=== PATIENT | male | born 1955 | race Caucasian/White ===

== ENCOUNTER 2016-08-21 12:30 | Inpatient (IN) | payer SELFPAY ==
[2016-08-21] VITALS (21 sets, daily range): BP systolic 126–168; BP diastolic 73–102; PULSE 65–185; RESP 16–28; TEMP 97.5–98.4; O2SAT 93–98
[~2016-08-21] VITALS: Ht 177.8 cm; Wt 71.0 kg
[~2016-08-21 12:30] MED LIST: BACT800T5 PO; CEPH500C3 PO; CLIN1CAP5 PO; FLOR250C PO
[2016-08-21] MEDS ORDERED: SODIUM CHLORIDE 0.9% FLUSH 10 ML FLUSH IVF PRN (12:45)
[2016-08-21 12:55] LABS: AUTOMATED NEUTROPHIL # 4.3 TH/MM3 (1.8-7.7); BASOPHIL # 0.2 TH/MM3 (0-0.2); BASOPHIL % 3.9 % (0.0-2.0); EOSINOPHIL % 0.1 % (0.0-4.0); HEMATOCRIT 45.2 % (39.0-51.0); LYMPH % 13.2 % (9.0-44.0); LYMPHOCYTE # 0.8 TH/MM3 (1.0-4.8); MEAN CELL VOLUME 108.3 FL (80.0-100.0); MEAN CORPUSCULAR HEMOGLOBIN 36.6 PG (27.0-34.0); MEAN CORPUSCULAR HGB CONC 33.8 % (32.0-36.0); MONO % 11.2 % (0.0-8.0); NEUT % 71.6 % (16.0-70.0); PLATELET COUNT 81 TH/MM3 (150-450); RED BLOOD COUNT 4.17 MIL/MM3 (4.50-5.90); RED CELL DISTRIBUTION WIDTH 13.2 % (11.6-17.2)
[2016-08-21 12:58] LABS: HEMO FLAGS AUTO DIFF
[2016-08-21] MEDS ORDERED: LORazepam 2 MG/ML VIAL IV PUSH ONE ×2 (13:00→16:15)
[2016-08-21] MEDS ORDERED: SODIUM CHLOR 0.9% 1000 ML INJ 1,000 ML IV ONE (13:00)
[2016-08-21 13:03] LABS: CHLORIDE 102 MEQ/L (98-107); POTASSIUM 3.4 MEQ/L (3.5-5.1); SODIUM (NA) 141 MEQ/L (136-145)
[2016-08-21 13:07] LABS: ANION GAP 15 MEQ/L (5-15); BICARBONATE 24.2 MEQ/L (21.0-32.0); MAGNESIUM 1.6 MG/DL (1.5-2.5)
[2016-08-21 13:08] LABS: BLOOD UREA NITROGEN 20 MG/DL (7-18)
[2016-08-21 13:10] LABS: ALT (GPT) 153 U/L (12-78); AST (GOT) 176 U/L (15-37)
[2016-08-21 13:11] LABS: GLOMERULAR FILTRATION RATE 69 ML/MIN (>89)
--- NOTE | 2016-08-21 13:11 | PD ---
HPI Chief Complaint: Dizziness Time Seen by Provider: 12:51 Travel History International Travel<30 days: No Contact w/Intl Traveler<30days: No Traveled to known affect area: No History of Present Illness HPI 58-year-old male with history of alcohol abuse, seen previously for alcohol withdrawal, presents to the ER today because he has had about 5 days history of syncopal episodes and possible seizure activity last occurring yesterday, but occurring intermittently according to his and other witnesses. He states that he has these episodes and finds himself on the ground. He has several abrasions to his knee and elbow areas. He denies any chest pains, shortness of breath, or any other symptoms. He states that he usually drinks cranberry and tonics, several a day. He states that he has tried to cut back in the last few days. He denies any previous seizure history. Modifying Factors: None Associated Signs & Symptoms: Syncopal episode, questionable seizures, new onset Risk Factors: Alcohol use PFSH Past Medical History Immunizations Current: Yes Social History Alcohol Use: Yes Tobacco Use: Yes (/2 PPD) Substance Use: No Allergies-Medications (Allergen,Severity, Reaction): Coded Allergies: Percocet (Verified Allergy, Severe, Itching, 08/21/16) Reported Meds & Prescriptions Reported Meds & Active Scripts Active No Active Prescriptions or Reported Medications Review of Systems Except as stated in HPI: all other systems reviewed are Neg Physical Exam Narrative GENERAL: Well-developed middle age white female patient currently in no acute distress. Awake and oriented 3. SKIN: Focused skin assessment warm/dry. No significant rashes. HEAD: Atraumatic. Normocephalic. EYES: Pupils equal and round. No scleral icterus. No injection or drainage. ENT: No nasal bleeding or discharge. Mucous membranes pink and moist. NECK: Trachea midline. No JVD. CARDIOVASCULAR: Fast rate and regular rhythm. No murmur appreciated. RESPIRATORY: No accessory muscle use. Clear to auscultation. Breath sounds equal bilaterally. GASTROINTESTINAL: Abdomen soft, non-tender, nondistended. Hepatic and splenic margins not palpable. MUSCULOSKELETAL: No obvious deformities. No clubbing. No cyanosis. No edema. NEUROLOGICAL: Awake and alert. No obvious cranial nerve deficits. Motor grossly within normal limits. Normal speech. PSYCHIATRIC: Appropriate mood and affect; insight and judgment normal. Data Data Last Documented VS Vital Signs Date Time Temp Pulse Resp B/P Pulse Ox O2 Delivery O2 Flow Rate FiO2 08/21/16 14:06 70 16 08/21/16 13:41 128/87 95 08/21/16 12:34 97.5 Orders Electrocardiogram (08/21/16 12:45) Complete Blood Count With Diff (08/21/16 12:45) Comprehensive Metabolic Panel (08/21/16 12:45) Magnesium (Mg) (08/21/16 12:45) Ecg Monitoring (08/21/16 12:45) Iv Access Insert/Monitor (08/21/16 12:45) Oximetry (08/21/16 12:45) Sodium Chloride 0.9% Flush (Ns Flush) (08/21/16 12:45) Drug Screen, Random Urine (08/21/16 12:45) Sodium Chlor 0.9% 1000 Ml Inj (Ns 1000 M (08/21/16 13:00) Ct Brain W/O Iv Contrast(Rout) (08/21/16 12:51) Lorazepam Inj (Ativan Inj) (08/21/16 13:00) Admit Order (Ed Use Only) (08/21/16 14:21) Labs Laboratory Tests Test 08/21/16 12:45 White Blood Count 6.0 TH/MM3 Red Blood Count 4.17 MIL/MM3 Hemoglobin 15.3 GM/DL Hematocrit 45.2 % Mean Corpuscular Volume 108.3 FL Mean Corpuscular Hemoglobin 36.6 PG Mean Corpuscular Hemoglobin 33.8 % Concent Red Cell Distribution Width 13.2 % Platelet Count 81 TH/MM3 Mean Platelet Volume 7.5 FL Neutrophils (%) (Auto) 71.6 % Lymphocytes (%) (Auto) 13.2 % Monocytes (%) (Auto) 11.2 % Eosinophils (%) (Auto) 0.1 % Basophils (%) (Auto) 3.9 % Neutrophils # (Auto) 4.3 TH/MM3 Lymphocytes # (Auto) 0.8 TH/MM3 Monocytes # (Auto) 0.7 TH/MM3 Eosinophils # (Auto) 0.0 TH/MM3 Basophils # (Auto) 0.2 TH/MM3 CBC Comment AUTO DIFF Differential Comment AUTO DIFF CONFIRMED Platelet Estimate LOW Platelet Morphology Comment NORMAL Sodium Level 141 MEQ/L Potassium Level 3.4 MEQ/L Chloride Level 102 MEQ/L Carbon Dioxide Level 24.2 MEQ/L Anion Gap 15 MEQ/L Blood Urea Nitrogen 20 MG/DL Creatinine 1.10 MG/DL Estimat Glomerular Filtration 69 ML/MIN Rate Random Glucose 154 MG/DL Calcium Level 9.1 MG/DL Magnesium Level 1.6 MG/DL Total Bilirubin 1.3 MG/DL Aspartate Amino Transf 176 U/L (AST/SGOT) Alanine Aminotransferase 153 U/L (ALT/SGPT) Alkaline Phosphatase 76 U/L Total Protein 7.6 GM/DL Albumin 3.7 GM/DL MDM Medical Decision Making Medical Screen Exam Complete: Yes Emergency Medical Condition: Yes Medical Record Reviewed: Yes Interpretation(s) Initial EKG shows atrial flutter with uncontrolled ventricular response at a rate of 150 bpm. No signs of acute ST-T changes. Laboratory Tests Test 08/21/16 12:45 Red Blood Count 4.17 MIL/MM3 (4.50-5.90) Mean Corpuscular Volume 108.3 FL (80.0-100.0) Mean Corpuscular Hemoglobin 36.6 PG (27.0-34.0) Platelet Count 81 TH/MM3 (150-450) Neutrophils (%) (Auto) 71.6 % (16.0-70.0) Monocytes (%) (Auto) 11.2 % (0.0-8.0) Basophils (%) (Auto) 3.9 % (0.0-2.0) Lymphocytes # (Auto) 0.8 TH/MM3 (1.0-4.8) Platelet Estimate LOW (NORMAL) Potassium Level 3.4 MEQ/L (3.5-5.1) Blood Urea Nitrogen 20 MG/DL (7-18) Estimat Glomerular Filtration 69 ML/MIN (>89) Rate Random Glucose 154 MG/DL (74-106) Total Bilirubin 1.3 MG/DL (0.2-1.0) Aspartate Amino Transf 176 U/L (15-37) (AST/SGOT) Alanine Aminotransferase 153 U/L (12-78) (ALT/SGPT) Differential Diagnosis Syncope versus seizures versus alcohol withdrawal versus electrolyte abnormalities versus dehydration Narrative Course Initial EKG shows significant near complex tachycardia, appears to be a atrial flutter. IV fluids were initiated in this patient. There is some concern that he may have some underlying alcohol withdrawal. Ativan was also given. And after the Ativan, his heart rate came down to the 80s. Lab work did not indicate significant lateral light abnormalities or dehydration. At this point , my plan would be to admit the patient for further treatment. Case is discussed with Dr. Moreno for admission. I have also discussed the case with patient's friend who takes me aside and states that the patient has been cutting down on alcohol use, states that he is not being honest about how much alcohol he uses. She is also concerned that this could be alcohol withdrawal. Patient has been in previously for alcohol withdrawals. There is concern here of possible DTs. Aggregate critical care time was 30 minutes. Time to perform other separately billable procedures was not included in the critical care time. My time did not include minutes spent treating any other patients simultaneously or on activities that did not directly contribute to the patient's treatment. The services I provided to this patient were to treat and/or prevent clinically significant deterioration that could result in: Worsening tachycardia dysrhythmias, seizures, DTs, I provided critical care services requiring my management, as noted below: Chart data review, documentation time, medication orders and management, vital sign assessments/reviewing monitor data, ordering and reviewing lab tests, ordering and interpreting/reviewing x-rays and diagnostic studies, care of the patient and discussion of the patient with the admitting physicians. Diagnosis Primary Impression: Tachycardia, paroxysmal Additional Impression: Alcohol withdrawal seizure Admitting Information Admitting Physician Requests: Admit Scripts No Active Prescriptions or Reported Meds Paul Stephenson MD Aug 21, 2016 13:11
[2016-08-21 13:12] LABS: TOTAL BILIRUBIN ADULT 1.3 MG/DL (0.2-1.0)
[2016-08-21 13:13] LABS: ALKALINE PHOSPHATASE 76 U/L (45-117)
[2016-08-21 13:18] LABS: PLATELET ESTIMATE SMEAR LOW (NORMAL); PLATELET MORPHOLOGY NORMAL (NORMAL); SCAN/DIFF AUTO DIFF CONFIRMED
--- NOTE | 2016-08-21 13:43 | RADHPO ---
EXAM DATE/TIME: 08/21/2016 13:03 [facility] COMPARISON: No previous studies available for comparison. INDICATIONS : Multiple syncopal episodes over the past week. Cephalgia. RADIATION DOSE: 63.79 CTDIvol (mGy) MEDICAL HISTORY : None SURGICAL HISTORY : None. ENCOUNTER: Initial ACUITY: 1 week PAIN SCALE: 7/10 LOCATION: cranial TECHNIQUE: Multiple contiguous axial images were obtained of the head. Using automated exposure control and adj ustment of the mA and/or kV according to patient size, radiation dose was kept as low as reasonably a chievable to obtain optimal diagnostic quality images. FINDINGS: CEREBRUM: The ventricles are normal for age. No evidence of midline shift, mass lesion, hemorrhage or acute in farction. No extra-axial fluid collections are seen. POSTERIOR FOSSA: The cerebellum and brainstem are intact. The 4th ventricle is midline. The cerebellopontine angle i s unremarkable. EXTRACRANIAL: The visualized portion of the orbits is intact. SKULL: The calvaria is intact. No evidence of skull fracture. CONCLUSION: Normal examination. Edouard Leone MD on August 21, 2016 at 13:40 Board Certified Radiologist. This report was verified electronically.
[2016-08-21] MEDS ORDERED: NALOXONE HCL 0.4 MG/ML AMP IV PRN (14:30)
[2016-08-21] MEDS ORDERED: MAGNESIUM OXIDE 400 MG TAB PO ONE (14:30)
[2016-08-21] MEDS ORDERED: POTASSIUM CHLORIDE 10 MEQ CONTROLLED RELEASE TAB PO ONE (14:30)
[2016-08-21] MEDS ORDERED: LORazepam 2 MG TAB PO PRN (14:30)
[2016-08-21] MEDS ORDERED: HALOPERIDOL LACTATE 5 MG/ML AMP IM PRN (14:30)
[2016-08-21] MEDS ORDERED: MAGNESIUM HYDROXIDE SUSP 30 ML CUP PO PRN (14:30)
[2016-08-21] MEDS ORDERED: FLUMAZENIL 0.5 MG/5 ML VIAL IV PUSH PRN (14:30)
[2016-08-21] MEDS ORDERED: ONDANSETRON HCL 4 MG/2 ML VIAL IVP PRN (14:30)
[2016-08-21] MEDS ORDERED: DILTIAZEM INJ 125 MG in SODIUM CHLORIDE 0.9% INJ 100 ML IV PRN (14:30)
[2016-08-21] MEDS ORDERED: LORazepam 1 MG TAB PO PRN (14:30)
[2016-08-21] MEDS ORDERED: LORazepam 2 MG/ML VIAL IV PUSH PRN ×4 (14:30)
[2016-08-21] MEDS ORDERED: SODIUM CHLORIDE 0.9% FLUSH 10 ML FLUSH IV FLUSH PRN (14:30)
[2016-08-21] MEDS ORDERED: BISACODYL 10 MG SUPP RECTAL PRN (14:30)
[2016-08-21] MEDS: NS + KCL 20 MEQ INJ 1,000 ML IV SCH (15:00)
--- NOTE | 2016-08-21 17:20 | EKG ---
Date Performed: 08/21/2016 Time Performed: 12:49:26 PTAGE: 61 years EKG: Atrial fib/flutter with uncontrolled ventricular response Left axis deviation Ant/septal an d lateral ST-T changes are nonspecific Abnormal ECG PREVIOUS TRACING : 09/27/2015 11.47 Compared to previous tracing, atrial fib/flutter has replac ed Sinus rhythm , heart rate has increased, anterolateral T wave inversion is no longer evident. DOCTOR: Elan Morales Interpretating Date/Time 08/21/2016 17:19:24
--- NOTE | 2016-08-21 17:35 | RADHPO ---
EXAM DATE/TIME: 08/21/2016 16:52 [facility] COMPARISON: No previous studies available for comparison. INDICATIONS : Syncope. MEDICAL HISTORY : Seizures. SURGICAL HISTORY : None. ENCOUNTER: Subsequent ACUITY: 1 day PAIN SCORE: 3/10 LOCATION: cranial TECHNIQUE: Multiplanar, multisequence MRI of the brain was performed without contrast. FINDINGS: CEREBRUM: Mild symmetric central and cortical atrophic change. No evidence of midline shift, mass lesion, hemor rhage or acute infarction. No extraaxial fluid collections are seen. The pituitary gland and supras ellar cistern are normal in configuration. WHITE MATTER: Scattered punctate areas of nonspecific white matter T2 prolongation. POSTERIOR FOSSA: The cerebellum and brainstem are intact. The 4th ventricle is midline. The cerebellopontine angle is unremarkable. The cerebellar tonsils are normal in position. DIFFUSION IMAGING: No focal areas of restricted diffusion are seen. No evidence of acute infarction. EXTRACRANIAL: The visualized portions of the orbits and paranasal sinuses are unremarkable. 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 No acute intracranial findings Edouard Leone MD on August 21, 2016 at 17:29 Board Certified Radiologist. This report was verified electronically.
[2016-08-21] MEDS ORDERED: CHLORHEXIDINE GLUCONATE 2 % 1 PACK (2 CLOTHS)(extra cloths) TOPICAL PRN (18:00)
--- NOTE | 2016-08-21 18:14 | HHI.HP ---
[facility] Service [place] [facility] Primary Care Physician No Primary Care Physician Admission Diagnosis alcohol withdrawal/new onset seizures/tachycardia Diagnoses: (1) Atrial flutter Diagnosis: Principal (2) Syncope Diagnosis: Principal (3) Hypokalemia Diagnosis: Principal (4) Hyperglycemia Diagnosis: Principal (5) Macrocytosis Diagnosis: Principal (6) Elevated liver enzymes Diagnosis: Principal (7) Alcohol abuse Chief Complaint: Syncopal episodes Travel History International Travel<30 Days: No Contact w/Intl Traveler <30 Da: No Traveled to Known Affected Are: No History of Present Illness 61-year-old male with no chronic medical illnesses who presented to hospital because of syncopal episodes. Patient indicates they have been normal state of health until about a week ago when he started having syncopal episodes. He states that it happens after he walks approximately 2030 feet. He is usually in a sitting or laying position when he stands up and walks and then he gets really lightheaded and dizzy and is had episodes of syncope. He does have signs of multiple bruises and different stages of healing. Had abrasions with healing. He denies any loss of bowel or bladder control, biting of the tongue or any post syncopal confusion. Patient states that last time he had an episode was yesterday. Patient does have history of chronic alcohol use and is not very forthcoming with how much alcohol use on a daily basis. Patient did have episode of tachycardia of 185 with EKG showing atrial flutter on emergency department. Does not appear as if patient was given any medication in the heart rate did improve. ER physician recommended patient be admitted for further evaluation and management. Review of Systems Constitutional: DENIES: Diaphoretic episodes, Fatigue, Fever, Weight gain, Weight loss, Chills, Dizziness, Change in appetite, Night Sweats Eyes: DENIES: Blurred vision, Diplopia, Eye inflammation, Eye pain, Vision loss , Double Vision Ears, nose, mouth, throat: DENIES: Vertigo, Nasal discharge, Throat pain, Ear Pain, Running Nose, Sinus Pain Respiratory: DENIES: Apneas, Cough, Snoring, Wheezing, Hemoptysis, Sputum production, Shortness of breath Cardiovascular: COMPLAINS OF: Syncope, DENIES: Chest pain, Palpitations, Dyspnea on Exertion, Lower Extremity Edema, Orthopnea Gastrointestinal: DENIES: Abdominal pain, Black stools, Bloody stools, Constipation, Diarrhea, Nausea, Vomiting, Difficulty Swallowing, Anorexia Neurologic: DENIES: Abnormal gait, Headache, Localized weakness, Paresthesias, Seizures, Speech Problems, Tremor, Poor Balance Past Family Social History Past Medical History No previous medical history Past Surgical History No indication of any surgeries Reported Medications No home medications Allergies: Coded Allergies: Percocet (Verified Allergy, Severe, Itching, 08/21/16) Family History Reviewed the patient denies any significant history Social History Patient smokes a half pack a cigarettes a day, does not indicate how long he was hoping for. Patient is not forthcoming about how much alcohol use on daily basis. He started out only drinking 2 beers a day then it progressed to 4 beers a day, then progressed to 4 beers and 2 vodka and cranberry juice daily Physical Exam Vital Signs Vital Signs Date Time Temp Pulse Resp B/P Pulse Ox O2 Delivery O2 Flow Rate FiO2 08/21/16 16:01 95 20 152/79 97 08/21/16 14:54 81 20 143/84 98 08/21/16 14:06 70 16 08/21/16 13:41 166 20 128/87 95 08/21/16 13:25 96 20 126/87 98 08/21/16 12:56 185 20 139/73 98 08/21/16 12:50 98 08/21/16 12:34 97.5 96 18 129/73 98 Physical Exam GENERAL: Well-developed, well-nourished, in no acute distress. alert and orientated SKIN: Spider nevi HEENT: Head is normocephalic without any patient has healing abrasion noted on posterior scalp. Facial features are symmetric. Eyes: Pupils equal round reactive to light. Extraocular muscles are intact. Conjunctivae were clear. Oropharyngeal: Pharynx without any erythema edema. Tongue is midline without deviation. Buccal mucosa is moist without any masses or lesions NECK: Supple without any masses. Trachea midline no deviation. No JVD, no bruits are appreciated CARDIAC: Irregular rhythm, irregular rate. S1/S2 are heard. No murmurs gallops or rubs. LUNGS: Clear to auscultation bilaterally. No wheeze, rhonchi or rales. No use of accessory muscles on inspiration or expiration. ABDOMEN: Soft, nontender. Nondistended. Bowel sounds heard in all 4 quadrants. Negative rebound, negative guarding EXTREMITIES: No edema, pulses are equal bilaterally. No cyanosis or clubbing. Arms and legs have multiple bruises, abrasions in multiple stages of healing, bilateral knees, left forearm. NEUROLOGY: Mood and affect appear appropriate. Cranial nerves II through XII grossly intact. Muscle strength 5/5 in upper and lower extremities bilaterally. Deep tendon reflexes are 2+ in upper and lower extremities bilaterally. Laboratory Laboratory Tests Test 08/21/16 08/21/16 12:45 14:45 White Blood Count 6.0 Red Blood Count 4.17 Hemoglobin 15.3 Hematocrit 45.2 Mean Corpuscular Volume 108.3 Mean Corpuscular Hemoglobin 36.6 Mean Corpuscular Hemoglobin 33.8 Concent Red Cell Distribution Width 13.2 Platelet Count 81 Mean Platelet Volume 7.5 Neutrophils (%) (Auto) 71.6 Lymphocytes (%) (Auto) 13.2 Monocytes (%) (Auto) 11.2 Eosinophils (%) (Auto) 0.1 Basophils (%) (Auto) 3.9 Neutrophils # (Auto) 4.3 Lymphocytes # (Auto) 0.8 Monocytes # (Auto) 0.7 Eosinophils # (Auto) 0.0 Basophils # (Auto) 0.2 CBC Comment AUTO DIFF Differential Comment AUTO DIFF CONFIRMED Platelet Estimate LOW Platelet Morphology Comment NORMAL Sodium Level 141 Potassium Level 3.4 Chloride Level 102 Carbon Dioxide Level 24.2 Anion Gap 15 Blood Urea Nitrogen 20 Creatinine 1.10 Estimat Glomerular Filtration 69 Rate Random Glucose 154 Calcium Level 9.1 Magnesium Level 1.6 Total Bilirubin 1.3 Aspartate Amino Transf 176 (AST/SGOT) Alanine Aminotransferase 153 (ALT/SGPT) Alkaline Phosphatase 76 Total Protein 7.6 Albumin 3.7 Total Creatine Kinase 187 Troponin I 0.03 Vitamin B12 Level 532 Thyroid Stimulating Hormone 0.497 3rd Gen Result Diagram: 08/21/16 1245 08/21/16 1245 Imaging Last Impressions Head CT 08/21/16 1251 Signed Impressions: Service Date/Time: August 13:03 - CONCLUSION: Normal examination. 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 No acute intracranial findings Edouard Leone MD Assessment and Plan Assessment and Plan Syncopal episodes: Patient indicates that he has a syncopal episodes mainly after he stands up and walks approximately 2030 feet. Patient also found to have atrial flutter(EKG tacing interpreted by me with Fib/Flutter) with heart rate 185 in the emergency department. Could be secondary to postural hypotension/atrial flutter. He denies any loss of bowel or bladder control, postictal state, biting of his tongue. There is no indication that there was any witnessed seizure activity. CT the brain does not indicate any acute abnormality. 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 Patient admitted to ICU with telemetry. Heart rate controlled at this time. Check orthostatics Atrial flutter, new onset: Heart rate controlled at this time. Chads 0, recommend aspirin daily. TSH was normal. Chronic alcohol use with associated macrocytosis, elevated liver enzymes and low platelets: Need to monitor for withdrawal symptoms. Seizure Precautions. CIWA protocol. Counseled patient on cessation. Patient started on thiamine and folic acid. Continue follow liver enzymes. Obtain alcohol level and drug screen Hypokalemia: Continue monitoring place as needed DVT prevention: Sequential compression devices, no chemical prophylaxis 2/2 thrombocytopenia Written by Bipin Kennedy PA-C, acting as scribe for Dr. Moreno on 08/21/16 at 1730. The documentation accurately reflects the work and decisions performed face-to- face by Dr. Moreno on 08/21/16 at 1730. This note was transcribed by scribe Bipin Kennedy PA-C. I, Dr. Eladio Moreno personally performed the history, physical exam, and medical decision making; and confirmed the accuracy of the information in the transcribed note. Authenticated by Dr. Eladio Moreno on 08/21/16 at 20:24. Discussed Condition With patient Physician Certification 2 Midnight Certification Type: Admission for Inpatient Services Order for Inpatient Services The services are ordered in accordance with Medicare regulations or non- Medicare payer requirements, as applicable. In the case of services not specified as inpatient-only, they are appropriately provided as inpatient services in accordance with the 2-midnight benchmark. Estimated LOS (days): 2 days is the estimated time the patient will need to remain in the hospital, assuming treatment plan goals are met and no additional complications. Post-Hospital Plan: Not yet determined Bipin Kennedy Aug 21, 2016 18:14 Eladio Moreno MD Aug 21, 2016 20:22
[2016-08-21 18:25] LABS: AMPHETAMINE, URINE NEG (NEG)
[2016-08-21 18:26] LABS: BARBITURATES, URINE NEG (NEG)
[2016-08-21 18:31] LABS: COCAINE, URINE NEG (NEG)
[2016-08-21] MEDS: ASPIRIN EC 81 MG TABEC PO SCH (18:37)
[2016-08-21] MEDS: SODIUM CHLORIDE 0.9% FLUSH 10 ML FLUSH IV FLUSH SCH (21:03)
[2016-08-22] VITALS (19 sets, daily range): BP systolic 117–171; BP diastolic 66–105; PULSE 63–94; RESP 16–27; TEMP 98.2–98.9; O2SAT 93–98
[2016-08-22] MEDS: NS + KCL 20 MEQ INJ 1,000 ML IV SCH ×2 (02:55→14:20)
[2016-08-22] MEDS: CHLORHEXIDINE GLUCONATE 2 % 1 PACK (2 CLOTHS)(taper/protocol) TOPICAL SCH ×2 (02:55→23:29)
[2016-08-22 06:08] LABS: CHLORIDE 100 MEQ/L (98-107); POTASSIUM 3.5 MEQ/L (3.5-5.1); SODIUM (NA) 138 MEQ/L (136-145)
[2016-08-22 06:13] LABS: ANION GAP 12 MEQ/L (5-15); BICARBONATE 25.7 MEQ/L (21.0-32.0); BLOOD UREA NITROGEN 15 MG/DL (7-18)
[2016-08-22 06:16] LABS: ALT (GPT) 117 U/L (12-78); AST (GOT) 102 U/L (15-37); GLOMERULAR FILTRATION RATE 98 ML/MIN (>89)
[2016-08-22 06:18] LABS: TOTAL BILIRUBIN ADULT 1.7 MG/DL (0.2-1.0)
[2016-08-22 06:19] LABS: ALKALINE PHOSPHATASE 72 U/L (45-117)
[2016-08-22] MEDS ORDERED: POTASSIUM CHLOR 40 MEQ PREMIX 100 ML IV PRN ×2 (09:00)
[2016-08-22] MEDS ORDERED: MAGNESIUM SULFATE INJ 2 GM in SODIUM CHLORIDE 0.9% INJ 96 ML IV PRN (09:00)
[2016-08-22] MEDS ORDERED: POTASSIUM CHLOR 20 MEQ PREMIX 100 ML IV PRN ×2 (09:00)
[2016-08-22] MEDS ORDERED: POTASSIUM PHOSPHATE MONOBASIC 500 MG TAB PO/TUBE PRN (09:00)
[2016-08-22] MEDS ORDERED: MAGNESIUM SULFATE INJ 4 GM in SODIUM CHLORIDE 0.9% INJ 92 ML IV PRN (09:00)
[2016-08-22] MEDS ORDERED: MAGNESIUM OXIDE 400 MG TAB PO PRN (09:00)
[2016-08-22] MEDS ORDERED: POTASSIUM PHOSPHATE MONOBASIC 500 MG TAB PO PRN (09:00)
[2016-08-22] MEDS ORDERED: SODIUM PHOSPHATE INJ 30 MMOL in SODIUM CHLOR 0.9% 250 ML INJ 240 ML IV PRN (09:00)
[2016-08-22] MEDS ORDERED: POTASSIUM CHLORIDE 25 MEQ EFFERVESCENT TAB PO PRN (09:00)
[2016-08-22] MEDS ORDERED: POTASSIUM PHOSPHATE INJ 30 MMOL in SODIUM CHLOR 0.9% 250 ML INJ 250 ML IV PRN (09:00)
[2016-08-22] MEDS: SODIUM CHLORIDE 0.9% FLUSH 10 ML FLUSH IV FLUSH SCH ×2 (09:00→21:28)
--- NOTE | 2016-08-22 09:26 | EC ---
Study Study Date:08/22/2016 STUDY CONCLUSIONS SUMMARY - Procedure narrative: Transthoracic echocardiography. Image quality was good. Scanning was performed from the parasternal, apical, and subcostal acoustic windows. - Left ventricle: The cavity size was normal. Wall thickness was at the upper limits of normal. Systolic function was normal. The estimated ejection fraction was in the range of 55% to 60%. Wall motion was normal; there were no regional wall motion abnormalities. - Mitral valve: Mildly thickened, mildly calcified anterior leaflet. - Tricuspid valve: Trace regurgitation. - Pulmonary arteries: PA peak pressure: 51mm Hg (S). If LV function is below 40, please consider prescribing an ACEI or ARB or document rationale for non-use. PROCEDURE DATA STUDY STATUS: Elective. Procedure: Transthoracic echocardiography. Image quality was good. Scanning was performed from the parasternal, apical, and subcostal acoustic windows. Study completion: The patient tolerated the procedure well. Transthoracic echocardiography. M-mode, complete 2D, complete spectral Doppler, and color Doppler. Patient status: Inpatient. CARDIAC ANATOMY LEFT VENTRICLE: The cavity size was normal. Wall thickness was at the upper limits of normal. Systolic function was normal. The estimated ejection fraction was in the range of 55% to 60%. Wall motion was normal; there were no regional wall motion abnormalities. AORTIC VALVE: Trileaflet; normal thickness leaflets. Doppler: Transvalvular velocity was within the normal range. There was no stenosis. No regurgitation. AORTA: Aortic root: The aortic root was normal in size. MITRAL VALVE: Mildly thickened, mildly calcified anterior leaflet. Doppler: Transvalvular velocity was within the normal range. There was no evidence for stenosis. No regurgitation. LEFT ATRIUM: The atrium was normal in size. RIGHT VENTRICLE: The cavity size was normal. Wall thickness was normal. PULMONIC VALVE: Doppler: Transvalvular velocity was within the normal range. There was no evidence for stenosis. No regurgitation. TRICUSPID VALVE: Structurally normal valve. Doppler: Transvalvular velocity was within the normal range. Trace regurgitation. PULMONARY ARTERY: The main pulmonary artery was normal-sized. Systolic pressure was within the normal range. RIGHT ATRIUM: The atrium was normal in size. PERICARDIUM: There was no pericardial effusion. SYSTEMIC VEINS: Inferior vena cava: The vessel was normal in size. BASIC MEASUREMENTS ADULT Normal Left ventricle LV internal dimension, ED, chordal level, 45.1 mm 43-52 PLAX LV internal dimension, ES, chordal level, 34.7 mm 23-38 PLAX Fractional shortening, chordal level, PLAX *23 % >29 LV posterior wall thickness, ED 11.6 mm IVS/LVPW ratio, ED *1.42 <1.3 Ventricular septum Septal thickness, ED 16.5 mm Aortic valve Leaflet separation 19 mm 15-26 Right ventricle RV internal dimension, ED, PLAX 27.6 mm 19-38 BASIC MEASUREMENTS ADULT Normal Aortic valve Leaflet separation 19 mm 15-26 Aorta Root diameter, ED *40 mm 20-37 Left atrium Anterior-posterior dimension, ES *41 mm 19-40 LA/aortic root ratio 1.03 DOPPLER MEASUREMENTS ADULT Normal Main pulmonary artery Pressure, S *51 mm Hg =30 Tricuspid valve Regurgitant peak velocity 322 cm/s Peak RV-RA gradient, S 41 mm Hg Maximal regurgitant velocity 322 cm/s Systemic veins Estimated CVP 10 mm Hg Right ventricle RV pressure, S *51 mm Hg <30 LEGEND: Mean values are shown as u=mean value. Asterisk (*) omer values outside specified normal range. Prepared and signed by Elan Morales [id number]
[2016-08-22] MEDS: FOLIC ACID 1 MG TAB PO SCH (09:51)
[2016-08-22] MEDS: MULTIVITAMINS/MINERALS THERAPEUTIC TAB PO SCH (09:51)
[2016-08-22] MEDS: ASPIRIN EC 81 MG TABEC PO SCH (09:51)
[2016-08-22] MEDS: THIAMINE HCL 100 MG TAB PO SCH (09:51)
[2016-08-22] MEDS ORDERED: PNEUMOCOCCAL POLYVALENT INJ 25 MCG/0.5 ML SYR IM ONE (10:00)
[2016-08-22] MEDS ORDERED: INFLUENZA VIRUS VACCINE (QUADRIVALENT) 0.5 ML SYR IM ONE (10:00)
--- NOTE | 2016-08-22 11:33 | HHI.PR ---
Subjective Remarks Patient seen and examined today with Dr. Moreno. Patient appears to be resting carefully in bed. Mild tremors. Patient denies any recurrent syncope or there has not been any witnessed seizures. Patient states that he feels good and is eager to go home. Objective Vitals Vital Signs Date Time Temp Pulse Resp B/P Pulse Ox O2 Delivery O2 Flow Rate FiO2 08/22/16 10:00 68 08/22/16 10:00 68 20 165/87 96 08/22/16 09:00 68 19 140/66 95 08/22/16 08:00 79 20 137/86 97 08/22/16 08:00 70 08/22/16 07:00 98.7 70 24 117/68 95 08/22/16 06:00 72 08/22/16 06:00 72 20 152/89 94 08/22/16 05:00 66 17 147/89 08/22/16 04:00 98.7 70 19 145/83 93 08/22/16 04:00 70 08/22/16 03:00 70 19 137/70 08/22/16 02:00 76 08/22/16 02:00 76 24 152/95 08/22/16 01:00 68 17 137/73 08/22/16 00:15 63 16 135/73 08/22/16 00:02 98.4 84 22 171/105 93 08/22/16 00:00 70 08/21/16 23:00 86 24 163/102 08/21/16 22:00 68 08/21/16 22:00 68 08/21/16 22:00 68 18 156/90 08/21/16 21:00 76 25 160/96 96 08/21/16 20:08 91 08/21/16 20:00 98.3 92 25 150/90 94 08/21/16 20:00 96 21 08/21/16 19:30 86 21 157/86 94 08/21/16 19:00 86 28 148/89 08/21/16 18:31 65 08/21/16 18:31 65 08/21/16 18:30 90 27 158/96 94 08/21/16 18:25 65 08/21/16 18:02 97 21 08/21/16 18:00 70 20 163/89 08/21/16 17:33 98.4 72 24 168/90 93 08/21/16 16:01 95 20 152/79 97 08/21/16 14:54 81 20 143/84 98 08/21/16 14:06 70 16 08/21/16 13:41 166 20 128/87 95 08/21/16 13:25 96 20 126/87 98 08/21/16 12:56 185 20 139/73 98 08/21/16 12:50 98 08/21/16 12:34 97.5 96 18 129/73 98 I/O 08/21/16 08/21/16 08/21/16 08/22/16 08/22/16 08/22/16 07:00 15:00 23:00 07:00 15:00 23:00 Intake Total 621 ml 1029 ml Output Total 575 ml 750 ml Balance 46 ml 279 ml Intake Oral 360 ml 360 ml IV Total 261 ml 669 ml Output Urine Total 575 ml 750 ml # Bowel Movements 0 0 Result Diagram: 08/21/16 1245 08/22/16 0530 Objective Remarks GENERAL: Well-developed, well-nourished, in no acute distress. alert and orientated HEENT: Head is normocephalic without any lesions or masses noted. Facial features are symmetric. Eyes: Extraocular muscles are intact. Conjunctivae were clear. NECK: Supple without any masses. Trachea midline no deviation. No JVD, CARDIAC: Regular rhythm, regular rate. S1/S2 are heard. No murmurs gallops or rubs. LUNGS: Clear to auscultation bilaterally. No wheeze, rhonchi or rales. No use of accessory muscles on inspiration or expiration. ABDOMEN: Soft, nontender. Nondistended. Bowel sounds heard in all 4 quadrants. No organomegaly or masses. Negative rebound, negative guarding EXTREMITIES: No edema, pulses are equal bilaterally. No cyanosis or clubbing NEUROLOGY: Mood and affect appear appropriate. Cranial nerves II through XII grossly intact. Moving all extremities, speech is clear. Mild extremity tremors Urinary Catheter: No Vascular Central Line Catheter: No A/P Assessment and Plan Syncopal episodes: Patient indicates that he has a syncopal episodes mainly after he stands up and walks approximately 20-30 feet. Patient also found to have atrial flutter(EKG tacing interpreted by me with Fib/Flutter) with heart rate 185 in the emergency department, heart rate controlled at this time. Likely secondary to postural hypotension/atrial flutter/alcohol intoxication. He denies any loss of bowel or bladder control, postictal state, biting of his tongue. There is no indication that there was any witnessed seizure activity. CT the brain does not indicate any acute abnormality. 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 Awaiting EEG report. Atrial flutter, new onset: Heart rate controlled at this time. Chads 0, recommend aspirin daily. TSH was normal. Echocardiogram indicates normal systolic function, ejection fraction 5560 percent. PA peak pressure 51 mmhg. Mildly thickened mitral valve, trace of tricuspid regurgitation. Chronic alcohol use with associated macrocytosis, elevated liver enzymes and thrombocytopenia: Need to monitor for withdrawal symptoms. Seizure Precautions. [facility] protocol. Counseled patient on cessation. Continue thiamine and folic acid. Continue follow liver enzymes. Alcohol level was 87, urine drug screen positive for cannabinoids Hypokalemia: Continue monitoring place as needed DVT prevention: Sequential compression devices, no chemical prophylaxis secondary to thrombocytopenia Written by Bipin Kennedy, acting as scribe for Dr. Moreno on 08/22/16 at 11: 32. This note was transcribed by scribe Bipin Kennedy,. I, Dr. Eladio Moreno personally performed the history, physical exam, and medical decision making; and confirmed the accuracy of the information in the transcribed note. Authenticated by Dr. Eladio Moreno on 08/22/16 at 14:00. Discharge Planning Hold discharge today secondary to unsteady gait and increased risks of falls. We'll continue physical therapy Bipin Kennedy Aug 22, 2016 11:33 Eladio Moreno MD Aug 22, 2016 14:01 Medications per medication reconciliation Follow-up primary medical doctor in one week Bipin Kennedy Aug 22, 2016 11:33 Eladio Moreno MD Aug 22, 2016 14:01
[2016-08-22] MEDS ORDERED: CHLO25CA2 PO (13:08)
--- NOTE | 2016-08-22 23:10 | MG ---
cc: KISHA FELTON MD Lab No: [id number] Date: 08/22/16 Age: 61 Sex: M Race: DATE OF 1955 A 61-year-old with history of 5 days of syncopal episodes, past seizure activity. ___, awake, drowsy, asleep during the recording. 8 to 10 Hz activity, 20-40 microvolts, low amplitude ___ in the frontal channels. Significant myogenic frequency artifact occurring in the left greater than right frontal temporal region which improved towards the midway point of the recording. Attenuation background suggestive of drowsy state. ____ noted with photic stimulation. Good EEG variability, reactivity. Single lead EKG showing sinus rhythm. INTERPRETATION Normal awake, sleep EEG. Clinical correlation. Kisha Felton MD MG/EO /10:12 PM /10:55 PM
[2016-08-23] VITALS (9 sets, daily range): BP systolic 84–150; BP diastolic 71–91; PULSE 68–83; RESP 12–20; TEMP 97.6–99.4; O2SAT 95–99
[2016-08-23] MEDS: THIAMINE HCL 100 MG TAB PO SCH (10:01)
[2016-08-23] MEDS: ASPIRIN EC 81 MG TABEC PO SCH (10:01)
[2016-08-23] MEDS: MULTIVITAMINS/MINERALS THERAPEUTIC TAB PO SCH (10:02)
[2016-08-23] MEDS: SODIUM CHLORIDE 0.9% FLUSH 10 ML FLUSH IV FLUSH SCH ×2 (10:02→21:37)
[2016-08-23] MEDS: FOLIC ACID 1 MG TAB PO SCH (10:02)
[2016-08-23] MEDS ORDERED: SODIUM CHLOR 0.9% 1000 ML INJ 1,000 ML IV ONE (10:15)
--- NOTE | 2016-08-23 10:22 | HHI.PR ---
Subjective Remarks Patient seen and examined with Dr. Moreno. Patient states that he gets significantly dizzy and lightheaded whenever he stands up even just for short period has to get back in bed. Patient states that he does not feel comfortable going home at this time. Objective Vitals Vital Signs Date Time Temp Pulse Resp B/P Pulse Ox O2 Delivery O2 Flow Rate FiO2 08/23/16 08:45 73 150/91 105/82 84/71 08/23/16 08:13 97 08/23/16 08:00 98.2 74 20 149/78 98 08/23/16 04:49 98.3 75 12 144/81 95 08/23/16 00:15 08/23/16 00:08 83 08/22/16 23:54 98.9 74 20 164/91 08/22/16 20:00 98.2 93 20 168/92 08/22/16 20:00 72 08/22/16 19:20 98 21 08/22/16 16:00 98.3 94 27 148/88 08/22/16 12:00 98.5 84 21 151/86 96 I/O 08/22/16 08/22/16 08/22/16 08/23/16 08/23/16 08/23/16 07:00 15:00 23:00 07:00 15:00 23:00 Intake Total 1029 ml 480 ml 600 ml Output Total 750 ml 550 ml 400 ml 300 ml Balance 279 ml -70 ml 200 ml -300 ml Intake Oral 360 ml 480 ml 600 ml IV Total 669 ml Output Urine Total 750 ml 550 ml 400 ml 300 ml # Voids 4 # Bowel Movements 0 0 Result Diagram: 08/21/16 1245 08/22/16 0530 Objective Remarks GENERAL: Well-developed, well-nourished, in no acute distress. alert and orientated HEENT: Head is normocephalic without any lesions or masses noted. Facial features are symmetric. Eyes: Extraocular muscles are intact. Conjunctivae were clear. NECK: Supple without any masses. Trachea midline no deviation. No JVD, CARDIAC: Regular rhythm, regular rate. S1/S2 are heard. No murmurs gallops or rubs. LUNGS: Clear to auscultation bilaterally. No wheeze, rhonchi or rales. No use of accessory muscles on inspiration or expiration. ABDOMEN: Soft, nontender. Nondistended. Bowel sounds heard in all 4 quadrants. No organomegaly or masses. Negative rebound, negative guarding EXTREMITIES: No edema, pulses are equal bilaterally. No cyanosis or clubbing NEUROLOGY: Mood and affect appear appropriate. Cranial nerves II through XII grossly intact. Moving all extremities, speech is clear. Mild extremity tremors Urinary Catheter: No Vascular Central Line Catheter: No A/P Assessment and Plan Syncopal episodes: Patient indicates that he has a syncopal episodes mainly after he stands up and walks approximately 20-30 feet. Patient also found to have atrial flutter(EKG tacing interpreted by me with Fib/Flutter) with heart rate 185 in the emergency department, heart rate controlled at this time. Orthostatic vitals were obtained which were significantly positive. Likely secondary to postural hypotension/atrial flutter/alcohol intoxication. He denies any loss of bowel or bladder control, postictal state, biting of his tongue. There is no indication that there was any witnessed seizure activity. CT the brain does not indicate any acute abnormality. 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 EEG indicates normal awake sleep EEG. We'll place GOLDEN hose on patient, bolus IV fluid, continue monitor orthostatic vitals. Patient instructed to continue to walk with nursing staff and physical therapy. Atrial flutter, new onset: Heart rate controlled at this time. Chads 0, recommend aspirin daily. TSH was normal. Echocardiogram indicates normal systolic function, ejection fraction 5560 percent. PA peak pressure 51 mmhg. Mildly thickened mitral valve, trace of tricuspid regurgitation. Chronic alcohol use with associated macrocytosis, elevated liver enzymes and thrombocytopenia: Need to monitor for withdrawal symptoms. Seizure Precautions. [facility] protocol. Counseled patient on cessation. Continue thiamine and folic acid. Continue follow liver enzymes. Alcohol level was 87, urine drug screen positive for cannabinoids Hypokalemia: Continue monitoring place as needed DVT prevention: Sequential compression devices, no chemical prophylaxis secondary to thrombocytopenia Written by Bipin Kennedy, acting as scribe for Dr. Moreno on 08/23/16 at 10: 21. This note was transcribed by scribe Bipin Kennedy,. I, Dr. Eladio Moreno personally performed the history, physical exam, and medical decision making; and confirmed the accuracy of the information in the transcribed note. Authenticated by Dr. Eladio Moreno on 08/23/16 at 13:31. Discharge Planning Plan discharge home when patient clinically stable. Bipin Kennedy Aug 23, 2016 10:22 Eladio Moreno MD Aug 23, 2016 13:31
[2016-08-23 17:35] LABS: AUTOMATED NEUTROPHIL # 3.9 TH/MM3 (1.8-7.7); BASOPHIL % 0.3 % (0.0-2.0); EOSINOPHIL % 0.3 % (0.0-4.0); HEMATOCRIT 42.6 % (39.0-51.0); LYMPH % 13.9 % (9.0-44.0); LYMPHOCYTE # 0.7 TH/MM3 (1.0-4.8); MEAN CELL VOLUME 108.6 FL (80.0-100.0); MEAN CORPUSCULAR HEMOGLOBIN 36.3 PG (27.0-34.0); MEAN CORPUSCULAR HGB CONC 33.5 % (32.0-36.0); MONO % 11.5 % (0.0-8.0); PLATELET COUNT 80 TH/MM3 (150-450); RED BLOOD COUNT 3.93 MIL/MM3 (4.50-5.90); RED CELL DISTRIBUTION WIDTH 13.1 % (11.6-17.2); WHITE BLOOD COUNT 5.2 TH/MM3 (4.0-11.0)
[2016-08-23 17:43] LABS: HEMO FLAGS AUTO DIFF
[2016-08-23 17:44] LABS: POTASSIUM 3.4 MEQ/L (3.5-5.1)
[2016-08-23 17:47] LABS: BICARBONATE 24.4 MEQ/L (21.0-32.0); MAGNESIUM 1.7 MG/DL (1.5-2.5)
[2016-08-23 18:09] LABS: SCAN/DIFF AUTO DIFF CONFIRMED
[2016-08-23] MEDS ORDERED: POTASSIUM CHLORIDE 20 MEQ CONTROLLED RELEASE TAB PO ONE (19:00)
[2016-08-24] VITALS: BP 157/97; PULSE 72; RESP 20; TEMP 98.2; O2SAT 98
[2016-08-24] MEDS: CHLORHEXIDINE GLUCONATE 2 % 1 PACK (2 CLOTHS)(taper/protocol) TOPICAL SCH (04:00)
[2016-08-24 08:00] VITALS: BP_SYST 122; BP_SYST 149; BP_SYST 90; BP_DIAS 75; BP_DIAS 77; BP_DIAS 81; PULSE 61; RESP 18; TEMP 98.3; O2SAT 97
[2016-08-24 08:41] LABS: POTASSIUM 3.7 MEQ/L (3.5-5.1)
[2016-08-24 08:43] LABS: AUTOMATED NEUTROPHIL # 3.6 TH/MM3 (1.8-7.7); BASOPHIL % 0.5 % (0.0-2.0); EOSINOPHIL % 0.7 % (0.0-4.0); HEMATOCRIT 43.1 % (39.0-51.0); LYMPH % 16.1 % (9.0-44.0); LYMPHOCYTE # 0.8 TH/MM3 (1.0-4.8); MEAN CELL VOLUME 109.4 FL (80.0-100.0); MEAN CORPUSCULAR HEMOGLOBIN 37.4 PG (27.0-34.0); MEAN CORPUSCULAR HGB CONC 34.2 % (32.0-36.0); MONO % 13.3 % (0.0-8.0); NEUT % 69.4 % (16.0-70.0); PLATELET COUNT 84 TH/MM3 (150-450); RED BLOOD COUNT 3.94 MIL/MM3 (4.50-5.90); WHITE BLOOD COUNT 5.1 TH/MM3 (4.0-11.0)
[2016-08-24 08:47] LABS: BICARBONATE 24.2 MEQ/L (21.0-32.0); MAGNESIUM 1.9 MG/DL (1.5-2.5)
[2016-08-24 08:48] LABS: HEMO FLAGS AUTO DIFF
[2016-08-24 09:22] LABS: PLATELET ESTIMATE SMEAR LOW (NORMAL); PLATELET MORPHOLOGY NORMAL (NORMAL); SCAN/DIFF AUTO DIFF CONFIRMED
[2016-08-24] MEDS: THIAMINE HCL 100 MG TAB PO SCH (09:49)
[2016-08-24] MEDS: ASPIRIN EC 81 MG TABEC PO SCH (09:49)
[2016-08-24] MEDS: FOLIC ACID 1 MG TAB PO SCH (09:50)
[2016-08-24] MEDS: MULTIVITAMINS/MINERALS THERAPEUTIC TAB PO SCH (09:50)
[2016-08-24] MEDS: DOCUSATE SODIUM 50 MG/SENNA 8.6 MG TAB PO SCH ×2 (09:54→20:28)
--- NOTE | 2016-08-24 10:30 | HHI.PR ---
Subjective Remarks Patient seen and examined today with Dr. Moreno. Patient states that he feels as he is improving, however he still getting lightheaded and dizzy whenever he stands up, not near as bad as he did before. Objective Vitals Vital Signs Date Time Temp Pulse Resp B/P Pulse Ox O2 Delivery O2 Flow Rate FiO2 08/24/16 08:00 98.3 61 18 149/81 97 122/75 90/77 08/24/16 00:00 98.2 72 20 157/97 98 08/23/16 20:00 68 08/23/16 20:00 99.4 70 19 149/89 97 117/83 102/79 08/23/16 16:00 98.7 79 18 122/81 96 08/23/16 12:00 97.6 70 18 143/85 99 I/O 08/23/16 08/23/16 08/23/16 08/24/16 08/24/16 08/24/16 07:00 15:00 23:00 07:00 15:00 23:00 Intake Total 360 ml 1480 ml 480 ml Output Total 300 ml 1150 ml 550 ml 700 ml Balance -300 ml -790 ml 930 ml -220 ml Intake Oral 360 ml 480 ml 480 ml IV Total 1000 ml Output Urine Total 300 ml 1150 ml 550 ml 700 ml # Voids 2 # Bowel Movements 0 0 0 Result Diagram: 08/24/1681408/24/16814 Objective Remarks GENERAL: Well-developed, well-nourished, in no acute distress. alert and orientated HEENT: Head is normocephalic without any lesions or masses noted. Facial features are symmetric. Eyes: Extraocular muscles are intact. Conjunctivae were clear. NECK: Supple without any masses. Trachea midline no deviation. No JVD, CARDIAC: Regular rhythm, regular rate. S1/S2 are heard. No murmurs gallops or rubs. LUNGS: Clear to auscultation bilaterally. No wheeze, rhonchi or rales. No use of accessory muscles on inspiration or expiration. ABDOMEN: Soft, nontender. Nondistended. Bowel sounds heard in all 4 quadrants. No organomegaly or masses. Negative rebound, negative guarding EXTREMITIES: No edema, pulses are equal bilaterally. No cyanosis or clubbing NEUROLOGY: Mood and affect appear appropriate. Cranial nerves II through XII grossly intact. Moving all extremities, speech is clear. Mild extremity tremors Urinary Catheter: No Vascular Central Line Catheter: No A/P Assessment and Plan Syncopal episodes: Patient indicates that he has a syncopal episodes mainly after he stands up and walks approximately 20-30 feet. Patient also found to have atrial flutter(EKG tacing interpreted by me with Fib/Flutter) with heart rate 185 in the emergency department, heart rate controlled at this time. Orthostatic vitals were obtained which were significantly positive. Likely secondary to postural hypotension/atrial flutter/alcohol intoxication. He denies any loss of bowel or bladder control, postictal state, biting of his tongue. There is no indication that there was any witnessed seizure activity. CT the brain does not indicate any acute abnormality. 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 She indicates normal awake sleep EEG. Continue GOLDEN hose on patient, apply abdominal binder, continue IV fluids, continue monitor orthostatic vitals. Patient instructed to continue to walk with nursing staff and physical therapy. Atrial flutter, new onset: Heart rate controlled at this time. Chads 0, recommend aspirin daily. TSH was normal. Echocardiogram indicates normal systolic function, ejection fraction 5560 percent. PA peak pressure 51 mmhg. Mildly thickened mitral valve, trace of tricuspid regurgitation. Chronic alcohol use with associated macrocytosis, elevated liver enzymes and thrombocytopenia: Need to monitor for withdrawal symptoms. Seizure Precautions. Discontinue [facility] protocol. Counseled patient on cessation. Continue thiamine and folic acid. Continue follow liver enzymes. Alcohol level was 87, urine drug screen positive for cannabinoids Hypokalemia: Continue monitoring place as needed DVT prevention: Sequential compression devices, no chemical prophylaxis secondary to thrombocytopenia Written by Bipin Kennedy, acting as scribe for Dr. Moreno on 08/24/16 at 10: 30. This note was transcribed by scribe Bipin Kennedy. I, Dr. Eladio Moreno personally performed the history, physical exam, and medical decision making; and confirmed the accuracy of the information in the transcribed note. Authenticated by Dr. Eladio Moreno on 08/24/16 at 15:26. Discharge Planning Plan discharge home when patient clinically stable. He is not a safe discharge at this time secondary to ongoing orthostasis. Ideally needs to be discharged to rehabilitation but no payor source. Will discuss with case management Bipin Kennedy Aug 24, 2016 10:30 Eladio Moreno MD Aug 24, 2016 15:27
[2016-08-24] MEDS ORDERED: ONDANSETRON ODT 4 MG TAB PO PRN (10:45)
[2016-08-24] MEDS: NS + KCL 20 MEQ INJ 1,000 ML IV SCH ×2 (11:42→20:29)
[2016-08-24] MEDS: SODIUM CHLORIDE 0.9% FLUSH 10 ML FLUSH IV FLUSH SCH ×2 (11:43→20:27)
[2016-08-24 12:00] VITALS: BP 133/87; PULSE 71; RESP 18; TEMP 98.8; O2SAT 98
[2016-08-24 16:00] VITALS: BP 139/71; PULSE 74; RESP 18; TEMP 98; O2SAT 97
[2016-08-24 20:38] VITALS: BP_SYST 121; BP_SYST 125; BP_SYST 126; BP_DIAS 60; BP_DIAS 69; BP_DIAS 71; PULSE 69; RESP 16; TEMP 98.6; O2SAT 97
[2016-08-24 22:27] VITALS: PULSE 70
[2016-08-25] VITALS (13 sets, daily range): BP systolic 102–156; BP diastolic 64–95; PULSE 59–87; RESP 16–20; TEMP 97.5–98.8; O2SAT 95–99
[2016-08-25] MEDS: NS + KCL 20 MEQ INJ 1,000 ML IV SCH ×2 (06:00→14:37)
[2016-08-25 06:14] LABS: CHLORIDE 105 MEQ/L (98-107); POTASSIUM 3.8 MEQ/L (3.5-5.1); SODIUM (NA) 139 MEQ/L (136-145)
[2016-08-25 06:18] LABS: ANION GAP 11 MEQ/L (5-15); BICARBONATE 23.1 MEQ/L (21.0-32.0); BLOOD UREA NITROGEN 16 MG/DL (7-18)
[2016-08-25 06:21] LABS: ALT (GPT) 73 U/L (12-78); AST (GOT) 63 U/L (15-37); GLOMERULAR FILTRATION RATE 95 ML/MIN (>89)
[2016-08-25 06:24] LABS: ALKALINE PHOSPHATASE 63 U/L (45-117)
[2016-08-25] MEDS: THIAMINE HCL 100 MG TAB PO SCH (09:33)
[2016-08-25] MEDS: FOLIC ACID 1 MG TAB PO SCH (09:33)
[2016-08-25] MEDS: MULTIVITAMINS/MINERALS THERAPEUTIC TAB PO SCH (09:40)
[2016-08-25] MEDS: ASPIRIN EC 81 MG TABEC PO SCH (09:40)
[2016-08-25] MEDS: SODIUM CHLORIDE 0.9% FLUSH 10 ML FLUSH IV FLUSH SCH ×2 (09:41→20:42)
[2016-08-25] MEDS: DOCUSATE SODIUM 50 MG/SENNA 8.6 MG TAB PO SCH ×2 (09:41→20:42)
--- NOTE | 2016-08-25 09:46 | HHI.PR ---
Subjective Remarks Patient seen and examined today with Dr. Moreno for follow-up on lightheadedness , dizziness, orthostasis. Patient had orthostatic vitals performed last night with wearing [place] hose and they were normal. Unable to get abdominal binder had to be ordered through supply. Orthostatic vitals done this morning without [place] hose still showing abnormality. Requesting nurse to repeat orthostatics with [place] hose. Patient states that he still having dizziness whenever he stands up. Denies any recurrent syncope Objective Vitals Vital Signs Date Time Temp Pulse Resp B/P Pulse Ox O2 Delivery O2 Flow Rate FiO2 08/25/16 08:02 78 109/79 08/25/16 08:02 66 146/95 08/25/16 08:01 97.5 70 20 147/88 95 08/25/16 04:00 98.4 61 16 139/81 99 08/25/16 00:00 98.5 70 18 139/88 99 08/24/16 22:27 70 08/24/16 20:38 98.6 69 16 125/71 97 126/69 121/60 08/24/16 16:00 98.0 74 18 139/71 97 08/24/16 12:00 98.8 71 18 133/87 98 I/O 08/24/16 08/24/16 08/24/16 08/25/16 08/25/16 08/25/16 07:00 15:00 23:00 07:00 15:00 23:00 Intake Total 480 ml 907 ml 853 ml Output Total 700 ml 760 ml Balance -220 ml 147 ml 853 ml Intake Oral 480 ml 480 ml IV Total 427 ml 853 ml Output Urine Total 700 ml 760 ml # Bowel Movements 0 1 Result Diagram: 08/24/16 0815 08/25/16 0550 Objective Remarks GENERAL: Well-developed, well-nourished, in no acute distress. alert and orientated HEENT: Head is normocephalic without any lesions or masses noted. Facial features are symmetric. Eyes: Extraocular muscles are intact. Conjunctivae were clear. NECK: Supple without any masses. Trachea midline no deviation. No JVD, CARDIAC: Regular rhythm, regular rate. S1/S2 are heard. No murmurs gallops or rubs. LUNGS: Clear to auscultation bilaterally. No wheeze, rhonchi or rales. No use of accessory muscles on inspiration or expiration. ABDOMEN: Soft, nontender. Nondistended. Bowel sounds heard in all 4 quadrants. No organomegaly or masses. Negative rebound, negative guarding EXTREMITIES: No edema, pulses are equal bilaterally. No cyanosis or clubbing NEUROLOGY: Mood and affect appear appropriate. Cranial nerves II through XII grossly intact. Moving all extremities, speech is clear. Mild extremity tremors Urinary Catheter: No Vascular Central Line Catheter: No A/P Assessment and Plan Syncopal episodes: Patient indicates that he has a syncopal episodes mainly after he stands up and walks approximately 20-30 feet. Patient also found to have atrial flutter(EKG tacing interpreted by me with Fib/Flutter) with heart rate 185 in the emergency department, heart rate controlled at this time. Orthostatic vitals were obtained which were significantly positive. Likely secondary to postural hypotension/atrial flutter/alcohol intoxication. He denies any loss of bowel or bladder control, postictal state, biting of his tongue. There is no indication that there was any witnessed seizure activity. CT the brain does not indicate any acute abnormality. 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 EEG indicates normal awake sleep EEG. Continue [place] hose on patient, apply abdominal binder, continue IV fluids, continue monitor orthostatic vitals. Patient instructed to continue to walk with nursing staff and physical therapy. -Still orthostatic 08/25/16 hour patient not wearing [place] and does not have abdominal binder. Patient advised also discussed with RN Atrial flutter, new onset: Heart rate controlled at this time. Chads 0, recommend aspirin daily. TSH was normal. Echocardiogram indicates normal systolic function, ejection fraction 5560 percent. PA peak pressure 51 mmhg. Mildly thickened mitral valve, trace of tricuspid regurgitation. Chronic alcohol use with associated macrocytosis, elevated liver enzymes and thrombocytopenia: Need to monitor for withdrawal symptoms. Seizure Precautions. Discontinue [facility]WA protocol. Counseled patient on cessation. Continue thiamine and folic acid. Continue follow liver enzymes. Alcohol level was 87, urine drug screen positive for cannabinoids Hypokalemia: Continue monitoring place as needed DVT prevention: Sequential compression devices, no chemical prophylaxis secondary to thrombocytopenia Written by Bipin Kennedy, acting as scribe for Dr. Moreno on 08/25/16 at 09: 46. This note was transcribed by scribe Bipin Celison. I, Dr. Eladio Moreno personally performed the history, physical exam, and medical decision making; and confirmed the accuracy of the information in the transcribed note. Authenticated by Dr. Eladio Moreno on 08/25/16 at 15:19. Discharge Planning Plan discharge home when orthostatic vitals are improved and cleared by physical therapy Bipin Kennedy Aug 25, 2016 09:46 Eladio Moreno MD Aug 25, 2016 15:19
[2016-08-25] MEDS ORDERED: VITA100T2 PO (15:21)
[2016-08-25] MEDS ORDERED: ASPI81TA11 PO (15:21)
--- NOTE | 2016-08-25 15:22 | HHI.DCPOC ---
Discharge Care Plan Diagnosis: (1) Syncope (2) Atrial flutter Your Health Problems Are: Difficulty with ADL Exercise Tolerance Goals to Promote Your Health * To prevent worsening of your condition and complications * To maintain your health at the optimal level Directions to Meet Your Goals Take your medications as prescribed Follow your dietary instruction Follow activity as directed Keep your appointments as scheduled Take your immunizations and boosters as scheduled If your symptoms worsen call your PCP, if no PCP go to Urgent Care Center or Emergency Room Smoking is Dangerous to Your Health. Avoid second hand smoke Call the 24-hour hour crisis hotline for domestic abuse at Eladio Moreno MD Aug 25, 2016 15:22
[2016-08-25] MEDS ORDERED: WALKER WHEELS/F1 MIS (15:24)
[2016-08-26] VITALS (11 sets, daily range): BP systolic 92–161; BP diastolic 74–97; PULSE 63–92; RESP 18–20; TEMP 97.3–99.5; O2SAT 97–99
[2016-08-26] MEDS: DOCUSATE SODIUM 50 MG/SENNA 8.6 MG TAB PO SCH ×2 (09:00→22:16)
[2016-08-26] MEDS: MULTIVITAMINS/MINERALS THERAPEUTIC TAB PO SCH (09:25)
[2016-08-26] MEDS: ASPIRIN EC 81 MG TABEC PO SCH (09:25)
[2016-08-26] MEDS: THIAMINE HCL 100 MG TAB PO SCH (09:25)
[2016-08-26] MEDS: SODIUM CHLORIDE 0.9% FLUSH 10 ML FLUSH IV FLUSH SCH ×2 (09:26→21:00)
[2016-08-26] MEDS: FOLIC ACID 1 MG TAB PO SCH (09:26)
--- NOTE | 2016-08-26 14:04 | HHI.PR ---
Subjective Remarks Follow-up for orthostatic dizziness. Patient has been wearing GOLDEN hose and abdominal binder. He ambulated some with PT today. His sleep he's able to ambulate better and dizziness is improving some, but dizziness is definitely still present. He does have some assistance at home, but not throughout the day. Objective Vitals Vital Signs Date Time Temp Pulse Resp B/P Pulse Ox O2 Delivery O2 Flow Rate FiO2 08/26/16 12:06 92 92/75 08/26/16 12:03 83 133/84 08/26/16 12:00 98.7 65 20 143/85 99 08/26/16 08:05 80 114/77 08/26/16 08:02 76 144/79 08/26/16 08:00 99.5 68 20 152/88 97 08/26/16 00:00 98.3 63 18 155/97 97 08/25/16 20:00 98.8 68 18 148/88 98 08/25/16 16:06 75 129/81 08/25/16 16:03 78 142/77 08/25/16 16:00 97.5 67 18 148/85 98 I/O 08/25/16 08/25/16 08/25/16 08/26/16 08/26/16 08/26/16 06:59 14:59 22:59 06:59 14:59 22:59 Intake Total 853 ml 2768 ml 680 ml 760 ml Output Total 500 ml 350 ml Balance 853 ml 2268 ml 680 ml 410 ml Intake Oral 1268 ml 680 ml 760 ml IV Total 853 ml 1500 ml Output Urine Total 500 ml 350 ml # Voids 3 # Bowel Movements 1 0 0 Result Diagram: 08/24/16 0815 08/25/16 0550 Imaging Last Impressions Head CT 08/21/16 1251 Signed Impressions: Service Date/Time: August 13:03 - CONCLUSION: Normal examination. 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 No acute intracranial findings Edouard Leone MD Objective Remarks GENERAL: Well-developed well-nourished. In no acute distress. SKIN: Warm and dry. No lesions noted. HEENT: Normocephalic. Pupils equal and round. Mucous membranes pink and moist. CARDIOVASCULAR: Regular rate and rhythm. No murmur appreciated. RESPIRATORY: No accessory muscle use. Clear to auscultation. Breath sounds equal bilaterally. GASTROINTESTINAL: Abdomen soft, non-tender, nondistended. Bowel sounds x4. MUSCULOSKELETAL: No obvious deformities. No clubbing or cyanosis. No edema. NEUROLOGICAL: Awake and alert. No focal neurological deficits. Moves upper and lower extremities spontaneously. Normal speech. PSYCHIATRIC: Appropriate mood and affect; insight and judgment normal. A/P Problem List: (1) Atrial flutter ICD Code: I48.92 Status: Acute (2) Syncope ICD Code: R55 Status: Acute (3) Hypokalemia ICD Code: E87.6 Status: Acute (4) Hyperglycemia ICD Code: R73.9 Status: Acute (5) Macrocytosis ICD Code: D75.89 Status: Acute (6) Elevated liver enzymes ICD Code: R74.8 Status: Acute (7) Alcohol abuse ICD Code: F10.10 Status: Acute Assessment and Plan Syncopal episodes: Patient indicates that he has a syncopal episodes mainly after he stands up and walks approximately 20-30 feet. Patient also found to have atrial flutter with heart rate 185 in the emergency department, heart rate controlled at this time. Orthostatic vitals were obtained which were significantly positive. Likely secondary to postural hypotension/atrial flutter /alcohol intoxication. He denies any loss of bowel or bladder control, postictal state, biting of his tongue. There is no indication that there was any witnessed seizure activity. CT the brain does not indicate any acute abnormality. 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 EEG indicates normal awake sleep EEG. Continue GOLDEN hose on patient, apply abdominal binder, continue monitor orthostatic vitals. Patient instructed to continue to walk with nursing staff and physical therapy. -Still orthostatic 08/26/16 with GOLDEN hose and abdominal binder. Add Cl. DC'd IVF. Atrial flutter, new onset: Heart rate controlled at this time. Chads 0, recommend aspirin daily. TSH was normal. Echocardiogram indicates normal systolic function, ejection fraction 5560 percent. PA peak pressure 51 mmhg. Mildly thickened mitral valve, trace of tricuspid regurgitation. Chronic alcohol use with associated macrocytosis, elevated liver enzymes and thrombocytopenia: No further signs of withdrawal, CIWA was DC'd. Seizure Precautions. Counseled patient on cessation. Continue thiamine and folic acid. Continue follow liver enzymes. Alcohol level was 87, urine drug screen positive for cannabinoids. Hypokalemia: Replaced now within normal limits. Resolved. DVT prevention: SCDs, avoid chemical prophylaxis secondary to thrombocytopenia Written by Neville Howard, acting as scribe for Dr. Moreno on 08/26/16 at 14:01. This note was transcribed by scribe []. I, Dr. Eladio Moreno personally performed the history, physical exam, and medical decision making; and confirmed the accuracy of the information in the transcribed note. Authenticated by Dr. Eladio Moreno on 08/26/16 at 21:47. Discharge Planning Hopefully discharge soon if patient continues to improve especially with the addition of Florinef. Neville Howard Aug 26, 2016 14:04 Eladio Moreno MD Aug 26, 2016 21:47
[2016-08-26] MEDS: FLUDROCORTISONE ACETATE 0.1 MG TAB PO SCH (14:50)
[2016-08-27] VITALS: BP_SYST 122; BP_SYST 138; BP_SYST 160; BP_DIAS 75; BP_DIAS 83; BP_DIAS 91; PULSE 77; RESP 18; TEMP 97.8; O2SAT 98
[2016-08-27 08:00] VITALS: BP_SYST 69; BP_SYST 82; BP_SYST 96; BP_DIAS 49; BP_DIAS 55; BP_DIAS 74; PULSE 78; RESP 18; TEMP 98.6; O2SAT 99
[2016-08-27] MEDS: ASPIRIN EC 81 MG TABEC PO SCH (08:27)
[2016-08-27] MEDS: THIAMINE HCL 100 MG TAB PO SCH (08:27)
[2016-08-27] MEDS: DOCUSATE SODIUM 50 MG/SENNA 8.6 MG TAB PO SCH ×2 (08:27→20:16)
[2016-08-27] MEDS: FLUDROCORTISONE ACETATE 0.1 MG TAB PO SCH (08:27)
[2016-08-27] MEDS: SODIUM CHLORIDE 0.9% FLUSH 10 ML FLUSH IV FLUSH SCH ×2 (08:28→20:16)
[2016-08-27 12:00] VITALS: BP 142/73; PULSE 72; RESP 18; TEMP 98.9; O2SAT 99
--- NOTE | 2016-08-27 14:27 | HHI.PR ---
Subjective Remarks Follow-up orthostatic hypotension. The patient still becomes lightheaded with standing, but states that the symptoms are less severe than when he came in. Denies chest pain or dyspnea. Cough has improved. Objective Vitals Vital Signs Date Time Temp Pulse Resp B/P Pulse Ox O2 Delivery O2 Flow Rate FiO2 08/27/16 12:00 98.9 72 18 142/73 99 08/27/16 08:00 98.6 78 18 96/74 99 82/55 69/49 08/27/16 00:00 97.8 77 18 160/91 98 138/83 122/75 08/26/16 20:00 97.3 70 18 161/93 98 130/81 120/87 08/26/16 16:06 76 103/74 08/26/16 16:03 74 121/84 08/26/16 16:00 99.3 66 20 129/85 98 I/O 08/26/16 08/26/16 08/26/16 08/27/16 08/27/16 08/27/16 07:00 15:00 23:00 07:00 15:00 23:00 Intake Total 760 ml 870 ml 240 ml 240 ml Output Total 350 ml 450 ml 350 ml 500 ml Balance 410 ml 420 ml -110 ml -260 ml Intake Oral 760 ml 870 ml 240 ml 240 ml Output Urine Total 350 ml 450 ml 350 ml 500 ml # Bowel Movements 0 0 1 Result Diagram: 08/24/16 0815 08/25/16 0550 Imaging Last Impressions Head CT 08/21/16 1251 Signed Impressions: Service Date/Time: August 13:03 - CONCLUSION: Normal examination. 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 No acute intracranial findings Edouard Leone MD Objective Remarks General: No acute distress. Heart: Regular rate and rhythm. No murmur. Lungs: Clear to auscultation bilaterally. No wheezes, rales, or rhonchi. Breathing is nonlabored. Abdomen: Soft, nontender, nondistended. Extremities: No lower extremity edema. Psych: Alert and oriented. Procedures None Urinary Catheter: No Vascular Central Line Catheter: No A/P Problem List: (1) Atrial flutter ICD Code: I48.92 Status: Acute (2) Syncope ICD Code: R55 Status: Acute (3) Hypokalemia ICD Code: E87.6 Status: Acute (4) Hyperglycemia ICD Code: R73.9 Status: Acute (5) Macrocytosis ICD Code: D75.89 Status: Acute (6) Elevated liver enzymes ICD Code: R74.8 Status: Acute (7) Alcohol abuse ICD Code: F10.10 Status: Acute Assessment and Plan 1. Syncopal episodes, orthostatic hypotension: The patient was found to have atrial flutter with rapid rate in the ER. Rate is now controlled. Still continues to have low blood pressures on standing. Continue Florinef. 2. Atrial flutter, new onset: Rate controlled. Continue aspirin. Chads 0. Echo shows normal systolic function with EF 55-60%. 3. Chronic alcohol use: Patient has macrocytosis, elevated LFTs, thrombocytopenia. No active signs of withdrawal. CIWA protocol discontinued. Continue seizure precautions. Patient has been counseled regarding cessation of alcohol use. Continue thiamine, folic acid. 4. DVT prophylaxis: SCDs. Avoid chemical prophylaxis secondary to thrombocytopenia. Discharge Planning Plan for discharge soon if orthostatic hypotension improves. Bipin Turcios MD Aug 27, 2016 14:26
[2016-08-27 16:00] VITALS: BP 134/74; PULSE 76; RESP 18; TEMP 98.4; O2SAT 98
[2016-08-27 20:00] VITALS: BP_SYST 115; BP_SYST 116; BP_SYST 150; BP_DIAS 71; BP_DIAS 83; BP_DIAS 84; PULSE 71; PULSE 76; PULSE 86; RESP 20; TEMP 98.6; O2SAT 96
[2016-08-28] VITALS: BP 134/82; PULSE 73; RESP 20; TEMP 98.2; O2SAT 98
[2016-08-28] MEDS: DOCUSATE SODIUM 50 MG/SENNA 8.6 MG TAB PO SCH ×2 (09:00→21:00)
[2016-08-28 09:01] VITALS: BP 143/90; PULSE 84; RESP 14; TEMP 98.7; O2SAT 97
[2016-08-28 09:02] VITALS: BP_SYST 101; BP_SYST 143; BP_SYST 98; BP_DIAS 53; BP_DIAS 63; BP_DIAS 90; PULSE 84; RESP 14; TEMP 98.7; O2SAT 97
[2016-08-28] MEDS: ASPIRIN EC 81 MG TABEC PO SCH (09:03)
[2016-08-28] MEDS: THIAMINE HCL 100 MG TAB PO SCH (09:03)
[2016-08-28] MEDS: SODIUM CHLORIDE 0.9% FLUSH 10 ML FLUSH IV FLUSH SCH ×2 (09:04→22:56)
[2016-08-28] MEDS: FLUDROCORTISONE ACETATE 0.1 MG TAB PO SCH (09:09)
--- NOTE | 2016-08-28 10:07 | HHI.PR ---
Subjective Remarks Follow-up orthostatic hypotension. Patient still having dizziness when standing. No chest pain or shortness of breath. No other complaints at this time. States that he has learned to stand up very slowly from his bed. He has been a manipulating with a walker. Objective Vitals Vital Signs Date Time Temp Pulse Resp B/P Pulse Ox O2 Delivery O2 Flow Rate FiO2 08/28/16 09:02 98.7 84 14 143/90 97 98/63 101/53 08/28/16 09:01 98.7 84 14 143/90 97 08/28/16 00:00 98.2 73 20 134/82 98 08/27/16 20:00 76 115/84 08/27/16 20:00 86 116/71 08/27/16 20:00 98.6 71 20 150/83 96 08/27/16 16:00 98.4 76 18 134/74 98 08/27/16 12:00 98.9 72 18 142/73 99 I/O 08/27/16 08/27/16 08/27/16 08/28/16 08/28/16 08/28/16 07:00 15:00 23:00 07:00 15:00 23:00 Intake Total 240 ml 750 ml 600 ml 60 ml Output Total 500 ml Balance -260 ml 750 ml 600 ml 60 ml Intake Oral 240 ml 750 ml 600 ml 60 ml Output Urine Total 500 ml # Voids 4 4 2 # Bowel Movements 1 0 0 Result Diagram: 08/24/16 0815 08/25/16 0550 Imaging Last Impressions Head CT 08/21/16 1251 Signed Impressions: Service Date/Time: August 13:03 - CONCLUSION: Normal examination. 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 No acute intracranial findings Edouard Leone MD Objective Remarks General: No acute distress. Heart: Regular rate and rhythm. No murmur. Lungs: Clear to auscultation bilaterally. No wheezes, rales, or rhonchi. Breathing is nonlabored. Abdomen: Soft, nontender, nondistended. Extremities: No lower extremity edema. GOLDEN hose. Psych: Alert and oriented. Procedures None Urinary Catheter: No Vascular Central Line Catheter: No A/P Problem List: (1) Atrial flutter ICD Code: I48.92 Status: Acute (2) Syncope ICD Code: R55 Status: Acute (3) Hypokalemia ICD Code: E87.6 Status: Acute (4) Hyperglycemia ICD Code: R73.9 Status: Acute (5) Macrocytosis ICD Code: D75.89 Status: Acute (6) Elevated liver enzymes ICD Code: R74.8 Status: Acute (7) Alcohol abuse ICD Code: F10.10 Status: Acute Assessment and Plan 1. Syncopal episodes, orthostatic hypotension: The patient was found to have atrial flutter with rapid rate in the ER. Rate is now controlled. Still continues to have low blood pressures on standing. Continue Florinef. 2. Atrial flutter, new onset: Rate controlled. Continue aspirin. Chads 0. Echo shows normal systolic function with EF 55-60%. 3. Chronic alcohol use: Patient has macrocytosis, elevated LFTs, thrombocytopenia. No active signs of withdrawal. CIWA protocol discontinued. Continue seizure precautions. Patient has been counseled regarding cessation of alcohol use. Continue thiamine, folic acid. 4. DVT prophylaxis: SCDs. Avoid chemical prophylaxis secondary to thrombocytopenia. Discharge Planning Plan for discharge soon if pending arrangements for safety discharge. Case management to assist with follow-up. Bipin Turcios MD Aug 28, 2016 10:07
[2016-08-28 13:49] VITALS: BP 128/70; PULSE 73; RESP 15; TEMP 98.7; O2SAT 97
[2016-08-28 18:22] VITALS: BP 144/88; PULSE 85; RESP 16; TEMP 98.2; O2SAT 96
[2016-08-28 20:00] VITALS: BP_SYST 126; BP_SYST 137; BP_SYST 145; BP_DIAS 77; BP_DIAS 82; BP_DIAS 85; PULSE 72; RESP 18; TEMP 98.5; O2SAT 100
[2016-08-29] VITALS: BP 140/88; PULSE 65; RESP 18; TEMP 97.7; O2SAT 97
[2016-08-29] MEDS: DOCUSATE SODIUM 50 MG/SENNA 8.6 MG TAB PO SCH ×2 (09:00→21:00)
[2016-08-29 09:29] VITALS: BP_SYST 112; BP_SYST 143; BP_SYST 87; BP_DIAS 66; BP_DIAS 67; BP_DIAS 89; PULSE 71; RESP 16; TEMP 96.7; O2SAT 98
[2016-08-29] MEDS: THIAMINE HCL 100 MG TAB PO SCH (09:35)
[2016-08-29] MEDS: ASPIRIN EC 81 MG TABEC PO SCH (09:35)
[2016-08-29] MEDS: FLUDROCORTISONE ACETATE 0.1 MG TAB PO SCH (09:35)
[2016-08-29] MEDS: SODIUM CHLORIDE 0.9% FLUSH 10 ML FLUSH IV FLUSH SCH ×2 (09:36→22:13)
--- NOTE | 2016-08-29 10:28 | HHI.PR ---
Subjective Remarks Follow up orthostatic hypotension. Patient had significant drop in BP this morning with standing. He continues to have dizziness/lightheadedness with ambulation. No chest pain, dyspnea. Objective Vitals Vital Signs Date Time Temp Pulse Resp B/P Pulse Ox O2 Delivery O2 Flow Rate FiO2 08/29/16 09:29 96.7 71 16 143/89 98 112/67 87/66 08/29/16 00:00 97.7 65 18 140/88 97 08/28/16 20:00 98.5 72 18 145/85 100 137/82 126/77 08/28/16 18:22 98.2 85 16 144/88 96 08/28/16 13:49 98.7 73 15 128/70 97 I/O 08/28/16 08/28/16 08/28/16 08/29/16 08/29/16 08/29/16 07:00 15:00 23:00 07:00 15:00 23:00 Intake Total 60 ml 1200 ml 720 ml Output Total 250 ml Balance 60 ml 1200 ml 470 ml Intake Oral 60 ml 1200 ml 720 ml Output Urine Total 250 ml # Voids 2 4 3 # Bowel Movements 0 1 1 Result Diagram: 08/25/16 0550 Imaging Last Impressions Head CT 08/21/16 1251 Signed Impressions: Service Date/Time: August 13:03 - CONCLUSION: Normal examination. 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 No acute intracranial findings Edouard Leone MD Objective Remarks General: No acute distress. Heart: Regular rate and rhythm. No murmur. Lungs: Clear to auscultation bilaterally. No wheezes, rales, or rhonchi. Breathing is nonlabored. Abdomen: Soft, nontender, nondistended. Extremities: No lower extremity edema. GOLDEN hose. Psych: Alert and oriented. Procedures None Urinary Catheter: No Vascular Central Line Catheter: No A/P Problem List: (1) Atrial flutter ICD Code: I48.92 Status: Acute (2) Syncope ICD Code: R55 Status: Acute (3) Hypokalemia ICD Code: E87.6 Status: Resolved (4) Hyperglycemia ICD Code: R73.9 Status: Resolved (5) Macrocytosis ICD Code: D75.89 Status: Acute (6) Elevated liver enzymes ICD Code: R74.8 Status: Acute (7) Alcohol abuse ICD Code: F10.10 Status: Chronic Assessment and Plan 1. Syncopal episodes, orthostatic hypotension: The patient was found to have atrial flutter with rapid rate in the ER. Rate is now controlled. Still continues to have low blood pressures and symptoms with standing, ambulation. Increase Florinef. Continue PT. 2. Atrial flutter, new onset: Rate controlled. Continue aspirin. Chads 0. Echo shows normal systolic function with EF 55-60%. 3. Chronic alcohol use: Patient has macrocytosis, elevated LFTs, thrombocytopenia. No active signs of withdrawal. CIWA protocol discontinued. Continue seizure precautions. Patient has been counseled regarding cessation of alcohol use. Continue thiamine, folic acid. 4. DVT prophylaxis: SCDs. Avoid chemical prophylaxis secondary to thrombocytopenia. Discharge Planning Plan for discharge soon, pending arrangements for safe discharge. Case management to assist with follow-up. Bipin Turcios MD Aug 29, 2016 10:28
[2016-08-29] MEDS ORDERED: FLUDROCORTISONE ACETATE 0.1 MG TAB PO ONE (11:30)
[2016-08-29 12:54] VITALS: BP 119/75; PULSE 78; RESP 14; TEMP 97.3; O2SAT 98
[2016-08-29 15:55] VITALS: BP 143/93; PULSE 81; RESP 16; TEMP 97.6; O2SAT 100
[2016-08-29 21:39] VITALS: BP 154/88; PULSE 89; RESP 20; TEMP 98.5; O2SAT 99
[2016-08-29 21:40] VITALS: BP_SYST 120; BP_SYST 154; BP_SYST 165; BP_DIAS 81; BP_DIAS 88; PULSE 89; RESP 20; TEMP 98.5; O2SAT 99
[2016-08-30] VITALS (7 sets, daily range): BP systolic 115–157; BP diastolic 75–92; PULSE 64–87; RESP 16–20; TEMP 98.7–99.3; O2SAT 97–99
[2016-08-30] MEDS: ASPIRIN EC 81 MG TABEC PO SCH (08:42)
[2016-08-30] MEDS: THIAMINE HCL 100 MG TAB PO SCH (08:42)
[2016-08-30] MEDS: SODIUM CHLORIDE 0.9% FLUSH 10 ML FLUSH IV FLUSH SCH ×2 (08:43→20:54)
[2016-08-30] MEDS: FLUDROCORTISONE ACETATE 0.1 MG TAB PO SCH (08:43)
[2016-08-30] MEDS: DOCUSATE SODIUM 50 MG/SENNA 8.6 MG TAB PO SCH ×2 (08:43→20:53)
--- NOTE | 2016-08-30 13:58 | HHI.PR ---
Subjective Remarks Follow-up dizziness, lightheadedness, orthostatic hypotension. Patient is still having dizziness/lightheadedness with ambulation, but states that it is a little better than yesterday. Objective Vitals Vital Signs Date Time Temp Pulse Resp B/P Pulse Ox O2 Delivery O2 Flow Rate FiO2 08/30/16 12:00 98.7 64 16 145/81 98 08/30/16 08:06 87 115/76 08/30/16 08:03 75 121/75 08/30/16 08:00 99.0 71 16 147/91 97 08/30/16 00:54 99.0 81 20 140/92 98 08/29/16 21:40 98.5 89 20 154/88 99 165/81 120/81 08/29/16 15:55 97.6 81 16 143/93 100 I/O 08/29/16 08/29/16 08/29/16 08/30/16 08/30/16 08/30/16 07:00 15:00 23:00 07:00 15:00 23:00 Intake Total 720 ml 1500 ml Output Total 250 ml Balance 470 ml 1500 ml Intake Oral 720 ml 1500 ml Output Urine Total 250 ml # Voids 3 4 1 # Bowel Movements 1 2 Imaging Last Impressions Head CT 08/21/16 1251 Signed Impressions: Service Date/Time: August 13:03 - CONCLUSION: Normal examination. 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 No acute intracranial findings Edouard Leone MD Objective Remarks General: No acute distress. Heart: Regular rate and rhythm. No murmur. Lungs: Clear to auscultation bilaterally. No wheezes, rales, or rhonchi. Breathing is nonlabored. Abdomen: Soft, nontender, nondistended. Extremities: No lower extremity edema. GOLDEN hose. Psych: Alert and oriented. Procedures None Urinary Catheter: No Vascular Central Line Catheter: No A/P Problem List: (1) Atrial flutter ICD Code: I48.92 Status: Acute (2) Syncope ICD Code: R55 Status: Acute (3) Hypokalemia ICD Code: E87.6 Status: Resolved (4) Hyperglycemia ICD Code: R73.9 Status: Resolved (5) Macrocytosis ICD Code: D75.89 Status: Acute (6) Elevated liver enzymes ICD Code: R74.8 Status: Acute (7) Alcohol abuse ICD Code: F10.10 Status: Chronic Assessment and Plan Reviewed/updated 08/30/16. Slight improvement with increase in Florinef dose. Continue to monitor for symptoms with orthostasis. 1. Syncopal episodes, orthostatic hypotension: The patient was found to have atrial flutter with rapid rate in the ER. Rate is now controlled. Still continues to have low blood pressures and symptoms with standing, ambulation. Continue Florinef. Continue PT. 2. Atrial flutter, new onset: Rate controlled. Continue aspirin. Chads 0. Echo shows normal systolic function with EF 55-60%. 3. Chronic alcohol use: Patient has macrocytosis, elevated LFTs, thrombocytopenia. No active signs of withdrawal. CIWA protocol discontinued. Continue seizure precautions. Patient has been counseled regarding cessation of alcohol use. Continue thiamine, folic acid. 4. DVT prophylaxis: SCDs. Avoid chemical prophylaxis secondary to thrombocytopenia. Discharge Planning Plan for discharge soon, pending arrangements for safe discharge. Case management to assist with follow-up. Bipin Turcios MD Aug 30, 2016 13:58
[2016-08-31] VITALS (7 sets, daily range): BP systolic 97–165; BP diastolic 71–96; PULSE 59–100; RESP 16–20; TEMP 98.3–99; O2SAT 96–98
[2016-08-31] MEDS: FLUDROCORTISONE ACETATE 0.1 MG TAB PO SCH (08:30)
[2016-08-31] MEDS: THIAMINE HCL 100 MG TAB PO SCH (08:30)
[2016-08-31] MEDS: ASPIRIN EC 81 MG TABEC PO SCH (08:30)
[2016-08-31] MEDS: SODIUM CHLORIDE 0.9% FLUSH 10 ML FLUSH IV FLUSH SCH ×2 (08:31→21:00)
[2016-08-31] MEDS: DOCUSATE SODIUM 50 MG/SENNA 8.6 MG TAB PO SCH ×2 (08:31→21:00)
--- NOTE | 2016-08-31 11:36 | HHI.PR ---
Subjective Remarks Follow up orthostatic hypotension. Patient remains symptomatic. He is still having lightheadedness whenever he is ambulating. BP continues to drop significantly with standing. Objective Vitals Vital Signs Date Time Temp Pulse Resp B/P Pulse Ox O2 Delivery O2 Flow Rate FiO2 08/31/16 08:06 100 97/71 08/31/16 08:03 76 119/78 08/31/16 08:00 98.6 75 20 150/86 97 08/31/16 00:41 98.7 66 16 164/90 97 08/30/16 20:31 99.1 65 18 157/91 99 151/84 146/83 08/30/16 16:00 99.3 70 16 142/89 99 08/30/16 12:00 98.7 64 16 145/81 98 I/O 08/30/16 08/30/16 08/30/16 08/31/16 08/31/16 08/31/16 06:59 14:59 22:59 06:59 14:59 22:59 Intake Total 1020 ml Balance 1020 ml Intake Oral 1020 ml # Voids 1 4 2 2 # Bowel Movements 1 Imaging Last Impressions Head CT 08/21/16 1251 Signed Impressions: Service Date/Time: August 13:03 - CONCLUSION: Normal examination. 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 No acute intracranial findings Edouard Leone MD Objective Remarks General: No acute distress. Heart: Regular rate and rhythm. No murmur. Lungs: Clear to auscultation bilaterally. No wheezes, rales, or rhonchi. Breathing is nonlabored. Abdomen: Soft, nontender, nondistended. Extremities: No lower extremity edema. GOLDEN hose. Psych: Alert and oriented. Procedures None Urinary Catheter: No Vascular Central Line Catheter: No A/P Problem List: (1) Atrial flutter ICD Code: I48.92 Status: Acute (2) Syncope ICD Code: R55 Status: Acute (3) Hypokalemia ICD Code: E87.6 Status: Resolved (4) Hyperglycemia ICD Code: R73.9 Status: Resolved (5) Macrocytosis ICD Code: D75.89 Status: Acute (6) Elevated liver enzymes ICD Code: R74.8 Status: Acute (7) Alcohol abuse ICD Code: F10.10 Status: Chronic Assessment and Plan Reviewed/updated 08/31/16. Continue Florinef. Add Midodrine. Still having symptoms with standing/ambulating. 1. Syncopal episodes, orthostatic hypotension: The patient was found to have atrial flutter with rapid rate in the ER. Rate is now controlled. Still continues to have low blood pressures and symptoms with standing, ambulation. Continue Florinef. Continue PT. 2. Atrial flutter, new onset: Rate controlled. Continue aspirin. Chads 0. Echo shows normal systolic function with EF 55-60%. 3. Chronic alcohol use: Patient has macrocytosis, elevated LFTs, thrombocytopenia. No active signs of withdrawal. CIWA protocol discontinued. Continue seizure precautions. Patient has been counseled regarding cessation of alcohol use. Continue thiamine, folic acid. 4. DVT prophylaxis: SCDs. Avoid chemical prophylaxis secondary to thrombocytopenia. Discharge Planning Plan for discharge soon, pending arrangements for safe discharge. Case management to assist with follow-up. Bipin Turcios MD Aug 31, 2016 11:36
[2016-08-31] MEDS: MIDODRINE 5 MG TAB PO SCH ×2 (12:35→16:18)
[2016-09-01] VITALS: BP 163/92; PULSE 66; RESP 18; TEMP 99.5; O2SAT 97
[2016-09-01] MEDS: MIDODRINE 5 MG TAB PO SCH ×3 (06:23→17:20)
[2016-09-01 08:00] VITALS: BP_SYST 116; BP_SYST 151; BP_SYST 168; BP_DIAS 80; BP_DIAS 90; BP_DIAS 98; PULSE 61; RESP 18; TEMP 98.3; O2SAT 97
--- NOTE | 2016-09-01 08:44 | MB ---
cc: COREY BLAKELY MD DATE OF CONSULTATION: 09/01/2016 REASON FOR CONSULTATION Syncope/orthostasis. HISTORY OF PRESENT ILLNESS The patient is a pleasant 59-year-old gentleman who presented to [place] on August 21 due to multiple syncopal episodes as well as apparent alcohol withdrawal. The patient had been notably orthostatic despite the addition of medications and I was asked to consult on these issues. Currently the patient is asymptomatic, says he felt mildly dizzy when ambulating this morning and recent orthostatics did show a drop in blood pressure from 160 systolic so 1-teens systolic when he stood up. He denies chest pain, shortness of breath, palpitations. Incidentally the patient was found to be in a rapid atrial flutter on admission but telemetry has since been discontinued. PAST MEDICAL HISTORY 1. New onset paroxysmal atrial flutter. 2. Alcohol abuse. 3. Syncope. 4. Orthostatic hypotension. MEDICATIONS Current medications: 1. Florinef 0.1 mg p.o. daily. 2. Midodrine 5 mg p.o. t.i.d. 3. Thiamine. 4. Aspirin. ALLERGIES PERCOCET. PHYSICAL EXAMINATION VITAL SIGNS: Temperature 99.5, pulse 66, respiratory rate 18, blood pressure 163/92. Orthostatics do show supine hypertension with standing normotension (standing hypotension earlier this admission). Satting 97 on room air. GENERAL: In general a well-appearing gentleman in no distress. NECK: No JVD. LUNGS: Clear to auscultation bilaterally. CARDIOVASCULAR: Regular rate and rhythm. No murmurs appreciated. ABDOMEN: Benign. EXTREMITIES: No edema. LABORATORY DATA White count 5.1, hematocrit 43.1, platelets 84. Sodium 139, potassium 3.8, chloride 105, bicarb 23.1, BUN 15, creatinine 0.83. Echocardiogram showed an ejection fraction of 55-60%. EKG showed atrial flutter at a rate of [address] changes. The patient is currently not on telemetry (unclear reason). IMPRESSION/RECOMMENDATIONS 1. Syncope. The patient was quite orthostatic on admission. I suspect the syncopal episodes were a combination of alcohol abuse leading to dehydration. His symptoms and orthostatic numbers have improved with the addition of medication. I would not add any further doses of Florinef or midodrine given he is fairly hypertensive while lying flat. He should be drinking plenty of fluids and perhaps support/compression stockings would assist in reducing his orthostasis. I would add carotid Dopplers to his regimen but he has already had an echocardiogram. It is not out of the question that rapid atrial flutter contributed as well, although he continues to be symptomatic and what at least by exam is a normal rhythm. Again he is not currently on telemetry. 2. Atrial flutter. This was a new diagnosis for the patient. He is not a candidate for anticoagulation due to his alcohol abuse and low platelets, but fortunately his CHADS-VASc is low, likely only one point for hypertension. I will ask nursing to resume telemetry if the patient is willing. 3. If his carotids show no significant stenosis and he is in normal rhythm on telemetry he could be discharged from a cardiac standpoint. I will be available on an as-needed basis. Please call with any further questions. MD ROCHELLE Valdez/INDIA /8:09 AM /8:30 AM
[2016-09-01] MEDS: SODIUM CHLORIDE 0.9% FLUSH 10 ML FLUSH IV FLUSH SCH ×2 (09:00→19:48)
[2016-09-01] MEDS: DOCUSATE SODIUM 50 MG/SENNA 8.6 MG TAB PO SCH ×2 (10:21→19:52)
[2016-09-01] MEDS: SODIUM CHLORIDE 1 GRAM TAB PO SCH ×3 (10:21→17:20)
[2016-09-01] MEDS: FLUDROCORTISONE ACETATE 0.1 MG TAB PO SCH (10:22)
[2016-09-01] MEDS: THIAMINE HCL 100 MG TAB PO SCH (10:22)
[2016-09-01] MEDS: ASPIRIN EC 81 MG TABEC PO SCH (10:22)
--- NOTE | 2016-09-01 11:16 | RADHPO ---
EXAM DATE/TIME: 09/01/2016 10:52 [place] COMPARISON: No previous studies available for comparison. INDICATIONS : Syncope. MEDICAL HISTORY : ETOH. SURGICAL HISTORY : None. ENCOUNTER: Initial ACUITY: 1 week PAIN SCORE: 0/10 LOCATION: Bilateral neck PEAK SYSTOLIC VELOCITIES (cm/sec): ICA/CCA RATIO: Right: 0.9 Left: 0.8 ICA: Right: 100 Left: 110 CCA: Right: 108 Left: 133 ECA: Right: 80 Left: 139 VERTEBRAL: Right: 41 antegrade Left: 33 antegrade Elevated flow velocities and ICA/CCA ratios have been found to correlate with increased degrees of vessel stenosis, calculated as percentage of diameter relative to a normal segment of distal ICA/CCA FINDINGS: RIGHT CAROTID: No significant stenosis is visualized. The waveforms are within normal limits. LEFT CAROTID: There is mild to moderate plaque in the left common carotid and internal carotid artery with no visua lized stenosis. The waveforms are within normal limits. VERTEBRAL ARTERIES: Antegrade flow is seen in both vertebral arteries. MISCELLANEOUS: None. CONCLUSION: Mild to moderate plaquing in the left carotid system with no evidence of stenosis. Dean Flores MD on September 01, 2016 at 11:14 Board Certified Radiologist. This report was verified electronically.
--- NOTE | 2016-09-01 11:52 | HHI.PR ---
Subjective Remarks Follow up orthostatic hypotension. Patient still having lightheadedness/ dizziness with standing and ambulation. He is trying to spend longer in seated position before standing. Objective Vitals Vital Signs Date Time Temp Pulse Resp B/P Pulse Ox O2 Delivery O2 Flow Rate FiO2 09/01/16 08:00 98.3 61 18 168/98 97 151/90 116/80 09/01/16 00:00 99.5 66 18 163/92 97 08/31/16 20:00 98.3 60 18 165/90 96 133/79 120/73 08/31/16 16:00 98.6 59 20 159/91 98 08/31/16 12:00 99.0 78 20 158/96 97 I/O 08/31/16 08/31/16 08/31/16 09/01/16 09/01/16 09/01/16 07:00 15:00 23:00 07:00 15:00 23:00 Intake Total 870 ml 480 ml 240 ml 500 ml Balance 870 ml 480 ml 240 ml 500 ml Intake Oral 870 ml 480 ml 240 ml 500 ml # Voids 2 8 2 4 # Bowel Movements 1 1 1 Imaging Last Impressions Carotid Artery Ultrasound 09/01/16 0000 Signed Impressions: Service Date/Time: Thursday, September 01, 2016 10:52 - CONCLUSION: Mild to moderate plaquing in the left carotid system with no evidence of stenosis. Dean Flores MD Head CT 08/21/16 1251 Signed Impressions: Service Date/Time: August 13:03 - CONCLUSION: Normal examination. 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 No acute intracranial findings Edouard Leone MD Objective Remarks General: No acute distress. Heart: Regular rate and rhythm. No murmur. Lungs: Clear to auscultation bilaterally. No wheezes, rales, or rhonchi. Breathing is nonlabored. Abdomen: Soft, nontender, nondistended. Extremities: No lower extremity edema. GOLDEN hose. Psych: Alert and oriented. Procedures None Urinary Catheter: No Vascular Central Line Catheter: No A/P Problem List: (1) Atrial flutter ICD Code: I48.92 Status: Acute (2) Syncope ICD Code: R55 Status: Acute (3) Hypokalemia ICD Code: E87.6 Status: Resolved (4) Hyperglycemia ICD Code: R73.9 Status: Resolved (5) Macrocytosis ICD Code: D75.89 Status: Acute (6) Elevated liver enzymes ICD Code: R74.8 Status: Acute (7) Alcohol abuse ICD Code: F10.10 Status: Chronic Assessment and Plan Reviewed/updated 09/01/16. Continue Florinef, Midodrine. Still having symptoms with standing/ambulating. Add sodium tablets. Appreciate cardiology recommendations. Monitor on telemetry. Carotid ultrasound shows no stenosis. 1. Syncopal episodes, orthostatic hypotension: The patient was found to have atrial flutter with rapid rate in the ER. Rate is now controlled. Still continues to have low blood pressures and symptoms with standing, ambulation. Continue Florinef. Continue PT. 2. Atrial flutter, new onset: Rate controlled. Continue aspirin. Chads 0. Echo shows normal systolic function with EF 55-60%. 3. Chronic alcohol use: Patient has macrocytosis, elevated LFTs, thrombocytopenia. No active signs of withdrawal. CIWA protocol discontinued. Continue seizure precautions. Patient has been counseled regarding cessation of alcohol use. Continue thiamine, folic acid. 4. DVT prophylaxis: SCDs. Avoid chemical prophylaxis secondary to thrombocytopenia. Discharge Planning Plan for discharge soon, pending arrangements for safe discharge. Case management to assist with follow-up. Bipin Turcios MD Sep 01, 2016 11:52
[2016-09-01 12:00] VITALS: BP 169/91; PULSE 62; RESP 18; TEMP 98; O2SAT 97
[2016-09-01 16:00] VITALS: BP 168/86; PULSE 60; RESP 18; TEMP 98; O2SAT 97
[2016-09-01 20:00] VITALS: BP_SYST 115; BP_SYST 152; BP_SYST 161; BP_DIAS 79; BP_DIAS 95; PULSE 56; PULSE 62; RESP 18; TEMP 98.4; O2SAT 98
[2016-09-02] VITALS (9 sets, daily range): BP systolic 104–161; BP diastolic 74–98; PULSE 57–78; RESP 16–20; TEMP 97.1–98.8; O2SAT 96–99
[2016-09-02] MEDS: MIDODRINE 5 MG TAB PO SCH ×3 (06:08→18:53)
[2016-09-02 06:44] LABS: AUTOMATED NEUTROPHIL # 5.5 TH/MM3 (1.8-7.7); BASOPHIL # 0.1 TH/MM3 (0-0.2); BASOPHIL % 1.1 % (0.0-2.0); EOSINOPHIL # 0.1 TH/MM3 (0-0.4); HEMATOCRIT 38.9 % (39.0-51.0); HEMO FLAGS DIFF FINAL; LYMPH % 19.6 % (9.0-44.0); LYMPHOCYTE # 1.6 TH/MM3 (1.0-4.8); MEAN CELL VOLUME 107.5 FL (80.0-100.0); MEAN CORPUSCULAR HEMOGLOBIN 36.9 PG (27.0-34.0); MEAN CORPUSCULAR HGB CONC 34.3 % (32.0-36.0); MONO % 11.1 % (0.0-8.0); NEUT % 67.2 % (16.0-70.0); PLATELET COUNT 329 TH/MM3 (150-450); RED BLOOD COUNT 3.62 MIL/MM3 (4.50-5.90); RED CELL DISTRIBUTION WIDTH 12.8 % (11.6-17.2); WHITE BLOOD COUNT 8.2 TH/MM3 (4.0-11.0)
[2016-09-02 06:50] LABS: POTASSIUM 3.4 MEQ/L (3.5-5.1)
[2016-09-02 06:56] LABS: BICARBONATE 27.4 MEQ/L (21.0-32.0)
[2016-09-02] MEDS: DOCUSATE SODIUM 50 MG/SENNA 8.6 MG TAB PO SCH ×2 (09:00→21:00)
[2016-09-02] MEDS: SODIUM CHLORIDE 0.9% FLUSH 10 ML FLUSH IV FLUSH SCH ×2 (09:00→21:00)
[2016-09-02] MEDS: FLUDROCORTISONE ACETATE 0.1 MG TAB PO SCH (09:48)
[2016-09-02] MEDS: ASPIRIN EC 81 MG TABEC PO SCH (09:48)
[2016-09-02] MEDS: SODIUM CHLORIDE 1 GRAM TAB PO SCH ×3 (09:48→18:53)
[2016-09-02] MEDS: THIAMINE HCL 100 MG TAB PO SCH (09:48)
[2016-09-02] MEDS ORDERED: FLUD.1 PO (10:18)
[2016-09-02] MEDS ORDERED: MIDO5TAB PO (10:18)
[2016-09-02] MEDS ORDERED: SODI1TAB PO (10:18)
--- NOTE | 2016-09-02 10:21 | HHI.PR ---
Subjective Remarks Follow-up orthostatic hypotension, atrial fibrillation. Patient still having lightheadedness with standing/ambulation. No chest pain. Objective Vitals Vital Signs Date Time Temp Pulse Resp B/P Pulse Ox O2 Delivery O2 Flow Rate FiO2 09/02/16 08:06 73 104/82 09/02/16 08:03 69 120/77 09/02/16 08:00 97.7 67 20 156/86 97 09/02/16 04:00 98.8 57 16 134/80 96 09/02/16 00:00 97.8 65 18 151/85 97 09/01/16 20:00 62 09/01/16 20:00 98.4 56 18 161/95 98 152/95 115/79 09/01/16 16:00 98.0 60 18 168/86 97 09/01/16 12:00 98.0 62 18 169/91 97 I/O 09/01/16 09/01/16 09/01/16 09/02/16 09/02/16 09/02/16 07:00 15:00 23:00 07:00 15:00 23:00 Intake Total 240 ml 500 ml 1340 ml 480 ml Balance 240 ml 500 ml 1340 ml 480 ml Intake Oral 240 ml 500 ml 1340 ml 480 ml # Voids 4 5 2 # Bowel Movements 1 0 0 Result Diagram: 09/02/16 0555 09/02/16 0555 Imaging Last Impressions Carotid Artery Ultrasound 09/01/16 0000 Signed Impressions: Service Date/Time: Thursday, September 01, 2016 10:52 - CONCLUSION: Mild to moderate plaquing in the left carotid system with no evidence of stenosis. Dean Flores MD Head CT 08/21/16 1251 Signed Impressions: Service Date/Time: August 13:03 - CONCLUSION: Normal examination. 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 No acute intracranial findings Edouard Leone MD Objective Remarks General: No acute distress. Heart: Regular rate and rhythm. No murmur. Lungs: Clear to auscultation bilaterally. No wheezes, rales, or rhonchi. Breathing is nonlabored. Abdomen: Soft, nontender, nondistended. Extremities: No lower extremity edema. GOLDEN benjamine. Psych: Alert and oriented. Procedures None Urinary Catheter: No Vascular Central Line Catheter: No A/P Problem List: (1) Atrial flutter ICD Code: I48.92 Status: Acute (2) Syncope ICD Code: R55 Status: Acute (3) Hypokalemia ICD Code: E87.6 Status: Resolved (4) Hyperglycemia ICD Code: R73.9 Status: Resolved (5) Macrocytosis ICD Code: D75.89 Status: Acute (6) Elevated liver enzymes ICD Code: R74.8 Status: Acute (7) Alcohol abuse ICD Code: F10.10 Status: Chronic Assessment and Plan Reviewed/updated 09/02/16. Continue Florinef, Midodrine, sodium tablets. Still having symptoms with standing/ambulating, but blood pressure is slightly better. Appreciate cardiology recommendations. Monitor on telemetry. Patient has irregular rhythm, but rate is well controlled. Carotid ultrasound shows no stenosis. Discussed with Dr. Ricci. Patient can be discharged home from cardiology perspective. 1. Syncopal episodes, orthostatic hypotension: The patient was found to have atrial flutter with rapid rate in the ER. Rate is now controlled. Still continues to have low blood pressures and symptoms with standing, ambulation. Continue treatment as above. Continue PT. 2. Atrial flutter, new onset: Rate controlled. Continue aspirin. Chads 0. Echo shows normal systolic function with EF 55-60%. 3. Chronic alcohol use: Patient has macrocytosis, elevated LFTs, thrombocytopenia. No active signs of withdrawal. CIWA protocol discontinued. Continue seizure precautions. Patient has been counseled regarding cessation of alcohol use. Continue thiamine, folic acid. 4. DVT prophylaxis: SCDs. Avoid chemical prophylaxis secondary to thrombocytopenia. Discharge Planning Discharge home once arrangements can be made for transportation and outpatient follow-up, meds. Bipin Turcios MD Sep 02, 2016 10:21
[2016-09-02] MEDS: DILTIAZEM-CD 120 MG CAP ER PO SCH (16:06)
[2016-09-03] VITALS: BP 148/85; PULSE 59; RESP 20; TEMP 98.7; O2SAT 95
[2016-09-03] MEDS: MIDODRINE 5 MG TAB PO SCH ×3 (06:40→15:29)
[2016-09-03 08:22] VITALS: BP_SYST 116; BP_SYST 151; BP_DIAS 66; BP_DIAS 82; PULSE 64; RESP 18; TEMP 96.9; O2SAT 98
[2016-09-03 08:24] VITALS: BP 89/64; PULSE 76; RESP 18; TEMP 96.9; O2SAT 97
[2016-09-03] MEDS: DOCUSATE SODIUM 50 MG/SENNA 8.6 MG TAB PO SCH (09:00)
[2016-09-03] MEDS: THIAMINE HCL 100 MG TAB PO SCH (10:22)
[2016-09-03] MEDS: DILTIAZEM-CD 120 MG CAP ER PO SCH (10:22)
[2016-09-03] MEDS: ASPIRIN EC 81 MG TABEC PO SCH ×2 (10:22→10:23)
[2016-09-03] MEDS: FLUDROCORTISONE ACETATE 0.1 MG TAB PO SCH (10:22)
[2016-09-03] MEDS ORDERED: CARD120C4 PO (10:43)
--- NOTE | 2016-09-03 10:47 | HHI.PR ---
Subjective Remarks Follow-up alcohol withdrawal seizure/atria flutter 09/03/16-patient seen and examined, rate control, he was up and ambulated with PT without any significant complaint of dizziness. Objective Vitals Vital Signs Date Time Temp Pulse Resp B/P Pulse Ox O2 Delivery O2 Flow Rate FiO2 09/03/16 08:24 96.9 76 18 89/64 97 09/03/16 08:22 96.9 64 18 151/66 98 116/82 09/03/16 00:00 98.7 59 20 148/85 95 09/02/16 21:00 72 09/02/16 20:00 72 125/78 09/02/16 20:00 78 121/74 09/02/16 20:00 97.9 70 20 160/98 98 09/02/16 16:00 97.2 66 20 161/93 98 09/02/16 12:00 97.1 64 16 142/79 99 I/O 09/02/16 09/02/16 09/02/16 09/03/16 09/03/16 09/03/16 07:00 15:00 23:00 07:00 15:00 23:00 Intake Total 480 ml 900 ml 360 ml 60 ml Balance 480 ml 900 ml 360 ml 60 ml Intake Oral 480 ml 900 ml 360 ml 60 ml # Voids 2 3 1 1 # Bowel Movements 0 1 0 0 Result Diagram: 09/02/16 0555 09/02/16 0555 Imaging Last Impressions Carotid Artery Ultrasound 09/01/16 0000 Signed Impressions: Service Date/Time: Thursday, September 01, 2016 10:52 - CONCLUSION: Mild to moderate plaquing in the left carotid system with no evidence of stenosis. Dean Flores MD Head CT 08/21/16 1251 Signed Impressions: Service Date/Time: August 13:03 - CONCLUSION: Normal examination. 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 No acute intracranial findings Edouard Leone MD Objective Remarks GENERAL: NAD SKIN: Warm and dry. HEAD: Normocephalic. EYES: No scleral icterus. No injection or drainage. NECK: Supple, trachea midline. No JVD or lymphadenopathy. CARDIOVASCULAR: Regular rate and rhythm without murmurs, gallops, or rubs. RESPIRATORY: Breath sounds equal bilaterally. No accessory muscle use. GASTROINTESTINAL: Abdomen soft, non-tender, nondistended. MUSCULOSKELETAL: No cyanosis, or edema. BACK: Nontender without obvious deformity. No CVA tenderness. Procedures None A/P Problem List: (1) Atrial flutter ICD Code: I48.92 Status: Acute (2) Syncope ICD Code: R55 Status: Resolved (3) Hypokalemia ICD Code: E87.6 Status: Resolved (4) Hyperglycemia ICD Code: R73.9 Status: Resolved (5) Macrocytosis ICD Code: D75.89 Status: Acute (6) Elevated liver enzymes ICD Code: R74.8 Status: Acute (7) Alcohol abuse ICD Code: F10.10 Status: Chronic Assessment and Plan 61-year-old man with 1. Syncopal episodes, orthostatic hypotension: Improving, continue with midodrine, mineralocorticoid. Continue PT. EEG negative for seizure 2. Atrial flutter, new onset: Rate controlled. Continue aspirin as well as Cardizem 120 mg daily. Chads 0. Echo shows normal systolic function with EF 55- 60%. Appreciate input from cardiology 3. Chronic alcohol use: Continue with rally pack; CIWA protocol discontinued. Continue seizure precautions. Patient has been counseled regarding cessation of alcohol use. 4. DVT prophylaxis: SCDs. Avoid chemical prophylaxis secondary to thrombocytopenia. Horace Clement MD Sep 03, 2016 10:47
--- NOTE | 2016-09-03 10:49 | HHI.DS ---
Discharge Summary Admission Date Aug 21, 2016 at 14:22 Discharge Date: Sep 03, 2016 Admitting Diagnosis alcohol withdrawal/new onset seizures/tachycardia (1) Atrial flutter ICD Code: I48.92 (2) Syncope ICD Code: R55 (3) Hypokalemia ICD Code: E87.6 (4) Hyperglycemia ICD Code: R73.9 (5) Macrocytosis ICD Code: D75.89 (6) Elevated liver enzymes ICD Code: R74.8 (7) Alcohol abuse ICD Code: F10.10 Procedures None Brief History - From Admission 61-year-old male with no chronic medical illnesses who presented to hospital because of syncopal episodes. Patient indicates they have been normal state of health until about a week ago when he started having syncopal episodes. He states that it happens after he walks approximately 2030 feet. He is usually in a sitting or laying position when he stands up and walks and then he gets really lightheaded and dizzy and is had episodes of syncope. He does have signs of multiple bruises and different stages of healing. Had abrasions with healing. He denies any loss of bowel or bladder control, biting of the tongue or any post syncopal confusion. Patient states that last time he had an episode was yesterday. Patient does have history of chronic alcohol use and is not very forthcoming with how much alcohol use on a daily basis. Patient did have episode of tachycardia of 185 with EKG showing atrial flutter on emergency department. Does not appear as if patient was given any medication in the heart rate did improve. ER physician recommended patient be admitted for further evaluation and management. CBC/BMP: 09/02/16 0555 09/02/16 0555 Significant Findings Laboratory Tests Test 09/02/16 05:55 Red Blood Count 3.62 MIL/MM3 (4.50-5.90) Hematocrit 38.9 % (39.0-51.0) Mean Corpuscular Volume 107.5 FL (80.0-100.0) Mean Corpuscular Hemoglobin 36.9 PG (27.0-34.0) Monocytes (%) (Auto) 11.1 % (0.0-8.0) Potassium Level 3.4 MEQ/L (3.5-5.1) Estimat Glomerular Filtration 87 ML/MIN (>89) Rate Calcium Level 8.2 MG/DL (8.5-10.1) Imaging Last Impressions Carotid Artery Ultrasound 09/01/16 0000 Signed Impressions: Service Date/Time: Thursday, September 01, 2016 10:52 - CONCLUSION: Mild to moderate plaquing in the left carotid system with no evidence of stenosis. Dean Flores MD Head CT 08/21/16 1251 Signed Impressions: Service Date/Time: August 13:03 - CONCLUSION: Normal examination. Edouard Leone MD Brain MRI 08/21/16 0000 Signed Impressions: Service Date/Time: , August 21, 2016 16:52 - CONCLUSION: Mild changes of probable microvascular ischemic white matter disease. No acute intracranial findings Edouard Leone MD PE at Discharge GENERAL: NAD SKIN: Warm and dry. HEAD: Normocephalic. EYES: No scleral icterus. No injection or drainage. NECK: Supple, trachea midline. No JVD or lymphadenopathy. CARDIOVASCULAR: Regular rate and rhythm without murmurs, gallops, or rubs. RESPIRATORY: Breath sounds equal bilaterally. No accessory muscle use. GASTROINTESTINAL: Abdomen soft, non-tender, nondistended. MUSCULOSKELETAL: No cyanosis, or edema. BACK: Nontender without obvious deformity. No CVA tenderness. Hospital Course Patient admitted secondary to alcohol withdrawal seizure for which she was started on rally pack and CIWA protocol along with Librium when necessary and place on seizure precaution. He was also diagnosed with atrial flutter and started on aspirin however Cardizem was added on 09/02/16 which subsequently improvement of rates. He had hypotension for which she was treated with midodrine and mineralocorticoid. PT was consulted. DVT and GI prophylaxis were provided. Prior to discharge, vitals remained stable and patient condition improved. Pt Condition on Discharge: Stable Discharge Disposition: Discharge Home Discharge Time: <= 30 minutes Discharge Instructions DIET: Follow Instructions for: As Tolerated, No Restrictions Activities you can perform: Regular-No Restrictions Other Activity Instructions: With assistive device. Follow up Referrals: PCP Follow-up - 1 Week New Medications: Walker with Front Wheels (Walker with Front Wheels) 1 Mis Mis 1 EA .ROUTE DIRECTED #1 Ref [address] (Aspirin EC) 81 Mg Tabdr 81 MG PO DAILY Prevent Blood Clot #30 TAB Diltiazem CD 24 HR (Cardizem CD 24 HR) 120 Mg Caper 120 MG PO DAILY Regulate Heart Beat #30 Ref 3 CAP Fludrocortisone (Fludrocortisone) 0.1 Mg Tab 0.1 MG PO DAILY Orthostatic hypotension #30 Ref 0 TAB Midodrine (Midodrine) 5 Mg Tab 5 MG PO TID@07,12,17 Orthostatic hypotension #90 Ref 0 TAB Sodium Chloride (Sodium Chloride) 1 Gm Tab 1 GM PO TID Orthostatic hypotension #90 Ref 0 TAB Thiamine (Vitamin B-1) 100 Mg Tab 100 MG PO DAILY Alcohol Detox #30 TAB Horace Clement MD Sep 03, 2016 10:49
[2016-09-03] MEDS: SODIUM CHLORIDE 1 GRAM TAB PO SCH (15:29)
[2016-09-10] MEDS ORDERED: CARD120C4 PO (09:48)
[2016-09-10] MEDS ORDERED: VITA100T2 PO (09:48)
[2016-09-10] MEDS ORDERED: MIDO5TAB PO (09:48)
[2016-09-10] MEDS ORDERED: SODI1TAB PO (09:48)
[2016-09-10] MEDS ORDERED: FLUD.1 PO (09:48)
== END 2016-09-03 15:33 | disposition home or self-care (01) | DRG 309 ==
LOC: PHED 12:30 → PHEDA 14:22 → PHICU 17:31 → PH3A 08-23 00:01
PROVIDERS: ADMIT Hospitalist; ATTEND Hospitalist
DX: I48.92 Unspecified atrial flutter (principal); F10.239 Alcohol dependence with withdrawal, unspecified; D69.6 Thrombocytopenia, unspecified; R56.9 Unspecified convulsions; I10 Essential (primary) hypertension; E87.6 Hypokalemia; I48.91 Unspecified atrial fibrillation; I95.1 Orthostatic hypotension; D75.89 Other specified diseases of blood and blood-forming organs; F17.210 Nicotine dependence, cigarettes, uncomplicated; R00.0 Tachycardia, unspecified; R73.9 Hyperglycemia, unspecified
CPT/HCPCS: 70450; 70551; 80048; 80053; 80307; 82550; 82607; 82746; 83735; 84100; 84443; 84484; 85025; 85652; 87641; 90686; 90732; 93005; 93306; 93880; 95819; 96374; 96375; J2060; J3480; J7030; Q2038

== ENCOUNTER → 2016-09-10 | Outpatient (CLI) | payer SELFPAY ==
[~2016-09-10] MED LIST changes: +ASPI81TA11 PO; -BACT800T5 PO; +CARD120C4 PO; -CEPH500C3 PO; -CLIN1CAP5 PO; -FLOR250C PO; +FLUD.1 PO; +MIDO5TAB PO; +SODI1TAB PO; +VITA100T2 PO; +WALKER WHEELS/F1 MIS
[2016-09-10 12:06] LABS: ANION GAP 6 MEQ/L (5-15); AST (GOT) 17 U/L (15-37); BICARBONATE 31.7 MEQ/L (21.0-32.0); BLOOD UREA NITROGEN 16 MG/DL (7-18); CHLORIDE 104 MEQ/L (98-107); GLOMERULAR FILTRATION RATE 63 ML/MIN (>89); GLUCOSE,FASTING 106 MG/DL (74-99); POTASSIUM 3.4 MEQ/L (3.5-5.1); SODIUM (NA) 142 MEQ/L (136-145)
[2016-09-10 12:09] LABS: ALKALINE PHOSPHATASE 62 U/L (45-117); ALT (GPT) 19 U/L (12-78); TOTAL BILIRUBIN ADULT 0.8 MG/DL (0.2-1.0)
== END ==
LOC: CLAB 10:21
PROVIDERS: ATTEND Physical Medicine & Rehabilitation
DX: R25.3 Fasciculation (principal)
CPT/HCPCS: 36415; 80053

== ENCOUNTER 2017-01-19 13:54 | Inpatient (IN) | payer SELFPAY ==
[2017-01-19 14:18] VITALS: BP 142/94; PULSE 86; RESP 18; TEMP 98.6; O2SAT 97
[2017-01-19 17:27] VITALS: BP 155/84; PULSE 65; RESP 18; TEMP 97.8; O2SAT 99
[2017-01-19] MEDS ORDERED: SODIUM CHLOR 0.9% 1000 ML INJ 1,000 ML IV SCH (18:57)
[2017-01-19] MEDS ORDERED: SODIUM CHLORIDE 0.9% FLUSH 10 ML FLUSH IV FLUSH PRN ×2 (19:00→20:30)
[2017-01-19] MEDS ORDERED: LORazepam 2 MG/ML VIAL IV PUSH ONE (19:00)
--- NOTE | 2017-01-19 19:20 | PD ---
HPI Chief Complaint: General Weakness Time Seen by Provider: 18:52 Travel History International Travel<30 days: No Contact w/Intl Traveler<30days: No Traveled to known affect area: No History of Present Illness HPI 61-year-old male brought in by ambulance from home for evaluation of generalized weakness, tremulousness, slurred speech, unsteady gait. Patient reports that the symptoms started at around 3:00 PM. Chart review shows that the patient has been seen here before for alcohol withdrawal. When asked about alcohol use, the patient initially denied drinking alcohol daily, however later on admitted to drinking about 5-6 alcoholic drinks daily. His last drink was yesterday evening. No focal deficits. No fevers. No chest pain or dyspnea. No abdominal pain. 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) Heart Rhythm Problems: Yes (palpatations) Cancer: No Cardiovascular Problems: No Cerebrovascular Accident: No Endocrine: No Genitourinary: No Immune Disorder: No Musculoskeletal: No Neurologic: No Psychiatric: No Reproductive: No Immunizations Current: Yes Seizures: No Past Surgical History Oral Surgery: Yes (teeth extraction) Social History Alcohol Use: Yes Tobacco Use: Yes (1/2 PPD) Substance Use: Yes (marijuana last couple days) Allergies-Medications (Allergen,Severity, Reaction): Coded Allergies: acetaminophen (Unverified Allergy, Severe, Itching, 01/19/17) oxycodone (Unverified Allergy, Severe, Itching, 01/19/17) Reported Meds & Prescriptions Reported Meds & Active Scripts Active Cardizem CD 24 HR (Diltiazem CD 24 HR) 120 Mg Caper 120 Mg PO DAILY Sodium Chloride 1 Gm Tab 1 Gm PO TID Midodrine 5 Mg Tab 5 Mg PO TID@,,17 Fludrocortisone (Fludrocortisone Acetate) 0.1 Mg Tab 0.1 Mg PO DAILY Aspirin EC (Aspirin) 81 Mg Tabdr 81 Mg PO DAILY Review of Systems Except as stated in HPI: all other systems reviewed are Neg Physical Exam Narrative GENERAL: Well-developed, well-nourished, tremulous, awake, alert, no apparent distress. SKIN: Focused skin assessment warm/dry. HEAD: Atraumatic. Normocephalic. EYES: Pupils equal and round. No scleral icterus. No injection or drainage. ENT: No nasal bleeding or discharge. Mucous membranes pink and dry. Tongue fasciculations. NECK: Trachea midline. No JVD. CARDIOVASCULAR: Regular rate and rhythm. No murmur appreciated. RESPIRATORY: No accessory muscle use. Clear to auscultation. Breath sounds equal bilaterally. GASTROINTESTINAL: Abdomen soft, non-tender, nondistended. MUSCULOSKELETAL: No obvious deformities. No clubbing. No cyanosis. No edema. NEUROLOGICAL: Awake and alert. No obvious cranial nerve deficits. Motor grossly within normal limits. Normal speech. Diffuse tremors. No focal deficits. Normal [id number] test bilaterally. No pronator drift. PSYCHIATRIC: Appropriate mood and affect; insight and judgment normal. Data Data Last Documented VS Vital Signs Date Time Temp Pulse Resp B/P (MAP) Pulse Ox O2 Delivery O2 Flow Rate FiO2 01/19/17 19:35 75 18 158/89 (112) 97 Room Air 01/19/17 17:27 97.8 Orders Orders Complete Blood Count With Diff (01/19/17 18:57) Comprehensive Metabolic Panel (01/19/17 18:57) Prothrombin Time / Inr (Pt) (01/19/17 18:57) Act Partial Throm Time (Ptt) (01/19/17 18:57) Iv Access Insert/Monitor (01/19/17 18:57) Ecg Monitoring (01/19/17 18:57) Oximetry (01/19/17 18:57) Sodium Chlor 0.9% 1000 Ml Inj (Ns 1000 M (01/19/17 18:57) Sodium Chloride 0.9% Flush (Ns Flush) (01/19/17 19:00) Magnesium (Mg) (01/19/17 18:57) Lorazepam Inj (Ativan Inj) (01/19/17 19:00) Ct Brain W/O Iv Contrast(Rout) (01/19/17 ) Alcohol (Ethanol) (01/19/17 19:00) Admit To Inpatient (01/19/17 ) Vital Signs (Adult) Q4H (01/19/17 20:25) Activity Oob With Assistance (01/19/17 20:25) Vector Control Assistant / Telemetry .CONTINUOUS (01/19/17 20:25) Diet Heart Healthy (01/20/17 Breakfast) Sodium Chlor 0.9% 1000 Ml Inj (Ns 1000 M (01/19/17 20:25) Sodium Chloride 0.9% Flush (Ns Flush) (01/19/17 20:30) Sodium Chloride 0.9% Flush (Ns Flush) (01/19/17 21:00) Basic Metabolic Panel (Bmp) (01/20/17 06:00) Complete Blood Count With Diff (01/20/17 06:00) Case Management Consult (01/19/17 20:25) Naloxone Inj (Narcan Inj) (01/19/17 20:30) Inpatient Certification (01/19/17 ) Lorazepam Inj (Ativan Inj) (01/19/17 20:30) Chlordiazepoxide (Librium) (01/20/17 09:00) Chlordiazepoxide (Librium) (01/19/17 21:00) ^ Seizure Precautions (01/19/17 20:28) Admit Order (Ed Use Only) (01/19/17 20:31) Labs Laboratory Tests Test 01/19/17 19:00 White Blood Count 4.6 TH/MM3 Red Blood Count 3.41 MIL/MM3 Hemoglobin 13.0 GM/DL Hematocrit 38.4 % Mean Corpuscular Volume 112.4 FL Mean Corpuscular Hemoglobin 38.1 PG Mean Corpuscular Hemoglobin Concent 33.9 % Red Cell Distribution Width 14.3 % Platelet Count 78 TH/MM3 Mean Platelet Volume 7.4 FL Neutrophils (%) (Auto) 72.2 % Lymphocytes (%) (Auto) 12.5 % Monocytes (%) (Auto) 14.6 % Eosinophils (%) (Auto) 0.1 % Basophils (%) (Auto) 0.6 % Neutrophils # (Auto) 3.3 TH/MM3 Lymphocytes # (Auto) 0.6 TH/MM3 Monocytes # (Auto) 0.7 TH/MM3 Eosinophils # (Auto) 0.0 TH/MM3 Basophils # (Auto) 0.0 TH/MM3 CBC Comment AUTO DIFF Differential Comment AUTO DIFF CONFIRMED Platelet Estimate LOW Platelet Morphology Comment NORMAL Prothrombin Time 11.3 SEC Prothromb Time International Ratio 1.0 RATIO Activated Partial Thromboplast Time 25.8 SEC Blood Urea Nitrogen 18 MG/DL Creatinine 0.94 MG/DL Random Glucose 89 MG/DL Total Protein 7.6 GM/DL Albumin 3.9 GM/DL Calcium Level 8.4 MG/DL Magnesium Level 1.4 MG/DL Alkaline Phosphatase 61 U/L Aspartate Amino Transf (AST/SGOT) 46 U/L Alanine Aminotransferase (ALT/SGPT) 42 U/L Total Bilirubin 1.5 MG/DL Sodium Level 135 MEQ/L Potassium Level 3.6 MEQ/L Chloride Level 99 MEQ/L Carbon Dioxide Level 26.5 MEQ/L Anion Gap 10 MEQ/L Estimat Glomerular Filtration Rate 82 ML/MIN Ethyl Alcohol Level LESS THAN 3 MG/DL MDM Medical Decision Making Medical Screen Exam Complete: Yes Emergency Medical Condition: Yes Medical Record Reviewed: Yes Differential Diagnosis Alcohol withdrawal, metabolic abnormality, intracranial abnormality less likely Narrative Course Vital signs show heart rate 86, blood pressure 142/94, pulse ox 97% on room air , oral temp of 98.6F. CBC shows WBC 4.6, hemoglobin 13, hematocrit 38.4, platelets 78, MCV 112. CMP is remarkable for AST 46, ALT 42, T bili 1.5. Magnesium is 1.4. Alcohol level is negative. CT head: No acute intracranial abnormality. No change. Patient was given a liter of normal saline IV and a milligram of IV Ativan. On reassessment he reports he feels improved, however he is still very tremulous and has tongue fasciculations. I believe his symptoms are secondary to alcohol withdrawal. Patient will be admitted for further treatment of alcohol withdrawal/CIWA protocol. Case discussed with hospitalist Dr. Olson who will admit the patient to her service. Diagnosis Primary Impression: Alcohol withdrawal Qualified Codes: F10.230 - Alcohol dependence with withdrawal, uncomplicated Additional Impression: Thrombocytopenia Admitting Information Admitting Physician Requests: Admit Mohan Larry MD Jan 19, 2017 19:19
[2017-01-19 19:23] LABS: AUTOMATED NEUTROPHIL # 3.3 TH/MM3 (1.8-7.7); BASOPHIL % 0.6 % (0.0-2.0); EOSINOPHIL % 0.1 % (0.0-4.0); HEMATOCRIT 38.4 % (39.0-51.0); LYMPH % 12.5 % (9.0-44.0); LYMPHOCYTE # 0.6 TH/MM3 (1.0-4.8); MEAN CELL VOLUME 112.4 FL (80.0-100.0); MEAN CORPUSCULAR HEMOGLOBIN 38.1 PG (27.0-34.0); MEAN CORPUSCULAR HGB CONC 33.9 % (32.0-36.0); MONO % 14.6 % (0.0-8.0); NEUT % 72.2 % (16.0-70.0); PLATELET COUNT 78 TH/MM3 (150-450); RED BLOOD COUNT 3.41 MIL/MM3 (4.50-5.90); RED CELL DISTRIBUTION WIDTH 14.3 % (11.6-17.2); WHITE BLOOD COUNT 4.6 TH/MM3 (4.0-11.0)
[2017-01-19 19:34] LABS: CHLORIDE 99 MEQ/L (98-107); POTASSIUM 3.6 MEQ/L (3.5-5.1); SODIUM (NA) 135 MEQ/L (136-145)
[2017-01-19 19:35] VITALS: BP 158/89; PULSE 75; RESP 18; O2SAT 97
[2017-01-19 19:38] LABS: ANION GAP 10 MEQ/L (5-15); BICARBONATE 26.5 MEQ/L (21.0-32.0); BLOOD UREA NITROGEN 18 MG/DL (7-18); HEMO FLAGS AUTO DIFF; MAGNESIUM 1.4 MG/DL (1.5-2.5)
[2017-01-19 19:39] LABS: APTT (PATIENT) 25.8 SEC (24.3-30.1); PROTHROMBIN TIME - PATIENT 11.3 SEC (9.8-11.6)
[2017-01-19 19:41] LABS: ALT (GPT) 42 U/L (12-78); AST (GOT) 46 U/L (15-37); GLOMERULAR FILTRATION RATE 82 ML/MIN (>89)
[2017-01-19 19:42] LABS: TOTAL BILIRUBIN ADULT 1.5 MG/DL (0.2-1.0)
--- NOTE | 2017-01-19 19:43 | RADRPT ---
EXAM DATE/TIME: 01/19/2017 19:25 [facility] COMPARISON: CT BRAIN W/O CONTRAST, August 21, 2016, 13:03. INDICATIONS : Weakness. RADIATION DOSE: 62 CTDIvol (mGy) MEDICAL HISTORY : Cardiovascular disease. SURGICAL HISTORY : None. ENCOUNTER: Initial ACUITY: 1 day PAIN SCALE: 0/10 LOCATION: cranial TECHNIQUE: Multiple contiguous axial images were obtained of the head. Using automated exposure control and adj ustment of the mA and/or kV according to patient size, radiation dose was kept as low as reasonably a chievable to obtain optimal diagnostic quality images. DICOM format image data is available electro nically for review and comparison. FINDINGS: CEREBRUM: The ventricles are normal for age. No evidence of midline shift, mass lesion, hemorrhage or acute in farction. No extra-axial fluid collections are seen. POSTERIOR FOSSA: The cerebellum and brainstem are intact. The 4th ventricle is midline. The cerebellopontine angle i s unremarkable. EXTRACRANIAL: The visualized portion of the orbits is intact. SKULL: The calvaria is intact. No evidence of skull fracture. CONCLUSION: No acute intracranial abnormality. No change. Horace Fair MD on January 19, 2017 at 19:37 Board Certified Radiologist. This report was verified electronically.
[2017-01-19 19:44] LABS: ALKALINE PHOSPHATASE 61 U/L (45-117)
[2017-01-19 20:00] LABS: ALCOHOL LESS THAN 3 MG/DL (0-5)
[2017-01-19 20:17] LABS: PLATELET ESTIMATE SMEAR LOW (NORMAL); PLATELET MORPHOLOGY NORMAL (NORMAL); SCAN/DIFF AUTO DIFF CONFIRMED
[2017-01-19] MEDS ORDERED: NALOXONE HCL 0.4 MG/ML AMP IV PRN (20:30)
[2017-01-19] MEDS: SODIUM CHLOR 0.9% 1000 ML INJ 1,000 ML IV SCH (20:43)
[2017-01-19 20:44] VITALS: BP 164/89; PULSE 77; RESP 16; O2SAT 96
[2017-01-19] MEDS: SODIUM CHLORIDE 0.9% FLUSH 10 ML FLUSH IV FLUSH SCH (21:00)
[2017-01-19] MEDS ORDERED: chlordiazePOXIDE 25 MG CAP PO ONE (21:00)
[2017-01-20] VITALS (7 sets, daily range): BP systolic 122–161; BP diastolic 80–177; PULSE 69–160; RESP 16–22; TEMP 97.5–98.8; O2SAT 95–100
[2017-01-20 06:10] LABS: BASOPHIL # 0.1 TH/MM3 (0-0.2); BASOPHIL % 1.4 % (0.0-2.0); EOSINOPHIL % 0.5 % (0.0-4.0); HEMATOCRIT 36.5 % (39.0-51.0); LYMPH % 18.8 % (9.0-44.0); LYMPHOCYTE # 0.8 TH/MM3 (1.0-4.8); MEAN CELL VOLUME 112.4 FL (80.0-100.0); MEAN CORPUSCULAR HGB CONC 33.8 % (32.0-36.0); MONO % 12.5 % (0.0-8.0); NEUT % 66.8 % (16.0-70.0); PLATELET COUNT 82 TH/MM3 (150-450); RED BLOOD COUNT 3.24 MIL/MM3 (4.50-5.90); RED CELL DISTRIBUTION WIDTH 14.4 % (11.6-17.2); WHITE BLOOD COUNT 4.5 TH/MM3 (4.0-11.0)
[2017-01-20 06:18] LABS: POTASSIUM 3.4 MEQ/L (3.5-5.1)
[2017-01-20 06:21] LABS: BICARBONATE 24.9 MEQ/L (21.0-32.0)
[2017-01-20] MEDS: SODIUM CHLOR 0.9% 1000 ML INJ 1,000 ML IV SCH ×3 (06:25→17:01)
[2017-01-20 06:32] LABS: HEMO FLAGS AUTO DIFF
[2017-01-20 07:12] LABS: PLATELET ESTIMATE SMEAR LOW (NORMAL); PLATELET MORPHOLOGY NORMAL (NORMAL); SCAN/DIFF AUTO DIFF CONFIRMED
[2017-01-20] MEDS: SODIUM CHLORIDE 0.9% FLUSH 10 ML FLUSH IV FLUSH SCH ×2 (09:00→20:11)
[2017-01-20] MEDS: chlordiazePOXIDE 25 MG CAP PO SCH ×3 (10:00→18:00)
[2017-01-20] MEDS: METOPROLOL TARTRATE 25 MG TAB PO SCH ×2 (10:30→20:16)
[2017-01-20] MEDS ORDERED: PILL SPLITTER OTHER PRN (10:45)
--- NOTE | 2017-01-20 11:24 | HHI.HP ---
[facility] Service [facility] Primary Care Physician No Primary Care Physician Admission Diagnosis Alcohol withdrawal Diagnoses: Travel History International Travel<30 Days: No Contact w/Intl Traveler <30 Da: No Traveled to Known Affected Are: No History of Present Illness Written by Bipin Kennedy, acting as scribe for Dr. Franco on 01/20/17 at 11: 15. 61 year-old male with known history of paroxysmal atrial flutter who presented to the hospital because of facial twitching and weakness. Patient states that his normal state of health and he did not drink anything on Thursday and Thursday, however Thursday he did have his normal drinks which is usually 2 vodka and cranberry in one beer daily. Patient started noticing that he has some facial twitching and lower external weakness with difficulty ambulating so he came to the hospital for evaluation. CT scan was done of the head which did not indicate any acute abnormality. Workup was done emergency department with mild electrolyte abnormalities. Because of his symptoms is recommended by the ER physician that the patient be admitted for further evaluation and management. Review of Systems Constitutional: COMPLAINS OF: Fatigue Neurologic: COMPLAINS OF: Tremor (facial twitching) Except as stated in HPI: all other systems reviewed are Neg Past Family Social History Past Medical History History of paroxysmal atrial flutter Alcohol abuse Past Surgical History Teeth extractions Reported Medications Last Impressions Head CT 01/19/17 0000 Signed Impressions: Service Date/Time: Thursday, January 19, 2017 19:25 - CONCLUSION: No acute intracranial abnormality. No change. Horace Fair MD Allergies: Coded Allergies: acetaminophen (Unverified Allergy, Severe, Itching, 01/19/17) oxycodone (Unverified Allergy, Severe, Itching, 01/19/17) Family History Reviewed is significant for mother at age 4848 years old from alcohol abuse, father at age 73 from COPD Social History Patient is down to one third of a pack a cigarettes a day. Patient is not forthcoming about how much alcohol use on daily basis. He started out only drinking 1 beer a day and 2 vodka and cranberry juice daily Physical Exam Vital Signs Vital Signs Date Time Temp Pulse Resp B/P (MAP) Pulse Ox O2 Delivery O2 Flow Rate FiO2 01/20/17 10:51 01/20/17 08:00 98.6 88 16 140/83 (102) 100 Room Air 01/20/17 04:33 75 16 142/93 (109) 95 Room Air 01/20/17 00:41 98.8 69 18 150/90 (110) 97 Room Air 01/19/17 20:44 77 16 164/89 (114) 96 Room Air 01/19/17 19:35 75 18 158/89 (112) 97 Room Air 01/19/17 19:00 Room Air 01/19/17 17:27 97.8 65 18 155/84 (107) 99 Room Air 01/19/17 14:18 98.6 86 18 142/94 (110) 97 Physical Exam GENERAL: Well-developed, well-nourished, in no acute distress. alert and orientated HEENT: Head is normocephalic without any lesions or masses noted. Facial features are symmetric. Eyes: Pupils equal round reactive to light. Extraocular muscles are intact. Conjunctivae were clear. Oropharyngeal: Pharynx without any erythema edema. Tongue is midline without deviation. Buccal mucosa is moist without any masses or lesions NECK: Supple without any masses. Trachea midline no deviation. No JVD, no bruits are appreciated CARDIAC: Regular rhythm, regular rate. S1/S2 are heard. No murmurs gallops or rubs. LUNGS: Clear to auscultation bilaterally. No wheeze, rhonchi or rales. No use of accessory muscles on inspiration or expiration. ABDOMEN: Soft, nontender. Nondistended. Bowel sounds heard in all 4 quadrants. No organomegaly or masses. Negative rebound, negative guarding EXTREMITIES: No edema, pulses are equal bilaterally. No cyanosis or clubbing NEUROLOGY: Mood and affect appear appropriate. Cranial nerves II through XII grossly intact. Muscle strength 5/5 in upper and lower extremities bilaterally. Deep tendon reflexes are 2+ in upper and lower extremities bilaterally. Laboratory Laboratory Tests Test 01/19/17 19:00 01/20/17 06:00 White Blood Count 4.6 4.5 Red Blood Count 3.41 3.24 Hemoglobin 13.0 12.3 Hematocrit 38.4 36.5 Mean Corpuscular Volume 112.4 112.4 Mean Corpuscular Hemoglobin 38.1 38.0 Mean Corpuscular Hemoglobin Concent 33.9 33.8 Red Cell Distribution Width 14.3 14.4 Platelet Count 78 82 Mean Platelet Volume 7.4 7.3 Neutrophils (%) (Auto) 72.2 66.8 Lymphocytes (%) (Auto) 12.5 18.8 Monocytes (%) (Auto) 14.6 12.5 Eosinophils (%) (Auto) 0.1 0.5 Basophils (%) (Auto) 0.6 1.4 Neutrophils # (Auto) 3.3 3.0 Lymphocytes # (Auto) 0.6 0.8 Monocytes # (Auto) 0.7 0.6 Eosinophils # (Auto) 0.0 0.0 Basophils # (Auto) 0.0 0.1 CBC Comment AUTO DIFF AUTO DIFF Differential Comment AUTO DIFF CONFIRMED AUTO DIFF CONFIRMED Platelet Estimate LOW LOW Platelet Morphology Comment NORMAL NORMAL Prothrombin Time 11.3 Prothromb Time International Ratio 1.0 Activated Partial Thromboplast Time 25.8 Blood Urea Nitrogen 18 13 Creatinine 0.94 0.87 Random Glucose 89 116 Total Protein 7.6 Albumin 3.9 Calcium Level 8.4 8.0 Magnesium Level 1.4 Alkaline Phosphatase 61 Aspartate Amino Transf (AST/SGOT) 46 Alanine Aminotransferase (ALT/SGPT) 42 Total Bilirubin 1.5 Sodium Level 135 134 Potassium Level 3.6 3.4 Chloride Level 99 99 Carbon Dioxide Level 26.5 24.9 Anion Gap 10 10 Estimat Glomerular Filtration Rate 82 90 Ethyl Alcohol Level LESS THAN 3 Result Diagram: 01/20/17 0600 01/20/17 0600 Imaging Last Impressions Head CT 01/19/17 0000 Signed Impressions: Service Date/Time: Thursday, January 19, 2017 19:25 - CONCLUSION: No acute intracranial abnormality. No change. Horace Fair MD Caprini VTE Risk Assessment Caprini VTE Risk Assessment: No/Low Risk (score <= 1) Caprini Risk Assessment Model Point Value = 1 Point Value = 2 Point Value = 3 Point Value = 5 Age 41-60 Minor surgery BMI > 25 kg/m2 Swollen legs Varicose veins or History of unexplained or recurrent spontaneous Oral contraceptives or hormone replacement Sepsis (< 1 month) Serious lung disease, including pneumonia (< 1 month) Abnormal pulmonary function Acute myocardial infarction Congestive heart failure (< 1 month) History of inflammatory bowel disease Medical patient at bed rest Age 61-74 Arthroscopic surgery Major open surgery (> 45 min) Laparoscopic surgery (> 45 min) Malignancy Confined to bed (> 72 hours) Immobilizing plaster cast Central venous access Age >= 75 History of VTE Family history of VTE Factor V Leiden Prothrombin [id number] Lupus anticoagulant Anticardiolipin antibodies Elevated serum homocysteine Heparin-induced thrombocytopenia Other congenital or acquired thrombophilia Stroke (< 1 month) Elective arthroplasty Hip, pelvis, or leg fracture Acute spinal cord injury (< 1 month) Prophylaxis Regimen Total Risk Factor Score Risk Level Prophylaxis Regimen 0-1 Low Early ambulation 2 Moderate Order ONE of the following: *Sequential Compression Device (SCD) *Heparin 5000 units SQ BID 3-4 Higher Order ONE of the following medications: *Heparin 5000 units SQ TID *Enoxaparin/Lovenox 40 mg SQ daily (WT < 150 kg, CrCl > 30 mL/min) *Enoxaparin/Lovenox 30 mg SQ daily (WT < 150 kg, CrCl > 10-29 mL/min) *Enoxaparin/Lovenox 30 mg SQ BID (WT < 150 kg, CrCl > 30 mL/min) AND/OR *Sequential Compression Device (SCD) 5 or more Highest Order ONE of the following medications: *Heparin 5000 units SQ TID (Preferred with Epidurals) *Enoxaparin/Lovenox 40 mg SQ daily (WT < 150 kg, CrCl > 30 mL/min) *Enoxaparin/Lovenox 30 mg SQ daily (WT < 150 kg, CrCl > 10-29 mL/min) *Enoxaparin/Lovenox 30 mg SQ BID (WT < 150 kg, CrCl > 30 mL/min) AND *Sequential Compression Device (SCD) Assessment and Plan Assessment and Plan Facial twitching, weakness CT of the brain was performed which did not indicate any acute abnormality Patient does have electrolyte abnormalities to include hyponatremia, hypokalemia, hypomagnesemia, hypocalcemia, likely all of which are related to chronic alcohol use We'll obtain MRI of brain to rule out any acute intracranial abnormality, CVA , stroke Continue IV fluids, replace electrolytes, Obtain physical therapy evaluation Paroxysmal atrial flutter Start low-dose Lopressor 12.5 mg twice daily Chads 0, continue aspirin Chronic alcohol abuse Monitor for withdrawal, Librium as needed, Ativan for seizures Patient was given information on [facility] for outpatient follow-up DVT prevention Low risk, early ambulation This note was transcribed by scribe [Bipin Kennedy]. I, Dr. Don Franco personally performed the history, physical exam, and medical decision making; and confirmed the accuracy of the information in the transcribed note. Authenticated by Dr. Don Franco on 01/20/17 at 11:26. Physician Certification 2 Midnight Certification Type: Admission for Inpatient Services Order for Inpatient Services The services are ordered in accordance with Medicare regulations or non- Medicare payer requirements, as applicable. In the case of services not specified as inpatient-only, they are appropriately provided as inpatient services in accordance with the 2-midnight benchmark. Estimated LOS (days): 2 days is the estimated time the patient will need to remain in the hospital, assuming treatment plan goals are met and no additional complications. Post-Hospital Plan: Not yet determined Bipin Kennedy Jan 20, 2017 11:24 Don Franco MD Jan 20, 2017 11:26
[2017-01-20] MEDS: ASPIRIN EC 81 MG TABEC PO SCH (11:30)
[2017-01-20] MEDS ORDERED: MAGNESIUM OXIDE 400 MG TAB PO ONE (11:30)
[2017-01-20] MEDS ORDERED: POTASSIUM CHLORIDE 20 MEQ CONTROLLED RELEASE TAB PO ONE (11:30)
[2017-01-20] MEDS: LORazepam 2 MG/ML VIAL IV PUSH PRN ×4 (12:17→23:06)
--- NOTE | 2017-01-20 15:12 | RADRPT ---
EXAM DATE/TIME: 01/20/2017 12:39 [facility] COMPARISON: MRI BRAIN W/O CONTRAST, August 21, 2016, 16:52. INDICATIONS : CVA. Weakness and tremors. MEDICAL HISTORY : ETOH. SURGICAL HISTORY : None. ENCOUNTER: Subsequent ACUITY: 2 day PAIN SCORE: 0/10 LOCATION: Head. TECHNIQUE: Multiplanar, multisequence MRI of the brain was performed without contrast. FINDINGS: Mild periventricular and subcortical white matter small vessel ischemic changes are noted bilaterally . Mild bilateral pontine small vessel ischemic changes are also noted. There is no acute infarct. No acute hemorrhage, midline shift or extraaxial fluid collections are noted. Mild cerebral atrophy is stable. The midline structures including corpus callosum, pituitary gland and craniocervical junc tion are unremarkable. Mild mucosal thickening is noted involving the right maxillary sinus. CONCLUSION: 1. Mild periventricular and subcortical white matter small vessel ischemic changes as well as mild bi lateral pontine small vessel ischemic changes. 2. Mild cerebral atrophy. 3. No acute infarct, acute hemorrhage, mass effect or extraaxial fluid collections. 4. Mild cerebral atrophy. 5. Mild mucosal thickening involving the right maxillary sinus. Brett Mcgraw MD on January 20, 2017 at 14:30 Board Certified Radiologist. This report was verified electronically.
[2017-01-20] MEDS ORDERED: FLUMAZENIL 0.5 MG/5 ML VIAL IV PUSH PRN (19:30)
[2017-01-20] MEDS ORDERED: LORazepam 2 MG TAB PO PRN (19:30)
[2017-01-20] MEDS ORDERED: LORazepam 1 MG TAB PO PRN (19:30)
[2017-01-20] MEDS ORDERED: LORazepam 2 MG/ML VIAL IV PUSH PRN ×3 (19:30)
[2017-01-21] VITALS: BP 157/98; PULSE 113; RESP 18; TEMP 96.3; O2SAT 97
[2017-01-21] MEDS: LORazepam 2 MG/ML VIAL IV PUSH PRN (01:20)
[2017-01-21] MEDS: HALOPERIDOL LACTATE 5 MG/ML AMP IM PRN ×2 (01:59→09:26)
[2017-01-21 04:00] VITALS: BP 145/86; PULSE 88; RESP 18; TEMP 97.8; O2SAT 98
[2017-01-21 08:00] VITALS: BP 101/81; PULSE 75; RESP 20; TEMP 97.6; O2SAT 96
[2017-01-21] MEDS: ASPIRIN EC 81 MG TABEC PO SCH (09:26)
[2017-01-21] MEDS: METOPROLOL TARTRATE 25 MG TAB PO SCH ×2 (09:26→20:14)
[2017-01-21] MEDS: SODIUM CHLORIDE 0.9% FLUSH 10 ML FLUSH IV FLUSH SCH ×2 (09:27→20:14)
[2017-01-21] MEDS: SODIUM CHLOR 0.9% 1000 ML INJ 1,000 ML IV SCH (09:27)
--- NOTE | 2017-01-21 14:00 | HHI.PR ---
Subjective Remarks Patient seen today in follow-up for weakness and alcohol related issues. Patient feels better. Still having difficulty with coordination. No evidence of stroke. Patient also had some elevated heart rate were last night but this appears resolved after Lopressor. Objective Vitals Vital Signs Date Time Temp Pulse Resp B/P (MAP) Pulse Ox O2 Delivery O2 Flow Rate FiO2 01/21/17 08:00 97.6 75 20 101/81 (88) 96 01/21/17 04:00 97.8 88 18 145/86 (105) 98 01/21/17 00:00 96.3 113 18 157/98 (117) 97 01/20/17 20:30 160 01/20/17 20:00 97.5 145 22 122/88 (99) 96 01/20/17 16:00 97.5 95 20 161/177 (172) 96 I/O 01/20/17 01/20/17 01/20/17 01/21/17 01/21/17 01/21/17 07:00 15:00 23:00 07:00 15:00 23:00 Intake Total 1620 ml Output Total 700 ml Balance -700 ml 1620 ml Intake Oral 420 ml IV Total 1200 ml Output Urine Total 700 ml # Voids 2 # Bowel Movements 0 Result Diagram: 01/20/17 0600 01/20/17 0600 Imaging Last Impressions Brain MRI 01/20/17 0000 Signed Impressions: Service Date/Time: Friday, January 20, 2017 12:39 - CONCLUSION: 1. Mild periventricular and subcortical white matter small vessel ischemic changes as well as mild bilateral pontine small vessel ischemic changes. 2. Mild cerebral atrophy. 3. No acute infarct, acute hemorrhage, mass effect or extraaxial fluid collections. 4. Mild cerebral atrophy. 5. Mild mucosal thickening involving the right maxillary sinus. Brett Mcgraw MD Head CT 01/19/17 0000 Signed Impressions: Service Date/Time: Thursday, January 19, 2017 19:25 - CONCLUSION: No acute intracranial abnormality. No change. Horace Fair MD Objective Remarks GENERAL: This is a well-nourished, well-developed patient, in no apparent distress. CARDIOVASCULAR: Regular rate and rhythm without murmurs, gallops, or rubs. RESPIRATORY: Clear to auscultation. Breath sounds equal bilaterally. No wheezes , rales, or rhonchi. GASTROINTESTINAL: Abdomen soft, non-tender, nondistended. Normal active bowel sounds MUSCULOSKELETAL: Extremities without clubbing, cyanosis, or edema. NEURO: Alert & Oriented x4 to person, place, time, situation. Moves all ext x4 A/P Problem List: (1) Thrombocytopenia ICD Code: D69.6 - Thrombocytopenia, unspecified Status: Acute Plan: patient with chronic alcoholism. No active bleeding. We'll continue to follow (2) Alcohol withdrawal ICD Code: F10.239 - Alcohol dependence with withdrawal, unspecified Status: Acute Plan: Continue with Librium as needed and Ativan for seizures and follow up for evidence of withdrawal Follow-up Electrolytes (3) Atrial flutter ICD Code: I48.92 - Unspecified atrial flutter Status: Acute Plan: Continue Lopressor 25 twice a day Discharge Planning Likely discharge in a.m. if stable Problem Qualifiers (1) Alcohol withdrawal: Qualified Codes: F10.230 - Alcohol dependence with withdrawal, uncomplicated Bernarda Hickman MD Jan 21, 2017 14:00
[2017-01-21 14:52] VITALS: BP 114/75; PULSE 61; RESP 18; TEMP 96.6; O2SAT 93
[2017-01-21 16:00] VITALS: BP 114/74; PULSE 72; RESP 15; TEMP 96.8; O2SAT 95
[2017-01-21 20:00] VITALS: BP 114/84; PULSE 137; PULSE 147; RESP 20; TEMP 97.3; O2SAT 97
--- NOTE | 2017-01-21 22:02 | EKG ---
Date Performed: 01/20/2017 Time Performed: 09:29:09 PTAGE: 61 years EKG: Sinus rhythm WITH OCCASIONAL SUPRAVENTRICULAR PREMATURE COMPLEXES MARKED LEFT AXIS DEVIATION ST DEVIATION AND MOD ERATE T-WAVE ABNORMALITY ABNORMAL ECG Compared to the PREVIOUS TRACING SR now present DOCTOR: Ramon Jay Interpretating Date/Time 01/21/2017 22:01:40
[2017-01-22] VITALS: BP 140/94; PULSE 68; RESP 20; TEMP 97.9; O2SAT 97
[2017-01-22 04:00] VITALS: BP 130/84; PULSE 72; RESP 20; TEMP 97.4; O2SAT 99
[2017-01-22 07:51] LABS: POTASSIUM 3.6 MEQ/L (3.5-5.1)
[2017-01-22 07:58] LABS: BICARBONATE 24.4 MEQ/L (21.0-32.0)
[2017-01-22 08:00] VITALS: BP 105/84; PULSE 70; RESP 18; TEMP 97.8; O2SAT 98
[2017-01-22] MEDS: SODIUM CHLORIDE 0.9% FLUSH 10 ML FLUSH IV FLUSH SCH (08:18)
[2017-01-22] MEDS: METOPROLOL TARTRATE 25 MG TAB PO SCH (08:49)
[2017-01-22 12:00] VITALS: BP 114/82; PULSE 72; RESP 20; TEMP 97.3; O2SAT 98
--- NOTE | 2017-01-22 14:22 | HHI.DCPOC ---
Discharge Care Plan Diagnosis: (1) Alcohol withdrawal Goals to Promote Your Health * To prevent worsening of your condition and complications * To maintain your health at the optimal level Directions to Meet Your Goals Take your medications as prescribed Follow your dietary instruction Follow activity as directed Keep your appointments as scheduled Take your immunizations and boosters as scheduled If your symptoms worsen call your PCP, if no PCP go to Urgent Care Center or Emergency Room Smoking is Dangerous to Your Health. Avoid second hand smoke Call the 24-hour hour crisis hotline for domestic abuse at Bernarda Hickman MD Jan 22, 2017 14:22
--- NOTE | 2017-01-22 14:39 | HHI.DS ---
Discharge Summary Admission Date Jan 19, 2017 at 20:31 Discharge Date: Jan 22, 2017 Admitting Diagnosis Alcohol withdrawal (1) Thrombocytopenia ICD Code: D69.6 - Thrombocytopenia, unspecified Status: Acute (2) Alcohol withdrawal ICD Code: F10.239 - Alcohol dependence with withdrawal, unspecified Status: Acute (3) Atrial flutter ICD Code: I48.92 - Unspecified atrial flutter Status: Acute Procedures none Brief History - From Admission Written by Bipin Kennedy, acting as scribe for Dr. Franco on 01/20/17 at 11: 15. 61 year-old male with known history of paroxysmal atrial flutter who presented to the hospital because of facial twitching and weakness. Patient states that his normal state of health and he did not drink anything on Thursday and Thursday, however Thursday he did have his normal drinks which is usually 2 vodka and cranberry in one beer daily. Patient started noticing that he has some facial twitching and lower external weakness with difficulty ambulating so he came to the hospital for evaluation. CT scan was done of the head which did not indicate any acute abnormality. Workup was done emergency department with mild electrolyte abnormalities. Because of his symptoms is recommended by the ER physician that the patient be admitted for further evaluation and management. CBC/BMP: 01/20/17 0600 01/22/17 0715 Significant Findings Laboratory Tests Test 01/19/17 19:00 01/20/17 06:00 01/22/17 07:15 Red Blood Count 3.41 MIL/MM3 (4.50-5.90) 3.24 MIL/MM3 (4.50-5.90) Hematocrit 38.4 % (39.0-51.0) 36.5 % (39.0-51.0) Mean Corpuscular Volume 112.4 FL (80.0-100.0) 112.4 FL (80.0-100.0) Mean Corpuscular Hemoglobin 38.1 PG (27.0-34.0) 38.0 PG (27.0-34.0) Platelet Count 78 TH/MM3 (150-450) 82 TH/MM3 (150-450) Neutrophils (%) (Auto) 72.2 % (16.0-70.0) Monocytes (%) (Auto) 14.6 % (0.0-8.0) 12.5 % (0.0-8.0) Lymphocytes # (Auto) 0.6 TH/MM3 (1.0-4.8) 0.8 TH/MM3 (1.0-4.8) Platelet Estimate LOW (NORMAL) LOW (NORMAL) Calcium Level 8.4 MG/DL (8.5-10.1) 8.0 MG/DL (8.5-10.1) 8.1 MG/DL (8.5-10.1) Magnesium Level 1.4 MG/DL (1.5-2.5) Aspartate Amino Transf (AST/SGOT) 46 U/L (15-37) Total Bilirubin 1.5 MG/DL (0.2-1.0) Sodium Level 135 MEQ/L (136-145) 134 MEQ/L (136-145) Estimat Glomerular Filtration Rate 82 ML/MIN (>89) Hemoglobin 12.3 GM/DL (13.0-17.0) Random Glucose 116 MG/DL (74-106) 114 MG/DL (74-106) Potassium Level 3.4 MEQ/L (3.5-5.1) Blood Urea Nitrogen 23 MG/DL (7-18) Imaging Last Impressions Brain MRI 01/20/17 0000 Signed Impressions: Service Date/Time: Friday, January 20, 2017 12:39 - CONCLUSION: 1. Mild periventricular and subcortical white matter small vessel ischemic changes as well as mild bilateral pontine small vessel ischemic changes. 2. Mild cerebral atrophy. 3. No acute infarct, acute hemorrhage, mass effect or extraaxial fluid collections. 4. Mild cerebral atrophy. 5. Mild mucosal thickening involving the right maxillary sinus. Brett Mcgraw MD Head CT 01/19/17 0000 Signed Impressions: Service Date/Time: Thursday, January 19, 2017 19:25 - CONCLUSION: No acute intracranial abnormality. No change. Horace Fair MD PE at Discharge GENERAL: This is a well-nourished, well-developed patient, in no apparent distress. CARDIOVASCULAR: Regular rate and rhythm without murmurs, gallops, or rubs. RESPIRATORY: Clear to auscultation. Breath sounds equal bilaterally. No wheezes , rales, or rhonchi. GASTROINTESTINAL: Abdomen soft, non-tender, nondistended. Normal active bowel sounds MUSCULOSKELETAL: Extremities without clubbing, cyanosis, or edema. NEURO: Alert & Oriented x4 to person, place, time, situation. Moves all ext x4 Pt update on day of discharge Patient doing better today, ambulatory, coherent discharge plans discussed with patient and [facility] nursing team. Hospital Course Electrolytes Patient is a 61-year-old gentleman with history of alcoholic dependence. He did come in with signs and symptoms of alcohol withdrawal and he did improve with some Ativan and Librium. Electrolytes were replaced and the patient was discharged home Pt Condition on Discharge: Good Discharge Disposition: Discharge Home Discharge Time: <= 30 minutes Discharge Instructions DIET: Follow Instructions for: As Tolerated, No Restrictions Activities you can perform: Regular-No Restrictions Continued Medications: Aspirin DR (Aspirin EC) 81 Mg Tabdr 81 MG PO DAILY for Prevent Blood Clot, #30 TAB Diltiazem CD 24 HR (Cardizem CD 24 HR) 120 Mg Caper 120 MG PO DAILY for Regulate Heart Beat, #30 CAP 3 Refills Fludrocortisone (Fludrocortisone) 0.1 Mg Tab 0.1 MG PO DAILY for Orthostatic hypotension, #30 TAB 3 Refills Midodrine (Midodrine) 5 Mg Tab 5 MG PO TID@07,12,17 for Orthostatic hypotension, #90 TAB 3 Refills Sodium Chloride (Sodium Chloride) 1 Gm Tab 1 GM PO TID for Orthostatic hypotension, #90 TAB 3 Refills Bernadra Hickman MD Jan 22, 2017 14:39
== END 2017-01-22 14:47 | disposition home or self-care (01) | DRG 897 ==
LOC: PHED 13:54 → PHEDA 20:31 → PH5A 01-20 10:20
PROVIDERS: ADMIT Hospitalist; ATTEND Hospitalist
DX: F10.230 Alcohol dependence with withdrawal, uncomplicated (principal); D69.6 Thrombocytopenia, unspecified; E83.42 Hypomagnesemia; E83.51 Hypocalcemia; I48.92 Unspecified atrial flutter; E87.1 Hypo-osmolality and hyponatremia; F17.210 Nicotine dependence, cigarettes, uncomplicated; E87.6 Hypokalemia; M19.90 Unspecified osteoarthritis, unspecified site; R25.3 Fasciculation; R47.81 Slurred speech
CPT/HCPCS: 70450; 70551; 80048; 80053; 80307; 83735; 85025; 85610; 85730; 93005; 96361; 96374; J1630; J2060; J7030

== ENCOUNTER 2017-04-01 10:20 | Observation (INO) | payer SELFPAY ==
[~2017-04-01] VITALS: Ht 170.2 cm; Wt 75.0 kg
[2017-04-01] VITALS (14 sets, daily range): BP systolic 96–165; BP diastolic 65–81; PULSE 60–157; RESP 18–21; TEMP 97.7–98.7; O2SAT 94–99
[~2017-04-01 10:20] MED LIST changes: -ASPI81TA11 PO; +ASPI81TA23 PO; -VITA100T2 PO; -WALKER WHEELS/F1 MIS
[2017-04-01] MEDS ORDERED: SODIUM CHLORIDE 0.9% FLUSH 10 ML FLUSH IVF PRN (10:45)
[2017-04-01] MEDS ORDERED: DILTIAZEM HCL 25 MG/5 ML VIAL IV PUSH ONE (10:45)
[2017-04-01] MEDS ORDERED: DILTIAZEM INJ 125 MG in SODIUM CHLORIDE 0.9% INJ 100 ML IV PRN (10:45)
[2017-04-01] MEDS ORDERED: ASPIRIN 81 MG CHEW TAB PO ONE (10:45)
--- NOTE | 2017-04-01 10:52 | PD ---
HPI Chief Complaint: Cardiac Complaint Time Seen by Provider: 10:29 Travel History International Travel<30 days: No Contact w/Intl Traveler<30days: No History of Present Illness HPI 62 y/o M patient was sent to the Ed form the [facility] for atrial fibrillation. 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 He currently has no CP, Headache, Denies N/V/D. He does acknowledge feeling lightheaded upon standing and having shortness of breath. He has passed out a couple of times when getting up from a seated position. The SOB is exacerbated by activity, the lightheadedness is only exacerbated by standing up. Symptoms are moderate, worsened by standing or exertion, context is alcohol abuse, not associated with chest pain nausea or vomiting PFSH Past Medical History Arthritis: Yes ( fingers) Heart Rhythm Problems: Yes (palpatations) Cancer: No Cardiovascular Problems: No Cerebrovascular Accident: No Endocrine: No Genitourinary: No Headaches: Yes (rare) Immune Disorder: No Musculoskeletal: No Neurologic: No Psychiatric: No Reproductive: No Immunizations Current: Yes Seizures: No Past Surgical History Oral Surgery: Yes (teeth extraction) Other Surgery: Yes Social History Alcohol Use: Yes (daily) Tobacco Use: Yes (1/2 PPD) Substance Use: Yes (marijuana occasionally) Allergies-Medications (Allergen,Severity, Reaction): Coded Allergies: acetaminophen (Unverified Allergy, Severe, Itching, 04/01/17) oxycodone (Unverified Allergy, Severe, Itching, 04/01/17) Reported Meds & Prescriptions Reported Meds & Active Scripts Active Cardizem CD 24 HR (Diltiazem CD 24 HR) 120 Mg Caper 120 Mg PO DAILY Sodium Chloride 1 Gm Tab 1 Gm PO TID Midodrine 5 Mg Tab 5 Mg PO TID@07,12,17 Fludrocortisone (Fludrocortisone Acetate) 0.1 Mg Tab 0.1 Mg PO DAILY Aspirin EC (Aspirin) 81 Mg Tabdr 81 Mg PO DAILY Review of Systems Except as stated in HPI: all other systems reviewed are Neg Physical Exam Narrative GENERAL: patient is laying in bed in no acute distress SKIN: Warm and dry. HEAD: Atraumatic. Normocephalic. EYES: Pupils equal and round. No scleral icterus. No injection or drainage. ENT: No nasal bleeding or discharge. Mucous membranes pink and moist. NECK: Trachea midline. No JVD. CARDIOVASCULAR: irregularly irregular rate and rhythm without murmurs , tachycardic no carotid bruits RESPIRATORY: No accessory muscle use. Rhonchi noted bilaterally L worse than R. Expiratory wheezing. GASTROINTESTINAL: Abdomen soft, non-tender, nondistended. Hepatic and splenic margins not palpable. MUSCULOSKELETAL: Extremities without clubbing, cyanosis, or edema. No obvious deformities. NEUROLOGICAL: Awake and alert. No obvious cranial nerve deficits. Motor grossly within normal limits. Five out of 5 muscle strength in the arms and legs. Normal speech. PSYCHIATRIC: Appropriate mood and affect; insight and judgment normal. Data Data Last Documented VS Vital Signs Date Time Temp Pulse Resp B/P (MAP) Pulse Ox O2 Delivery O2 Flow Rate FiO2 04/01/17 12:00 112 121/78 04/01/17 10:34 21 98 04/01/17 10:21 98.2 Room Air Orders Orders Electrocardiogram (04/01/17 10:42) B-Type Natriuretic Peptide (04/01/17 10:42) Ckmb (Isoenzyme) Profile (04/01/17 10:42) Complete Blood Count With Diff (04/01/17 10:42) Comprehensive Metabolic Panel (04/01/17 10:42) Magnesium (Mg) (04/01/17 10:42) Prothrombin Time / Inr (Pt) (04/01/17 10:42) Act Partial Throm Time (Ptt) (04/01/17 10:42) Troponin I (04/01/17 10:42) Chest, Single Ap (04/01/17 10:42) Ecg Monitoring (04/01/17 10:42) Iv Access Insert/Monitor (04/01/17 10:42) Oximetry (04/01/17 10:42) Oxygen Administration (04/01/17 10:42) Aspirin Chew (Aspirin Chew) (04/01/17 10:45) Sodium Chloride 0.9% Flush (Ns Flush) (04/01/17 10:45) Diltiazem Inj (Cardizem Inj) (04/01/17 10:45) Diltiazem Inj (Cardizem Inj) (04/01/17 10:45) Place In Observation (04/01/17 ) Vital Signs (Adult) MELONY.Q4H (04/01/17 12:19) Neuro Checks . ORDERED (04/01/17 12:19) Activity Bed Rest (04/01/17 12:19) Freight Traffic Consultant / Telemetry MELONY.Q8H (04/01/17 12:19) Intake + Output 06,14,22 (04/01/17 12:19) Diet Npo (04/01/17 Lunch) Resp Oxygen Olaf C Titrat 1-4 L (04/01/17 ) Sodium Chloride 0.9% Flush (Ns Flush) (04/01/17 12:30) Sodium Chloride 0.9% Flush (Ns Flush) (04/01/17 21:00) Admit Order (Ed Use Only) (04/01/17 ) Labs Laboratory Tests Test 04/01/17 10:45 White Blood Count 7.0 TH/MM3 Red Blood Count 3.86 MIL/MM3 Hemoglobin 15.1 GM/DL Hematocrit 43.0 % Mean Corpuscular Volume 111.5 FL Mean Corpuscular Hemoglobin 39.0 PG Mean Corpuscular Hemoglobin Concent 35.0 % Red Cell Distribution Width 12.8 % Platelet Count 187 TH/MM3 Mean Platelet Volume 7.8 FL Neutrophils (%) (Auto) 66.8 % Lymphocytes (%) (Auto) 23.4 % Monocytes (%) (Auto) 8.9 % Eosinophils (%) (Auto) 0.3 % Basophils (%) (Auto) 0.6 % Neutrophils # (Auto) 4.7 TH/MM3 Lymphocytes # (Auto) 1.6 TH/MM3 Monocytes # (Auto) 0.6 TH/MM3 Eosinophils # (Auto) 0.0 TH/MM3 Basophils # (Auto) 0.0 TH/MM3 CBC Comment DIFF FINAL Differential Comment Prothrombin Time 11.4 SEC Prothromb Time International Ratio 1.0 RATIO Activated Partial Thromboplast Time 26.1 SEC Blood Urea Nitrogen 17 MG/DL Creatinine 1.05 MG/DL Random Glucose 106 MG/DL Total Protein 7.6 GM/DL Albumin 3.8 GM/DL Calcium Level 8.5 MG/DL Magnesium Level 1.6 MG/DL Alkaline Phosphatase 61 U/L Aspartate Amino Transf (AST/SGOT) 18 U/L Alanine Aminotransferase (ALT/SGPT) 24 U/L Total Bilirubin 0.5 MG/DL Sodium Level 140 MEQ/L Potassium Level 4.2 MEQ/L Chloride Level 106 MEQ/L Carbon Dioxide Level 24.5 MEQ/L Anion Gap 10 MEQ/L Estimat Glomerular Filtration Rate 72 ML/MIN Total Creatine Kinase 99 U/L Troponin I LESS THAN 0.02 NG/ML B-Type Natriuretic Peptide 125 PG/ML MDM Medical Decision Making Medical Screen Exam Complete: Yes Emergency Medical Condition: Yes Differential Diagnosis new onset atrial fibrillation with RVR, CHF secondary to uncontrolled A-Fib, Tobacco abuse, AR, orthostatic hypotension Narrative Course EKG, Cardizem drip, cardiac markers, BMP, CXR, Patient roomed emergency department, Cardizem bolus given which did if her job very controlling and still is having runs in the 140s to 150s, Cardizem drip was initiated. Initial EKG troponin are otherwise reassuring against ischemia. Patient told myself that this is new for him however there is Cardizem on his medication reconciliation she supposed to be taking states he hasn't taken it in months. Patient was discussed with residents on-call for admission to Dr. Jaramillo. Diagnosis Primary Impression: Atrial fibrillation Qualified Codes: I48.91 - Unspecified atrial fibrillation Admitting Information Admitting Physician Requests: Admit Condition: Stable Brett Brody MD Apr 01, 2017 10:52
[2017-04-01 11:01] LABS: AUTOMATED NEUTROPHIL # 4.7 TH/MM3 (1.8-7.7); BASOPHIL % 0.6 % (0.0-2.0); EOSINOPHIL % 0.3 % (0.0-4.0); HEMO FLAGS DIFF FINAL; LYMPH % 23.4 % (9.0-44.0); LYMPHOCYTE # 1.6 TH/MM3 (1.0-4.8); MEAN CELL VOLUME 111.5 FL (80.0-100.0); MONO % 8.9 % (0.0-8.0); NEUT % 66.8 % (16.0-70.0); PLATELET COUNT 187 TH/MM3 (150-450); RED BLOOD COUNT 3.86 MIL/MM3 (4.50-5.90); RED CELL DISTRIBUTION WIDTH 12.8 % (11.6-17.2)
[2017-04-01 11:09] LABS: APTT (PATIENT) 26.1 SEC (24.3-30.1); PROTHROMBIN TIME - PATIENT 11.4 SEC (9.8-11.6)
[2017-04-01 11:16] LABS: ALT (GPT) 24 U/L (12-78); ANION GAP 10 MEQ/L (5-15); AST (GOT) 18 U/L (15-37); BICARBONATE 24.5 MEQ/L (21.0-32.0); BLOOD UREA NITROGEN 17 MG/DL (7-18); CHLORIDE 106 MEQ/L (98-107); GLOMERULAR FILTRATION RATE 72 ML/MIN (>89); MAGNESIUM 1.6 MG/DL (1.5-2.5); POTASSIUM 4.2 MEQ/L (3.5-5.1); SODIUM (NA) 140 MEQ/L (136-145)
--- NOTE | 2017-04-01 11:19 | RADRPT ---
EXAM DATE/TIME: 04/01/2017 11:00 [facility] COMPARISON: No previous studies available for comparison. INDICATIONS : Irregular heart beat, shortness of breath. MEDICAL HISTORY : None. SURGICAL HISTORY : None. ENCOUNTER: Initial ACUITY: 3 days PAIN SCORE: 4/10 LOCATION: Bilateral chest FINDINGS: A single view of the chest demonstrates the lungs to be symmetrically aerated without evidence of mas s, infiltrate or effusion. The cardiomediastinal contours are unremarkable. Osseous structures are intact. CONCLUSION: 1. No acute cardiopulmonary disease. Aries Fowler MD on April 01, 2017 at 11:17 Board Certified Radiologist. This report was verified electronically.
[2017-04-01 11:20] LABS: ALKALINE PHOSPHATASE 61 U/L (45-117); TOTAL BILIRUBIN ADULT 0.5 MG/DL (0.2-1.0)
[2017-04-01 11:31] LABS: CREATINE KINASE 99 U/L (39-308)
[2017-04-01] MEDS ORDERED: SODIUM CHLORIDE 0.9% FLUSH 10 ML FLUSH IV FLUSH PRN ×3 (12:30→13:30)
--- NOTE | 2017-04-01 13:06 | HHI.HP ---
HPI Service Family Medicine Primary Care Physician No Primary Care Physician Admission Diagnosis Afib/RVR Diagnoses: Chief Complaint: blacking out International Travel<30 Days: No Contact w/Intl Traveler<30days: No History of Present Illness Mr Gomez is a 62YO male with PMHx of Afib and alcohol abuse who presents to the ED today after an abnormal ECG at the [facility] where he is followed with uncontrolled Afib/RVR in the 140s-150s. Pt states he's been blacking out and falling for 8 months. These episodes occur about once every two weeks without notice. Associated sxs include: SOB, dizzy when symptomatic with palpitations, but doesn't appear to occur when he is sitting or lying down. Pt indicates he received medications about 6-8 months ago at [facility] in [place] when he began experiencing these sxs for palpitations and low BPs. He doesn't believe the medications have been helping much. He takes midodrine 5mg but doesn't take the second med anymore (can't recall name, but think it is PO Cardizem 120mg). When asked about recent EtOH consumption, indicates he had two beers last night plus one shot of liquor. Denies CP, SOB, N/V/D, and DVT pain at time of interview after he had been on Cardizem drip. (Joshua Morrison MD R1) Review of Systems Constitutional: COMPLAINS OF: Dizziness, DENIES: Diaphoretic episodes, Fatigue , Fever, Weight gain, Chills, Change in appetite, Night Sweats Eyes: COMPLAINS OF: Photosensitivity, DENIES: Blurred vision, Diplopia Ears, nose, mouth, throat: COMPLAINS OF: Hearing loss, DENIES: Nasal discharge , Oral lesions, Throat pain Respiratory: COMPLAINS OF: Snoring, Shortness of breath, DENIES: Cough, Wheezing Cardiovascular: COMPLAINS OF: Palpitations, Syncope, Claudication (right calf after walking), DENIES: Chest pain, Orthopnea Gastrointestinal: DENIES: Abdominal pain, Black stools, Bloody stools, Constipation, Diarrhea, Nausea, Vomiting Genitourinary: COMPLAINS OF: Urinary frequency, DENIES: Urgency, Hematuria Integumentary: DENIES: Rash Hematologic/lymphatic: DENIES: Bruising Neurologic: DENIES: Headache, Paresthesias, Seizures, Tremor (Joshua Morrison MD R1) Past Family Social History Past Medical History none Past Surgical History none Reported Medications Reported Meds & Active Scripts Active Cardizem CD 24 HR (Diltiazem CD 24 HR) 120 Mg Caper 120 Mg PO DAILY Sodium Chloride 1 Gm Tab 1 Gm PO TID Midodrine 5 Mg Tab 5 Mg PO TID@,,17 Fludrocortisone (Fludrocortisone Acetate) 0.1 Mg Tab 0.1 Mg PO DAILY Aspirin EC (Aspirin) 81 Mg Tabdr 81 Mg PO DAILY (Joshua Morrison MD R1) Allergies: Coded Allergies: acetaminophen (Unverified Allergy, Severe, Itching, 04/01/17) oxycodone (Unverified Allergy, Severe, Itching, 04/01/17) Active Ordered Medications Reported Meds & Active Scripts Active Cardizem CD 24 HR (Diltiazem CD 24 HR) 120 Mg Caper 120 Mg PO DAILY Sodium Chloride 1 Gm Tab 1 Gm PO TID Midodrine 5 Mg Tab 5 Mg PO TID@,,17 Fludrocortisone (Fludrocortisone Acetate) 0.1 Mg Tab 0.1 Mg PO DAILY Aspirin EC (Aspirin) 81 Mg Tabdr 81 Mg PO DAILY Family History Mother - COPD Father - did not know Social History has a roommate, stays w/ a friend EtOH - couple beers a day Tobacco - 1/2ppd trying to quit -- [id number] Drugs - no (Joshua Morrison MD R1) Physical Exam Vital Signs Vital Signs Date Time Temp Pulse Resp B/P (MAP) Pulse Ox O2 Delivery O2 Flow Rate FiO2 04/01/17 12:00 112 121/78 04/01/17 11:45 98 121/78 04/01/17 11:20 96 113/86 04/01/17 10:34 157 21 98 04/01/17 10:21 98.2 135 20 165/80 (108) 99 Room Air Physical Exam GENERAL: This is a well-nourished, well-developed patient, in no apparent distress. SKIN: No rashes, ecchymoses or lesions. Cool and dry. HEAD: Atraumatic. Normocephalic. No temporal or scalp tenderness. EYES: Pupils equal round and reactive. Extraocular motions intact. No scleral icterus. No injection or drainage. ENT: Nose without bleeding or drainage. Throat without erythema, tonsillar hypertrophy or exudate. Uvula midline. Airway patent. NECK: Trachea midline. No lymphadenopathy. Supple, nontender, no meningeal signs. CARDIOVASCULAR: Tachycardia and irregular rate and rhythm without murmur, gallop , or rub. Well perfused with <2 sec cap refill. RESPIRATORY: Breath sounds with prolonged expiratory phase; end expiratory wheezing worse in lower lung yang. No increased WOB. GASTROINTESTINAL: Abdomen soft, non-tender, nondistended. No hepato-splenomegaly , or palpable masses. No guarding. MUSCULOSKELETAL: Extremities without clubbing, cyanosis, or edema. No joint tenderness, effusion, or edema noted. No calf tenderness. No asterixis. NEUROLOGICAL: Awake and alert. Cranial nerves II through XII intact. Motor and sensory grossly within normal limits. Five out of 5 muscle strength in all muscle groups. Normal speech. Laboratory Laboratory Tests Test 04/01/17 10:45 White Blood Count 7.0 Red Blood Count 3.86 Hemoglobin 15.1 Hematocrit 43.0 Mean Corpuscular Volume 111.5 Mean Corpuscular Hemoglobin 39.0 Mean Corpuscular Hemoglobin Concent 35.0 Red Cell Distribution Width 12.8 Platelet Count 187 Mean Platelet Volume 7.8 Neutrophils (%) (Auto) 66.8 Lymphocytes (%) (Auto) 23.4 Monocytes (%) (Auto) 8.9 Eosinophils (%) (Auto) 0.3 Basophils (%) (Auto) 0.6 Neutrophils # (Auto) 4.7 Lymphocytes # (Auto) 1.6 Monocytes # (Auto) 0.6 Eosinophils # (Auto) 0.0 Basophils # (Auto) 0.0 CBC Comment DIFF FINAL Differential Comment Prothrombin Time 11.4 Prothromb Time International Ratio 1.0 Activated Partial Thromboplast Time 26.1 Blood Urea Nitrogen 17 Creatinine 1.05 Random Glucose 106 Total Protein 7.6 Albumin 3.8 Calcium Level 8.5 Magnesium Level 1.6 Alkaline Phosphatase 61 Aspartate Amino Transf (AST/SGOT) 18 Alanine Aminotransferase (ALT/SGPT) 24 Total Bilirubin 0.5 Sodium Level 140 Potassium Level 4.2 Chloride Level 106 Carbon Dioxide Level 24.5 Anion Gap 10 Estimat Glomerular Filtration Rate 72 Total Creatine Kinase 99 Troponin I LESS THAN 0.02 B-Type Natriuretic Peptide 125 (Joshua Morrison MD R1) Result Diagram: 04/01/17 1045 04/01/17 1045 Imaging Last Impressions Chest X-Ray 04/01/17 1042 Signed Impressions: Service Date/Time: Saturday, April 01, 2017 11:00 - CONCLUSION: 1. No acute cardiopulmonary disease. Aries Fowler MD Carotid Artery Ultrasound 04/01/17 0000 Signed Impressions: Service Date/Time: Saturday, April 01, 2017 13:47 - CONCLUSION: Normal examination except for mild to moderate atherosclerotic disease. Ousmane Jeffers MD (Joshua Morrison MD R1) Caprini VTE Risk Assessment Caprini VTE Risk Assessment: No/Low Risk (score <= 1) Caprini Risk Assessment Model Point Value = 1 Point Value = 2 Point Value = 3 Point Value = 5 Age 41-60 Minor surgery BMI > 25 kg/m2 Swollen legs Varicose veins or History of unexplained or recurrent spontaneous Oral contraceptives or hormone replacement Sepsis (< 1 month) Serious lung disease, including pneumonia (< 1 month) Abnormal pulmonary function Acute myocardial infarction Congestive heart failure (< 1 month) History of inflammatory bowel disease Medical patient at bed rest Age 61-74 Arthroscopic surgery Major open surgery (> 45 min) Laparoscopic surgery (> 45 min) Malignancy Confined to bed (> 72 hours) Immobilizing plaster cast Central venous access Age >= 75 History of VTE Family history of VTE Factor V Leiden Prothrombin [id number] Lupus anticoagulant Anticardiolipin antibodies Elevated serum homocysteine Heparin-induced thrombocytopenia Other congenital or acquired thrombophilia Stroke (< 1 month) Elective arthroplasty Hip, pelvis, or leg fracture Acute spinal cord injury (< 1 month) Prophylaxis Regimen Total Risk Factor Score Risk Level Prophylaxis Regimen 0-1 Low Early ambulation 2 Moderate Order ONE of the following: *Sequential Compression Device (SCD) *Heparin 5000 units SQ BID 3-4 Higher Order ONE of the following medications: *Heparin 5000 units SQ TID *Enoxaparin/Lovenox 40 mg SQ daily (WT < 150 kg, CrCl > 30 mL/min) *Enoxaparin/Lovenox 30 mg SQ daily (WT < 150 kg, CrCl > 10-29 mL/min) *Enoxaparin/Lovenox 30 mg SQ BID (WT < 150 kg, CrCl > 30 mL/min) AND/OR *Sequential Compression Device (SCD) 5 or more Highest Order ONE of the following medications: *Heparin 5000 units SQ TID (Preferred with Epidurals) *Enoxaparin/Lovenox 40 mg SQ daily (WT < 150 kg, CrCl > 30 mL/min) *Enoxaparin/Lovenox 30 mg SQ daily (WT < 150 kg, CrCl > 10-29 mL/min) *Enoxaparin/Lovenox 30 mg SQ BID (WT < 150 kg, CrCl > 30 mL/min) AND *Sequential Compression Device (SCD) (Joshua Morrison MD R1) Assessment and Plan Assessment and Plan 62YO male with PMHx Afib, orthostatic hypotension and EtOH abuse presents with uncontrolled Afib/RVR likely 2/2 medication non-compliance. DDx: Afib/RVR vs orthostatic hypotension vs neurogenic syncope Code Status Partial - wants CPR if he arrests; however, no intubation Discussed Condition With Alfa Jaramillo and Davido (oJshua Morrison MD R1) Attending Attestation The patient has been seen and examined. The chart and all resident notes have been reviewed. I agree that inpatient care is appropriate and that a two midnight stay is expected for the reasons documented in the resident history and physical. I have discussed this with the resident and certify the resident s order for inpatient admission. (Diana Jaramillo MD) Problem List: (1) Atrial fibrillation ICD Codes: I48.91 - Unspecified atrial fibrillation Status: Acute Plan: Pt with spells of "blacking out" 6-8 months who has not been taking his Cardizem for 1-2 months; does not believe this medication helped him; arrived from [facility] in Afib RVR into the 140s-150s; started on Cardizem drip for rate control Workup: -Cardizem gtt -ASA 325mg in ED -Cardiology consult (Dr Hinojosa performing workup), appreciate recs -CBC with macrocytosis to 111.5 -ECG indicating Afib RVR in 130s, QT/QTc wnl, pattern consistent w/pulmonary disease, right ventricular hypertrophy, moderate ST depression -Troponins: <0.02 x2 -BNP 125 -Total CK 99 -TSH pending -CMP wnl, Cr 1.05 -INR 1.0 -ECHO -UDS PLAN: -Start Digoxin -Cardizem 30mg PO q6h chrissie -Eliquis 5mg BID -Edoxaban 60mg daily -ASA 81mg/day -Telemetry -Heart healthy diet -Digoxin level -Heparin 5000 units subcu q8h -CIWA -PT eval/tx (2) Macrocytosis ICD Codes: D75.89 - Other specified diseases of blood and blood-forming organs Status: Chronic Plan: MCV 111.5 -Check B12 and folate, retic count (3) Syncope ICD Codes: R55 - Syncope and collapse Status: Chronic Plan: Plan as above, likely 2/2 Afib RVR and with a component of orthostatic hypotension -Holding home meds midodrine and fludrocortisone (4) FEN/GI/PPx Status: Acute Plan: Fluids: oral fluids Electrolytes: wnl Diet: Heart Healthy PPx: Heparin 5000 unit subcu q8h -No PPI indicated -CIWA -Zofran for nausea (Joshua Morrison MD R1) Problem Qualifiers (1) Atrial fibrillation: Qualified Codes: I48.91 - Unspecified atrial fibrillation (2) Syncope: Qualified Codes: R55 - Syncope and collapse Joshua Morrison MD R1 Apr 01, 2017 13:06 Diana Jaramillo MD Apr 07, 2017 22:08
[2017-04-01] MEDS ORDERED: FLUMAZENIL 0.5 MG/5 ML VIAL IV PUSH PRN (13:30)
[2017-04-01] MEDS ORDERED: ONDANSETRON HCL 4 MG/2 ML VIAL IVP PRN (13:30)
[2017-04-01] MEDS ORDERED: SENNOSIDES 8.6 MG TAB PO PRN (13:30)
[2017-04-01] MEDS ORDERED: NALOXONE HCL 0.4 MG/ML AMP IV PUSH PRN (13:30)
[2017-04-01] MEDS ORDERED: LORazepam 2 MG TAB PO PRN (13:30)
[2017-04-01] MEDS ORDERED: BISACODYL 10 MG SUPP RECTAL PRN (13:30)
[2017-04-01] MEDS ORDERED: LACTULOSE SYRUP 20 GM/30 ML CUP PO PRN (13:30)
[2017-04-01] MEDS ORDERED: LORazepam 2 MG/ML VIAL IV PUSH PRN ×4 (13:30)
[2017-04-01] MEDS ORDERED: LORazepam 1 MG TAB PO PRN (13:30)
[2017-04-01] MEDS ORDERED: MAGNESIUM HYDROXIDE SUSP 30 ML CUP PO PRN (13:30)
[2017-04-01] MEDS ORDERED: DOCUSATE SODIUM 50 MG/SENNA 8.6 MG TAB PO PRN (13:30)
--- NOTE | 2017-04-01 14:16 | RADRPT ---
EXAM DATE/TIME: 04/01/2017 13:47 [facility] COMPARISON: US CAROTID ARTERIES, September 01, 2016, 10:52. INDICATIONS : Syncope. MEDICAL HISTORY : Syncope. Dizziness. Arthritis. SURGICAL HISTORY : None. ENCOUNTER: Subsequent ACUITY: 1 day PAIN SCORE: 0/10 LOCATION: Bilateral neck PEAK SYSTOLIC VELOCITIES (cm/sec): ICA/CCA RATIO: Right: 1.0 Left: 1.5 ICA: Right: 80 Left: 102 CCA: Right: 81 Left: 68 ECA: Right: 88 Left: 86 VERTEBRAL: Right: 46 antegrade Left: 53 antegrade Elevated flow velocities and ICA/CCA ratios have been found to correlate with increased degrees of vessel stenosis, calculated as percentage of diameter relative to a normal segment of distal ICA/CCA FINDINGS: RIGHT CAROTID: No significant stenosis is visualized. The waveforms are within normal limits. Mild to moderate athe rosclerotic disease. LEFT CAROTID: No significant stenosis is visualized. The waveforms are within normal limits. Mild to moderate athe rosclerotic disease. VERTEBRAL ARTERIES: Antegrade flow is seen in both vertebral arteries. MISCELLANEOUS: None. CONCLUSION: Normal examination except for mild to moderate atherosclerotic disease. Ousmane Jeffers MD on April 01, 2017 at 14:13 Board Certified Radiologist. This report was verified electronically.
[2017-04-01] MEDS: HEPARIN SODIUM - SQ 10,000 UNITS/ML VIAL SQ SCH ×2 (16:33→22:12)
--- NOTE | 2017-04-01 17:07 | HHI.FPPN ---
Subjective Subjective Patient seen and examined. Case reviewed and discussed. Please refer to resident H&P for further details regarding history of present illness, ROS, past medical and surgical history, family and social history. In summary, patient is a pleasant 62-year-old male with a history of alcohol dependence presenting from [facility] in atrial fibrillation with RVR. He is seen in his hospital bed, stating he is feeling better on the Cardizem drip. Denies chest pain, he does complain of exertional shortness of breath. [facility] Objective Objective Last Impressions Chest X-Ray 04/01/17 1042 Signed Impressions: Service Date/Time: Saturday, April 01, 2017 11:00 - CONCLUSION: 1. No acute cardiopulmonary disease. Aries Fowler MD Carotid Artery Ultrasound 04/01/17 0000 Signed Impressions: Service Date/Time: Saturday, April 01, 2017 13:47 - CONCLUSION: Normal examination except for mild to moderate atherosclerotic disease. Ousmane Jeffers MD Laboratory Tests - Abnormals Test 04/01/17 10:45 Red Blood Count 3.86 MIL/MM3 Mean Corpuscular Volume 111.5 FL Mean Corpuscular Hemoglobin 39.0 PG Monocytes (%) (Auto) 8.9 % Estimat Glomerular Filtration Rate 72 ML/MIN Troponin I LESS THAN 0.02 NG/ML B-Type Natriuretic Peptide 125 PG/ML Vital Signs 04/01/17 04/01/17 04/01/17 04/01/17 10:21 10:34 11:20 11:45 Temp 98.2 Pulse 135 157 96 98 Resp 20 21 B/P (MAP) 165/80 (108) 113/86 121/78 Pulse Ox 99 98 O2 Delivery Room Air 04/01/17 04/01/17 04/01/17 04/01/17 12:00 13:00 13:02 13:02 Pulse 112 142 Resp 18 B/P (MAP) 121/78 119/72 Pulse Ox 97 98 O2 Delivery Room Air Room Air 04/01/17 04/01/17 04/01/17 04/01/17 13:50 14:30 15:00 15:08 Pulse 108 113 B/P (MAP) 141/81 Pulse Ox 97 04/01/17 04/01/17 15:25 16:00 Temp 98.7 Pulse 113 99 Resp 18 B/P (MAP) 141/81 (101) Pulse Ox 96 Physical exam GENERAL: Well-developed, well-nourished sitting up in bed. NAD SKIN: Warm and dry. No rashes HEAD: Normocephalic. Atraumatic EYES: No scleral icterus. No injection or drainage. ENT: OP clear. MMM NECK: Supple, trachea midline. No JVD or lymphadenopathy. CARDIOVASCULAR: Irregularly irregular rhythm, rate in the 110s without audible murmurs, gallops, or rubs. RESPIRATORY: Breath sounds are coarse bilaterally with prolonged expiration and scant expiratory wheezing. No accessory muscle use. GASTROINTESTINAL: Abdomen soft, non-tender, nondistended. No rebound or guarding. MUSCULOSKELETAL: No cyanosis, or edema. No calf tenderness BACK: Nontender without obvious deformity. No CVA tenderness. Neuro: Awake and alert, cranial nerves grossly intact. Normal speech Assessment Assessment 62-year-old male with: A. fib with RVR Alcohol dependence Tobacco dependence History of thrombocytopenia Macrocytosis PLAN PLAN Cardizem gtt Telemetry ACS r/o TSH 2D echo Orthostatic VS Cardiology consult, appreciate recs Counseled on EtOH use and tobacco use CIWA Monitor electrolytes Resume home meds as appropriate Patient seen and examined. Case reviewed and discussed Agree with plan of care as discussed with me and documented in the resident note. Diana Jaramillo MD Apr 01, 2017 17:07
[2017-04-01] MEDS: DILTIAZEM HCL 60 MG TAB PO SCH (17:57)
[2017-04-01] MEDS: SODIUM CHLORIDE 0.9% FLUSH 10 ML FLUSH IV FLUSH SCH (21:00)
[2017-04-01] MEDS ORDERED: APIXABAN 5 MG TABLET PO SCH (21:00)
[2017-04-01] MEDS ORDERED: SODIUM CHLORIDE 0.9% FLUSH 10 ML FLUSH IV FLUSH SCH ×2 (21:00)
--- NOTE | 2017-04-01 21:32 | MB ---
cc: VI DILL MD DATE OF CONSULTATION 04/01/2017 REASON FOR CONSULTATION Atrial fibrillation. HISTORY OF PRESENT ILLNESS This is a very nice 62-year-old gentleman who has prior history of dysautonomia and hypotension. He has been on midodrine 5 milligrams t.i.d. in addition to Fludrocortisone, has no prior history of known heart disease, does have history of arthritis, occasional palpitations. He came in, he went to a local doctor at the [facility] and he was noted to have heart rates that were very fast. Electrocardiogram showed atrial fibrillation. This is new onset. Denies knowing time of onset. Does have occasional shortness of breath and lightheadedness with standing. About 6 months ago he saw Dr. Joseph Gordon over at [place] emergency department for his hypotension. He thought it was secondary to orthostatic etiology with his alcohol use. PAST MEDICAL HISTORY Palpitations, hypotension. ALLERGIES ACETAMINOPHEN, OXYCODONE. ACTIVE MEDICATIONS 1. Cardizem. 2. Midodrine. 3. Fludrocortisone. 4. Aspirin. REVIEW OF SYSTEMS 10-point review of systems was performed, negative unless otherwise noted in the history of present illness. PHYSICAL EXAMINATION VITAL SIGNS: Temperature 98, pulse is 113, blood pressure 141/81 mmHg. GENERAL: Alert, oriented, x3, in no distress. HEENT: Exam shows pupils reactive to light and accommodation. His extraocular movements are intact. No elevation in venous distension. No thyromegaly. No lymphadenopathy. No carotid bruits. LUNGS: Clear to auscultation bilaterally. CARDIOVASCULAR: Irregular irregular rhythm without murmurs, rubs or gallops. ABDOMEN: Nontender, nondistended. Good bowel sounds. No hepatosplenomegaly. EXTREMITIES: No clubbing, cyanosis or edema. Good peripheral pulses. NEURO: Cranial nerves intact. Motor, sensory grossly intact. LABORATORY DATA WBC 7, hemoglobin 15.1, platelet count 187, INR is 1. Sodium 140, potassium 4.2, BUN 17, creatinine is 1.05. Troponins negative. ASSESSMENT 1. New onset atrial fibrillation. 2. Dysautonomia with hypotension. PLAN ____ unknown, SYLVIE'S VASc score is 1, for hypertension. We will get a 2-D echocardiogram. I am going to add digoxin to his regimen, start him on an oral calcium channel eliot, see if we can wean his Cardizem drip. We will initiate him on anticoagulation with a novel agent. Alternatively, could consider aspirin 325 milligrams a day but given his low bleeding risk would not want a catastrophic stroke to impact his lifestyle and activities of daily living. Will order for a TSH and his electrolytes are otherwise unremarkable. MD LUDIVINA Carbajal/MELITA /3:38 PM /9:18 PM
[2017-04-01] MEDS ORDERED: DIGOXIN 0.5 MG/2 ML VIAL IVS SCH (22:00)
[2017-04-01] MEDS ORDERED: AMIODARONE 150 MG/D5W 97 ML BOLUS 60 MINUTES IV ONE ×2 (22:00)
[2017-04-02] VITALS (15 sets, daily range): BP systolic 113–119; BP diastolic 70–76; PULSE 63–99; RESP 16–18; TEMP 97.3–97.9; O2SAT 96–99
[2017-04-02] MEDS: DILTIAZEM HCL 60 MG TAB PO SCH ×3 (00:12→12:00)
[2017-04-02 04:24] LABS: RETIC % 1.4 % (0.4-3.0); REVIEW FLAG FINAL
[2017-04-02 04:25] LABS: AUTOMATED NEUTROPHIL # 3.3 TH/MM3 (1.8-7.7); BASOPHIL % 0.8 % (0.0-2.0); EOSINOPHIL # 0.1 TH/MM3 (0-0.4); EOSINOPHIL % 0.9 % (0.0-4.0); HEMATOCRIT 40.4 % (39.0-51.0); HEMO FLAGS DIFF FINAL; LYMPHOCYTE # 1.8 TH/MM3 (1.0-4.8); MEAN CELL VOLUME 112.1 FL (80.0-100.0); MEAN CORPUSCULAR HEMOGLOBIN 38.6 PG (27.0-34.0); MEAN CORPUSCULAR HGB CONC 34.4 % (32.0-36.0); MONO % 11.4 % (0.0-8.0); NEUT % 55.9 % (16.0-70.0); PLATELET COUNT 160 TH/MM3 (150-450); RED CELL DISTRIBUTION WIDTH 13.1 % (11.6-17.2); WHITE BLOOD COUNT 5.9 TH/MM3 (4.0-11.0)
[2017-04-02 04:48] LABS: BICARBONATE 26.5 MEQ/L (21.0-32.0); POTASSIUM 3.9 MEQ/L (3.5-5.1)
[2017-04-02 05:15] LABS: DIGOXIN 0.1 NG/ML (0.8-2.0)
[2017-04-02] MEDS: HEPARIN SODIUM - SQ 10,000 UNITS/ML VIAL SQ SCH (06:14)
--- NOTE | 2017-04-02 08:50 | PD.CARD.PN ---
Subjective Subjective Remarks resting comfortably. denies chest pain,sob or palpitations. (Angeline Garcia) Objective Medications Current Medications Medications (Trade) Dose Ordered Sig/Michael Route Start Time Stop Time Status Last Admin (NS Flush) 2 ml UNSCH PRN IV FLUSH 04/01/17 12:30 (NS Flush) 2 ml BID IV FLUSH 04/01/17 21:00 (Zofran Inj) 4 mg Q6H PRN IVP 04/01/17 13:30 (Heparin Inj) 5,000 units Q8H SQ 04/01/17 15:00 04/02/17 06:14 (Narcan Inj) 0.4 mg UNSCH PRN IV PUSH 04/01/17 13:30 (Nicole-Colace) 1 tab BID PRN PO 04/01/17 13:30 (Milk Of Magnesia Liq) 30 ml Q12H PRN PO 04/01/17 13:30 (Senokot) 17.2 mg Q12H PRN PO 04/01/17 13:30 (Dulcolax Supp) 10 mg DAILY PRN RECTAL 04/01/17 13:30 (Lactulose Liq) 30 ml DAILY PRN PO 04/01/17 13:30 (Romazicon Inj) 0.2 mg Q1M PRN IV PUSH 04/01/17 13:30 (Ativan) 1 mg Q4H PRN PO 04/01/17 13:30 (Ativan Inj) 1 mg Q4H PRN IV PUSH 04/01/17 13:30 (Ativan) 2 mg Q2H PRN PO 04/01/17 13:30 (Ativan Inj) 2 mg Q2H PRN IV PUSH 04/01/17 13:30 (Ativan Inj) 2 mg Q1H PRN IV PUSH 04/01/17 13:30 (Ativan Inj) 2 mg Q15M PRN IV PUSH 04/01/17 13:30 (Ecotrin Ec) 81 mg DAILY PO 04/02/17 09:00 (Cardizem) 30 mg Q6HR PO 04/01/17 18:00 04/02/17 06:14 (Lanoxin) 0.25 mg DAILY PO 04/02/17 09:00 (Savaysa) 60 mg DAILY PO 04/02/17 09:00 Vital Signs / I&O Vital Signs Date Time Temp Pulse Resp B/P (MAP) Pulse Ox O2 Delivery O2 Flow Rate FiO2 04/02/17 08:00 74 04/02/17 07:00 97.3 69 16 113/74 (87) 98 04/02/17 07:00 67 04/02/17 06:06 64 04/02/17 05:00 68 04/02/17 04:00 63 04/02/17 03:28 97.8 70 18 114/70 (85) 99 04/02/17 03:00 67 04/02/17 02:00 66 04/02/17 01:00 68 04/02/17 00:00 69 04/01/17 23:00 97.7 72 18 104/67 (79) 94 04/01/17 23:00 70 04/01/17 22:12 67 117/80 04/01/17 22:00 71 04/01/17 21:00 84 04/01/17 20:00 60 04/01/17 20:00 98.6 62 18 96/65 (75) 99 04/01/17 20:00 62 96/65 04/01/17 19:00 69 04/01/17 18:00 70 04/01/17 17:00 98 04/01/17 16:00 99 04/01/17 15:25 98.7 113 18 141/81 (101) 96 04/01/17 15:08 113 141/81 04/01/17 15:00 108 04/01/17 14:30 04/01/17 13:50 97 04/01/17 13:02 98 Room Air 04/01/17 13:02 18 97 Room Air 04/01/17 13:00 142 119/72 04/01/17 12:00 112 121/78 04/01/17 11:45 98 121/78 04/01/17 11:20 96 113/86 04/01/17 10:34 157 21 98 04/01/17 10:21 98.2 135 20 165/80 (108) 99 Room Air I/O 04/01/17 04/01/17 04/01/17 04/02/17 04/02/17 04/02/17 07:00 15:00 23:00 07:00 15:00 23:00 Intake Total 480 ml 480 ml Output Total 350 ml 350 ml Balance 130 ml 130 ml Intake Oral 480 ml 480 ml Output Urine Total 350 ml 350 ml Physical Exam GENERAL: SKIN: Warm and dry. HEAD: Atraumatic. Normocephalic. EYES: Pupils equal and round. ENT: No nasal bleeding or discharge. Mucous membranes pink and moist. NECK: Trachea midline. No JVD. CARDIOVASCULAR: Regular rate irregularly irregular rhythm RESPIRATORY: No accessory muscle use. Clear to auscultation. Breath sounds equal bilaterally. GASTROINTESTINAL: Abdomen soft, non-tender, nondistended. MUSCULOSKELETAL: Extremities without clubbing, cyanosis, or edema. No obvious deformities. NEUROLOGICAL: Awake and alert. No obvious cranial nerve deficits. Normal speech. PSYCHIATRIC: Appropriate mood and affect; insight and judgment normal. Laboratory Laboratory Tests Test 04/01/17 10:45 04/01/17 17:20 04/01/17 22:38 04/02/17 03:20 White Blood Count 7.0 TH/MM3 5.9 TH/MM3 Red Blood Count 3.86 MIL/MM3 3.60 MIL/MM3 Hemoglobin 15.1 GM/DL 13.9 GM/DL Hematocrit 43.0 % 40.4 % Mean Corpuscular Volume 111.5 FL 112.1 FL Mean Corpuscular Hemoglobin 39.0 PG 38.6 PG Mean Corpuscular Hemoglobin Concent 35.0 % 34.4 % Red Cell Distribution Width 12.8 % 13.1 % Platelet Count 187 TH/MM3 160 TH/MM3 Mean Platelet Volume 7.8 FL 8.0 FL Neutrophils (%) (Auto) 66.8 % 55.9 % Lymphocytes (%) (Auto) 23.4 % 31.0 % Monocytes (%) (Auto) 8.9 % 11.4 % Eosinophils (%) (Auto) 0.3 % 0.9 % Basophils (%) (Auto) 0.6 % 0.8 % Neutrophils # (Auto) 4.7 TH/MM3 3.3 TH/MM3 Lymphocytes # (Auto) 1.6 TH/MM3 1.8 TH/MM3 Monocytes # (Auto) 0.6 TH/MM3 0.7 TH/MM3 Eosinophils # (Auto) 0.0 TH/MM3 0.1 TH/MM3 Basophils # (Auto) 0.0 TH/MM3 0.0 TH/MM3 CBC Comment DIFF FINAL DIFF FINAL Differential Comment Prothrombin Time 11.4 SEC Prothromb Time International Ratio 1.0 RATIO Activated Partial Thromboplast Time 26.1 SEC Blood Urea Nitrogen 17 MG/DL 17 MG/DL Creatinine 1.05 MG/DL 0.95 MG/DL Random Glucose 106 MG/DL 87 MG/DL Total Protein 7.6 GM/DL Albumin 3.8 GM/DL Calcium Level 8.5 MG/DL 8.8 MG/DL Magnesium Level 1.6 MG/DL Alkaline Phosphatase 61 U/L Aspartate Amino Transf (AST/SGOT) 18 U/L Alanine Aminotransferase (ALT/SGPT) 24 U/L Total Bilirubin 0.5 MG/DL Sodium Level 140 MEQ/L 138 MEQ/L Potassium Level 4.2 MEQ/L 3.9 MEQ/L Chloride Level 106 MEQ/L 102 MEQ/L Carbon Dioxide Level 24.5 MEQ/L 26.5 MEQ/L Anion Gap 10 MEQ/L 10 MEQ/L Estimat Glomerular Filtration Rate 72 ML/MIN 81 ML/MIN Total Creatine Kinase 99 U/L Troponin I LESS THAN 0.02 NG/ML LESS THAN 0.02 NG/ML LESS THAN 0.02 NG/ML B-Type Natriuretic Peptide 125 PG/ML Ethyl Alcohol Level LESS THAN 3 MG/DL Thyroid Stimulating Hormone 3rd Gen 1.680 uIU/ML Reticulocyte Count 1.4 % Absolute Reticulocyte Count 50.5 MIL/L Vitamin B12 Level 205 PG/ML Folate 7.9 NG/ML Digoxin Level 0.1 NG/ML Imaging Last 24 hours Impressions Chest X-Ray 04/01/17 1042 Signed Impressions: Service Date/Time: Saturday, April 01, 2017 11:00 - CONCLUSION: 1. No acute cardiopulmonary disease. Aries Fowler MD (Angeline Garcia) Assessment and Plan Problem List: (1) Atrial fibrillation ICD Codes: I48.91 - Unspecified atrial fibrillation Status: Acute Assessment and Plan 62 yo WM with history of dysautonomic hypotension who presented in afib RVR. Currently feeling well but hasn't been out of bed ambulating yet. afib- rate controlled. remains on digoxin and cardizem po. anticoagulated on Savaysa. SBP remains ~110. TSH normal. echo pending. (Angeline Garcia) Assessment and Plan back in NSR DC dig cont cardizem. convert to once daily dosing 120 mg daily TSH normal FU on echo ok on DC to resume dysautonomia meds (midodrine/florinef) if symptomatic FU PCP will sign off call with further question ambulate (Ousmane Hinojosa MD) Problem Qualifiers (1) Atrial fibrillation: Qualified Codes: I48.91 - Unspecified atrial fibrillation Angeline Garcia Apr 02, 2017 08:50 Ousmane Hinojosa MD Apr 02, 2017 10:15
[2017-04-02] MEDS ORDERED: EDOXABAN TOSYLATE 60 MG TAB PO SCH (09:00)
[2017-04-02] MEDS ORDERED: DIGOXIN 0.25 MG TAB PO SCH (09:00)
[2017-04-02] MEDS ORDERED: ASPIRIN EC 81 MG TABEC PO SCH (09:00)
[2017-04-02] MEDS: SODIUM CHLORIDE 0.9% FLUSH 10 ML FLUSH IV FLUSH SCH (09:34)
--- NOTE | 2017-04-02 10:19 | ECHRPT ---
Indication: syncope CONCLUSIONS The left ventricular systolic function is normal with an estimated ejection fraction in the range of 55-60%. Normal left ventricular size. Mild concentric left ventricular hypertrophy. Structurally normal mitral valve. Trace mitral valve regurgitation. Structurally normal tricuspid valve. There is trace tricuspid valve regurgitation. BP: / HR: Rhythm: MEASUREMENTS (Male / Female) Normal Values Technical Quality:Good 2D ECHO LV Diastolic Diameter PLAX 4.7 cm 4.2 - 5.9 / 3.9 - 5.3 cm LV Systolic Diameter PLAX 3.5 cm IVS Diastolic Thickness 1.5 cm 0.6 - 1.0 / 0.6 - 0.9 cm LVPW Diastolic Thickness 1.1 cm 0.6 - 1.0 / 0.6 - 0.9 cm LV Relative Wall Thickness 0.6 RV Internal Dim ED PLAX 2.3 cm M-MODE Aortic Root Diameter MM 4.0 cm LA Systolic Diameter MM 3.9 cm LA Ao Ratio MM 1.0 AV Cusp Separation MM 2.4 cm DOPPLER LV E' Lateral Velocity 12.4 cm/s LV E' Septal Velocity 12.4 cm/s FINDINGS LEFT VENTRICLE The left ventricular systolic function is normal with an estimated ejection fraction in the range of 55-60%. Normal left ventricular size. Mild concentric left ventricular hypertrophy. RIGHT VENTRICLE Normal right ventricular size and systolic function. LEFT ATRIUM The left atrial size is normal. RIGHT ATRIUM The right atrial size is normal. ATRIAL SEPTUM Normal atrial septal thickness without atrial level shunting by limited color doppler interrogation. AORTA The aortic root and proximal ascending aorta are normal in size on limited imaging. MITRAL VALVE Structurally normal mitral valve. Trace mitral valve regurgitation. AORTIC VALVE Trileaflet aortic valve. No aortic valve stenosis or regurgitation. TRICUSPID VALVE Structurally normal tricuspid valve. There is trace tricuspid valve regurgitation. PULMONARY VALVE The pulmonary valve is not well visualized. VESSELS The inferior vena cava is normal in size. PERICARDIUM No pericardial effusion. Ousmane Hinojosa MD, FACC (Electronically Signed) Final Date:02 April 2017 10:18
--- NOTE | 2017-04-02 10:30 | EKG ---
Date Performed: 04/01/2017 Time Performed: 22:10:06 PTAGE: 62 years EKG: Sinus rhythm with borderline 1st degree A-V block Left axis deviation Possible left ventricular hypertrophy Exten sive ST-T changes may be due to hypertrophy and/or ischemia Abnormal ECG NO PREVIOUS TRACING DOCTOR: Ji Bronson Interpretating Date/Time 04/02/2017 10:28:52
--- NOTE | 2017-04-02 10:51 | EKG ---
Date Performed: 04/02/2017 Time Performed: 09:32:26 PTAGE: 62 years EKG: Sinus rhythm MARKED LEFT AXIS DEVIATION POSSIBLE RIGHT VENTRICULAR CONDUCTION DELAY ST DEVIATION AND MODERATE T-W AVE ABNORMALITY, CONSIDER ANTEROLATERAL ISCHEMIA ABNORMAL ECG PREVIOUS TRACING : 04/01/2017 22.10 DOCTOR: Ji Bronson Interpretating Date/Time 04/02/2017 10:50:13
[2017-04-02] MEDS ORDERED: DILT60TA33 PO (13:32)
[2017-04-02] MEDS ORDERED: EDOX1TAB5 PO (13:32)
--- NOTE | 2017-04-02 13:32 | HHI.DCPOC ---
Discharge Care Plan Diagnosis: (1) Atrial fibrillation (2) Syncope Goals to Promote Your Health * To prevent worsening of your condition and complications * To maintain your health at the optimal level Directions to Meet Your Goals Take your medications as prescribed Follow your dietary instruction Follow activity as directed Keep your appointments as scheduled Take your immunizations and boosters as scheduled If your symptoms worsen call your PCP, if no PCP go to Urgent Care Center or Emergency Room Smoking is Dangerous to Your Health. Avoid second hand smoke Call the 24-hour hour crisis hotline for domestic abuse at Dean Mcleod MD R3 Apr 02, 2017 13:32
--- NOTE | 2017-04-02 14:28 | HHI.FPPN ---
Subjective Remarks Patient sitting up in bed this morning, in no distress. He has no palpitations this morning. He is currently in sinus rhythm. He feels lightheaded with standing and orthostatic vitals shows orthostatic hypotension. He does not feel lightheaded sitting down. He has no chest pain or shortness of breath. No abdominal pain, nausea, vomiting. He has normal appetite. He has no symptoms of alcohol withdrawal currently. Objective Vitals Vital Signs Date Time Temp Pulse Resp B/P (MAP) Pulse Ox O2 Delivery O2 Flow Rate FiO2 04/02/17 12:00 92 04/02/17 11:00 97.9 77 18 119/76 (90) 96 04/02/17 11:00 74 04/02/17 10:00 99 04/02/17 09:00 98 21 04/02/17 08:00 74 04/02/17 07:00 97.3 69 16 113/74 (87) 98 04/02/17 07:00 67 04/02/17 06:06 64 04/02/17 05:00 68 04/02/17 04:00 63 04/02/17 03:28 97.8 70 18 114/70 (85) 99 04/02/17 03:00 67 04/02/17 02:00 66 04/02/17 01:00 68 04/02/17 00:00 69 04/01/17 23:00 97.7 72 18 104/67 (79) 94 04/01/17 23:00 70 04/01/17 22:12 67 117/80 04/01/17 22:00 71 04/01/17 21:00 84 04/01/17 20:00 60 04/01/17 20:00 98.6 62 18 96/65 (75) 99 04/01/17 20:00 62 96/65 04/01/17 19:00 69 04/01/17 18:00 70 04/01/17 17:00 98 04/01/17 16:00 99 04/01/17 15:25 98.7 113 18 141/81 (101) 96 04/01/17 15:08 113 141/81 04/01/17 15:00 108 04/01/17 14:30 I/O 04/01/17 04/01/17 04/01/17 04/02/17 04/02/1704/02/17 07:00 15:00 23:00 07:00 15:00 23:00 Intake Total 480 ml 480 ml Output Total 350 ml 350 ml Balance 130 ml 130 ml Intake Oral 480 ml 480 ml Output Urine Total 350 ml 350 ml Result Diagram: 04/02/17 0320 04/02/17 0320 Imaging Last 72 hours Impressions Chest X-Ray 04/01/17 1042 Signed Impressions: Service Date/Time: Saturday, April 01, 2017 11:00 - CONCLUSION: 1. No acute cardiopulmonary disease. Aries Fowler MD Carotid Artery Ultrasound 04/01/17 0000 Signed Impressions: Service Date/Time: Saturday, April 01, 2017 13:47 - CONCLUSION: Normal examination except for mild to moderate atherosclerotic disease. Ousmane Jeffers MD Objective Remarks General: Sitting up in bed, in no distress Skin: No rashes or lesions HEENT: Normocephalic, no conjunctivitis, no nasal discharge Neck: No thyromegaly CV: Regular rate and rhythm, no murmur, rubs, or gallops, normal pulses Lungs: CTAB Abdomen: Soft, nontender, nondistended, normal bowel sounds Ext: No edema A/P Assessment and Plan 68 year old male here with atrial fibrillation, orthostatic hypotension, and alcohol abuse, now rate and rhythm controlled. Discharge Planning - Savaysa for anticoagulation with atrial fibrillation, CHADS-Vasc score of 1 for likely vascular disease. - Diltiazem short acting for rate control. - Continue Midodrine for orthostatic hypotension. - Will need close follow up with cardiology and primary care. - Recommend quitting smoking, gave number for [place] Quit Hotline. Problem List: (1) Atrial fibrillation ICD Codes: I48.91 - Unspecified atrial fibrillation Status: Acute Plan: 62 year old male with a history of atrial fibrillation presents with atrial fibrillation with RVR. He has not been taking his Cardizem for the last couple months. He responded well to Cardizem drip and digoxin. He is currently rate and rhythm controlled with Cardizem 30 mg PO q6hrs. TSH is normal, ECHO is relatively normal, troponins are normal. - CHADS Vasc score 1 for likely vascular disease, prescribed Savaysa for anticoagulation. Given coupon for $4 prescription. - Continue with Cardizem 30 mg PO q6hrs. - Follow up closely with cardiology after discharge. (2) Syncope ICD Codes: R55 - Syncope and collapse Status: Chronic Plan: Plan as above, likely 2/2 Afib RVR and with a component of orthostatic hypotension. - See plan for atrial fibrillation. - Follow up with cardiology as an outpatient. May benefit from Holter or event monitor, will leave to the discretion of cardiology. - See plan for orthostatic hypotension. (3) Orthostatic hypotension ICD Codes: I95.1 - Orthostatic hypotension Status: Chronic Plan: Orthostatic hypotension without an obvious etiology. No cogwheel rigidity on exam. No bradykinesia to suggest Parkinsonism. B12 and folate normal. Not in diuretics. Did not come in on antihypertensives. - Will continue with Midodrine. - Will discontinue Fludrocortisone due to risk involved in suddenly discontinuing the medication. (4) Alcohol abuse ICD Codes: F10.10 - Alcohol abuse, uncomplicated Status: Chronic Plan: History of alcohol abuse. No signs of alcohol withdrawal in the hospital. - Recommend following up with outpatient care for alcohol abuse. (5) Macrocytosis ICD Codes: D75.89 - Other specified diseases of blood and blood-forming organs Status: Chronic Plan: MCV 111.5. B12 low-normal, folate normal. Liver enzymes are normal. History of alcohol abuse. - Recommend following up with primary care for alcohol abuse. (6) Smoker ICD Codes: F17.200 - Nicotine dependence, unspecified, uncomplicated Status: Chronic Plan: Smoker, trying to cut back and eventually quit. History of COPD. - Gave number for [place] Quit Hotline. (7) FEN/GI/PPx Status: Acute Plan: Fluids: oral fluids Electrolytes: wnl Diet: Heart healthy Problem Qualifiers (1) Atrial fibrillation: Qualified Codes: I48.91 - Unspecified atrial fibrillation (2) Syncope: Qualified Codes: R55 - Syncope and collapse Dean Mcleod MD R3 Apr 02, 2017 14:28
--- NOTE | 2017-04-03 08:42 | EKG ---
Date Performed: 04/01/2017 Time Performed: 10:31:43 PTAGE: 62 years EKG: ATRIAL FIBRILLATION WITH RAPID VENTRICULAR RESPONSE PATTERN CONSISTENT WITH PULMONARY DISEA SE RIGHT VENTRICULAR HYPERTROPHY MODERATE ST DEPRESSION ABNORMAL ECG PREVIOUS TRACING : 01/20/2017 09.29 DOCTOR: Ousmane Hinojosa Interpretating Date/Time 04/03/2017 08:41:27
== END 2017-04-02 15:43 | disposition home or self-care (01) ==
LOC: NEPE 10:20 → INTOOBSV 12:21 → NEDA 12:21 → UNDOADMIN 12:25 → NEDA 14:12 → HCIS 14:12 → UNDODISIN 04-02 15:43
PROVIDERS: ADMIT Family Medicine; ATTEND Family Medicine
DX: I48.91 Unspecified atrial fibrillation (principal); R55 Syncope and collapse; R42 Dizziness and giddiness; F17.210 Nicotine dependence, cigarettes, uncomplicated; F12.90 Cannabis use, unspecified, uncomplicated; M19.90 Unspecified osteoarthritis, unspecified site; R06.02 Shortness of breath; Z03.89 Encounter for observation for other suspected diseases and conditions ruled out
CPT/HCPCS: 71010; 80048; 80053; 80162; 80307; 82550; 82607; 82746; 83735; 83880; 84443; 84484; 85025; 85044; 85610; 85730; 93005; 93306; 93880; 96372; 96374; 96376; 97162; 99285; G0378; J0282; J1644

== ENCOUNTER 2017-05-01 15:09 | Inpatient (IN) | payer OTHER ==
[~2017-05-01] VITALS: Ht 180.3 cm; Wt 71.4 kg
[2017-05-01] VITALS (8 sets, daily range): BP systolic 117–184; BP diastolic 71–108; PULSE 95–164; RESP 18–22; TEMP 97.8–98.5; O2SAT 95–99
[~2017-05-01 15:09] MED LIST changes: -CARD120C4 PO; +DILT60TA33 PO; +EDOX1TAB5 PO; -FLUD.1 PO
[2017-05-01] MEDS ORDERED: SODIUM CHLOR 0.9% 1000 ML INJ 1,000 ML IV ONE (15:15)
[2017-05-01] MEDS ORDERED: ONDANSETRON HCL 4 MG/2 ML VIAL IVP ONE (15:15)
[2017-05-01] MEDS ORDERED: DILTIAZEM HCL 25 MG/5 ML VIAL IV ONE (15:15)
[2017-05-01] MEDS ORDERED: SODIUM CHLORIDE 0.9% FLUSH 10 ML FLUSH IVF PRN (15:15)
--- NOTE | 2017-05-01 15:46 | RADRPT ---
EXAM DATE/TIME: 05/01/2017 15:27 [facility] COMPARISON: CT BRAIN W/O CONTRAST, January 19, 2017, 19:25. INDICATIONS : Syncope, neck pain, chest pain, tingling left arm. RADIATION DOSE: 45.13 CTDIvol (mGy) MEDICAL HISTORY : Cardiovascular disease. SURGICAL HISTORY : None. ENCOUNTER: Initial ACUITY: 1 day PAIN SCALE: 0/10 LOCATION: cranial TECHNIQUE: Multiple contiguous axial images were obtained of the head. Using automated exposure control and adj ustment of the mA and/or kV according to patient size, radiation dose was kept as low as reasonably a chievable to obtain optimal diagnostic quality images. DICOM format image data is available electro nically for review and comparison. FINDINGS: CEREBRUM: The ventricles are normal for age. No evidence of midline shift, mass lesion, hemorrhage or acute in farction. No extra-axial fluid collections are seen. POSTERIOR FOSSA: The cerebellum and brainstem are intact. The 4th ventricle is midline. The cerebellopontine angle i s unremarkable. EXTRACRANIAL: The visualized portion of the orbits is intact. Small posterior occipital scalp hematoma. Mild mucope riosteal thickening in involving the maxillary sinuses. SKULL: The calvaria is intact. No evidence of skull fracture. CONCLUSION: 1. No acute intracranial abnormality. 2. Small posterior scalp soft tissue hematoma. 3. Mild bilateral maxillary sinus disease. Aries Fowler MD on May 01, 2017 at 15:40 Board Certified Radiologist. This report was verified electronically.
[2017-05-01] MEDS ORDERED: DILTIAZEM HCL 25 MG/5 ML VIAL IV PUSH ONE ×2 (16:00→16:45)
--- NOTE | 2017-05-01 16:08 | RADRPT ---
EXAM DATE/TIME: 05/01/2017 15:30 [facility] COMPARISON: No previous studies available for comparison. INDICATIONS : Fall, after syncope.Neck pain, thingling left arm. RADIATION DOSE: 33.94 CTDIvol (mGy) MEDICAL HISTORY : Cardiovascular disease. SURGICAL HISTORY : None. ENCOUNTER: Initial ACUITY: 1 day PAIN SCALE: 5/10 LOCATION: neck TECHNIQUE: Volumetric scanning of the cervical spine was performed. Multiplanar reconstructions in the sagittal, coronal and oblique axial planes were performed. Using automated exposure control and adjustment o f the mA and/or kV according to patient size, radiation dose was kept as low as reasonably achievable to obtain optimal diagnostic quality images. DICOM format image data is available electronically f or review and comparison. FINDINGS: Examination is abnormal. There is a fracture extending from the base of the dens through the lateral mass of C2. There is an associated approximate 4 mm posterior retropulsed fragment. Fracture extends through the right transverse foramen. Bony central canal is grossly patent. Sagittal alignment is marialuisa ntained. Atlantoaxial relationship is anatomic. Facets are normally aligned. Advanced degenerative sp ondylosis of the lower lumbar spine most prominently at C5-7 with multilevel facet arthropathy. Visua lized lung apices are clear. No gross cervical mass or adenopathy. Visualized skull base appears inta ct. CONCLUSION: 1. Abnormal examination. Minimally displaced C2 fracture extending from the base of the dens and the lateral mass of C2 with approximate 4 mm posterior retropulsed fragment. Fracture also extends throug h right transverse foramen which can result in possible vertebral artery injury. CTA examination may be performed as clinically warranted. Aries Fowler MD on May 01, 2017 at 15:56 Board Certified Radiologist. This report was verified electronically.
--- NOTE | 2017-05-01 16:09 | RADRPT ---
EXAM DATE/TIME: 05/01/2017 15:43 [facility] COMPARISON: CHEST SINGLE AP, April 01, 2017, 11:00. INDICATIONS : Syncopal episode today. Hit sternum on table. MEDICAL HISTORY : None. SURGICAL HISTORY : None. ENCOUNTER: Initial ACUITY: 1 day PAIN SCORE: 5/10 LOCATION: Sternal pain FINDINGS: No pneumothorax, effusion or new focal opacities. Cardiomediastinal contours are within normal limits given portable technique. Bony thorax is intact. CONCLUSION: 1. Negative portable chest. Consider dedicated radiographs or PA and lateral views if there is signif icant clinical concern regarding sternal injury. Aries Fowler MD on May 01, 2017 at 16:06 Board Certified Radiologist. This report was verified electronically.
[2017-05-01 16:14] LABS: AUTOMATED NEUTROPHIL # 1.8 TH/MM3 (1.8-7.7); BASOPHIL % 0.9 % (0.0-2.0); EOSINOPHIL % 0.1 % (0.0-4.0); HEMATOCRIT 38.8 % (39.0-51.0); HEMOGLOBIN 13.6 GM/DL (13.0-17.0); LYMPH % 36.2 % (9.0-44.0); LYMPHOCYTE # 1.4 TH/MM3 (1.0-4.8); MEAN CELL VOLUME 110.2 FL (80.0-100.0); MEAN CORPUSCULAR HEMOGLOBIN 38.6 PG (27.0-34.0); MEAN PLATELET VOLUME 7.4 FL (7.0-11.0); MONO % 14.3 % (0.0-8.0); MONOCYTE # 0.5 TH/MM3 (0-0.9); NEUT % 48.5 % (16.0-70.0); PLATELET COUNT 137 TH/MM3 (150-450); RED BLOOD COUNT 3.52 MIL/MM3 (4.50-5.90); RED CELL DISTRIBUTION WIDTH 13.4 % (11.6-17.2); WHITE BLOOD COUNT 3.8 TH/MM3 (4.0-11.0)
[2017-05-01 16:29] LABS: ALBUMIN 3.3 GM/DL (3.4-5.0); AST (GOT) 35 U/L (15-37); BICARBONATE 22.8 MEQ/L (21.0-32.0); BLOOD UREA NITROGEN 14 MG/DL (7-18); CALCIUM 7.6 MG/DL (8.5-10.1); CHLORIDE 105 MEQ/L (98-107); CREATININE 0.98 MG/DL (0.60-1.30); GLOMERULAR FILTRATION RATE 78 ML/MIN (>89); GLUCOSE,RANDOM 107 MG/DL (74-106); SODIUM (NA) 138 MEQ/L (136-145)
[2017-05-01] MEDS ORDERED: MORPHINE SULFATE 2 MG/ML INJ IV PUSH ONE ×2 (16:30)
[2017-05-01 16:31] LABS: INTERNATIONAL NORMALIZED RATIO 1.3 RATIO; PROTHROMBIN TIME - PATIENT 12.7 SEC (9.8-11.6)
[2017-05-01 16:34] LABS: ALKALINE PHOSPHATASE 68 U/L (45-117); ALT (GPT) 24 U/L (12-78); TOTAL BILIRUBIN ADULT 0.3 MG/DL (0.2-1.0); TOTAL PROTEIN 6.9 GM/DL (6.4-8.2); TROPONIN I 0.02 NG/ML (0.02-0.05)
[2017-05-01] MEDS ORDERED: niCARdipine INJ 25 MG in SODIUM CHLOR 0.9% 250 ML INJ 240 ML IV ONE (16:45)
[2017-05-01] MEDS ORDERED: MORPHINE SULFATE 4 MG/ML INJ IV PUSH PRN (16:45)
--- NOTE | 2017-05-01 17:14 | PD ---
HPI Chief Complaint: Cardiac Complaint Time Seen by Provider: 15:14 Travel History International Travel<30 days: No Contact w/Intl Traveler<30days: No Traveled to known affect area: No History of Present Illness HPI Patient is a 62-year-old male who comes in after syncopal episode at the bar. He says he had 1-1/2 beers as well as 1 and half shots of alcohol when he stood up to urinate and passed out. He says he hit the back of his head. He complains of neck pain. He denies any weakness of his extremities. He says he did feel some tingling in his left arm, but this has resolved. Per EMS, he did lose consciousness. He denies any chest pain or shortness of breath. He is a daily drinker. PFSH Past Medical History Arthritis: Yes ( fingers) Anxiety: Yes Depression: No Heart Rhythm Problems: Yes (palpatations) Cancer: No Cardiovascular Problems: Yes Cerebrovascular Accident: No Endocrine: No Genitourinary: No Headaches: Yes (rare) Immune Disorder: No Musculoskeletal: Yes Neurologic: Yes Psychiatric: Yes Reproductive: No Respiratory: Yes Immunizations Current: Yes Seizures: No Past Surgical History Oral Surgery: Yes (teeth extraction) Other Surgery: Yes Social History Alcohol Use: Yes (daily) Tobacco Use: Yes (1/2 PPD) Substance Use: Yes (marijuana occasionally) Allergies-Medications (Allergen,Severity, Reaction): Coded Allergies: acetaminophen (Unverified Allergy, Severe, Itching, 05/01/17) oxycodone (Unverified Allergy, Severe, Itching, 05/01/17) Reported Meds & Prescriptions Reported Meds & Active Scripts Active Cardizem (Diltiazem HCl) 60 Mg Tab 30 Mg PO Q6HR Midodrine 5 Mg Tab 5 Mg PO TID@,,17 Aspirin EC (Aspirin) 81 Mg Tabdr 81 Mg PO DAILY Review of Systems Except as stated in HPI: all other systems reviewed are Neg General / Constitutional: No: Fever, Chills Eyes: No: Blurred Vision HENT: Positive: Neck Pain, No: Headaches Cardiovascular: No: Chest Pain or Discomfort Respiratory: No: Shortness of Breath Gastrointestinal: No: Nausea, Vomiting Musculoskeletal: No: Myalgias, Edema Skin: No Rash, No Change in Pigmentation Neurologic: Positive: Syncope Physical Exam Narrative GENERAL: Awake and alert, in no acute distress. SKIN: Focused skin assessment warm/dry. HEAD: Atraumatic. Normocephalic. EYES: Pupils equal and round. No scleral icterus. Extraocular movements intact. ENT: No nasal bleeding or discharge. Mucous membranes pink and moist. NECK: Trachea midline. No JVD. C-collar in place, tender to palpation of the cervical spine. CARDIOVASCULAR: Tachycardia. No murmur appreciated. RESPIRATORY: No accessory muscle use. Clear to auscultation. Breath sounds equal bilaterally. GASTROINTESTINAL: Abdomen soft, non-tender, nondistended. MUSCULOSKELETAL: No obvious deformities. No clubbing. No cyanosis. No edema. NEUROLOGICAL: Awake and alert. No obvious cranial nerve deficits. Motor grossly within normal limits. Normal speech. Sensation intact. PSYCHIATRIC: Appropriate mood and affect; insight and judgment normal. Data Data Last Documented VS Vital Signs Date Time Temp Pulse Resp B/P (MAP) Pulse Ox O2 Delivery O2 Flow Rate FiO2 05/01/17 16:15 120 22 120/71 (87) 99 Nasal Cannula 2.00 05/01/17 15:17 97.8 Orders Orders Complete Blood Count With Diff (05/01/17 15:15) Comprehensive Metabolic Panel (05/01/17 15:15) Troponin I (05/01/17 15:15) Act Partial Throm Time (Ptt) (05/01/17 15:15) Prothrombin Time / Inr (Pt) (05/01/17 15:15) Chest, Single Ap (05/01/17 15:15) Ct Brain W/O Iv Contrast(Rout) (05/01/17 15:15) Ct Cerv Spine W/O Contrast (05/01/17 15:15) Ecg Monitoring (05/01/17 15:15) Iv Access Insert/Monitor (05/01/17 15:15) Oximetry (05/01/17 15:15) Ondansetron Inj (Zofran Inj) (05/01/17 15:15) Sodium Chloride 0.9% Flush (Ns Flush) (05/01/17 15:15) Sodium Chlor 0.9% 1000 Ml Inj (Ns 1000 M (05/01/17 15:15) Alcohol (Ethanol) (05/01/17 15:15) Diltiazem Inj (Cardizem Inj) (05/01/17 15:15) Diltiazem Inj (Cardizem Inj) (05/01/17 16:00) Cta Neck W Iv Contrast W 3d (05/01/17 ) Morphine Inj (Morphine Inj) (05/01/17 16:30) Morphine Inj (Morphine Inj) (05/01/17 16:30) Admit Order (Ed Use Only) (05/01/17 ) Nicardipine Inj (Cardene Inj) (05/01/17 16:45) Labs Laboratory Tests Test 05/01/17 15:44 White Blood Count 3.8 TH/MM3 Red Blood Count 3.52 MIL/MM3 Hemoglobin 13.6 GM/DL Hematocrit 38.8 % Mean Corpuscular Volume 110.2 FL Mean Corpuscular Hemoglobin 38.6 PG Mean Corpuscular Hemoglobin Concent 35.0 % Red Cell Distribution Width 13.4 % Platelet Count 137 TH/MM3 Mean Platelet Volume 7.4 FL Neutrophils (%) (Auto) 48.5 % Lymphocytes (%) (Auto) 36.2 % Monocytes (%) (Auto) 14.3 % Eosinophils (%) (Auto) 0.1 % Basophils (%) (Auto) 0.9 % Neutrophils # (Auto) 1.8 TH/MM3 Lymphocytes # (Auto) 1.4 TH/MM3 Monocytes # (Auto) 0.5 TH/MM3 Eosinophils # (Auto) 0.0 TH/MM3 Basophils # (Auto) 0.0 TH/MM3 CBC Comment DIFF FINAL Differential Comment Prothrombin Time 12.7 SEC Prothromb Time International Ratio 1.3 RATIO Activated Partial Thromboplast Time 28.0 SEC Blood Urea Nitrogen 14 MG/DL Creatinine 0.98 MG/DL Random Glucose 107 MG/DL Total Protein 6.9 GM/DL Albumin 3.3 GM/DL Calcium Level 7.6 MG/DL Alkaline Phosphatase 68 U/L Aspartate Amino Transf (AST/SGOT) 35 U/L Alanine Aminotransferase (ALT/SGPT) 24 U/L Total Bilirubin 0.3 MG/DL Sodium Level 138 MEQ/L Potassium Level 3.5 MEQ/L Chloride Level 105 MEQ/L Carbon Dioxide Level 22.8 MEQ/L Anion Gap 10 MEQ/L Estimat Glomerular Filtration Rate 78 ML/MIN Troponin I 0.02 NG/ML Ethyl Alcohol Level 130 MG/DL [facility] Medical Decision Making Medical Screen Exam Complete: Yes Emergency Medical Condition: Yes Medical Record Reviewed: Yes Interpretation(s) ECG shows atrial fibrillation at a rate of 125 Differential Diagnosis Intoxication versus head trauma versus cervical spine injury Narrative Course Patient is a 62-year-old male who comes in after a syncopal episode. Exam shows cervical spine tenderness. Patient is in a c-collar. IV established, labs sent. Patient is in A. fib with RVR, given a dose of Cardizem, given fluids. CT head performed shows no acute abnormalities. CT of the C-spine shows a fracture of C2. Dr. Dodd of neurosurgery consulted for the C2 fracture. He advises a [place] collar and admission. Patient started on Cardizem drip for his A. fib. Diagnosis Primary Impression: C2 cervical fracture Qualified Codes: S12.100A - Unspecified displaced fracture of second cervical vertebra, initial encounter for closed fracture Additional Impression: Atrial fibrillation with RVR Admitting Information Admitting Physician Requests: Admit Karen Sheffield MD May 01, 2017 17:14
[2017-05-01] MEDS ORDERED: LACTULOSE SYRUP 20 GM/30 ML CUP PO PRN (17:15)
[2017-05-01] MEDS ORDERED: ONDANSETRON HCL 4 MG/2 ML VIAL IV PUSH PRN ×2 (17:15→17:45)
[2017-05-01] MEDS ORDERED: SENNOSIDES 8.6 MG TAB PO PRN (17:15)
[2017-05-01] MEDS ORDERED: POTASSIUM CHLOR 20 MEQ PREMIX 100 ML IV PRN ×3 (17:15→17:30)
[2017-05-01] MEDS ORDERED: SODIUM CHLORIDE 0.9% FLUSH 10 ML FLUSH IV FLUSH PRN ×2 (17:15→17:45)
[2017-05-01] MEDS ORDERED: CALCIUM GLUCONATE INJ 1 GM in SODIUM CHLORIDE 0.9% INJ 100 ML IV PRN (17:15)
[2017-05-01] MEDS ORDERED: ALUMINUM/MAGNESIUM/SIMETH 30 ML CUP PO PRN (17:15)
[2017-05-01] MEDS ORDERED: PROMETHAZINE INJ 25 MG/ML VIAL IM PRN (17:15)
[2017-05-01] MEDS ORDERED: BISACODYL 10 MG SUPP RECTAL PRN (17:15)
[2017-05-01] MEDS ORDERED: cloNIDine HCL 0.1 MG TAB PO PRN (17:15)
[2017-05-01] MEDS ORDERED: MAGNESIUM HYDROXIDE SUSP 30 ML CUP PO PRN (17:15)
--- NOTE | 2017-05-01 17:21 | PD.CONS ---
[facility] Service Critical Care Medicine Consult Requested By Dr. Dodd Reason for Consult Care management Primary Care Physician No Primary Care Physician History of Present Illness This is a 62-year-old male. Date of admission 05/01/2017. Date of consultation 05/01/2017. Past history includes atrial fibrillation, alcoholism , tobacco abuse and THC use. Today, he assumed 1-1/2 beers as well as 1 and half shots of alcohol when he stood up to urinate and passed out. He says he hit the back of his head. He complains of neck pain. He denies any weakness of his extremities. He says he did feel some tingling in his left arm, but this has resolved. No loss of consciousness. EtOH level 130 CT C-spine revealed a C2 fracture at the base of the dens ex- ankle lateral mass of C2 with the 4 mm retropulsed segment. Also fracture the foramen magnum. CT brain revealed a small posterior scalp hematoma. Dr. Dodd was notified. Plans for halo likely in a.m. Patient is currently in atrial fibrillation RVR. Has been evaluation by Dr. Hinojosa in the past. CHADS VASC2 currently 1 Currently on a diltiazem drip at 5 mg now for rate control. Denies chest pain Review of Systems ROS Limitations: Intoxication Constitutional: COMPLAINS OF: Fatigue, DENIES: Fever, Weight gain, Weight loss Endocrine: DENIES: Heat/cold intolerance Eyes: DENIES: Blurred vision, Double Vision Ears, nose, mouth, throat: DENIES: Hearing loss Respiratory: DENIES: Shortness of breath Cardiovascular: COMPLAINS OF: Palpitations, DENIES: Chest pain Gastrointestinal: DENIES: Abdominal pain, Nausea, Vomiting, Difficulty Swallowing Genitourinary: DENIES: Urgency Musculoskeletal: COMPLAINS OF: Back pain, Neck pain, DENIES: Joint pain Integumentary: DENIES: Abnormal pigmentation Hematologic/lymphatic: COMPLAINS OF: Bruising Immunologic/allergic: DENIES: Eczema Neurologic: COMPLAINS OF: Headache, DENIES: Abnormal gait Psychiatric: DENIES: Anxiety, Confusion Past Family Social History Allergies: Coded Allergies: acetaminophen (Unverified Allergy, Severe, Itching, 05/01/17) oxycodone (Unverified Allergy, Severe, Itching, 05/01/17) Past Medical History Atrial fibrillation CHADsVASC2 score 1 Hypotension with dysautonomia EtOH Tobaccoism THC use Past Surgical History None Reported Medications Midodrine 5 mg by mouth 3 times a day Diltiazem 30 mg by mouth 4 times a day Aspirin 81 mg by mouth daily Active Ordered Medications Reviewed in EMR Family History Mother with emphysema/COPD Social History One half pack per day 45 years. Daily EtOH use. Positive THC use Physical Exam Vital Signs Vital Signs Date Time Temp Pulse Resp B/P (MAP) Pulse Ox O2 Delivery O2 Flow Rate FiO2 05/01/17 16:15 120 22 120/71 (87) 99 Nasal Cannula 2.00 05/01/17 16:04 140 18 175/100 (125) 96 Nasal Cannula 05/01/17 15:51 164 18 165/79 (107) 96 Nasal Cannula 05/01/17 15:17 97.8 150 20 184/108 (133) 96 Nasal Cannula Physical Exam GENERAL: 62-year-old male resting in bed in no acute distress SKIN: Warm and dry. Posterior scalp laceration noted HEAD: Posterior scalp hematoma noted. Normocephalic. EYES: Pupils equal and round around 3 mm bilaterally and reactive. No scleral icterus. No injection or drainage. ENT: No nasal bleeding or discharge. Mucous membranes pink and moist. Currently in [place] J collar NECK: Trachea midline. No JVD. CARDIOVASCULAR: Tachycardia, IR. S1, S2. No S4. Without murmur RESPIRATORY: Clear to auscultation. Breath sounds equal bilaterally. Sternum tender to palpation GASTROINTESTINAL: Abdomen soft, non-tender, nondistended. Hypoactive bowel sounds are appreciated MUSCULOSKELETAL: Extremities without without significant edema. No obvious deformities. NEUROLOGICAL: Awake and alert. No obvious cranial nerve deficits. Motor grossly within normal limits. Five out of 5 muscle strength in the arms and legs. Normal speech. PSYCHIATRIC: Appropriate mood and affect; insight and judgment normal. Laboratory Laboratory Tests Test 05/01/17 15:44 White Blood Count 3.8 Red Blood Count 3.52 Hemoglobin 13.6 Hematocrit 38.8 Mean Corpuscular Volume 110.2 Mean Corpuscular Hemoglobin 38.6 Mean Corpuscular Hemoglobin Concent 35.0 Red Cell Distribution Width 13.4 Platelet Count 137 Mean Platelet Volume 7.4 Neutrophils (%) (Auto) 48.5 Lymphocytes (%) (Auto) 36.2 Monocytes (%) (Auto) 14.3 Eosinophils (%) (Auto) 0.1 Basophils (%) (Auto) 0.9 Neutrophils # (Auto) 1.8 Lymphocytes # (Auto) 1.4 Monocytes # (Auto) 0.5 Eosinophils # (Auto) 0.0 Basophils # (Auto) 0.0 CBC Comment DIFF FINAL Differential Comment Prothrombin Time 12.7 Prothromb Time International Ratio 1.3 Activated Partial Thromboplast Time 28.0 Blood Urea Nitrogen 14 Creatinine 0.98 Random Glucose 107 Total Protein 6.9 Albumin 3.3 Calcium Level 7.6 Alkaline Phosphatase 68 Aspartate Amino Transf (AST/SGOT) 35 Alanine Aminotransferase (ALT/SGPT) 24 Total Bilirubin 0.3 Sodium Level 138 Potassium Level 3.5 Chloride Level 105 Carbon Dioxide Level 22.8 Anion Gap 10 Estimat Glomerular Filtration Rate 78 Troponin I 0.02 Ethyl Alcohol Level 130 Result Diagram: 05/01/17 1544 05/01/17 1544 Imaging Last Impressions Head CT 05/01/17 1515 Signed Impressions: Service Date/Time: Monday, May 01, 2017 15:27 - CONCLUSION: 1. No acute intracranial abnormality. 2. Small posterior scalp soft tissue hematoma. 3. Mild bilateral maxillary sinus disease. Aries Fowler MD Chest X-Ray 05/01/17 1515 Signed Impressions: Service Date/Time: Monday, May 01, 2017 15:43 - CONCLUSION: 1. Negative portable chest. Consider dedicated radiographs or PA and lateral views if there is significant clinical concern regarding sternal injury. Aries Fowler MD Cervical Spine CT 05/01/17 1515 Signed Impressions: Service Date/Time: Monday, May 01, 2017 15:30 - CONCLUSION: 1. Abnormal examination. Minimally displaced C2 fracture extending from the base of the dens and the lateral mass of C2 with approximate 4 mm posterior retropulsed fragment. Fracture also extends through right transverse foramen which can result in possible vertebral artery injury. CTA examination may be performed as clinically warranted. Aries Fowler MD Septic Shock Reassessment Septic shock perfusion: reassessment completed Assessment and Plan Assessment and Plan Neuro/Psych: C2 fracture EtOH THC use Posterior scalp hematoma CT brain - small posterior scalp hematoma CT C-spine - C2 fracture - base of dens -lateral mass of C2 with 4 mm retropulsion segment. Fracture fragment magnum Seen by Dr. Dodd. Maintain [place] J collar Likely for halo in a.m. Tramadol 50 mg as needed for pain management Morphine sulfate/hydromorphone for breakthrough pain Currently on a vitamin bag daily 3 days which includes thiamine, folate and multivitamin for EtOH use Monitor for DVT. CIWA protocol initiated Patient states he has no allergy to acetaminophen. States that Percocet caused an "itching mustache" in past CV: Atrial fibrillation with rapid ventricular response History of hypotension with dysautonomia Cardiology consultation 2-D echocardiogram 03/27 revealed ejection fraction 50-55%. Mild LVH. Continue diltiazem drip currently at 10 mg an hour. At home on diltiazem 30 by mouth 4 times a day Continue Midodrine 5 mg 3 times a day for dysautonomia Digoxin 0.25 mill grams IV 1 now. Check troponin initially 0.02. Check TSH Resp: Tobaccoism Nasal cannula to maintain saturations greater than equal to 92% Incentive spirometry while awake Tobacco sensation will be encouraged GI: Gastroesophageal reflux disease Hypoalbuminemia On pantoprazole 40 milligrams by mouth daily for GI prophylaxis Docusate sodium/senna 1 tablet twice a day for bowel regimen : No indication for Foster catheter Endo: Hyperglycemia Sliding-scale insulin if indicated to maintain euglycemia Check TSH Renal: Monitor urine output Accurate I's and O's Recheck creatinine in a.m. Heme: Leukopenia Macrocytosis Thrombocytopenia Monitor CBC daily. Follow trends Follow-up on coags Currently on aspirin 81 mg daily. Resume by neurosurgery ID: Monitor for infection MSK: OA PT evaluate and treat when appropriate FEN: Replace electrodes per ICU electrolyte protocol 30 mEq KCl 1 now. 1 g mag sulfate. Access - Utilize peripheral IV. Central line if indicated Prophylaxis - GI - pantoprazole - DVT - SCD/holding pharmacological prophylaxis until okay with neurosurgery Level II consult Code Status Full code Discussed Condition With Patient. Care plan discussed and all questions answered. Cali Phelps MD May 01, 2017 17:21
[2017-05-01] MEDS ORDERED: POTASSIUM CHLORIDE 10 MEQ CONTROLLED RELEASE TAB PO ONE (17:30)
[2017-05-01] MEDS ORDERED: MAGNESIUM SULFATE 1 GM PREMIX 100 ML IV ONE (17:30)
[2017-05-01] MEDS ORDERED: MAGNESIUM SULFATE INJ 2 GM in SODIUM CHLORIDE 0.9% INJ 96 ML IV PRN (17:30)
[2017-05-01] MEDS ORDERED: SODIUM PHOSPHATE INJ 30 MMOL in SODIUM CHLOR 0.9% 250 ML INJ 240 ML IV PRN (17:30)
[2017-05-01] MEDS ORDERED: POTASSIUM CHLOR 40 MEQ PREMIX 100 ML IV PRN ×2 (17:30)
[2017-05-01] MEDS ORDERED: POTASSIUM PHOSPHATE MONOBASIC 500 MG TAB PO/TUBE PRN (17:30)
[2017-05-01] MEDS ORDERED: POTASSIUM PHOSPHATE MONOBASIC 500 MG TAB PO PRN (17:30)
[2017-05-01] MEDS: MIDODRINE 5 MG TAB PO SCH (17:30)
[2017-05-01] MEDS ORDERED: MAGNESIUM OXIDE 400 MG TAB PO PRN (17:30)
[2017-05-01] MEDS ORDERED: POTASSIUM PHOSPHATE INJ 30 MMOL in SODIUM CHLOR 0.9% 250 ML INJ 250 ML IV PRN (17:30)
[2017-05-01] MEDS ORDERED: POTASSIUM CHLORIDE 25 MEQ EFFERVESCENT TAB PO PRN (17:30)
[2017-05-01] MEDS ORDERED: LABETALOL HCL 100 MG/20 ML VIAL IV PUSH PRN (17:30)
[2017-05-01] MEDS ORDERED: LORazepam 2 MG/ML VIAL IV PUSH PRN (17:30)
[2017-05-01] MEDS ORDERED: MAGNESIUM SULFATE INJ 4 GM in SODIUM CHLORIDE 0.9% INJ 92 ML IV PRN (17:30)
[2017-05-01] MEDS ORDERED: IOHEXOL 350 MG/ML 10 ML VIAL (for RAD DIAG) IVCONTRAST ONE (17:34)
[2017-05-01] MEDS ORDERED: CHLORHEXIDINE GLUCONATE 2 % 1 PACK (2 CLOTHS) TOP PRN (17:45)
[2017-05-01] MEDS ORDERED: DIGOXIN 0.5 MG/2 ML VIAL IV PUSH ONE (17:45)
[2017-05-01] MEDS ORDERED: MISCELLANEOUS NURSING INFORMATION XX SCH (17:45)
--- NOTE | 2017-05-01 17:54 | MH ---
cc: JERICHO LINDSEY DATE OF ADMISSION 05/01/2017 REASON FOR CONSULTATION C2 fracture. HISTORY OF PRESENT ILLNESS A 64 year old gentleman who apparently had a syncopal episode while he was at a bar and fell back and struck his head. He relates that he only had 1 1/2 beers prior to this and was not really intoxicated. He does have a history of syncopal episodes. Last time he relates that he had a syncopal episode was about three months. He was diagnosed with atrial fibrillation a year ago. He was admitted also last month with atrial fibrillation with a rapid ventricular response and was seen by Dr. Hinojosa from cardiology. He relates that he is on blood thinners, although these are very expensive and he has no job or insurance and cannot afford them. He complains of neck pain. He initially had some numbness in his left hand, but this has resolved. He also complains of some anterior chest wall area pain. He was evaluated by the emergency room physician on arrival to [facility] and head CT scan is negative for any intracranial abnormality. He does have, on the CT scan of the cervical spine, a C2 fracture that partially extends to the base of the dens as well as the lateral mass in the right side with involvement of the foramen and transversarium. There is slight retropulsion of the C2 fracture moves posteriorly into the spinal canal. PAST MEDICAL HISTORY 1. Atrial fibrillation 2. Recurrent syncopal episodes 3. Alcohol abuse 4. Orthostatic hypotension MEDICATIONS Currently, 1. Aspirin 81 mg daily 2. Diltiazem 30 mg q 6 hrs 3. Midodrine 5 mg three times a day ALLERGIES PERCOCET - TOOK A LONG TIME AGO, HAD SOME ITCHING IN HIS MUSTACHE BUT REALLY WAS NOT AN ALLERGY. SOCIAL HISTORY He is homeless, unemployed. He lives at his friend's house. He is single. Admits to smoking a pack of cigarettes a day. Admits to drinking 4-6 alcoholic beverages a day. Admits to marijuana use but not daily. REVIEW OF SYSTEMS Pertinent positives include neck pain, transient numbness of left upper extremity which has resolved. Anterior chest wall pain, tachycardia with palpitation which is chronic. Chronic cough related to smoking, no hemoptysis. Otherwise, the rest of review of systems is negative. LABORATORY DATA White blood cell count 3.8, hemoglobin 13.6, platelet count 137. PT 12.7, INR 1.3, PTT 28. Sodium 138, potassium 3.5, BUN 14, creatinine 0.98. Toxicology screen positive for alcohol of 130. Glucose 107. FAMILY HISTORY Unremarkable. PHYSICAL EXAMINATION VITAL SIGNS: Temperature 97.8, pulse varies from 120-150, respiratory rate 22, blood pressure 120/71, oxygen saturation 99% on two liters nasal cannula. HEENT: Head - he had an occipital scalp soft tissue swelling. Eyes - no scleral icterus or injection. Ears, nose and throat - he has some bleeding in his mouth which he states he bit his lip last night. Moist mucous membranes. NECK: Immobilized in a [place] J collar with midline trachea. CHEST: Scattered rhonchi bilaterally. HEART: Irregular rhythm with tachycardia, normal S1, S2. ABDOMEN: Mildly distended but soft and nontender. No hepatosplenomegaly noted. EXTREMITIES: No cyanosis or edema. SKIN: Occipital scalp swelling from an abrasion. No rash or skin breakdown. GENERAL: Elderly gentleman who is laying in a stretcher in the emergency room with a collar on in no acute distress. NEUROLOGIC: He is awake, alert. Pupils are equal, reactive. Extraocular muscles are intact. Face is symmetric. Tongue is midline. He moves upper and lower extremities with 5/5 strength and complains of anterior chest wall pain with proximal upper extremity movement. Lower extremities - 5/5. Sensation is intact to light touch bilaterally in the upper and lower extremities. Negative Babinski. Speech is fluent. IMPRESSION 1. C2 partial odontoid fracture that extends to the base and into the body as well as a right C2 slightly displaced lateral mass fracture involving the foramen transversarium. 2. Recurrent syncopal episodes. 3. Atrial fibrillation with rapid ventricular response. 4. History of orthostatic hypotension 5. History of alcohol abuse. PLAN The patient will be maintained in a [place] J cervical collar. He will be admitted to the Intensive Care Unit for close neurologic and hemodynamic monitoring. We will consult cardiology for assistance for the management of his rapid ventricular response and recurrent syncopal episodes. Pain control as needed. Consult the cardiopulmonary supervisor for assistance in his critical care management. If no cardiac intervention is planned, then we will place him in a halo prior to mobilization. Gastrointestinal stress ulcer prophylaxis and mechanical deep venous thrombosis prophylaxis. I have discussed the findings with the patient and the treatment plan. He understands and is in agreement. He will also need to be monitored closely for any alcohol withdrawal symptoms as he is at high risk for this. We will place him on multivitamin, folic acid and thiamine supplements along with Librium. MD MIGUEL England/ /4:54 PM /5:05 PM
[2017-05-01] MEDS ORDERED: niCARdipine INJ 25 MG in SODIUM CHLOR 0.9% 250 ML INJ 240 ML IV PRN (18:00)
[2017-05-01] MEDS ORDERED: MAGNESIUM SULFATE INJ 2 GM in SODIUM CHLORIDE 0.9% INJ 100 ML IV PRN (18:00)
--- NOTE | 2017-05-01 18:14 | RADRPT ---
EXAM DATE/TIME: 05/01/2017 17:26 [place] COMPARISON: No previous studies available for comparison. INDICATIONS : Evaluate for carotid artery injury. Cervical fracture. IV CONTRAST: 76 cc Omnipaque 350 (iohexol) IV RADIATION DOSE: 28.36 CTDIvol (mGy) MEDICAL HISTORY : Cardiovascular disease. SURGICAL HISTORY : None. ENCOUNTER: Initial ACUITY: 1 day PAIN SCALE: 9/10 LOCATION: Bilateral neck Elevated flow velocities and ICA/CCA ratios have been found to correlate with increased degrees of vessel stenosis, calculated as percentage of diameter relative to a normal segment of distal ICA/CCA. TECHNIQUE: Volumetric scanning was performed using a multirow detector CT scanner. The data was post processed with a variety of visualization algorithms including full-volume maximum intensity projection, multip lanar sliding thin-slab reformation, curved-planar reformation, and surface-rendering techniques. Us ing automated exposure control and adjustment of the mA and/or kV according to patient size, radiatio n dose was kept as low as reasonably achievable to obtain optimal diagnostic quality images. DICOM f ormat image data is available electronically for review and comparison. FINDINGS: AORTIC ARCH: Not included in the [id number] of the exam. RIGHT CAROTID: The common carotid artery is intact. The carotid bulb has a normal configuration without ulceration o r narrowing. The internal carotid artery lumen is smooth without stenosis. The external carotid stu ry is intact. LEFT CAROTID: The common carotid artery is intact. The carotid bulb has a normal configuration without ulceration or narrowing. The internal carotid artery lumen is smooth without stenosis. The external carotid ar stephany is intact. VERTEBRALS: There is a C2 fracture which extends into the right foramen transversarium. The vertebral arteries h as a symmetric appearance and are patent. No evidence of vessel narrowing or dissection. CONCLUSION: 1. Negative exam. The right vertebral artery is patent and intact. Papo Lee MD on May 01, 2017 at 18:05 Board Certified Radiologist. This report was verified electronically.
[2017-05-01] MEDS: CYCLOBENZAPRINE HCL 10 MG TAB PO PRN (18:35)
[2017-05-01] MEDS: DILTIAZEM HCL 30 MG TAB PO SCH (18:35)
[2017-05-01] MEDS: HYDROmorphone HCL 2 MG TAB PO PRN ×2 (18:36→22:21)
[2017-05-01] MEDS: DILTIAZEM INJ 125 MG in SODIUM CHLORIDE 0.9% INJ 100 ML IV PRN (19:00)
--- NOTE | 2017-05-01 20:41 | RADRPT ---
EXAM DATE/TIME: 05/01/2017 20:24 [place] COMPARISON: No previous studies available for comparison. INDICATIONS : Chest pains post fall. RADIATION DOSE: 9.59 CTDIvol (mGy) MEDICAL HISTORY : Cardiovascular disease. SURGICAL HISTORY : None. ENCOUNTER: Initial ACUITY: 1 day PAIN SCALE: 5/10 LOCATION: Bilateral chest TECHNIQUE: Volumetric scanning of the chest was performed. Using automated exposure control and adjustment of t he mA and/or kV according to patient size, radiation dose was kept as low as reasonably achievable to obtain optimal diagnostic quality images. DICOM format image data is available electronically for r eview and comparison. Follow-up recommendations for detected pulmonary nodules are based at a minimum on nodule size and pa tient risk factors according to Fleischner Society Guidelines. FINDINGS: LUNGS: There is no consolidation or pneumothorax. No concerning pulmonary nodule is visualized. Incidental note of azygous lobe. Normal right basilar atelectasis. PLEURAE: There is no pleural thickening or pleural effusion. MEDIASTINUM: The heart and great vessels demonstrate no acute abnormality. There is no mediastinal or hilar lymph adenopathy. Coronary artery calcifications. AXILLAE: Within normal limits. No lymphadenopathy. MUSCULOSKELETAL: There is a nondisplaced fracture of the inferior one third of the sternum with associated soft tissue thickening the substernal soft tissues measuring up to 1 cm. No pericardial thickening. No rib fra ctures seen. MISCELLANEOUS: Radiopaque densities in the distal esophagus and in the stomach probably ingested pills. CONCLUSION: 1. Mild right basilar atelectasis. 2. No evidence of pneumothorax. 3. Horizontal fracture through the inferior sternum with some mild soft tissue thickening in the subs ternal soft tissues Papo Lee MD on May 01, 2017 at 20:34 Board Certified Radiologist. This report was verified electronically.
[2017-05-01] MEDS: SODIUM CHLORIDE 0.9% FLUSH 10 ML FLUSH IV FLUSH SCH (20:55)
[2017-05-01] MEDS: DOCUSATE SODIUM 50 MG/SENNA 8.6 MG TAB PO SCH (21:00)
[2017-05-01] MEDS ORDERED: SODIUM CHLORIDE 0.9% FLUSH 10 ML FLUSH IV FLUSH SCH (21:00)
[2017-05-01 21:07] LABS: MAGNESIUM 1.6 MG/DL (1.5-2.5); PHOSPHORUS 2.6 MG/DL (2.5-4.9)
[2017-05-01] MEDS: MULTIVITAMIN INJ 10 ML, THIAMINE INJ 100 MG, FOLIC ACID INJ 1 MG in SODIUM CHLORID 0.9%... IV SCH (21:52)
[2017-05-01] MEDS: ZOLPIDEM TARTRATE 5 MG TAB PO PRN (22:20)
[2017-05-02] VITALS (16 sets, daily range): BP systolic 118–150; BP diastolic 65–83; PULSE 68–123; RESP 12–28; TEMP 98–98.5; O2SAT 92–98
[2017-05-02] MEDS: DILTIAZEM HCL 30 MG TAB PO SCH ×4 (00:26→17:21)
[2017-05-02] MEDS: CHLORHEXIDINE GLUCONATE 2 % 1 PACK (2 CLOTHS) TOP SCH (03:32)
[2017-05-02 04:46] LABS: BASOPHIL % 0.6 % (0.0-2.0); EOSINOPHIL % 0.1 % (0.0-4.0); HEMATOCRIT 40.5 % (39.0-51.0); HEMOGLOBIN 14.2 GM/DL (13.0-17.0); LYMPH % 24.9 % (9.0-44.0); LYMPHOCYTE # 1.2 TH/MM3 (1.0-4.8); MEAN CELL VOLUME 110.2 FL (80.0-100.0); MEAN CORPUSCULAR HEMOGLOBIN 38.7 PG (27.0-34.0); MEAN CORPUSCULAR HGB CONC 35.1 % (32.0-36.0); MEAN PLATELET VOLUME 7.7 FL (7.0-11.0); MONO % 9.9 % (0.0-8.0); MONOCYTE # 0.5 TH/MM3 (0-0.9); NEUT % 64.5 % (16.0-70.0); PLATELET COUNT 135 TH/MM3 (150-450); RED BLOOD COUNT 3.67 MIL/MM3 (4.50-5.90); RED CELL DISTRIBUTION WIDTH 13.8 % (11.6-17.2); WHITE BLOOD COUNT 4.6 TH/MM3 (4.0-11.0)
[2017-05-02 04:59] LABS: INTERNATIONAL NORMALIZED RATIO 1.1 RATIO; PROTHROMBIN TIME - PATIENT 11.2 SEC (9.8-11.6)
[2017-05-02 05:06] LABS: ALBUMIN 3.6 GM/DL (3.4-5.0); AST (GOT) 85 U/L (15-37); BLOOD UREA NITROGEN 9 MG/DL (7-18); CALCIUM 7.8 MG/DL (8.5-10.1); CHLORIDE 104 MEQ/L (98-107); CREATININE 0.83 MG/DL (0.60-1.30); GLOMERULAR FILTRATION RATE 95 ML/MIN (>89); GLUCOSE,RANDOM 96 MG/DL (74-106); SODIUM (NA) 138 MEQ/L (136-145)
[2017-05-02 05:14] LABS: ALKALINE PHOSPHATASE 74 U/L (45-117); ALT (GPT) 33 U/L (12-78); PHOSPHORUS 3.1 MG/DL (2.5-4.9); TOTAL BILIRUBIN ADULT 0.6 MG/DL (0.2-1.0); TOTAL PROTEIN 7.4 GM/DL (6.4-8.2); TROPONIN I 0.03 NG/ML (0.02-0.05)
[2017-05-02] MEDS: HYDROmorphone HCL 2 MG TAB PO PRN ×4 (05:21→21:22)
[2017-05-02] MEDS: MIDODRINE 5 MG TAB PO SCH ×3 (05:21→17:21)
[2017-05-02] MEDS: CYCLOBENZAPRINE HCL 10 MG TAB PO PRN ×2 (05:52→20:04)
--- NOTE | 2017-05-02 08:12 | HHI.CCPN ---
Subjective Remarks/Hospital Course This is a 62-year-old male. Date of admission 05/01/2017. Date of consultation 05/01/2017. Past history includes atrial fibrillation, alcoholism , tobacco abuse and THC use. Today, he assumed 1-1/2 beers as well as 1 and half shots of alcohol when he stood up to urinate and passed out. He says he hit the back of his head. He complains of neck pain. He denies any weakness of his extremities. He says he did feel some tingling in his left arm, but this has resolved. No loss of consciousness. EtOH level 130 CT C-spine revealed a C2 fracture at the base of the dens ex- ankle lateral mass of C2 with the 4 mm retropulsed segment. Also fracture the foramen magnum. CT brain revealed a small posterior scalp hematoma. Dr. Dodd was notified. Plans for halo likely in a.m. Patient is currently in atrial fibrillation RVR. Has been evaluation by Dr. Hinojosa in the past. CHADS VASC2 currently 1 Currently on a diltiazem drip at 5 mg now for rate control. Denies chest pain Subjective 05/02: Complaining of pain and anxiety. Currently no neurological deficits. Noted horizontal fracture inferior sternum. On CT chest. Objective Vital Signs Date Time Temp Pulse Resp B/P (MAP) Pulse Ox O2 Delivery O2 Flow Rate FiO2 05/02/17 06:21 15 05/02/17 06:00 68 05/02/17 04:00 98.2 118/83 (95) 96 05/02/17 01:14 Nasal Cannula 4.00 Intake and Output 05/02/17 05/02/17 05/03/17 08:00 16:00 00:00 Intake Total 859.2 ml Output Total 870 ml Balance -10.8 ml Result Diagram: 05/02/17 0419 05/02/17 0419 Imaging Last Impressions Head CT 05/01/17 6498 Signed Impressions: Service Date/Time: Monday, May 01, 2017 15:27 - CONCLUSION: 1. No acute intracranial abnormality. 2. Small posterior scalp soft tissue hematoma. 3. Mild bilateral maxillary sinus disease. Aries Fowler MD Chest X-Ray 05/01/17 5995 Signed Impressions: Service Date/Time: Monday, May 01, 2017 15:43 - CONCLUSION: 1. Negative portable chest. Consider dedicated radiographs or PA and lateral views if there is significant clinical concern regarding sternal injury. Aries Fowler MD Cervical Spine CT 05/01/17 1515 Signed Impressions: Service Date/Time: Monday, May 01, 2017 15:30 - CONCLUSION: 1. Abnormal examination. Minimally displaced C2 fracture extending from the base of the dens and the lateral mass of C2 with approximate 4 mm posterior retropulsed fragment. Fracture also extends through right transverse foramen which can result in possible vertebral artery injury. CTA examination may be performed as clinically warranted. Aries Fowler MD Neck CTA 05/01/17 0000 Signed Impressions: Service Date/Time: Monday, May 01, 2017 17:26 - CONCLUSION: 1. Negative exam. The right vertebral artery is patent and intact. Papo Lee MD Chest CT 05/01/17 0000 Signed Impressions: Service Date/Time: Monday, May 01, 2017 20:24 - CONCLUSION: 1. Mild right basilar atelectasis. 2. No evidence of pneumothorax. 3. Horizontal fracture through the inferior sternum with some mild soft tissue thickening in the substernal soft tissues Papo Lee MD Objective Remarks GENERAL: 62-year-old male resting in bed in no acute distress SKIN: Warm and dry. Posterior scalp laceration noted HEAD: Posterior scalp hematoma noted. Normocephalic. EYES: Pupils equal and round around 3 mm bilaterally and reactive. No scleral icterus. No injection or drainage. ENT: No nasal bleeding or discharge. Mucous membranes pink and moist. Currently in [place] J collar NECK: Trachea midline. No JVD. CARDIOVASCULAR: Tachycardia, IR. S1, S2. No S4. Without murmur RESPIRATORY: Clear to auscultation. Breath sounds equal bilaterally. Sternum tender to palpation GASTROINTESTINAL: Abdomen soft, non-tender, nondistended. Hypoactive bowel sounds are appreciated MUSCULOSKELETAL: Extremities without without significant edema. No obvious deformities. NEUROLOGICAL: Awake and alert. No obvious cranial nerve deficits. Motor grossly within normal limits. Five out of 5 muscle strength in the arms and legs. Normal speech. PSYCHIATRIC: Appropriate mood and affect; insight and judgment normal. A/P Assessment and Plan Neuro/Psych: C2 fracture EtOH THC use Posterior scalp hematoma CT brain - small posterior scalp hematoma CT C-spine - C2 fracture - base of dens -lateral mass of C2 with 4 mm retropulsion segment. Fracture fragment magnum Seen by Dr. Dodd. Maintain [place] J collar Likely for halo in a.m. Tramadol 50 mg as needed for pain management Morphine sulfate/hydromorphone for breakthrough pain Currently on a vitamin bag daily 3 days which includes thiamine, folate and multivitamin for EtOH use Monitor for DVT. CIWA protocol initiated Patient states he has no allergy to acetaminophen. States that Percocet caused an "itching mustache" in past We'll start on low-dose Librium for agitation CV: Atrial fibrillation with rapid ventricular response History of hypotension with dysautonomia Cardiology consultation 2-D echocardiogram 03/27 revealed ejection fraction 50-55%. Mild LVH. Continue diltiazem drip currently at 10 mg an hour. At home on diltiazem 30 by mouth 4 times a day Continue Midodrine 5 mg 3 times a day for dysautonomia Digoxin 0.25 mill grams IV 1 now. Check troponin initially 0.02. Check TSH Resp: Tobaccoism Nasal cannula to maintain saturations greater than equal to 92% Incentive spirometry while awake Tobacco sensation will be encouraged GI: Gastroesophageal reflux disease Hypoalbuminemia Elevated AST On pantoprazole 40 milligrams by mouth daily for GI prophylaxis Docusate sodium/senna 1 tablet twice a day for bowel regimen : No indication for Foster catheter Endo: Hyperglycemia Sliding-scale insulin if indicated to maintain euglycemia Check TSH Renal: Monitor urine output Accurate I's and O's Recheck creatinine in a.m. Heme: Macrocytosis Thrombocytopenia Monitor CBC daily. Follow trends Follow-up on coags Currently on aspirin 81 mg daily. Resume by neurosurgery ID: Monitor for infection MSK: OA Inferior horizontal sternal fracture PT evaluate and treat when appropriate Will ask Dr. Dodd with regards to due to fall and C2 dens/sternal fracture FEN: Replace electrolytes per ICU electrolyte protocol Access - Utilize peripheral IV. Central line if indicated Prophylaxis - GI - pantoprazole - DVT - SCD/holding pharmacological prophylaxis until okay with neurosurgery Level II follow-up Cali Phelps MD May 02, 2017 08:12
[2017-05-02] MEDS: SODIUM CHLORIDE 0.9% FLUSH 10 ML FLUSH IV FLUSH SCH ×2 (08:38→20:04)
[2017-05-02] MEDS: DIGOXIN 0.5 MG/2 ML VIAL IV PUSH SCH (08:38)
[2017-05-02] MEDS: PANTOPRAZOLE SOD 40 MG DELAYED RELEASE TAB PO SCH (08:38)
[2017-05-02] MEDS: ASPIRIN EC 81 MG TABEC PO SCH (08:38)
[2017-05-02] MEDS: DOCUSATE SODIUM 50 MG/SENNA 8.6 MG TAB PO SCH ×2 (08:38→20:48)
[2017-05-02] MEDS ORDERED: THIAMINE HCL 100 MG TAB PO SCH (09:00)
[2017-05-02] MEDS ORDERED: FOLIC ACID 1 MG TAB PO SCH (09:00)
[2017-05-02] MEDS ORDERED: MULTIVITAMIN TAB PO SCH (09:00)
--- NOTE | 2017-05-02 09:01 | HHI.NSPN ---
(Horace Gibbons) History Chief Complaint: Neck and sternal pain. (Horace Gibbons) Interval History A 64 year old gentleman who apparently had a syncopal episode while he was at a bar and fell back and struck his head. He relates that he only had 1 1/2 beers prior to this and was not really intoxicated. He does have a history of syncopal episodes. Last time he relates that he had a syncopal episode was about three months. He was diagnosed with atrial fibrillation a year ago. He was admitted also last month with atrial fibrillation with a rapid ventricular response and was seen by Dr. Hinojosa from cardiology. He relates that he is on blood thinners, although these are very expensive and he has no job or insurance and cannot afford them. He complains of neck pain. He initially had some numbness in his left hand, but this has resolved. He also complains of some anterior chest wall area pain. He was evaluated by the emergency room physician on arrival to [facility] and head CT scan is negative for any intracranial abnormality. He does have, on the CT scan of the cervical spine, a C2 fracture that partially extends to the base of the dens as well as the lateral mass in the right side with involvement of the foramen and transversarium. There is slight retropulsion of the C2 fracture moves posteriorly into the spinal canal. 05/02/17: Pt awake and alert. Complains of neck and sternal pain. No radiculopathy in UEs. Pt has intermittent paresthesias in left 1st and 2nd fingers primarily which he states is not new and has had prior to his fall. No numbness or paresthesias in UEs otherwise. No abdominal pain. No weakness that he has noticed but he is resting in bed. [place] cervical collar intact. (Horace Gibbons) Review of Systems General: Negative for: fever, chills, insomnia Respiratory: Negative for: shortness of breath, cough, sputum Cardiovascular: Positive for: chest pain (Sternal pain from fx.), Negative for : palpitations, orthopnea Gastrointestinal: Negative for: nausea, vomitting, diarrhea, constipation ( Horace Gibbons) Exam Results Vital Signs Date Time Temp Pulse Resp B/P (MAP) Pulse Ox O2 Delivery O2 Flow Rate FiO2 05/02/17 06:21 15 05/02/17 06:00 68 05/02/17 04:00 98.2 118/83 (95) 96 05/02/17 01:14 Nasal Cannula 4.00 Intake and Output 05/02/17 05/02/17 05/03/17 08:00 16:00 00:00 Intake Total 859.2 ml Output Total 870 ml Balance -10.8 ml (Horace Gibbons) Physical Examination General: Pt resting in bed in NAD. Eyes: Pupils 3mm bilaterally, reactive bilaterally. Resp: CTA bilaterally Heart: Irregular and tachycardic. no murmurs Abd: Soft positive bs Skin: No cyanosis or erythema. SCDs in place. Muscle: Moves all 4 extremities, strength appears 5/5 laying in bed. [place] cervical collar in place. Neuro: Pt awake and alert. Follows commands well. Speech clear and appropriate. Pupils equal. Sensation intact in UEs and LEs to light touch. (Horace Gibbons) Lab, Micro, Other Results Last Impressions Head CT 05/01/171514 Signed Impressions: Service Date/Time: Monday, May 01, 2017 15:27 - CONCLUSION: 1. No acute intracranial abnormality. 2. Small posterior scalp soft tissue hematoma. 3. Mild bilateral maxillary sinus disease. Aries Fowler MD Chest X-Ray 05/01/171514 Signed Impressions: Service Date/Time: Monday, May 01, 2017 15:43 - CONCLUSION: 1. Negative portable chest. Consider dedicated radiographs or PA and lateral views if there is significant clinical concern regarding sternal injury. Aries Fowler MD Cervical Spine CT 05/01/171514 Signed Impressions: Service Date/Time: Monday, May 01, 2017 15:30 - CONCLUSION: 1. Abnormal examination. Minimally displaced C2 fracture extending from the base of the dens and the lateral mass of C2 with approximate 4 mm posterior retropulsed fragment. Fracture also extends through right transverse foramen which can result in possible vertebral artery injury. CTA examination may be performed as clinically warranted. Aries Fowler MD Neck CTA 05/01/17 0000 Signed Impressions: Service Date/Time: Monday, May 01, 2017 17:26 - CONCLUSION: 1. Negative exam. The right vertebral artery is patent and intact. Papo Lee MD Chest CT 05/01/17 0000 Signed Impressions: Service Date/Time: Monday, May 01, 2017 20:24 - CONCLUSION: 1. Mild right basilar atelectasis. 2. No evidence of pneumothorax. 3. Horizontal fracture through the inferior sternum with some mild soft tissue thickening in the substernal soft tissues Papo Lee MD Laboratory Tests Test 05/01/17 15:44 05/01/17 22:45 05/02/17 01:51 05/02/17 04:19 White Blood Count 3.8 TH/MM3 4.6 TH/MM3 Red Blood Count 3.52 MIL/MM3 3.67 MIL/MM3 Hemoglobin 13.6 GM/DL 14.2 GM/DL Hematocrit 38.8 % 40.5 % Mean Corpuscular Volume 110.2 FL 110.2 FL Mean Corpuscular Hemoglobin 38.6 PG 38.7 PG Mean Corpuscular Hemoglobin Concent 35.0 % 35.1 % Red Cell Distribution Width 13.4 % 13.8 % Platelet Count 137 TH/MM3 135 TH/MM3 Mean Platelet Volume 7.4 FL 7.7 FL Neutrophils (%) (Auto) 48.5 % 64.5 % Lymphocytes (%) (Auto) 36.2 % 24.9 % Monocytes (%) (Auto) 14.3 % 9.9 % Eosinophils (%) (Auto) 0.1 % 0.1 % Basophils (%) (Auto) 0.9 % 0.6 % Neutrophils # (Auto) 1.8 TH/MM3 3.0 TH/MM3 Lymphocytes # (Auto) 1.4 TH/MM3 1.2 TH/MM3 Monocytes # (Auto) 0.5 TH/MM3 0.5 TH/MM3 Eosinophils # (Auto) 0.0 TH/MM3 0.0 TH/MM3 Basophils # (Auto) 0.0 TH/MM3 0.0 TH/MM3 CBC Comment DIFF FINAL DIFF FINAL Differential Comment Prothrombin Time 12.7 SEC 11.2 SEC Prothromb Time International Ratio 1.3 RATIO 1.1 RATIO Activated Partial Thromboplast Time 28.0 SEC Blood Urea Nitrogen 14 MG/DL 9 MG/DL Creatinine 0.98 MG/DL 0.83 MG/DL Random Glucose 107 MG/DL 96 MG/DL Total Protein 6.9 GM/DL 7.4 GM/DL Albumin 3.3 GM/DL 3.6 GM/DL Calcium Level 7.6 MG/DL 7.8 MG/DL Alkaline Phosphatase 68 U/L 74 U/L Aspartate Amino Transf (AST/SGOT) 35 U/L 85 U/L Alanine Aminotransferase (ALT/SGPT) 24 U/L 33 U/L Total Bilirubin 0.3 MG/DL 0.6 MG/DL Sodium Level 138 MEQ/L 138 MEQ/L Potassium Level 3.5 MEQ/L 4.1 MEQ/L Chloride Level 105 MEQ/L 104 MEQ/L Carbon Dioxide Level 22.8 MEQ/L 25.0 MEQ/L Anion Gap 10 MEQ/L 9 MEQ/L Estimat Glomerular Filtration Rate 78 ML/MIN 95 ML/MIN Phosphorus Level 2.6 MG/DL 3.1 MG/DL Magnesium Level 1.6 MG/DL 2.0 MG/DL Troponin I 0.02 NG/ML 0.03 NG/ML 0.03 NG/ML Ethyl Alcohol Level 130 MG/DL Nasal Screen MRSA (PCR) MRSA NOT DETECTED Thyroid Stimulating Hormone 3rd Gen 1.630 uIU/ML (Horace Gibbons) Medical Decision Making Impression and Plan A: 62 y/o M with C2 partial odontoid fracture that extends to the base and into the body as well as a right C2 slightly displaced lateral mass fracture involving the foramen transversarium. 2. Recurrent syncopal episodes. 3. Atrial fibrillation with rapid ventricular response. 4. History of orthostatic hypotension 5. History of alcohol abuse. 6. Sternal fracture P: Continue to monitor Neuro exam and vitals. Cardiology evaluation and if no intervention planned by them pt will be placed in a halo. Continue with [place] cervical collar for now. Continue with DVT mechanical prophylaxis. Continue with DT prophylaxis with Librium (Horace Gibbons) Attending Statement The exam, history, and the medical decision-making described in the above note were completed with the assistance of the mid-level provider. I reviewed and agree with the findings presented. I attest that I had a [id number] encounter with the patient on the same day, and personally performed and documented my assessment and findings in the medical record. Stable neurologic examination. Cervical collar in place for the fractures. Also noted to have a sternal fracture with complaints of anterior chest wall pain. On Librium for alcohol withdrawal prophylaxis. On Cardizem drip for RVR/A. fib. Discussed with nursing staff. (Giancarlo Dodd MD) Horace Gibbons May 02, 2017 09:01 Giancarlo Dodd MD May 02, 2017 13:18
[2017-05-02] MEDS: traMADol HCL 50 MG TAB PO PRN ×3 (09:03→22:49)
[2017-05-02] MEDS: MORPHINE SULFATE 2 MG/ML INJ IV PUSH PRN ×4 (10:35→20:04)
--- NOTE | 2017-05-02 15:40 | MB ---
cc: YOCASTA LOVE MD DATE OF CONSULTATION: 05/02/2017. HISTORY OF PRESENT ILLNESS: Mr. Gomez is a 64-year-old white male with history of atrial fibrillation and syncope. He has been on Midodrine for his syncope. He saw Dr. Hinojosa last month with atrial fibrillation with rapid ventricular response. He was started on blood thinners but did not take them since they were expensive. He was at a bar and fell back, struck his head and suffered a C2 fracture. PAST MEDICAL HISTORY: 1. Atrial fibrillation. 2. Recurrent syncope. 3. Alcohol abuse. 4. Hypotension. MEDICATIONS AT HOME: 1. Aspirin. 2. Diltiazem. 3. Midodrine. ALLERGIES: PERCOCET. SOCIAL HISTORY: The patient is homeless. He does lives at a friend's house. He is single. He smokes a pack a day. He also drinks heavily. He uses marijuana. FAMILY HISTORY: Family history is negative for heart disease. REVIEW OF SYSTEMS: The review of systems is otherwise negative. PHYSICAL EXAMINATION: VITAL SIGNS: Blood pressure is 131/73, pulse 104 and irregular. HEAD, EYES, EARS, NOSE, THROAT: Negative. NECK: 2+ carotid upstrokes, no bruits. His neck is immobilized in a collar. LUNGS: Clear. HEART: Irregularly irregular with no murmurs, rubs or gallops. ABDOMEN: Soft. No bruits. EXTREMITIES: Without edema. 2+ distal pulses. NEUROLOGIC: Grossly intact. EKG was reviewed and showed atrial fibrillation with rapid ventricular response, indeterminate axis, nonspecific S-T-T changes. LABORATORY DATA: Hemoglobin 14.2. Potassium 4.1, creatinine 0.8. His troponin negative x3. TSH 1.6. DIAGNOSIS: 1. Syncope. 2. C2 fracture. 3. Atrial fibrillation with rapid ventricular response. 4. Orthostatic hypotension. 5. Alcohol abuse. 6. Smoking. 7. Noncompliance with medical care. DISPOSITION: Mr. Gomez has had no recent angina or heart failure symptoms. I recommend to continue his current medical program including rate control. His [id number] score is not elevated and he can be treated with aspirin. I recommend to proceed with his halo placement by neurosurgery as planned. I will follow him for cardiology during his hospitalization. MD PRESTON Maciel /3:05 PM /3:18 PM MTDTate
[2017-05-02] MEDS: MULTIVITAMIN INJ 10 ML, THIAMINE INJ 100 MG, FOLIC ACID INJ 1 MG in SODIUM CHLORID 0.9%... IV SCH (17:30)
[2017-05-02] MEDS: ZOLPIDEM TARTRATE 5 MG TAB PO PRN (21:21)
[2017-05-02] MEDS: RESP: ALBUTEROL 2.5 MG/3 ML NEB (PRN) NEB (23:41)
[2017-05-03] VITALS (11 sets, daily range): BP systolic 112–146; BP diastolic 56–84; PULSE 79–110; RESP 10–18; TEMP 98.6–99; O2SAT 92–99
[2017-05-03] MEDS: DILTIAZEM HCL 30 MG TAB PO SCH ×5 (00:17→23:26)
[2017-05-03] MEDS: MORPHINE SULFATE 2 MG/ML INJ IV PUSH PRN ×3 (01:06→07:20)
[2017-05-03] MEDS: HYDROmorphone HCL 2 MG TAB PO PRN (02:50)
[2017-05-03] MEDS: CHLORHEXIDINE GLUCONATE 2 % 1 PACK (2 CLOTHS) TOP SCH (03:12)
[2017-05-03] MEDS: RESP: ALBUTEROL 2.5 MG/3 ML NEB (PRN) NEB (04:25)
[2017-05-03] MEDS: DILTIAZEM INJ 125 MG in SODIUM CHLORIDE 0.9% INJ 100 ML IV PRN ×2 (05:27→17:21)
[2017-05-03] MEDS: CYCLOBENZAPRINE HCL 10 MG TAB PO PRN (05:36)
[2017-05-03] MEDS: MIDODRINE 5 MG TAB PO SCH ×3 (05:36→16:15)
[2017-05-03] MEDS: traMADol HCL 50 MG TAB PO PRN ×2 (07:20→13:54)
[2017-05-03] MEDS ORDERED: LORazepam 2 MG TAB PO PRN (07:30)
[2017-05-03] MEDS ORDERED: LORazepam 2 MG/ML VIAL IV PUSH PRN ×4 (07:30)
--- NOTE | 2017-05-03 07:58 | HHI.NSPN ---
(Horace Gibbons) History Chief Complaint: Neck and sternal pain. (Horace Gibbons) Interval History A 64 year old gentleman who apparently had a syncopal episode while he was at a bar and fell back and struck his head. He relates that he only had 1 1/2 beers prior to this and was not really intoxicated. He does have a history of syncopal episodes. Last time he relates that he had a syncopal episode was about three months. He was diagnosed with atrial fibrillation a year ago. He was admitted also last month with atrial fibrillation with a rapid ventricular response and was seen by Dr. Hinojosa from cardiology. He relates that he is on blood thinners, although these are very expensive and he has no job or insurance and cannot afford them. He complains of neck pain. He initially had some numbness in his left hand, but this has resolved. He also complains of some anterior chest wall area pain. He was evaluated by the emergency room physician on arrival to [facility] and head CT scan is negative for any intracranial abnormality. He does have, on the CT scan of the cervical spine, a C2 fracture that partially extends to the base of the dens as well as the lateral mass in the right side with involvement of the foramen and transversarium. There is slight retropulsion of the C2 fracture moves posteriorly into the spinal canal. 05/02/17: Pt awake and alert. Complains of neck and sternal pain. No radiculopathy in UEs. Pt has intermittent paresthesias in left 1st and 2nd fingers primarily which he states is not new and has had prior to his fall. No numbness or paresthesias in UEs otherwise. No abdominal pain. No weakness that he has noticed but he is resting in bed. [place] cervical collar intact. 05/03/17: Pt awake, alert, with some confusion and agitation. Complains of neck and sternal pain. Neck pain extends up into the right posterior head. (Horace Gibbons) Review of Systems General: Negative for: fever, chills, insomnia Respiratory: Positive for: shortness of breath, cough, sputum Cardiovascular: Negative for: chest pain Gastrointestinal: Negative for: nausea, vomitting, diarrhea, constipation ( Horace Gibbons) Exam Results Vital Signs Date Time Temp Pulse Resp B/P (MAP) Pulse Ox O2 Delivery O2 Flow Rate FiO2 05/03/17 07:00 92 Simple Mask 6.00 05/03/17 06:23 120 115/68 05/03/17 05:25 21 05/03/17 04:00 98.6 Intake and Output 05/03/17 05/03/17 05/03/17 07:59 15:59 23:59 Intake Total 350 ml Output Total 550 ml Balance -200 ml (Horace Gibbons) Physical Examination General: Pt resting in bed, more agitated this morning than yesterday. Eyes: Pupils 3mm bilaterally, reactive bilaterally. Resp: Coarse BS bilaterally. On 10L O2 via mask. Pt coughs and clear sputum with [place] Heart: Irregular and tachycardic. no murmurs. On Cardizem drip. Abd: Soft positive bs Skin: No cyanosis or erythema. SCDs in place. Muscle: Moves all 4 extremities, strength appears 5/5 laying in bed. [place] cervical collar in place. Neuro: Pt awake and alert. Follows commands well. Speech clear and appropriate. Pupils equal. Sensation intact in UEs and LEs to light touch. (Horace Gibbons) Lab, Micro, Other Results Last Impressions Head CT 05/01/17 1515 Signed Impressions: Service Date/Time: Monday, May 01, 2017 15:27 - CONCLUSION: 1. No acute intracranial abnormality. 2. Small posterior scalp soft tissue hematoma. 3. Mild bilateral maxillary sinus disease. Aries Fowler MD Chest X-Ray 05/01/17 1515 Signed Impressions: Service Date/Time: Monday, May 01, 2017 15:43 - CONCLUSION: 1. Negative portable chest. Consider dedicated radiographs or PA and lateral views if there is significant clinical concern regarding sternal injury. Aries Fowler MD Cervical Spine CT 05/01/17 1515 Signed Impressions: Service Date/Time: Monday, May 01, 2017 15:30 - CONCLUSION: 1. Abnormal examination. Minimally displaced C2 fracture extending from the base of the dens and the lateral mass of C2 with approximate 4 mm posterior retropulsed fragment. Fracture also extends through right transverse foramen which can result in possible vertebral artery injury. CTA examination may be performed as clinically warranted. Aries Fowler MD Neck CTA 05/01/17 0000 Signed Impressions: Service Date/Time: Monday, May 01, 2017 17:26 - CONCLUSION: 1. Negative exam. The right vertebral artery is patent and intact. Papo Lee MD Chest CT 05/01/17 0000 Signed Impressions: Service Date/Time: Monday, May 01, 2017 20:24 - CONCLUSION: 1. Mild right basilar atelectasis. 2. No evidence of pneumothorax. 3. Horizontal fracture through the inferior sternum with some mild soft tissue thickening in the substernal soft tissues Papo Lee MD (Horace Gibbons) Medical Decision Making Impression and Plan A: 62 y/o M with C2 partial odontoid fracture that extends to the base and into the body as well as a right C2 slightly displaced lateral mass fracture involving the foramen transversarium. 2. Recurrent syncopal episodes. 3. Atrial fibrillation with rapid ventricular response. 4. History of orthostatic hypotension 5. History of alcohol abuse. 6. Sternal fracture P: Continue to monitor Neuro exam and vitals. Continue with [place] cervical collar for now. Continue with DVT mechanical prophylaxis. Continue with DT prophylaxis with Librium. Pt showing signs of early withdrawal with agitation this morning, this is a change from yesterday. We will initiate the [facility] medication protocol. Discussed with RN to hold for sedation. (Horace Gibbons) Attending Statement The exam, history, and the medical decision-making described in the above note were completed with the assistance of the mid-level provider. I reviewed and agree with the findings presented. I attest that I had a [id number] encounter with the patient on the same day, and personally performed and documented my assessment and findings in the medical record. Stable examination with c-collar in place. Cardiology does not plan on any intervention. Proceed with halo placement to facilitate subsequent mobilization. Monitor closely for alcohol withdrawal. (Giancarlo Dodd MD) Horace Gibbons May 03, 2017 07:58 Giancarlo Dodd MD May 03, 2017 10:22
[2017-05-03] MEDS: DIGOXIN 0.5 MG/2 ML VIAL IV PUSH SCH (08:10)
[2017-05-03] MEDS: ASPIRIN EC 81 MG TABEC PO SCH (08:10)
[2017-05-03] MEDS: LORazepam 1 MG TAB PO PRN ×2 (08:10→23:26)
[2017-05-03] MEDS: SODIUM CHLORIDE 0.9% FLUSH 10 ML FLUSH IV FLUSH SCH ×2 (08:10→22:50)
[2017-05-03] MEDS: DOCUSATE SODIUM 50 MG/SENNA 8.6 MG TAB PO SCH ×2 (08:10→22:50)
[2017-05-03] MEDS: PANTOPRAZOLE SOD 40 MG DELAYED RELEASE TAB PO SCH (08:10)
[2017-05-03] MEDS ORDERED: MIDAZOLAM HCL 5 MG/ML VIAL (1 ML) IV PUSH ONE (10:15)
[2017-05-03] MEDS ORDERED: MORPHINE SULFATE 2 MG/ML INJ IV PUSH ONE (10:15)
[2017-05-03] MEDS ORDERED: LIDOCAINE 2%/EPINEPHrine PF 1:200,000 20ML SDV NERV BLOCK SCH (10:30)
--- NOTE | 2017-05-03 11:48 | PD.OP ---
Operative Report Date of Surgery: May 03, 2017 Preoperative Diagnosis: Cervical C2 type II posteriorly displaced odontoid fracture; right C2 lateral mass fracture Postoperative Diagnosis: Same Procedure: Closed reduction with manipulation and fixation of C2 fracture; HALO placement Anesthesia: Local with sedation Surgeon: Giancarlo Dodd M.D. Carpet Weaver(s): None Operation and Findings: Informed consent was obtained from the patient. Procedure undertaken at the bedside in the surgical intensive care unit with oxygen saturation and hemodynamic monitoring. Patient received the intravenous morphine and previously received Ativan. Neck was maintained in a [place] J collar during the placement of the halo. A bifrontal and occipital regions were then shaved and prepped with Betadine solution and infiltrated with 1% lidocaine with epinephrine solution avoiding the laceration sites. The halo ring was in place with 2 frontal and occipital pins tightened to 8 pounds of torque pressure. With the serial lateral x-ray imaging studies the dens to vertebral body alignment was restored with manipulation. The halo vest was then also placed in the ring connectors of the vest with rods and locked in place at 30 pounds of pressure at each connection maintaining a neutral neck position. A final lateral cervical spine x-ray was obtained which confirmed cervical spinal alignment. Patient tolerated the procedure well without any complications or blood loss. Giancarlo Dodd MD May 03, 2017 11:48
--- NOTE | 2017-05-03 12:34 | RADRPT ---
EXAM DATE/TIME: 05/03/2017 11:31 [place] COMPARISON: No previous studies available for comparison. INDICATIONS : Halo Placement. MEDICAL HISTORY : Cardiovascular disease. SURGICAL HISTORY : None. ENCOUNTER: Initial ACUITY: 1 day PAIN SCORE: Non-responsive. LOCATION: Bilateral neck FINDINGS: Anatomic alignment across the dens fracture in halo. There is no distraction across the fracture line. CONCLUSION: Findings as above. Abdiaziz Cheng MD FACR on May 03, 2017 at 12:31 Board Certified Radiologist. This report was verified electronically.
--- NOTE | 2017-05-03 13:56 | HHI.CCPN ---
Subjective Remarks/Hospital Course This is a 62-year-old male. Date of admission 05/01/2017. Date of consultation 05/01/2017. Past history includes atrial fibrillation, alcoholism , tobacco abuse and THC use. Today, he assumed 1-1/2 beers as well as 1 and half shots of alcohol when he stood up to urinate and passed out. He says he hit the back of his head. He complains of neck pain. He denies any weakness of his extremities. He says he did feel some tingling in his left arm, but this has resolved. No loss of consciousness. EtOH level 130 CT C-spine revealed a C2 fracture at the base of the dens ex- ankle lateral mass of C2 with the 4 mm retropulsed segment. Also fracture the foramen magnum. CT brain revealed a small posterior scalp hematoma. Dr. Dodd was notified. Plans for halo likely in a.m. Patient is currently in atrial fibrillation RVR. Has been evaluation by Dr. Hinojosa in the past. CHADS VASC2 currently 1 Currently on a diltiazem drip at 5 mg now for rate control. Denies chest pain 05/02: Complaining of pain and anxiety. Currently no neurological deficits. Noted horizontal fracture inferior sternum. On CT chest. Subjective 05/03: Remains atrial fibrillation bit off diltiazem drip. Status post halo placement today. Appears to go into early DTs. Currently resting in chair in no acute distress nasal cannula. Some coarse breath sounds that do clear with cough. Objective Vital Signs Date Time Temp Pulse Resp B/P (MAP) Pulse Ox O2 Delivery O2 Flow Rate FiO2 05/03/17 11:15 138 169/84 05/03/17 08:47 93 Nasal Cannula 4.00 05/03/17 08:00 99.0 17 Intake and Output 05/03/17 05/03/17 05/04/17 08:00 16:00 00:00 Intake Total 350 ml Output Total 550 ml Balance -200 ml Result Diagram: 05/02/17 0419 05/02/17 0419 Imaging Last Impressions Cervical Spine X-Ray 05/03/17 0000 Signed Impressions: Service Date/Time: Wednesday, May 03, 2017 11:31 - CONCLUSION: Findings as above. Abdiaziz Cheng MD FACR Head CT 05/01/17 1515 Signed Impressions: Service Date/Time: Monday, May 01, 2017 15:27 - CONCLUSION: 1. No acute intracranial abnormality. 2. Small posterior scalp soft tissue hematoma. 3. Mild bilateral maxillary sinus disease. Aries Fowler MD Chest X-Ray 05/01/17 1515 Signed Impressions: Service Date/Time: Monday, May 01, 2017 15:43 - CONCLUSION: 1. Negative portable chest. Consider dedicated radiographs or PA and lateral views if there is significant clinical concern regarding sternal injury. Aries Fowler MD Cervical Spine CT 05/01/17 1515 Signed Impressions: Service Date/Time: Monday, May 01, 2017 15:30 - CONCLUSION: 1. Abnormal examination. Minimally displaced C2 fracture extending from the base of the dens and the lateral mass of C2 with approximate 4 mm posterior retropulsed fragment. Fracture also extends through right transverse foramen which can result in possible vertebral artery injury. CTA examination may be performed as clinically warranted. Aries Fowler MD Neck CTA 05/01/17 0000 Signed Impressions: Service Date/Time: Monday, May 01, 2017 17:26 - CONCLUSION: 1. Negative exam. The right vertebral artery is patent and intact. Papo Lee MD Chest CT 05/01/17 0000 Signed Impressions: Service Date/Time: Monday, May 01, 2017 20:24 - CONCLUSION: 1. Mild right basilar atelectasis. 2. No evidence of pneumothorax. 3. Horizontal fracture through the inferior sternum with some mild soft tissue thickening in the substernal soft tissues Papo Lee MD Objective Remarks GENERAL: 62-year-old male resting in chair in halo in no acute distress SKIN: Warm and dry. Posterior scalp laceration noted HEAD: Posterior scalp hematoma noted. Normocephalic. Currently in halo EYES: Pupils equal and round around 3 mm bilaterally and reactive. No scleral icterus. No injection or drainage. ENT: No nasal bleeding or discharge. Mucous membranes pink and moist. Currently in [place] J collar NECK: Trachea midline. No JVD. CARDIOVASCULAR: IRR. S1, S2. No S4. Without murmur RESPIRATORY: Has been upper airway sounds that do clear with cough. Sternum tender to palpation GASTROINTESTINAL: Abdomen soft, non-tender, nondistended. Hypoactive bowel sounds are appreciated MUSCULOSKELETAL: Extremities without without significant edema. No obvious deformities. NEUROLOGICAL: Awake and alert. No obvious cranial nerve deficits. Motor grossly within normal limits. Five out of 5 muscle strength in the arms and legs. Slightly more slurred speech. A/P Assessment and Plan Neuro/Psych: Cervical C2 type 2 posterior displaced odontoid fracture/right C2 lateral mass fracture EtOH THC use Posterior scalp hematoma 05/03 - close reduction with manipulation and fixation of C2 fracture/halo placement secondary to cervical CT 2 posterior displaced odontoid fracture/ right C2 lateral mass fracture by Dr. Dodd CT brain - small posterior scalp hematoma CT C-spine - C2 fracture - base of dens -lateral mass of C2 with 4 mm retropulsion segment. Fracture fragment magnum Seen by Dr. Dodd. Tramadol 50 mg as needed for pain management Morphine sulfate/2 mg every 2 hours hydromorphone 2 mg every 4 hours for breakthrough pain Currently on a vitamin bag daily 3 days which includes thiamine, folate and multivitamin for EtOH use Monitor for DVT. CIWA protocol initiated Patient states he has no allergy to acetaminophen. States that Percocet caused an "itching mustache" in past Continue on chlordiazepoxide 10 mg 3 times a day for agitation On cyclobenzaprine 10 g every 8 hours when necessary muscle relaxant CV: Atrial fibrillation with rapid ventricular response History of hypotension with dysautonomia 2-D echocardiogram 03/27 revealed ejection fraction 50-55%. Mild LVH. At home on diltiazem 30 by mouth 4 times a day Continue Midodrine 5 mg 3 times a day for dysautonomia Check troponin initially 0.02. Evaluated by Dr. Jay. CHADS VASc2 score 1. Recommended aspirin only. Resp: Tobaccoism Nasal cannula to maintain saturations greater than equal to 92% Incentive spirometry while awake Tobacco sensation will be encouraged Scheduled albuterol/ipratropium aerosols every 6 hours albuterol aerosols every 2 hours when necessary dyspnea Incentive spirometry while awake A cappella/pep Every 6 hours GI: Gastroesophageal reflux disease Hypoalbuminemia Elevated AST On regular diet On pantoprazole 40 milligrams by mouth daily for GI prophylaxis Docusate sodium/senna 1 tablet twice a day for bowel regimen : No indication for Foster catheter Endo: Hyperglycemia Sliding-scale insulin if indicated to maintain euglycemia Check TSH - 1.63 Renal: Monitor urine output Accurate I's and O's Recheck creatinine in a.m. Heme: Macrocytosis Thrombocytopenia Monitor CBC daily. Follow trends Follow-up on coags Currently on aspirin 81 mg daily. Resume by neurosurgery ID: Monitor for infection MSK: OA Inferior horizontal sternal fracture PT evaluate and treat when appropriate FEN: Replace electrolytes per ICU electrolyte protocol Access - Utilize peripheral IV. Central line if indicated Prophylaxis - GI - pantoprazole - DVT - SCD/holding pharmacological prophylaxis until okay with neurosurgery Level II follow-up Cali Phelps MD May 03, 2017 13:56
[2017-05-03 14:33] LABS: HEMATOCRIT 39.5 % (39.0-51.0); MEAN CORPUSCULAR HEMOGLOBIN 39.4 PG (27.0-34.0); MEAN CORPUSCULAR HGB CONC 35.5 % (32.0-36.0); MEAN PLATELET VOLUME 7.4 FL (7.0-11.0); PLATELET COUNT 130 TH/MM3 (150-450); RED BLOOD COUNT 3.55 MIL/MM3 (4.50-5.90); RED CELL DISTRIBUTION WIDTH 13.8 % (11.6-17.2); WHITE BLOOD COUNT 4.5 TH/MM3 (4.0-11.0)
[2017-05-03 14:56] LABS: BICARBONATE 23.3 MEQ/L (21.0-32.0); CREATININE 1.09 MG/DL (0.60-1.30)
--- NOTE | 2017-05-03 16:47 | PD.CARD.PN ---
Subjective Subjective Remarks Halo placed, no angina or CHF symptoms Objective Medications Current Medications Medications (Trade) Dose Ordered Sig/Michael Route Start Time Stop Time Status Last Admin (Ecotrin Ec) 81 mg DAILY PO 05/02/17 09:00 05/02/17 08:38 (Cardizem) 30 mg Q6HR PO 05/01/17 18:00 05/03/17 12:00 (Proamatine) 5 mg TID@07,12,17 PO 05/01/17 17:30 05/03/17 16:15 Diltiazem HCl 125 mg/Sodium Chloride 125 ml @ 5 mls/hr TITRATE PRN IV 05/01/17 16:45 05/03/17 05:27 Multivitamins 10 ml/Thiamine HCl 100 mg/Folic Acid 1 mg/Sodium Chloride 511.2 ml @ 125 mls/hr Q24H IV 05/01/17 18:00 05/04/17 17:59 05/02/17 17:30 (Ativan Inj) 1 mg Q1H PRN IV PUSH 05/01/17 17:30 (Mag-Al Plus Susp Liq) 30 ml Q6H PRN PO 05/01/17 17:15 (Protonix) 40 mg DAILY PO 05/02/17 09:00 05/03/17 08:10 (Phenergan Inj) 25 mg Q4H PRN IM 05/01/17 17:15 Calcium Gluconate 1 gm/Sodium Chloride 110 ml @ 110 mls/hr UNSCH PRN IV 05/01/17 17:15 Potassium Chloride 100 ml @ 50 mls/hr UNSCH PRN IV 05/01/17 17:15 Magnesium Sulfate 2 gm/Sodium Chloride 104 ml @ 100 mls/hr UNSCH PRN IV 05/01/17 18:00 (Flexeril) 10 mg Q8H PRN PO 05/01/17 16:45 05/03/17 05:36 (Trandate Inj) 10 mg Q1H PRN IV PUSH 05/01/17 17:30 (Catapres) 0.1 mg Q6H PRN PO 05/01/17 17:15 (Ambien) 5 mg HS PRN PO 05/01/17 21:00 05/02/17 21:21 (Nicole-Colace) 1 tab BID PO 05/01/17 21:00 05/03/17 08:10 (Milk Of Magnesia Liq) 30 ml Q12H PRN PO 05/01/17 17:15 (Senokot) 17.2 mg Q12H PRN PO 05/01/17 17:15 (Dulcolax Supp) 10 mg DAILY PRN RECTAL 05/01/17 17:15 (Lactulose Liq) 30 ml DAILY PRN PO 05/01/17 17:15 Nicardipine HCl 25 mg/Sodium Chloride 250 ml @ 50 mls/hr TITRATE PRN IV 05/01/17 18:00 (Ultram) 50 mg Q4H PRN PO 05/01/17 16:45 05/03/17 13:54 (Dilaudid) 2 mg Q4H PRN PO 05/01/17 16:45 05/03/17 02:50 (Librium) 10 mg TID PO 05/01/17 18:00 05/03/17 13:52 Potassium Chloride 100 ml @ 50 mls/hr Q2H PRN IV 05/01/17 17:30 Potassium Chloride 100 ml @ 50 mls/hr Q2H PRN IV 05/01/17 17:30 (K-Lyte Cl Eff) 50 meq UNSCH PRN PO 05/01/17 17:30 Potassium Chloride 100 ml @ 25 mls/hr UNSCH PRN IV 05/01/17 17:30 Potassium Chloride 100 ml @ 50 mls/hr Q2H PRN IV 05/01/17 17:30 Magnesium Sulfate 4 gm/Sodium Chloride 100 ml @ 50 mls/hr UNSCH PRN IV 05/01/17 17:30 (Mag-Ox) 800 mg UNSCH PRN PO 05/01/17 17:30 Magnesium Sulfate 2 gm/Sodium Chloride 100 ml @ 50 mls/hr UNSCH PRN IV 05/01/17 17:30 (K-Phos) 2,000 mg Q4H PRN PO 05/01/17 17:30 Sodium Phosphate 30 mmol/Sodium Chloride 250 ml @ 42 mls/hr UNSCH PRN IV 05/01/17 17:30 (K-Phos) 2,000 mg UNSCH PRN PO/TUBE 05/01/17 17:30 Potassium Phosphate 30 mmol/ Sodium Chloride 260 ml @ 42 mls/hr UNSCH PRN IV 05/01/17 17:30 (NS Flush) 2 ml UNSCH PRN IV FLUSH 05/01/17 17:45 (NS Flush) 2 ml BID IV FLUSH 05/01/17 21:00 05/03/17 08:10 (Zofran Inj) 4 mg Q6H PRN IV PUSH 05/01/17 17:45 Miscellaneous Information 1 Q361D XX 05/01/17 17:45 (Chlorhexidine 2% Cloth) 3 pack Taper DAILY@04 TOP 05/02/17 04:00 04/28/18 03:59 (Chlorhexidine 2% Cloth) 3 pack UNSCH PRN TOP 05/01/17 17:45 (Morphine Inj) 2 mg Q2H PRN IV PUSH 05/02/17 10:45 05/03/17 07:20 (Ativan) 1 mg Q4H PRN PO 05/03/17 07:30 05/03/17 08:10 (Ativan Inj) 1 mg Q4H PRN IV PUSH 05/03/17 07:30 (Ativan) 2 mg Q2H PRN PO 05/03/17 07:30 05/03/17 16:15 (Ativan Inj) 2 mg Q2H PRN IV PUSH 05/03/17 07:30 (Ativan Inj) 2 mg Q1H PRN IV PUSH 05/03/17 07:30 (Ativan Inj) 2 mg Q15M PRN IV PUSH 05/03/17 07:30 (Xylocaine-Epi Mpf 2%-1:200,000 Inj) 20 ml UNSCH X1 NERV BLOCK 05/03/17 10:30 05/04/17 10:29 05/03/17 11:21 (Albuterol Neb) 2.5 mg Q2HR NEB PRN NEB 05/03/17 14:00 (Duoneb Neb) 1 ampule Q6HR NEB NEB 05/03/17 16:00 (Lanoxin) 0.125 mg DAILY PO 05/04/17 09:00 Vital Signs / I&O Vital Signs Date Time Temp Pulse Resp B/P (MAP) Pulse Ox O2 Delivery O2 Flow Rate FiO2 05/03/17 13:51 68 126/82 05/03/17 11:15 138 169/84 05/03/17 08:47 93 Nasal Cannula 4.00 05/03/17 08:03 93 Nasal Cannula 4.00 05/03/17 08:00 99.0 102 17 122/60 (80) 95 05/03/17 07:00 92 Simple Mask 6.00 05/03/17 06:23 120 115/68 05/03/17 06:00 110 05/03/17 06:00 92 Simple Mask 9.00 05/03/17 05:27 130 122/56 05/03/17 05:25 21 05/03/17 04:00 100 05/03/17 04:00 98.6 100 18 112/56 (74) 93 05/03/17 03:50 18 05/03/17 02:00 106 05/03/17 00:00 100 05/03/17 00:00 98.6 100 18 112/56 (74) 93 05/02/17 23:49 14 05/02/17 23:41 98 Simple Mask 8.00 05/02/17 23:30 94 Simple Mask 6.00 05/02/17 22:00 86 05/02/17 20:38 96 Nasal Cannula 4.00 05/02/17 20:00 98.0 96 25 129/80 (96) 94 05/02/17 20:00 96 05/02/17 19:00 96 Nasal Cannula 4.00 05/02/17 18:00 74 I/O 05/02/17 05/02/17 05/02/17 05/03/17 05/03/17 05/03/17 07:00 15:00 23:00 07:00 15:00 23:00 Intake Total 859.2 ml 761.2 ml 350 ml Output Total 870 ml 600 ml 550 ml Balance -10.8 ml 161.2 ml -200 ml Intake Oral 120 ml 250 ml 250 ml IV Total 739.2 ml 511.2 ml 100 ml Output Urine Total 870 ml 600 ml 550 ml Physical Exam GENERAL: In NAD SKIN: Warm and dry. HEAD: Normocephalic. Halo in place. EYES: No scleral icterus. No injection or drainage. NECK: Supple, trachea midline. No JVD or lymphadenopathy. CARDIOVASCULAR: Regular rate and rhythm without murmurs, gallops, or rubs. RESPIRATORY: Breath sounds equal bilaterally. No accessory muscle use. GASTROINTESTINAL: Abdomen soft, non-tender, nondistended. MUSCULOSKELETAL: No cyanosis, or edema. Laboratory Laboratory Tests Test 05/03/17 14:20 White Blood Count 4.5 TH/MM3 Red Blood Count 3.55 MIL/MM3 Hemoglobin 14.0 GM/DL Hematocrit 39.5 % Mean Corpuscular Volume 111.0 FL Mean Corpuscular Hemoglobin 39.4 PG Mean Corpuscular Hemoglobin Concent 35.5 % Red Cell Distribution Width 13.8 % Platelet Count 130 TH/MM3 Mean Platelet Volume 7.4 FL Blood Urea Nitrogen 20 MG/DL Creatinine 1.09 MG/DL Random Glucose 147 MG/DL Calcium Level 8.0 MG/DL Sodium Level 132 MEQ/L Potassium Level 4.4 MEQ/L Chloride Level 101 MEQ/L Carbon Dioxide Level 23.3 MEQ/L Anion Gap 8 MEQ/L Estimat Glomerular Filtration Rate 69 ML/MIN Imaging Last 24 hours Impressions Cervical Spine X-Ray 05/03/17 0000 Signed Impressions: Service Date/Time: Wednesday, May 03, 2017 11:31 - CONCLUSION: Findings as above. Abdiaziz Cheng MD FACR Assessment and Plan Problem List: (1) Syncope ICD Codes: R55 - Syncope and collapse Status: Chronic (2) Atrial fibrillation with RVR ICD Codes: I48.91 - Unspecified atrial fibrillation Status: Acute (3) C2 cervical fracture ICD Codes: S12.100A - Unspecified displaced fracture of second cervical vertebra, initial encounter for closed fracture Status: Acute (4) Tobacco abuse ICD Codes: Z72.0 - Tobacco abuse Status: Acute (5) Alcohol abuse ICD Codes: F10.10 - Alcohol abuse Status: Chronic Assessment and Plan Continue monitoring on telemetry. Halo placed without difficulty. Counseled to quit smoking and drinking excessively. Continue eval of syncope. Problem Qualifiers (1) C2 cervical fracture: Qualified Codes: S12.100A - Unspecified displaced fracture of second cervical vertebra, initial encounter for closed fracture Ramon Jay MD May 03, 2017 16:47
[2017-05-03] MEDS: RESP: ALBUTEROL 2.5 MG/IPRATROPIUM 0.5 MG NEB (SCH) NEB ×2 (16:55→20:34)
[2017-05-03] MEDS: MULTIVITAMIN INJ 10 ML, THIAMINE INJ 100 MG, FOLIC ACID INJ 1 MG in SODIUM CHLORID 0.9%... IV SCH (17:40)
[2017-05-03] MEDS: PIPERACIL-TAZO 4.5 GM PREMIX 100 ML IV SCH ×2 (18:03→23:20)
[2017-05-03] MEDS: BUDESONIDE-FORMOTEROL 160/4.5 MCG INHALER INH SCH (21:00)
[2017-05-03] MEDS: guaiFENesin E.R. 600 MG TAB PO SCH (22:49)
[2017-05-04] VITALS (14 sets, daily range): BP systolic 127–158; BP diastolic 72–77; PULSE 78–126; RESP 15–24; TEMP 97.7–99.4; O2SAT 96–100
[2017-05-04] MEDS: RESP: SODIUM CHLORIDE 3% 4 ML NEB NEB SCH ×4 (03:35→20:57)
[2017-05-04] MEDS: CHLORHEXIDINE GLUCONATE 2 % 1 PACK (2 CLOTHS) TOP SCH (04:00)
[2017-05-04 04:57] LABS: HEMATOCRIT 38.2 % (39.0-51.0); HEMOGLOBIN 13.2 GM/DL (13.0-17.0); MEAN CELL VOLUME 111.7 FL (80.0-100.0); MEAN CORPUSCULAR HEMOGLOBIN 38.7 PG (27.0-34.0); MEAN CORPUSCULAR HGB CONC 34.6 % (32.0-36.0); MEAN PLATELET VOLUME 7.7 FL (7.0-11.0); PLATELET COUNT 111 TH/MM3 (150-450); RED BLOOD COUNT 3.42 MIL/MM3 (4.50-5.90); RED CELL DISTRIBUTION WIDTH 13.9 % (11.6-17.2); WHITE BLOOD COUNT 4.1 TH/MM3 (4.0-11.0)
[2017-05-04] MEDS: PIPERACIL-TAZO 4.5 GM PREMIX 100 ML IV SCH ×4 (05:03→23:00)
[2017-05-04] MEDS: DILTIAZEM HCL 30 MG TAB PO SCH ×4 (05:03→23:00)
[2017-05-04 05:24] LABS: ALBUMIN 3.1 GM/DL (3.4-5.0); ALKALINE PHOSPHATASE 53 U/L (45-117); ALT (GPT) 26 U/L (12-78); AST (GOT) 56 U/L (15-37); BICARBONATE 25.1 MEQ/L (21.0-32.0); BLOOD UREA NITROGEN 19 MG/DL (7-18); CALCIUM 8.1 MG/DL (8.5-10.1); CHLORIDE 101 MEQ/L (98-107); CREATININE 0.79 MG/DL (0.60-1.30); GLOMERULAR FILTRATION RATE 100 ML/MIN (>89); GLUCOSE,RANDOM 101 MG/DL (74-106); MAGNESIUM 1.7 MG/DL (1.5-2.5); PHOSPHORUS 1.9 MG/DL (2.5-4.9); SODIUM (NA) 135 MEQ/L (136-145); TOTAL BILIRUBIN ADULT 1.1 MG/DL (0.2-1.0); TOTAL PROTEIN 7.2 GM/DL (6.4-8.2)
[2017-05-04] MEDS: traMADol HCL 50 MG TAB PO PRN (05:58)
[2017-05-04] MEDS: MIDODRINE 5 MG TAB PO SCH ×3 (06:43→17:23)
[2017-05-04 07:13] LABS: BANDS 14 % (0-6); BASOPHILS 1 % (0-2); LYMPHOCYTES 29 % (9-44); MONOCYTES 23 % (0-8); NEUTROPHIL # MANUAL DIFF 1.9 TH/MM3 (1.8-7.7); POLYS (SEG NEUTROPHILS) 33 % (16-70)
[2017-05-04] MEDS: RESP: ALBUTEROL 2.5 MG/IPRATROPIUM 0.5 MG NEB (SCH) NEB ×3 (08:31→20:58)
--- NOTE | 2017-05-04 08:54 | HHI.CCPN ---
Subjective Remarks/Hospital Course This is a 62-year-old male. Date of admission 05/01/2017. Date of consultation 05/01/2017. Past history includes atrial fibrillation, alcoholism , tobacco abuse and THC use. Today, he assumed 1-1/2 beers as well as 1 and half shots of alcohol when he stood up to urinate and passed out. He says he hit the back of his head. He complains of neck pain. He denies any weakness of his extremities. He says he did feel some tingling in his left arm, but this has resolved. No loss of consciousness. EtOH level 130 CT C-spine revealed a C2 fracture at the base of the dens ex- ankle lateral mass of C2 with the 4 mm retropulsed segment. Also fracture the foramen magnum. CT brain revealed a small posterior scalp hematoma. Dr. Dodd was notified. Plans for halo likely in a.m. Patient is currently in atrial fibrillation RVR. Has been evaluation by Dr. Hinojosa in the past. CHADS VASC2 currently 1 Currently on a diltiazem drip at 5 mg now for rate control. Denies chest pain 05/02: Complaining of pain and anxiety. Currently no neurological deficits. Noted horizontal fracture inferior sternum. On CT chest. 05/03: Remains atrial fibrillation off diltiazem drip. Status post halo placement today. Appears to go into early DTs. Currently resting in chair in no acute distress nasal cannula. Some coarse breath sounds that do clear with cough. Subjective 05/04: On 2-3 L normal saline overnight. Currently in simple mask due to desaturations while sleeping. Heart rate irregular but rate controlled. Continues with coarse transmitted upper airway sounds. Patient able to cough and clear secretions with self Yankauer suctioning. Objective Vital Signs Date Time Temp Pulse Resp B/P (MAP) Pulse Ox O2 Delivery O2 Flow Rate FiO2 05/04/17 08:34 96 Simple Mask 9.00 05/04/17 06:00 88 05/04/17 04:46 144/69 05/04/17 04:00 98.0 18 Intake and Output 05/04/17 05/04/17 05/05/17 08:00 16:00 00:00 Intake Total 300 ml Output Total 1000 ml Balance -700 ml Result Diagram: 05/04/17 0438 05/04/17 0438 Imaging Last Impressions Cervical Spine X-Ray 05/03/17 0000 Signed Impressions: Service Date/Time: Wednesday, May 03, 2017 11:31 - CONCLUSION: Findings as above. Abdiaziz Cheng MD FACR Head CT 05/01/17 1515 Signed Impressions: Service Date/Time: Monday, May 01, 2017 15:27 - CONCLUSION: 1. No acute intracranial abnormality. 2. Small posterior scalp soft tissue hematoma. 3. Mild bilateral maxillary sinus disease. Aries Fowler MD Chest X-Ray 05/01/17 1515 Signed Impressions: Service Date/Time: Monday, May 01, 2017 15:43 - CONCLUSION: 1. Negative portable chest. Consider dedicated radiographs or PA and lateral views if there is significant clinical concern regarding sternal injury. Aries Fowler MD Cervical Spine CT 05/01/17 1515 Signed Impressions: Service Date/Time: Monday, May 01, 2017 15:30 - CONCLUSION: 1. Abnormal examination. Minimally displaced C2 fracture extending from the base of the dens and the lateral mass of C2 with approximate 4 mm posterior retropulsed fragment. Fracture also extends through right transverse foramen which can result in possible vertebral artery injury. CTA examination may be performed as clinically warranted. Aries Fowler MD Neck CTA 05/01/17 0000 Signed Impressions: Service Date/Time: Monday, May 01, 2017 17:26 - CONCLUSION: 1. Negative exam. The right vertebral artery is patent and intact. Papo Lee MD Chest CT 05/01/17 0000 Signed Impressions: Service Date/Time: Monday, May 01, 2017 20:24 - CONCLUSION: 1. Mild right basilar atelectasis. 2. No evidence of pneumothorax. 3. Horizontal fracture through the inferior sternum with some mild soft tissue thickening in the substernal soft tissues Papo Lee MD Objective Remarks GENERAL: 62-year-old male resting in chair in halo in no acute distress SKIN: Warm and dry. Posterior scalp laceration noted HEAD: Posterior scalp hematoma noted. Normocephalic. Currently in halo EYES: Pupils equal and round around 3 mm bilaterally and reactive. No scleral icterus. No injection or drainage. ENT: No nasal bleeding or discharge. Mucous membranes pink and moist. NECK: Trachea midline. No JVD. CARDIOVASCULAR: IRR. S1, S2. No S4. Without murmur RESPIRATORY: Transmitted upper airway sounds that do clear with cough. Few crackles appreciated throughout upper lung yang. Sternum tender to palpation GASTROINTESTINAL: Abdomen soft, non-tender, nondistended. Hypoactive bowel sounds are appreciated MUSCULOSKELETAL: Extremities without without significant edema. No obvious deformities. NEUROLOGICAL: Awake and alert. No obvious cranial nerve deficits. Motor grossly within normal limits. Five out of 5 muscle strength in the arms and legs. Slightly more slurred speech. A/P Assessment and Plan Neuro/Psych: Cervical C2 type 2 posterior displaced odontoid fracture/right C2 lateral mass fracture EtOH THC use Posterior scalp hematoma 05/03 - close reduction with manipulation and fixation of C2 fracture/halo placement secondary to cervical CT 2 posterior displaced odontoid fracture/ right C2 lateral mass fracture by Dr. Dodd CT brain - small posterior scalp hematoma CT C-spine - C2 fracture - base of dens -lateral mass of C2 with 4 mm retropulsion segment. Fracture fragment magnum Followed by Dr. Dodd. Tramadol 50 mg as needed for pain management Morphine sulfate/2 mg every 2 hours hydromorphone 2 mg every 4 hours for breakthrough pain Currently on a vitamin bag daily 3 days which includes thiamine, folate and multivitamin for EtOH use Monitor for DVT. CIWA protocol initiated Patient states he has no allergy to acetaminophen. States that Percocet caused an "itching mustache" in past Continue on chlordiazepoxide 10 mg 3 times a day for agitation On cyclobenzaprine 10 mg every 8 hours when necessary muscle relaxant CV: Atrial fibrillation with rapid ventricular response History of hypotension with dysautonomia 2-D echocardiogram 03/27 revealed ejection fraction 50-55%. Mild LVH. At home on diltiazem 30 by mouth 4 times a day continue Continue Midodrine 5 mg 3 times a day for dysautonomia Check troponin initially 0.02. Evaluated by Dr. Jay. CHADS VASc2 score 1. Recommended aspirin only. Resp: Tobaccoism Nasal cannula to maintain saturations greater than equal to 92% Incentive spirometry while awake Tobacco sensation will be encouraged Scheduled albuterol/ipratropium aerosols every 6 hours albuterol aerosols every 2 hours when necessary dyspnea Incentive spirometry while awake A cappella/pep Every 6 hours Added guaifenesin 600 mg twice a day and hypertonic saline aerosols every 6 hours thin secretions GI: Gastroesophageal reflux disease Hypoalbuminemia Elevated AST On regular diet On pantoprazole 40 milligrams by mouth daily for GI prophylaxis Docusate sodium/senna 1 tablet twice a day for bowel regimen : No indication for Foster catheter Endo: Hyperglycemia Sliding-scale insulin if indicated to maintain euglycemia Check TSH - 1.63 Renal: Monitor urine output Accurate I's and O's Recheck creatinine in a.m. Heme: Macrocytosis Thrombocytopenia Monitor CBC daily. Follow trends Follow-up on coags Currently on aspirin 81 mg daily. Resume by neurosurgery ID: Monitor for infection MSK: OA Inferior horizontal sternal fracture PT evaluate and treat when appropriate FEN: Hypophosphatemia Replace electrolytes per ICU electrolyte protocol 30 mmol sodium phosphorus, 2 g mag sulfate IV times. Recheck in a.m. Access - Utilize peripheral IV. Central line if indicated Prophylaxis - GI - pantoprazole - DVT - SCD/holding pharmacological prophylaxis until okay with neurosurgery Level II follow-up Cali Phelps MD May 04, 2017 08:54
[2017-05-04] MEDS: BUDESONIDE-FORMOTEROL 160/4.5 MCG INHALER INH SCH ×2 (09:00→20:31)
[2017-05-04] MEDS: SODIUM CHLORIDE 0.9% FLUSH 10 ML FLUSH IV FLUSH SCH ×2 (09:00→20:31)
[2017-05-04] MEDS ORDERED: THIAMINE INJ 100 MG in SODIUM CHLORIDE 0.9% INJ 100 ML IV ONE (09:00)
[2017-05-04] MEDS: DOCUSATE SODIUM 50 MG/SENNA 8.6 MG TAB PO SCH ×2 (09:00→20:31)
--- NOTE | 2017-05-04 09:28 | HHI.NSPN ---
History Chief Complaint: Neck and sternal pain. Interval History 62-year-old gentleman status post halo placement for C2 fracture. He also has a history of alcohol abuse and is on Librium although appears to have some tremors this morning. He is also on Cardizem drip for RVR/A. fib. Relates that overall he is feeling better and neck pain has improved with halo placement. Exam Results Vital Signs Date Time Temp Pulse Resp B/P (MAP) Pulse Ox O2 Delivery O2 Flow Rate FiO2 05/04/17 08:34 96 Simple Mask 9.00 05/04/17 06:00 88 05/04/17 04:46 144/69 05/04/17 04:00 98.0 18 Intake and Output 05/04/17 05/04/17 05/05/17 08:00 16:00 00:00 Intake Total 300 ml Output Total 1000 ml Balance -700 ml Physical Examination General: Pt resting in bed with the slight tremors. Eyes: Pupils 3mm bilaterally, reactive bilaterally. Resp: Coarse BS bilaterally. On 10L O2 via mask. Pt coughs and clear sputum with Yankauer Heart: Irregular and tachycardic. no murmurs. On Cardizem drip. Abd: Soft positive bs Skin: No cyanosis or erythema. SCDs in place. Muscle: Moves all 4 extremities, strength appears 5/5 laying in bed. Halo in place with clean pin sites. Neuro: Pt awake and alert. Follows commands well. Speech clear and appropriate. Pupils equal. Sensation intact in UEs and LEs to light touch. Medical Decision Making Impression and Plan 1. 62 y/o M with C2 partial odontoid fracture that extends to the base and into the body as well as a right C2 slightly displaced lateral mass fracture involving the foramen transversarium. Status post halo placement. 2. Recurrent syncopal episodes. 3. Atrial fibrillation with rapid ventricular response and Cardizem drip. 4. History of orthostatic hypotension 5. History of alcohol abuse on Librium. 6. Sternal fracture. Supportive care. Out of bed as tolerated with physical therapy involvement. Wean Cardizem drip as tolerated. Continue with alcohol withdrawal precautions and treatment. Giancarlo Dodd MD May 04, 2017 09:28
--- NOTE | 2017-05-04 09:29 | RADRPT ---
EXAM DATE/TIME: 05/04/2017 09:02 [facility] COMPARISON: CHEST SINGLE AP, May 01, 2017, 15:43. INDICATIONS : Shortness of breath. MEDICAL HISTORY : Cardiovascular disease. SURGICAL HISTORY : None. ENCOUNTER: Initial ACUITY: 1 day PAIN SCORE: 0/10 LOCATION: Bilateral chest FINDINGS: Patient is in halo. Mild stable compensated cardiomegaly. The lungs are clear. The portion of the b celestine skeleton visualized is unremarkable. CONCLUSION: Negative for acute process Abdiaziz Cheng MD FACR on May 04, 2017 at 9:27 Board Certified Radiologist. This report was verified electronically.
[2017-05-04] MEDS: ASPIRIN EC 81 MG TABEC PO SCH (09:40)
[2017-05-04] MEDS: DIGOXIN 0.125 MG TAB PO SCH (09:40)
[2017-05-04] MEDS: MULTIVITAMIN TAB PO SCH (09:40)
[2017-05-04] MEDS: guaiFENesin E.R. 600 MG TAB PO SCH ×2 (09:40→20:31)
[2017-05-04] MEDS: FOLIC ACID 1 MG TAB PO SCH (09:41)
[2017-05-04] MEDS: PANTOPRAZOLE SOD 40 MG DELAYED RELEASE TAB PO SCH (09:41)
[2017-05-04] MEDS: MORPHINE SULFATE 2 MG/ML INJ IV PUSH PRN ×2 (09:41→23:01)
[2017-05-04] MEDS ORDERED: SODIUM PHOSPHATE INJ 30 MMOL in SODIUM CHLOR 0.9% 250 ML INJ 250 ML IV ONE (10:00)
[2017-05-04] MEDS: MAGNESIUM SULFATE 1 GM PREMIX 100 ML IV SCH ×2 (10:00→11:00)
--- NOTE | 2017-05-04 10:11 | EKG ---
Date Performed: 05/01/2017 Time Performed: 15:13:09 PTAGE: 62 years EKG: ATRIAL FIBRILLATION WITH RAPID VENTRICULAR RESPONSE MARKED RIGHT AXIS DEVIATION POSSIBLE RI GHT VENTRICULAR CONDUCTION DELAY MINIMAL ST DEPRESSION ABNORMAL ECG PREVIOUS TRACING : 04/02/2017 09.32 Compared to the previous tracing a fib now present DOCTOR: Ramon Jay Interpretating Date/Time 05/04/2017 10:10:33
[2017-05-04] MEDS: DILTIAZEM INJ 125 MG in SODIUM CHLORIDE 0.9% INJ 100 ML IV PRN (18:42)
--- NOTE | 2017-05-04 21:40 | PD.CARD.PN ---
Subjective Subjective Remarks No angina or CHF symptoms Objective Medications Current Medications Medications (Trade) Dose Ordered Sig/Michael Route Start Time Stop Time Status Last Admin (Ecotrin Ec) 81 mg DAILY PO 05/02/17 09:00 05/04/17 09:40 (Cardizem) 30 mg Q6HR PO 05/01/17 18:00 05/04/17 17:22 (Proamatine) 5 mg TID@07,12,17 PO 05/01/17 17:30 05/04/17 17:23 Diltiazem HCl 125 mg/Sodium Chloride 125 ml @ 5 mls/hr TITRATE PRN IV 05/01/17 16:45 05/04/17 18:42 (Ativan Inj) 1 mg Q1H PRN IV PUSH 05/01/17 17:30 (Mag-Al Plus Susp Liq) 30 ml Q6H PRN PO 05/01/17 17:15 (Protonix) 40 mg DAILY PO 05/02/17 09:00 05/04/17 09:41 (Phenergan Inj) 25 mg Q4H PRN IM 05/01/17 17:15 Calcium Gluconate 1 gm/Sodium Chloride 110 ml @ 110 mls/hr UNSCH PRN IV 05/01/17 17:15 Potassium Chloride 100 ml @ 50 mls/hr UNSCH PRN IV 05/01/17 17:15 Magnesium Sulfate 2 gm/Sodium Chloride 104 ml @ 100 mls/hr UNSCH PRN IV 05/01/17 18:00 05/04/17 11:16 (Flexeril) 10 mg Q8H PRN PO 05/01/17 16:45 05/03/17 05:36 (Trandate Inj) 10 mg Q1H PRN IV PUSH 05/01/17 17:30 (Catapres) 0.1 mg Q6H PRN PO 05/01/17 17:15 (Ambien) 5 mg HS PRN PO 05/01/17 21:00 05/02/17 21:21 (Nicole-Colace) 1 tab BID PO 05/01/17 21:00 05/03/17 22:50 (Milk Of Magnesia Liq) 30 ml Q12H PRN PO 05/01/17 17:15 (Senokot) 17.2 mg Q12H PRN PO 05/01/17 17:15 (Dulcolax Supp) 10 mg DAILY PRN RECTAL 05/01/17 17:15 (Lactulose Liq) 30 ml DAILY PRN PO 05/01/17 17:15 Nicardipine HCl 25 mg/Sodium Chloride 250 ml @ 50 mls/hr TITRATE PRN IV 05/01/17 18:00 (Ultram) 50 mg Q4H PRN PO 05/01/17 16:45 05/04/17 05:58 (Dilaudid) 2 mg Q4H PRN PO 05/01/17 16:45 05/03/17 02:50 (Librium) 10 mg TID PO 05/01/17 18:00 05/04/17 17:23 Potassium Chloride 100 ml @ 50 mls/hr Q2H PRN IV 05/01/17 17:30 Potassium Chloride 100 ml @ 50 mls/hr Q2H PRN IV 05/01/17 17:30 (K-Lyte Cl Eff) 50 meq UNSCH PRN PO 05/01/17 17:30 Potassium Chloride 100 ml @ 25 mls/hr UNSCH PRN IV 05/01/17 17:30 Potassium Chloride 100 ml @ 50 mls/hr Q2H PRN IV 05/01/17 17:30 05/04/17 13:57 Magnesium Sulfate 4 gm/Sodium Chloride 100 ml @ 50 mls/hr UNSCH PRN IV 05/01/17 17:30 (Mag-Ox) 800 mg UNSCH PRN PO 05/01/17 17:30 Magnesium Sulfate 2 gm/Sodium Chloride 100 ml @ 50 mls/hr UNSCH PRN IV 05/01/17 17:30 (K-Phos) 2,000 mg Q4H PRN PO 05/01/17 17:30 Sodium Phosphate 30 mmol/Sodium Chloride 250 ml @ 42 mls/hr UNSCH PRN IV 05/01/17 17:30 (K-Phos) 2,000 mg UNSCH PRN PO/TUBE 05/01/17 17:30 Potassium Phosphate 30 mmol/ Sodium Chloride 260 ml @ 42 mls/hr UNSCH PRN IV 05/01/17 17:30 (NS Flush) 2 ml UNSCH PRN IV FLUSH 05/01/17 17:45 (NS Flush) 2 ml BID IV FLUSH 05/01/17 21:00 05/04/17 20:31 (Zofran Inj) 4 mg Q6H PRN IV PUSH 05/01/17 17:45 Miscellaneous Information 1 Q361D XX 05/01/17 17:45 (Chlorhexidine 2% Cloth) 3 pack Taper DAILY@04 TOP 05/02/17 04:00 04/28/18 03:59 (Chlorhexidine 2% Cloth) 3 pack UNSCH PRN TOP 05/01/17 17:45 (Morphine Inj) 2 mg Q2H PRN IV PUSH 05/02/17 10:45 05/04/17 09:41 (Ativan) 1 mg Q4H PRN PO 05/03/17 07:30 05/03/17 23:26 (Ativan Inj) 1 mg Q4H PRN IV PUSH 05/03/17 07:30 (Ativan) 2 mg Q2H PRN PO 05/03/17 07:30 05/03/17 16:15 (Ativan Inj) 2 mg Q2H PRN IV PUSH 05/03/17 07:30 (Ativan Inj) 2 mg Q1H PRN IV PUSH 05/03/17 07:30 (Ativan Inj) 2 mg Q15M PRN IV PUSH 05/03/17 07:30 (Albuterol Neb) 2.5 mg Q2HR NEB PRN NEB 05/03/17 14:00 (Duoneb Neb) 1 ampule Q6HR NEB NEB 05/03/17 16:00 05/04/17 20:58 (Lanoxin) 0.125 mg DAILY PO 05/04/17 09:00 05/04/17 09:40 (Symbicort 160-4.5 Mcg Inh) 2 puff Q12HR INH 05/03/17 21:00 05/04/17 20:31 (Sodium Chloride 3% Neb) 2 ml Q6HR NEB NEB 05/03/17 22:00 05/08/17 21:59 05/04/17 20:57 (Mucinex Er) 600 mg BID PO 05/03/17 21:00 05/04/17 20:31 Piperacillin Sod/ Tazobactam Sod 100 ml @ 200 mls/hr Q6H IV 05/03/17 18:00 05/04/17 17:22 (Vitamin B1) 100 mg DAILY PO 05/05/17 09:00 (Folate) 1 mg DAILY PO 05/04/17 09:00 05/04/17 09:41 (Theragran) 1 tab DAILY PO 05/04/17 09:00 05/04/17 09:40 Vital Signs / I&O Vital Signs Date Time Temp Pulse Resp B/P (MAP) Pulse Ox O2 Delivery O2 Flow Rate FiO2 05/04/17 21:04 98 Venturi Mask 6.00 28 05/04/17 20:00 92 05/04/17 20:00 97.7 92 18 129/72 (91) 100 05/04/17 19:00 95 Venturi Mask 6.00 05/04/17 18:42 119 150/78 05/04/17 18:00 88 05/04/17 16:00 98.9 82 22 135/77 (96) 100 05/04/17 16:00 78 05/04/17 14:00 96 Venturi Mask 3.00 28 05/04/17 14:00 101 05/04/17 12:00 82 05/04/17 12:00 99.4 82 22 135/77 (96) 100 05/04/17 10:00 94 05/04/17 08:34 96 Simple Mask 9.00 05/04/17 08:00 92 05/04/17 08:00 99.2 92 24 127/75 (92) 96 05/04/17 07:00 94 Simple Mask 9.00 05/04/17 06:15 100 Simple Mask 9.00 05/04/17 06:00 88 05/04/17 05:15 94 Nasal Cannula 4.00 05/04/17 04:46 118 144/69 05/04/17 04:05 126 142/72 05/04/17 04:00 98.0 126 18 142/72 (95) 98 05/04/17 04:00 126 05/04/17 03:04 83 131/74 05/04/17 02:00 86 05/04/17 01:43 88 146/84 05/04/17 00:00 98.9 96 15 158/74 (102) 100 05/04/17 00:00 96 05/03/17 23:55 99 Simple Mask 9.00 05/03/17 23:30 89 Nasal Cannula 5.00 05/03/17 22:00 86 I/O 05/03/17 05/03/17 05/03/17 05/04/17 05/04/17 05/04/17 07:00 15:00 23:00 07:00 15:00 23:00 Intake Total 350 ml 325 ml 300 ml 400 ml 909.8 ml Output Total 550 ml 300 ml 1000 ml 600 ml Balance -200 ml 25 ml -700 ml 400 ml 309.8 ml Intake Oral 250 ml 200 ml 300 ml 480 ml IV Total 100 ml 125 ml 400 ml 429.8 ml Output Urine Total 550 ml 300 ml 1000 ml 600 ml # Bowel Movements 0 0 0 Physical Exam GENERAL: In NAD SKIN: Warm and dry. HEAD: Normocephalic. Halo in place. EYES: No scleral icterus. No injection or drainage. NECK: Supple, trachea midline. No JVD or lymphadenopathy. CARDIOVASCULAR: Regular rate and rhythm without murmurs, gallops, or rubs. RESPIRATORY: Breath sounds equal bilaterally. No accessory muscle use. GASTROINTESTINAL: Abdomen soft, non-tender, nondistended. MUSCULOSKELETAL: No cyanosis, or edema. Laboratory Laboratory Tests Test 05/04/17 04:38 White Blood Count 4.1 TH/MM3 Red Blood Count 3.42 MIL/MM3 Hemoglobin 13.2 GM/DL Hematocrit 38.2 % Mean Corpuscular Volume 111.7 FL Mean Corpuscular Hemoglobin 38.7 PG Mean Corpuscular Hemoglobin Concent 34.6 % Red Cell Distribution Width 13.9 % Platelet Count 111 TH/MM3 Mean Platelet Volume 7.7 FL CBC Comment AUTO DIFF Differential Total Cells Counted 100 Neutrophils % (Manual) 33 % Band Neutrophils % 14 % Lymphocytes % 29 % Monocytes % 23 % Basophils % 1 % Neutrophils # (Manual) 1.9 TH/MM3 Differential Comment FINAL DIFF MANUAL Platelet Estimate LOW Platelet Morphology Comment NORMAL Blood Urea Nitrogen 19 MG/DL Creatinine 0.79 MG/DL Random Glucose 101 MG/DL Total Protein 7.2 GM/DL Albumin 3.1 GM/DL Calcium Level 8.1 MG/DL Phosphorus Level 1.9 MG/DL Magnesium Level 1.7 MG/DL Alkaline Phosphatase 53 U/L Aspartate Amino Transf (AST/SGOT) 56 U/L Alanine Aminotransferase (ALT/SGPT) 26 U/L Total Bilirubin 1.1 MG/DL Sodium Level 135 MEQ/L Potassium Level 3.6 MEQ/L Chloride Level 101 MEQ/L Carbon Dioxide Level 25.1 MEQ/L Anion Gap 9 MEQ/L Estimat Glomerular Filtration Rate 100 ML/MIN Imaging Last 24 hours Impressions Chest X-Ray 05/04/17 0000 Signed Impressions: Service Date/Time: Thursday, May 04, 2017 09:02 - CONCLUSION: Negative for acute process Abdiaziz Cheng MD FACR Assessment and Plan Problem List: (1) Syncope ICD Codes: R55 - Syncope and collapse Status: Chronic (2) Atrial fibrillation with RVR ICD Codes: I48.91 - Unspecified atrial fibrillation Status: Acute (3) C2 cervical fracture ICD Codes: S12.100A - Unspecified displaced fracture of second cervical vertebra, initial encounter for closed fracture Status: Acute (4) Tobacco abuse ICD Codes: Z72.0 - Tobacco abuse Status: Acute (5) Alcohol abuse ICD Codes: F10.10 - Alcohol abuse Status: Chronic Assessment and Plan Continue monitoring on telemetry, no arrhythmias noted. No angina or CHF. Counseled to quit smoking and drinking excessively. Continue evaluation of syncope. Problem Qualifiers (1) C2 cervical fracture: Qualified Codes: S12.100A - Unspecified displaced fracture of second cervical vertebra, initial encounter for closed fracture Ramon Jay MD May 04, 2017 21:40
[2017-05-05] VITALS (15 sets, daily range): BP systolic 119–148; BP diastolic 65–82; PULSE 74–108; RESP 16–22; TEMP 97.5–98.4; O2SAT 94–100
[2017-05-05] MEDS: CHLORHEXIDINE GLUCONATE 2 % 1 PACK (2 CLOTHS) TOP SCH (03:02)
[2017-05-05] MEDS: RESP: ALBUTEROL 2.5 MG/IPRATROPIUM 0.5 MG NEB (SCH) NEB ×4 (03:57→20:40)
[2017-05-05] MEDS: RESP: SODIUM CHLORIDE 3% 4 ML NEB NEB SCH ×3 (03:57→20:40)
[2017-05-05] MEDS: PIPERACIL-TAZO 4.5 GM PREMIX 100 ML IV SCH ×4 (05:23→23:37)
[2017-05-05] MEDS: DILTIAZEM HCL 30 MG TAB PO SCH (05:23)
[2017-05-05] MEDS: DIGOXIN 0.125 MG TAB PO SCH (07:43)
[2017-05-05] MEDS: MIDODRINE 5 MG TAB PO SCH ×3 (07:43→16:18)
[2017-05-05] MEDS: PANTOPRAZOLE SOD 40 MG DELAYED RELEASE TAB PO SCH (07:44)
[2017-05-05] MEDS: guaiFENesin E.R. 600 MG TAB PO SCH ×2 (07:44→20:01)
[2017-05-05] MEDS: THIAMINE HCL 100 MG TAB PO SCH (07:44)
[2017-05-05] MEDS: SODIUM CHLORIDE 0.9% FLUSH 10 ML FLUSH IV FLUSH SCH ×2 (07:44→20:02)
[2017-05-05] MEDS: DOCUSATE SODIUM 50 MG/SENNA 8.6 MG TAB PO SCH ×3 (07:44→20:01)
[2017-05-05] MEDS: FOLIC ACID 1 MG TAB PO SCH (07:44)
[2017-05-05] MEDS: MULTIVITAMIN TAB PO SCH (07:44)
[2017-05-05] MEDS: ASPIRIN EC 81 MG TABEC PO SCH (07:44)
[2017-05-05] MEDS: BUDESONIDE-FORMOTEROL 160/4.5 MCG INHALER INH SCH ×2 (07:45→21:00)
--- NOTE | 2017-05-05 08:17 | HHI.CCPN ---
Subjective Remarks/Hospital Course This is a 62-year-old male. Date of admission 05/01/2017. Date of consultation 05/01/2017. Past history includes atrial fibrillation, alcoholism , tobacco abuse and THC use. Today, he assumed 1-1/2 beers as well as 1 and half shots of alcohol when he stood up to urinate and passed out. He says he hit the back of his head. He complains of neck pain. He denies any weakness of his extremities. He says he did feel some tingling in his left arm, but this has resolved. No loss of consciousness. EtOH level 130 CT C-spine revealed a C2 fracture at the base of the dens ex- ankle lateral mass of C2 with the 4 mm retropulsed segment. Also fracture the foramen magnum. CT brain revealed a small posterior scalp hematoma. Dr. Dodd was notified. Plans for halo likely in a.m. Patient is currently in atrial fibrillation RVR. Has been evaluation by Dr. Hinojosa in the past. CHADS VASC2 currently 1 Currently on a diltiazem drip at 5 mg now for rate control. Denies chest pain 05/02: Complaining of pain and anxiety. Currently no neurological deficits. Noted horizontal fracture inferior sternum. On CT chest. 05/03: Remains atrial fibrillation off diltiazem drip. Status post halo placement today. Appears to go into early DTs. Currently resting in chair in no acute distress nasal cannula. Some coarse breath sounds that do clear with cough. 05/04: On 2-3 L normal saline overnight. Currently in simple mask due to desaturations while sleeping. Heart rate irregular but rate controlled. Continues with coarse transmitted upper airway sounds. Patient able to cough and clear secretions with self Y[place]auer suctioning. Subjective 05/05: Afebrile. Currently requiring 4 L nasal cannula.. Voice much improved today. Sitting up in bed eating breakfast. Less anxious. Objective Vital Signs Date Time Temp Pulse Resp B/P (MAP) Pulse Ox O2 Delivery O2 Flow Rate FiO2 05/05/17 06:00 92 05/05/17 04:01 95 Nasal Cannula 4.00 05/05/17 04:00 97.5 22 148/74 (98) 05/04/17 21:04 28 Intake and Output 05/05/17 05/05/17 05/06/17 08:00 16:00 00:00 Intake Total 403 ml Output Total 800 ml Balance -397 ml Result Diagram: 05/04/17 0438 05/04/17 0438 Imaging Last Impressions Chest X-Ray 05/04/17 0000 Signed Impressions: Service Date/Time: Thursday, May 04, 2017 09:02 - CONCLUSION: Negative for acute process Abdiaziz Cheng MD FACR Cervical Spine X-Ray 05/03/17 0000 Signed Impressions: Service Date/Time: Wednesday, May 03, 2017 11:31 - CONCLUSION: Findings as above. Abdiaziz Cheng MD FACR Head CT 05/01/17 1515 Signed Impressions: Service Date/Time: Monday, May 01, 2017 15:27 - CONCLUSION: 1. No acute intracranial abnormality. 2. Small posterior scalp soft tissue hematoma. 3. Mild bilateral maxillary sinus disease. Aries Fowler MD Cervical Spine CT 05/01/17 1515 Signed Impressions: Service Date/Time: Monday, May 01, 2017 15:30 - CONCLUSION: 1. Abnormal examination. Minimally displaced C2 fracture extending from the base of the dens and the lateral mass of C2 with approximate 4 mm posterior retropulsed fragment. Fracture also extends through right transverse foramen which can result in possible vertebral artery injury. CTA examination may be performed as clinically warranted. Aries Fowler MD Neck CTA 05/01/17 0000 Signed Impressions: Service Date/Time: Monday, May 01, 2017 17:26 - CONCLUSION: 1. Negative exam. The right vertebral artery is patent and intact. Papo Lee MD Chest CT 05/01/17 0000 Signed Impressions: Service Date/Time: Monday, May 01, 2017 20:24 - CONCLUSION: 1. Mild right basilar atelectasis. 2. No evidence of pneumothorax. 3. Horizontal fracture through the inferior sternum with some mild soft tissue thickening in the substernal soft tissues Papo Lee MD Objective Remarks GENERAL: 62-year-old male resting in chair in halo in no acute distress SKIN: Warm and dry. Posterior scalp laceration noted HEAD: Posterior scalp hematoma noted. Normocephalic. Currently in halo EYES: Pupils equal and round around 3 mm bilaterally and reactive. No scleral icterus. No injection or drainage. ENT: No nasal bleeding or discharge. Mucous membranes pink and moist. NECK: Trachea midline. No JVD. CARDIOVASCULAR: IRR. S1, S2. No S4. Without murmur RESPIRATORY: Transmitted upper airway sounds that do clear with cough. Few crackles appreciated throughout upper lung yang. Sternum tender to palpation GASTROINTESTINAL: Abdomen soft, non-tender, nondistended. Hypoactive bowel sounds are appreciated MUSCULOSKELETAL: Extremities without without significant edema. No obvious deformities. NEUROLOGICAL: Awake and alert. No obvious cranial nerve deficits. Motor grossly within normal limits. Five out of 5 muscle strength in the arms and legs. Slightly more slurred speech. A/P Assessment and Plan Neuro/Psych: Cervical C2 type 2 posterior displaced odontoid fracture/right C2 lateral mass fracture EtOH THC use Posterior scalp hematoma 05/03 - close reduction with manipulation and fixation of C2 fracture/halo placement secondary to cervical CT 2 posterior displaced odontoid fracture/ right C2 lateral mass fracture by Dr. Dodd CT brain - small posterior scalp hematoma CT C-spine - C2 fracture - base of dens -lateral mass of C2 with 4 mm retropulsion segment. Fracture fragment magnum Followed by Dr. Dodd. Tramadol 50 mg as needed for pain management Morphine sulfate 2 mg every 2 hours hydromorphone 2 mg every 4 hours for breakthrough pain Early on thiamine 100 mg daily, folate 1 mg daily and multivitamin one tablet for EtOH use Monitor for DVT. CIWA protocol initiated Patient states he has no allergy to acetaminophen. States that Percocet caused an "itching mustache" in past Continue on chlordiazepoxide 10 mg 3 times a day for agitation On cyclobenzaprine 10 mg every 8 hours when necessary muscle relaxant CV: Atrial fibrillation with rapid ventricular response History of hypotension with dysautonomia 2-D echocardiogram 03/27 revealed ejection fraction 50-55%. Mild LVH. At home on diltiazem 30 by mouth 4 times a day. Hold increased to 60 mg 4 times daily in attempt to wean off Cardizem drip currently at 5 mg an hour Currently on digoxin 0.125 mill grams daily. Recheck dig level in a.m. 05/06 Continue Midodrine 5 mg 3 times a day for dysautonomia Check troponin initially 0.02. Evaluated by Dr. Jay. CHADS VASc2 score 1. Recommended aspirin only. 81 mg daily Resp: Tobaccoism Nasal cannula to maintain saturations greater than equal to 92% Incentive spirometry while awake Tobacco sensation will be encouraged with educational booklet provided for him to self evaluate Scheduled albuterol/ipratropium aerosols every 6 hours albuterol aerosols every 2 hours when necessary dyspnea Incentive spirometry while awake A cappella/pep Every 6 hours Added guaifenesin 600 mg twice a day and hypertonic saline aerosols every 6 hours thin secretions GI: Gastroesophageal reflux disease Hypoalbuminemia Elevated AST/total bilirubin On regular diet On pantoprazole 40 milligrams by mouth daily for GI prophylaxis Docusate sodium/senna 1 tablet twice a day for bowel regimen : No indication for Foster catheter Endo: Hyperglycemia Sliding-scale insulin if indicated to maintain euglycemia Check TSH - 1.63 Renal: Monitor urine output Accurate I's and O's Recheck creatinine in a.m. Heme: Macrocytosis Thrombocytopenia Monitor CBC daily. Follow trends Follow-up on coags Currently on aspirin 81 mg daily. Resume by neurosurgery ID: Monitor for infection Sputum sample ordered results pending. Influenza pending. Currently on piperacillin/tazobactam 4.5 g IV every 6 hours day #3 MSK: OA Inferior horizontal sternal fracture PT evaluate and treat when appropriate FEN: Hypophosphatemia Hyponatremia Replace electrolytes per ICU electrolyte protocol 30 mmol sodium phosphorus, 40 mEq KCl and 2 g mag sulfate IV times 1. Recheck in a.m. Access - Utilize peripheral IV. Central line if indicated Prophylaxis - GI - pantoprazole - DVT - SCD/holding pharmacological prophylaxis until okay with neurosurgery Level II follow-up Cali Phelps MD May 05, 2017 08:17
[2017-05-05] MEDS ORDERED: POTASSIUM CHLORIDE 20 MEQ CONTROLLED RELEASE TAB PO ONE (08:30)
[2017-05-05] MEDS: MAGNESIUM SULFATE 1 GM PREMIX 100 ML IV SCH ×2 (08:56→09:16)
[2017-05-05] MEDS: LACTULOSE SYRUP 20 GM/30 ML CUP PO SCH (09:16)
[2017-05-05] MEDS: POLYETHYLENE GLYCOL 17 GM PKG PO SCH (09:16)
[2017-05-05] MEDS: MORPHINE SULFATE 2 MG/ML INJ IV PUSH PRN ×2 (09:17→13:25)
[2017-05-05] MEDS ORDERED: SODIUM PHOSPHATE INJ 30 MMOL in SODIUM CHLOR 0.9% 250 ML INJ 250 ML IV ONE (09:30)
--- NOTE | 2017-05-05 10:03 | HHI.NSPN ---
(Horace Gibbons) History Chief Complaint: Neck and sternal pain. (Horace Gibbons) Interval History A 64 year old gentleman who apparently had a syncopal episode while he was at a bar and fell back and struck his head. He relates that he only had 1 1/2 beers prior to this and was not really intoxicated. He does have a history of syncopal episodes. Last time he relates that he had a syncopal episode was about three months. He was diagnosed with atrial fibrillation a year ago. He was admitted also last month with atrial fibrillation with a rapid ventricular response and was seen by Dr. Hinojosa from cardiology. He relates that he is on blood thinners, although these are very expensive and he has no job or insurance and cannot afford them. He complains of neck pain. He initially had some numbness in his left hand, but this has resolved. He also complains of some anterior chest wall area pain. He was evaluated by the emergency room physician on arrival to [facility] and head CT scan is negative for any intracranial abnormality. He does have, on the CT scan of the cervical spine, a C2 fracture that partially extends to the base of the dens as well as the lateral mass in the right side with involvement of the foramen and transversarium. There is slight retropulsion of the C2 fracture moves posteriorly into the spinal canal. 05/02/17: Pt awake and alert. Complains of neck and sternal pain. No radiculopathy in UEs. Pt has intermittent paresthesias in left 1st and 2nd fingers primarily which he states is not new and has had prior to his fall. No numbness or paresthesias in UEs otherwise. No abdominal pain. No weakness that he has noticed but he is resting in bed. [place] cervical collar intact. 05/03/17: Pt awake, alert, with some confusion and agitation. Complains of neck and sternal pain. Neck pain extends up into the right posterior head. 05/05/17: Pt awake and alert. Less confusion and agitation this morning. Complains of neck pain extending into the right side of his head. (Horace Gibbons) Review of Systems General: Negative for: fever, chills, insomnia Respiratory: Negative for: shortness of breath, cough, sputum Cardiovascular: Negative for: chest pain Gastrointestinal: Negative for: nausea, vomitting, diarrhea, constipation ( Horace Gibbons) Exam Results Vital Signs Date Time Temp Pulse Resp B/P (MAP) Pulse Ox O2 Delivery O2 Flow Rate FiO2 05/05/17 08:43 100 Nasal Cannula 3.00 05/05/17 06:00 92 05/05/17 04:00 97.5 22 148/74 (98) 05/04/17 21:04 28 Intake and Output 05/05/17 05/05/17 05/06/17 08:00 16:00 00:00 Intake Total 403 ml Output Total 800 ml Balance -397 ml (Horace Gibbons) Physical Examination General: Pt resting in bed with less agitation. Eyes: Pupils 3mm bilaterally, reactive bilaterally. Resp: upper lung yang clearing, lower limited from halo vest. Heart: Irregular and tachycardic. no murmurs. On Cardizem drip. Abd: Soft positive bs Skin: No cyanosis or erythema. SCDs in place. Muscle: Moves all 4 extremities, strength appears 5/5 sitting up in bed. Halo in place with clean pin sites. Neuro: Pt awake and alert. Follows commands well. Speech clear and appropriate. Pupils equal. Sensation intact in UEs and LEs to light touch. (Horace Gibbons) Lab, Micro, Other Results Last Impressions Chest X-Ray 05/04/17 0000 Signed Impressions: Service Date/Time: Thursday, May 04, 2017 09:02 - CONCLUSION: Negative for acute process Abdiaziz Cheng MD FACR Cervical Spine X-Ray 05/03/17 0000 Signed Impressions: Service Date/Time: Wednesday, May 03, 2017 11:31 - CONCLUSION: Findings as above. Abdiaziz Cheng MD FACR Head CT 05/01/17 1515 Signed Impressions: Service Date/Time: Monday, May 01, 2017 15:27 - CONCLUSION: 1. No acute intracranial abnormality. 2. Small posterior scalp soft tissue hematoma. 3. Mild bilateral maxillary sinus disease. Aries Fowler MD Cervical Spine CT 05/01/17 1515 Signed Impressions: Service Date/Time: Monday, May 01, 2017 15:30 - CONCLUSION: 1. Abnormal examination. Minimally displaced C2 fracture extending from the base of the dens and the lateral mass of C2 with approximate 4 mm posterior retropulsed fragment. Fracture also extends through right transverse foramen which can result in possible vertebral artery injury. CTA examination may be performed as clinically warranted. Aries Fowler MD Neck CTA 05/01/17 0000 Signed Impressions: Service Date/Time: Monday, May 01, 2017 17:26 - CONCLUSION: 1. Negative exam. The right vertebral artery is patent and intact. Papo Lee MD Chest CT 05/01/17 0000 Signed Impressions: Service Date/Time: Monday, May 01, 2017 20:24 - CONCLUSION: 1. Mild right basilar atelectasis. 2. No evidence of pneumothorax. 3. Horizontal fracture through the inferior sternum with some mild soft tissue thickening in the substernal soft tissues Papo Lee MD (Horace Gibbons) Medical Decision Making Impression and Plan A: 62 y/o M with C2 partial odontoid fracture that extends to the base and into the body as well as a right C2 slightly displaced lateral mass fracture involving the foramen transversarium. s/p halo placement. 2. Recurrent syncopal episodes. 3. Atrial fibrillation with rapid ventricular response. 4. History of orthostatic hypotension 5. History of alcohol abuse. 6. Sternal fracture P: Continue to monitor Neuro exam and vitals. Continue with DVT mechanical prophylaxis. Continue with DT prophylaxis with Librium. (Horace Gibbons) Attending Statement The exam, history, and the medical decision-making described in the above note were completed with the assistance of the mid-level provider. I reviewed and agree with the findings presented. I attest that I had a [id number] encounter with the patient on the same day, and personally performed and documented my assessment and findings in the medical record. Sitting up in chair and appears to be more lucid this morning. Remains on Cardizem drip for his heart rate control and by mouth Cardizem dose is being adjusted to wean him off the drip. Transferred to the floor once the drip and discharge planning. (Giancarlo Dodd MD) Horace Gibbons May 05, 2017 10:03 Giancarlo Dodd MD May 05, 2017 14:00
[2017-05-05] MEDS: DILTIAZEM HCL 60 MG TAB PO SCH ×3 (12:10→23:37)
--- NOTE | 2017-05-05 17:06 | PD.CARD.PN ---
Subjective Subjective Remarks No angina or CHF symptoms, no new c/o Objective Medications Current Medications Medications (Trade) Dose Ordered Sig/Michael Route Start Time Stop Time Status Last Admin (Ecotrin Ec) 81 mg DAILY PO 05/02/17 09:00 05/05/17 07:44 (Proamatine) 5 mg TID@07,12,17 PO 05/01/17 17:30 05/05/17 16:18 Diltiazem HCl 125 mg/Sodium Chloride 125 ml @ 5 mls/hr TITRATE PRN IV 05/01/17 16:45 05/04/17 18:42 (Ativan Inj) 1 mg Q1H PRN IV PUSH 05/01/17 17:30 (Mag-Al Plus Susp Liq) 30 ml Q6H PRN PO 05/01/17 17:15 (Protonix) 40 mg DAILY PO 05/02/17 09:00 05/05/17 07:44 (Phenergan Inj) 25 mg Q4H PRN IM 05/01/17 17:15 Calcium Gluconate 1 gm/Sodium Chloride 110 ml @ 110 mls/hr UNSCH PRN IV 05/01/17 17:15 Potassium Chloride 100 ml @ 50 mls/hr UNSCH PRN IV 05/01/17 17:15 Magnesium Sulfate 2 gm/Sodium Chloride 104 ml @ 100 mls/hr UNSCH PRN IV 05/01/17 18:00 05/04/17 11:16 (Flexeril) 10 mg Q8H PRN PO 05/01/17 16:45 05/03/17 05:36 (Trandate Inj) 10 mg Q1H PRN IV PUSH 05/01/17 17:30 (Catapres) 0.1 mg Q6H PRN PO 05/01/17 17:15 (Ambien) 5 mg HS PRN PO 05/01/17 21:00 05/02/17 21:21 (Nicole-Colace) 1 tab BID PO 05/01/17 21:00 05/03/17 22:50 (Milk Of Magnesia Liq) 30 ml Q12H PRN PO 05/01/17 17:15 (Senokot) 17.2 mg Q12H PRN PO 05/01/17 17:15 (Dulcolax Supp) 10 mg DAILY PRN RECTAL 05/01/17 17:15 (Lactulose Liq) 30 ml DAILY PRN PO 05/01/17 17:15 (Ultram) 50 mg Q4H PRN PO 05/01/17 16:45 05/04/17 05:58 (Dilaudid) 2 mg Q4H PRN PO 05/01/17 16:45 05/03/17 02:50 (Librium) 10 mg TID PO 05/01/17 18:00 05/05/17 16:56 Potassium Chloride 100 ml @ 50 mls/hr Q2H PRN IV 05/01/17 17:30 Potassium Chloride 100 ml @ 50 mls/hr Q2H PRN IV 05/01/17 17:30 (K-Lyte Cl Eff) 50 meq UNSCH PRN PO 05/01/17 17:30 Potassium Chloride 100 ml @ 25 mls/hr UNSCH PRN IV 05/01/17 17:30 Potassium Chloride 100 ml @ 50 mls/hr Q2H PRN IV 05/01/17 17:30 05/04/17 13:57 Magnesium Sulfate 4 gm/Sodium Chloride 100 ml @ 50 mls/hr UNSCH PRN IV 05/01/17 17:30 (Mag-Ox) 800 mg UNSCH PRN PO 05/01/17 17:30 Magnesium Sulfate 2 gm/Sodium Chloride 100 ml @ 50 mls/hr UNSCH PRN IV 05/01/17 17:30 (K-Phos) 2,000 mg Q4H PRN PO 05/01/17 17:30 Sodium Phosphate 30 mmol/Sodium Chloride 250 ml @ 42 mls/hr UNSCH PRN IV 05/01/17 17:30 05/05/17 08:55 (K-Phos) 2,000 mg UNSCH PRN PO/TUBE 05/01/17 17:30 Potassium Phosphate 30 mmol/ Sodium Chloride 260 ml @ 42 mls/hr UNSCH PRN IV 05/01/17 17:30 (NS Flush) 2 ml UNSCH PRN IV FLUSH 05/01/17 17:45 (NS Flush) 2 ml BID IV FLUSH 05/01/17 21:00 05/05/17 07:44 (Zofran Inj) 4 mg Q6H PRN IV PUSH 05/01/17 17:45 Miscellaneous Information 1 Q361D XX 05/01/17 17:45 (Chlorhexidine 2% Cloth) 3 pack Taper DAILY@04 TOP 05/02/17 04:00 04/28/18 03:59 (Chlorhexidine 2% Cloth) 3 pack UNSCH PRN TOP 05/01/17 17:45 (Morphine Inj) 2 mg Q2H PRN IV PUSH 05/02/17 10:45 05/05/17 13:25 (Ativan) 1 mg Q4H PRN PO 05/03/17 07:30 05/03/17 23:26 (Ativan Inj) 1 mg Q4H PRN IV PUSH 05/03/17 07:30 (Ativan) 2 mg Q2H PRN PO 05/03/17 07:30 05/03/17 16:15 (Ativan Inj) 2 mg Q2H PRN IV PUSH 05/03/17 07:30 (Ativan Inj) 2 mg Q1H PRN IV PUSH 05/03/17 07:30 (Ativan Inj) 2 mg Q15M PRN IV PUSH 05/03/17 07:30 (Albuterol Neb) 2.5 mg Q2HR NEB PRN NEB 05/03/17 14:00 (Duoneb Neb) 1 ampule Q6HR NEB NEB 05/03/17 16:00 05/05/17 08:37 (Lanoxin) 0.125 mg DAILY PO 05/04/17 09:00 05/05/17 07:43 (Symbicort 160-4.5 Mcg Inh) 2 puff Q12HR INH 05/03/17 21:00 05/05/17 07:45 (Sodium Chloride 3% Neb) 2 ml Q6HR NEB NEB 05/03/17 22:00 05/08/17 21:59 05/05/17 08:37 (Mucinex Er) 600 mg BID PO 05/03/17 21:00 05/05/17 07:44 Piperacillin Sod/ Tazobactam Sod 100 ml @ 200 mls/hr Q6H IV 05/03/17 18:00 05/05/17 16:56 (Vitamin B1) 100 mg DAILY PO 05/05/17 09:00 05/05/17 07:44 (Folate) 1 mg DAILY PO 05/04/17 09:00 05/05/17 07:44 (Theragran) 1 tab DAILY PO 05/04/17 09:00 05/05/17 07:44 (Miralax) 17 gm DAILY PO 05/05/17 09:00 05/05/17 09:16 (Lactulose Liq) 30 ml DAILY PO 05/05/17 09:00 05/05/17 09:16 (Cardizem) 60 mg Q6HR PO 05/05/17 12:00 05/05/17 16:56 Vital Signs / I&O Vital Signs Date Time Temp Pulse Resp B/P (MAP) Pulse Ox O2 Delivery O2 Flow Rate FiO2 05/05/17 16:00 98.0 77 16 119/78 (92) 95 05/05/17 16:00 77 05/05/17 14:00 108 05/05/17 12:00 108 05/05/17 12:00 98.2 108 22 127/78 (94) 98 05/05/17 10:00 80 05/05/17 08:43 100 Nasal Cannula 3.00 05/05/17 08:00 105 05/05/17 08:00 97.9 105 18 129/67 (87) 98 05/05/17 07:00 99 Nasal Cannula 3.00 05/05/17 06:00 92 05/05/17 04:01 95 Nasal Cannula 4.00 05/05/17 04:00 97.5 108 22 148/74 (98) 98 05/05/17 04:00 108 05/05/17 02:00 94 05/05/17 00:00 98.4 74 21 141/65 (90) 95 05/05/17 00:00 74 05/04/17 22:00 106 05/04/17 21:04 98 Venturi Mask 6.00 28 05/04/17 20:00 92 05/04/17 20:00 97.7 92 18 129/72 (91) 100 05/04/17 19:00 95 Venturi Mask 6.00 05/04/17 18:42 119 150/78 05/04/17 18:00 88 I/O 05/04/17 05/04/17 05/04/17 05/05/17 05/05/17 05/05/17 07:00 15:00 23:00 07:00 15:00 23:00 Intake Total 300 ml 400 ml 909.8 ml 503 ml Output Total 1000 ml 600 ml 800 ml Balance -700 ml 400 ml 309.8 ml -297 ml Intake Oral 300 ml 480 ml 240 ml IV Total 400 ml 429.8 ml 263 ml Output Urine Total 1000 ml 600 ml 800 ml # Bowel Movements 0 0 0 Physical Exam GENERAL: In NAD SKIN: Warm and dry. HEAD: Normocephalic. Halo in place. EYES: No scleral icterus. No injection or drainage. NECK: Supple, trachea midline. No JVD or lymphadenopathy. CARDIOVASCULAR: Regular rate and rhythm without murmurs, gallops, or rubs. RESPIRATORY: Breath sounds equal bilaterally. No accessory muscle use. GASTROINTESTINAL: Abdomen soft, non-tender, nondistended. MUSCULOSKELETAL: No cyanosis, or edema. Assessment and Plan Problem List: (1) Syncope ICD Codes: R55 - Syncope and collapse Status: Chronic (2) Atrial fibrillation with RVR ICD Codes: I48.91 - Unspecified atrial fibrillation Status: Acute (3) C2 cervical fracture ICD Codes: S12.100A - Unspecified displaced fracture of second cervical vertebra, initial encounter for closed fracture Status: Acute (4) Tobacco abuse ICD Codes: Z72.0 - Tobacco abuse Status: Acute (5) Alcohol abuse ICD Codes: F10.10 - Alcohol abuse Status: Chronic Assessment and Plan Continue monitoring on telemetry. No arrhythmias, angina or CHF. Counseled to quit smoking and drinking excessively. Evaluation of syncope in progress. Continue current program. Problem Qualifiers (1) C2 cervical fracture: Qualified Codes: S12.100A - Unspecified displaced fracture of second cervical vertebra, initial encounter for closed fracture Ramon Jay MD May 05, 2017 17:06
[2017-05-05] MEDS: traMADol HCL 50 MG TAB PO PRN (20:14)
[2017-05-05] MEDS: DILTIAZEM INJ 125 MG in SODIUM CHLORIDE 0.9% INJ 100 ML IV PRN (22:06)
[2017-05-06] VITALS (15 sets, daily range): BP systolic 122–148; BP diastolic 69–85; PULSE 74–104; RESP 12–20; TEMP 97.9–98.7; O2SAT 93–97
[2017-05-06] MEDS: CHLORHEXIDINE GLUCONATE 2 % 1 PACK (2 CLOTHS) TOP SCH (02:19)
--- NOTE | 2017-05-06 03:25 | RADRPT ---
EXAM DATE/TIME: 05/06/2017 02:32 [facility] COMPARISON: CHEST SINGLE AP, May 04, 2017, 9:02. INDICATIONS : Shortness of breath. MEDICAL HISTORY : Cardiovascular disease SURGICAL HISTORY : None. ENCOUNTER: Subsequent ACUITY: 4 - 6 days PAIN SCORE: Non-responsive. LOCATION: Bilateral chest FINDINGS: There is slight cardiomegaly and perivascular pulmonary edema. Focal consolidation is not seen. CONCLUSION: Slight CHF. Phani Catherine MD on May 06, 2017 at 3:23 Board Certified Radiologist. This report was verified electronically.
[2017-05-06] MEDS: RESP: ALBUTEROL 2.5 MG/IPRATROPIUM 0.5 MG NEB (SCH) NEB ×4 (04:40→20:36)
[2017-05-06] MEDS: RESP: SODIUM CHLORIDE 3% 4 ML NEB NEB SCH ×4 (04:40→20:36)
[2017-05-06] MEDS: DILTIAZEM HCL 60 MG TAB PO SCH ×3 (05:12→17:19)
[2017-05-06] MEDS: PIPERACIL-TAZO 4.5 GM PREMIX 100 ML IV SCH ×3 (05:12→17:18)
[2017-05-06 06:00] LABS: AUTOMATED NEUTROPHIL # 4.5 TH/MM3 (1.8-7.7); BASOPHIL % 0.4 % (0.0-2.0); EOSINOPHIL % 0.3 % (0.0-4.0); HEMATOCRIT 38.1 % (39.0-51.0); HEMOGLOBIN 13.2 GM/DL (13.0-17.0); LYMPH % 13.4 % (9.0-44.0); LYMPHOCYTE # 0.9 TH/MM3 (1.0-4.8); MEAN CELL VOLUME 110.7 FL (80.0-100.0); MEAN CORPUSCULAR HEMOGLOBIN 38.4 PG (27.0-34.0); MEAN CORPUSCULAR HGB CONC 34.7 % (32.0-36.0); MONOCYTE # 1.2 TH/MM3 (0-0.9); NEUT % 67.9 % (16.0-70.0); PLATELET COUNT 176 TH/MM3 (150-450); RED BLOOD COUNT 3.44 MIL/MM3 (4.50-5.90); RED CELL DISTRIBUTION WIDTH 13.8 % (11.6-17.2); WHITE BLOOD COUNT 6.6 TH/MM3 (4.0-11.0)
[2017-05-06 06:34] LABS: ALBUMIN 2.8 GM/DL (3.4-5.0); AST (GOT) 25 U/L (15-37); BICARBONATE 24.5 MEQ/L (21.0-32.0); BLOOD UREA NITROGEN 13 MG/DL (7-18); CALCIUM 8.8 MG/DL (8.5-10.1); CHLORIDE 103 MEQ/L (98-107); CREATININE 0.76 MG/DL (0.60-1.30); GLOMERULAR FILTRATION RATE 105 ML/MIN (>89); GLUCOSE,RANDOM 98 MG/DL (74-106); MAGNESIUM 1.9 MG/DL (1.5-2.5); SODIUM (NA) 137 MEQ/L (136-145)
[2017-05-06 06:36] LABS: ALT (GPT) 18 U/L (12-78); PHOSPHORUS 3.4 MG/DL (2.5-4.9)
[2017-05-06] MEDS: MIDODRINE 5 MG TAB PO SCH ×3 (06:51→17:18)
[2017-05-06 07:00] LABS: ALKALINE PHOSPHATASE 43 U/L (45-117); DIGOXIN 0.5 NG/ML (0.8-2.0); TOTAL PROTEIN 7.2 GM/DL (6.4-8.2)
[2017-05-06] MEDS: PANTOPRAZOLE SOD 40 MG DELAYED RELEASE TAB PO SCH (08:09)
[2017-05-06] MEDS: LACTULOSE SYRUP 20 GM/30 ML CUP PO SCH (08:09)
[2017-05-06] MEDS: POLYETHYLENE GLYCOL 17 GM PKG PO SCH (08:09)
[2017-05-06] MEDS: DOCUSATE SODIUM 50 MG/SENNA 8.6 MG TAB PO SCH ×2 (08:09→21:00)
[2017-05-06] MEDS: ASPIRIN EC 81 MG TABEC PO SCH (08:10)
[2017-05-06] MEDS: guaiFENesin E.R. 600 MG TAB PO SCH ×2 (08:10→21:22)
[2017-05-06] MEDS: traMADol HCL 50 MG TAB PO PRN ×2 (08:10→21:28)
[2017-05-06] MEDS: FOLIC ACID 1 MG TAB PO SCH (08:10)
[2017-05-06] MEDS: MULTIVITAMIN TAB PO SCH (08:10)
[2017-05-06] MEDS: THIAMINE HCL 100 MG TAB PO SCH (08:10)
[2017-05-06] MEDS: BUDESONIDE-FORMOTEROL 160/4.5 MCG INHALER INH SCH ×2 (08:12→21:00)
[2017-05-06] MEDS: SODIUM CHLORIDE 0.9% FLUSH 10 ML FLUSH IV FLUSH SCH ×2 (08:13→21:00)
[2017-05-06] MEDS: DIGOXIN 0.125 MG TAB PO SCH (08:16)
--- NOTE | 2017-05-06 08:35 | HHI.CCPN ---
Subjective Remarks/Hospital Course This is a 62-year-old male. Date of admission 05/01/2017. Date of consultation 05/01/2017. Past history includes atrial fibrillation, alcoholism , tobacco abuse and THC use. Today, he assumed 1-1/2 beers as well as 1 and half shots of alcohol when he stood up to urinate and passed out. He says he hit the back of his head. He complains of neck pain. He denies any weakness of his extremities. He says he did feel some tingling in his left arm, but this has resolved. No loss of consciousness. EtOH level 130 CT C-spine revealed a C2 fracture at the base of the dens ex- ankle lateral mass of C2 with the 4 mm retropulsed segment. Also fracture the foramen magnum. CT brain revealed a small posterior scalp hematoma. Dr. Dodd was notified. Plans for halo likely in a.m. Patient is currently in atrial fibrillation RVR. Has been evaluation by Dr. Hinojosa in the past. CHADS VASC2 currently 1 Currently on a diltiazem drip at 5 mg now for rate control. Denies chest pain 05/02: Complaining of pain and anxiety. Currently no neurological deficits. Noted horizontal fracture inferior sternum. On CT chest. 05/03: Remains atrial fibrillation off diltiazem drip. Status post halo placement today. Appears to go into early DTs. Currently resting in chair in no acute distress nasal cannula. Some coarse breath sounds that do clear with cough. 05/04: On 2-3 L normal saline overnight. Currently in simple mask due to desaturations while sleeping. Heart rate irregular but rate controlled. Continues with coarse transmitted upper airway sounds. Patient able to cough and clear secretions with self Yankauer suctioning. Subjective 05/05: Afebrile. Currently requiring 4 L nasal cannula.. Voice much improved today. Sitting up in bed eating breakfast. Less anxious. 05/06: Breathing comfortably, talkative, voice clear. No obstruction. Strong cough effort. Objective Vital Signs Date Time Temp Pulse Resp B/P (MAP) Pulse Ox O2 Delivery O2 Flow Rate FiO2 05/06/17 07:00 95 Room Air 05/06/17 06:00 88 05/06/17 04:42 21 05/06/17 04:00 97.9 20 134/82 (99) 05/05/17 08:43 3.00 Intake and Output 05/06/17 05/06/17 05/07/17 08:00 16:00 00:00 Intake Total 240 ml Output Total 550 ml Balance -310 ml Result Diagram: 05/06/17 0545 05/06/17 0545 Other Results Microbiology Date/Time Source Procedure Growth Status 05/05/17 15:20 Nasal Aspirate Influenza Types A,B Antigen (JAMES) - Final NEGATIVE FOR FLU A AND B ANTIGEN.... Complete Imaging Last Impressions Chest X-Ray 05/04/17 0000 Signed Impressions: Service Date/Time: Thursday, May 04, 2017 09:02 - CONCLUSION: Negative for acute process Abdiaziz Cheng MD FACR Cervical Spine X-Ray 05/03/17 0000 Signed Impressions: Service Date/Time: Wednesday, May 03, 2017 11:31 - CONCLUSION: Findings as above. Abdiaziz Cheng MD FACR Head CT 05/01/17 1515 Signed Impressions: Service Date/Time: Monday, May 01, 2017 15:27 - CONCLUSION: 1. No acute intracranial abnormality. 2. Small posterior scalp soft tissue hematoma. 3. Mild bilateral maxillary sinus disease. Aries Fowler MD Cervical Spine CT 05/01/17 1515 Signed Impressions: Service Date/Time: Monday, May 01, 2017 15:30 - CONCLUSION: 1. Abnormal examination. Minimally displaced C2 fracture extending from the base of the dens and the lateral mass of C2 with approximate 4 mm posterior retropulsed fragment. Fracture also extends through right transverse foramen which can result in possible vertebral artery injury. CTA examination may be performed as clinically warranted. Aries Fowler MD Neck CTA 05/01/17 0000 Signed Impressions: Service Date/Time: Monday, May 01, 2017 17:26 - CONCLUSION: 1. Negative exam. The right vertebral artery is patent and intact. Papo Lee MD Chest CT 05/01/17 0000 Signed Impressions: Service Date/Time: Monday, May 01, 2017 20:24 - CONCLUSION: 1. Mild right basilar atelectasis. 2. No evidence of pneumothorax. 3. Horizontal fracture through the inferior sternum with some mild soft tissue thickening in the substernal soft tissues Papo Lee MD Objective Remarks GENERAL: 62-year-old male resting in chair in halo in no acute distress SKIN: Warm and dry. Posterior scalp laceration noted HEAD: Posterior scalp hematoma noted. Normocephalic. Currently in halo EYES: Pupils equal and round around 3 mm bilaterally and reactive. No scleral icterus. No injection or drainage. ENT: No nasal bleeding or discharge. Mucous membranes pink and moist. NECK: Trachea midline. Airway widely patent. CARDIOVASCULAR: Irreg. S1, S2. Without murmur. No JVD. RESPIRATORY: Few crackles appreciated throughout upper lung yang. Good alexis air movement. Sternum tender to palpation GASTROINTESTINAL: Abdomen soft, non-tender, nondistended. Bowel sounds are appreciated MUSCULOSKELETAL: Extremities without without significant edema. No obvious deformities. Well perfused. NEUROLOGICAL: Awake and alert. No obvious cranial nerve deficits. Motor grossly within normal limits. Five out of 5 muscle strength in the arms and legs. Slightly hoarse speech. A/P Assessment and Plan Neuro/Psych: Cervical C2 type 2 posterior displaced odontoid fracture/right C2 lateral mass fracture EtOH THC use Posterior scalp hematoma 05/03 - close reduction with manipulation and fixation of C2 fracture/halo placement secondary to cervical CT 2 posterior displaced odontoid fracture/ right C2 lateral mass fracture by Dr. Dodd CT brain - small posterior scalp hematoma CT C-spine - C2 fracture - base of dens -lateral mass of C2 with 4 mm retropulsion segment. Fracture fragment magnum Followed by Dr. Dodd. Tramadol 50 mg as needed for pain management Morphine sulfate 2 mg every 2 hours hydromorphone 2 mg every 4 hours for breakthrough pain Early on thiamine 100 mg daily, folate 1 mg daily and multivitamin one tablet for EtOH use Monitor for DVT. CIWA protocol initiated Patient states he has no allergy to acetaminophen. States that Percocet caused an "itching mustache" in past Continue on chlordiazepoxide 10 mg 3 times a day for agitation On cyclobenzaprine 10 mg every 8 hours when necessary muscle relaxant CV: Atrial fibrillation with rapid ventricular response History of hypotension with dysautonomia 2-D echocardiogram 03/27 revealed ejection fraction 50-55%. Mild LVH. At home on diltiazem 30 by mouth 4 times a day. Hold increased to 60 mg 4 times daily in attempt to wean off Cardizem drip currently at 5 mg an hour Currently on digoxin 0.125 mill grams daily. Recheck dig level in a.m. 05/06 Continue Midodrine 5 mg 3 times a day for dysautonomia Check troponin initially 0.02. Evaluated by Dr. Jay. CHADS VASc2 score 1. Recommended aspirin only. 81 mg daily Resp: Tobaccoism Nasal cannula to maintain saturations greater than equal to 92% Incentive spirometry while awake Tobacco sensation will be encouraged with educational booklet provided for him to self evaluate Scheduled albuterol/ipratropium aerosols every 6 hours albuterol aerosols every 2 hours when necessary dyspnea Incentive spirometry while awake A cappella/pep Every 6 hours Added guaifenesin 600 mg twice a day and hypertonic saline aerosols every 6 hours thin secretions GI: Gastroesophageal reflux disease Hypoalbuminemia Elevated AST/total bilirubin On regular diet On pantoprazole 40 milligrams by mouth daily for GI prophylaxis Docusate sodium/senna 1 tablet twice a day for bowel regimen : No indication for Foster catheter Endo: Hyperglycemia Sliding-scale insulin if indicated to maintain euglycemia Check TSH - 1.63 Renal: Monitor urine output Accurate I's and O's. Heme: Macrocytosis Thrombocytopenia Monitor CBC daily. Follow trends Follow-up on coags Currently on aspirin 81 mg daily. Resume by neurosurgery ID: Monitor for infection Sputum sample ordered results pending. Influenza pending. Currently on piperacillin/tazobactam 4.5 g IV every 6 hours day #4 MSK: OA Inferior horizontal sternal fracture PT evaluate and treat when appropriate FEN: Hypophosphatemia Hyponatremia Replace electrolytes per ICU electrolyte protocol 30 mmol sodium phosphorus, 40 mEq KCl and 2 g mag sulfate IV times 1. Recheck in a.m. Access - Utilize peripheral IV. Central line if indicated Prophylaxis - GI - pantoprazole - DVT - SCD/holding pharmacological prophylaxis until okay with neurosurgery Overall impression: Warm and well perfused. Protects airway well. Marcin Schmid MD May 06, 2017 08:35
--- NOTE | 2017-05-06 10:46 | HHI.NSPN ---
History Chief Complaint: Neck and sternal pain. Interval History A 64 year old gentleman who apparently had a syncopal episode while he was at a bar and fell back and struck his head. He relates that he only had 1 1/2 beers prior to this and was not really intoxicated. He does have a history of syncopal episodes. Last time he relates that he had a syncopal episode was about three months. He was diagnosed with atrial fibrillation a year ago. He was admitted also last month with atrial fibrillation with a rapid ventricular response and was seen by Dr. Hinojosa from cardiology. He relates that he is on blood thinners, although these are very expensive and he has no job or insurance and cannot afford them. He complains of neck pain. He initially had some numbness in his left hand, but this has resolved. He also complains of some anterior chest wall area pain. He was evaluated by the emergency room physician on arrival to [facility] and head CT scan is negative for any intracranial abnormality. He does have, on the CT scan of the cervical spine, a C2 fracture that partially extends to the base of the dens as well as the lateral mass in the right side with involvement of the foramen and transversarium. There is slight retropulsion of the C2 fracture moves posteriorly into the spinal canal. 05/02/17: Pt awake and alert. Complains of neck and sternal pain. No radiculopathy in UEs. Pt has intermittent paresthesias in left 1st and 2nd fingers primarily which he states is not new and has had prior to his fall. No numbness or paresthesias in UEs otherwise. No abdominal pain. No weakness that he has noticed but he is resting in bed. [place] cervical collar intact. 05/03/17: Pt awake, alert, with some confusion and agitation. Complains of neck and sternal pain. Neck pain extends up into the right posterior head. 05/05/17: Pt awake and alert. Less confusion and agitation this morning. Complains of neck pain extending into the right side of his head. 05/06/17: Pt awake and alert. Complains of neck pain and head pain that is worse when moving. Worked with PT to get oob to chair. Review of Systems General: Negative for: fever, chills, insomnia Respiratory: Negative for: shortness of breath, cough, sputum Cardiovascular: Negative for: chest pain Gastrointestinal: Negative for: nausea, vomitting, diarrhea, constipation Exam Results Vital Signs Date Time Temp Pulse Resp B/P (MAP) Pulse Ox O2 Delivery O2 Flow Rate FiO2 05/06/17 09:10 16 05/06/17 08:45 97 21 05/06/17 08:00 92 05/06/17 08:00 98.4 137/69 (91) 05/06/17 07:00 Room Air 05/05/17 08:43 3.00 Intake and Output 05/06/17 05/06/17 05/07/17 08:00 16:00 00:00 Intake Total 240 ml Output Total 550 ml Balance -310 ml Physical Examination General: Pt resting in bed with less agitation. Eyes: Pupils 3mm bilaterally, reactive bilaterally. Resp: upper lung yang clearing, lower limited from halo vest. Heart: Mild tachycardic. no murmurs. Abd: Soft positive bs Skin: No cyanosis or erythema. SCDs in place. Muscle: Moves all 4 extremities, strength appears 5/5 sitting up in bed. Halo in place with clean pin sites. Neuro: Pt awake and alert. Follows commands well. Speech clear and appropriate. Pupils equal. Sensation intact in UEs and LEs to light touch. Lab, Micro, Other Results Last Impressions Chest X-Ray 05/06/17 0600 Signed Impressions: Service Date/Time: Saturday, May 06, 2017 02:32 - CONCLUSION: Slight CHF. K. Raul Catherine MD Cervical Spine X-Ray 05/03/17 0000 Signed Impressions: Service Date/Time: Wednesday, May 03, 2017 11:31 - CONCLUSION: Findings as above. Abdiaziz Cheng MD FACR Head CT 05/01/17 0608 Signed Impressions: Service Date/Time: Monday, May 01, 2017 15:27 - CONCLUSION: 1. No acute intracranial abnormality. 2. Small posterior scalp soft tissue hematoma. 3. Mild bilateral maxillary sinus disease. Aries Fowler MD Cervical Spine CT 05/01/17 1515 Signed Impressions: Service Date/Time: Monday, May 01, 2017 15:30 - CONCLUSION: 1. Abnormal examination. Minimally displaced C2 fracture extending from the base of the dens and the lateral mass of C2 with approximate 4 mm posterior retropulsed fragment. Fracture also extends through right transverse foramen which can result in possible vertebral artery injury. CTA examination may be performed as clinically warranted. Aries Fowler MD Neck CTA 05/01/17 0000 Signed Impressions: Service Date/Time: Monday, May 01, 2017 17:26 - CONCLUSION: 1. Negative exam. The right vertebral artery is patent and intact. Papo Lee MD Chest CT 05/01/17 0000 Signed Impressions: Service Date/Time: Monday, May 01, 2017 20:24 - CONCLUSION: 1. Mild right basilar atelectasis. 2. No evidence of pneumothorax. 3. Horizontal fracture through the inferior sternum with some mild soft tissue thickening in the substernal soft tissues Papo Lee MD Laboratory Tests Test 05/06/17 05:45 White Blood Count 6.6 TH/MM3 Red Blood Count 3.44 MIL/MM3 Hemoglobin 13.2 GM/DL Hematocrit 38.1 % Mean Corpuscular Volume 110.7 FL Mean Corpuscular Hemoglobin 38.4 PG Mean Corpuscular Hemoglobin Concent 34.7 % Red Cell Distribution Width 13.8 % Platelet Count 176 TH/MM3 Mean Platelet Volume 7.0 FL Neutrophils (%) (Auto) 67.9 % Lymphocytes (%) (Auto) 13.4 % Monocytes (%) (Auto) 18.0 % Eosinophils (%) (Auto) 0.3 % Basophils (%) (Auto) 0.4 % Neutrophils # (Auto) 4.5 TH/MM3 Lymphocytes # (Auto) 0.9 TH/MM3 Monocytes # (Auto) 1.2 TH/MM3 Eosinophils # (Auto) 0.0 TH/MM3 Basophils # (Auto) 0.0 TH/MM3 CBC Comment DIFF FINAL Differential Comment Blood Urea Nitrogen 13 MG/DL Creatinine 0.76 MG/DL Random Glucose 98 MG/DL Total Protein 7.2 GM/DL Albumin 2.8 GM/DL Calcium Level 8.8 MG/DL Phosphorus Level 3.4 MG/DL Magnesium Level 1.9 MG/DL Alkaline Phosphatase 43 U/L Aspartate Amino Transf (AST/SGOT) 25 U/L Alanine Aminotransferase (ALT/SGPT) 18 U/L Total Bilirubin 1.0 MG/DL Sodium Level 137 MEQ/L Potassium Level 3.4 MEQ/L Chloride Level 103 MEQ/L Carbon Dioxide Level 24.5 MEQ/L Anion Gap 10 MEQ/L Estimat Glomerular Filtration Rate 105 ML/MIN Digoxin Level 0.5 NG/ML Medical Decision Making Impression and Plan A: 62 y/o M with C2 partial odontoid fracture that extends to the base and into the body as well as a right C2 slightly displaced lateral mass fracture involving the foramen transversarium. s/p halo placement. 2. Recurrent syncopal episodes. 3. Atrial fibrillation with rapid ventricular response. 4. History of orthostatic hypotension 5. History of alcohol abuse. 6. Sternal fracture P: Continue to monitor Neuro exam and vitals. Continue with DVT mechanical prophylaxis. Continue with DT prophylaxis with Librium. continue with rehab efforts Pt will need follow up x-rays every 6 weeks for 4 months. Horace Gibbons May 06, 2017 10:46 am
[2017-05-06] MEDS: HYDROmorphone HCL 2 MG TAB PO PRN ×2 (12:15→17:19)
--- NOTE | 2017-05-06 15:51 | PD.CARD.PN ---
Subjective Subjective Remarks No angina or CHF symptoms, feels better Objective Medications Current Medications Medications (Trade) Dose Ordered Sig/Michael Route Start Time Stop Time Status Last Admin (Ecotrin Ec) 81 mg DAILY PO 05/02/17 09:00 05/06/17 08:10 (Proamatine) 5 mg TID@07,12,17 PO 05/01/17 17:30 05/06/17 12:15 Diltiazem HCl 125 mg/Sodium Chloride 125 ml @ 5 mls/hr TITRATE PRN IV 05/01/17 16:45 05/05/17 22:06 (Ativan Inj) 1 mg Q1H PRN IV PUSH 05/01/17 17:30 (Mag-Al Plus Susp Liq) 30 ml Q6H PRN PO 05/01/17 17:15 (Protonix) 40 mg DAILY PO 05/02/17 09:00 05/06/17 08:09 (Phenergan Inj) 25 mg Q4H PRN IM 05/01/17 17:15 Calcium Gluconate 1 gm/Sodium Chloride 110 ml @ 110 mls/hr UNSCH PRN IV 05/01/17 17:15 Potassium Chloride 100 ml @ 50 mls/hr UNSCH PRN IV 05/01/17 17:15 Magnesium Sulfate 2 gm/Sodium Chloride 104 ml @ 100 mls/hr UNSCH PRN IV 05/01/17 18:00 05/04/17 11:16 (Flexeril) 10 mg Q8H PRN PO 05/01/17 16:45 05/03/17 05:36 (Trandate Inj) 10 mg Q1H PRN IV PUSH 05/01/17 17:30 (Catapres) 0.1 mg Q6H PRN PO 05/01/17 17:15 (Ambien) 5 mg HS PRN PO 05/01/17 21:00 05/02/17 21:21 (Nicole-Colace) 1 tab BID PO 05/01/17 21:00 05/06/17 08:09 (Milk Of Magnesia Liq) 30 ml Q12H PRN PO 05/01/17 17:15 (Senokot) 17.2 mg Q12H PRN PO 05/01/17 17:15 (Dulcolax Supp) 10 mg DAILY PRN RECTAL 05/01/17 17:15 (Lactulose Liq) 30 ml DAILY PRN PO 05/01/17 17:15 (Ultram) 50 mg Q4H PRN PO 05/01/17 16:45 05/06/17 08:10 (Dilaudid) 2 mg Q4H PRN PO 05/01/17 16:45 05/06/17 12:15 (Librium) 10 mg TID PO 05/01/17 18:00 05/06/17 12:15 Potassium Chloride 100 ml @ 50 mls/hr Q2H PRN IV 05/01/17 17:30 Potassium Chloride 100 ml @ 50 mls/hr Q2H PRN IV 05/01/17 17:30 (K-Lyte Cl Eff) 50 meq UNSCH PRN PO 05/01/17 17:30 Potassium Chloride 100 ml @ 25 mls/hr UNSCH PRN IV 05/01/17 17:30 Potassium Chloride 100 ml @ 50 mls/hr Q2H PRN IV 05/01/17 17:30 05/04/17 13:57 Magnesium Sulfate 4 gm/Sodium Chloride 100 ml @ 50 mls/hr UNSCH PRN IV 05/01/17 17:30 (Mag-Ox) 800 mg UNSCH PRN PO 05/01/17 17:30 Magnesium Sulfate 2 gm/Sodium Chloride 100 ml @ 50 mls/hr UNSCH PRN IV 05/01/17 17:30 (K-Phos) 2,000 mg Q4H PRN PO 05/01/17 17:30 Sodium Phosphate 30 mmol/Sodium Chloride 250 ml @ 42 mls/hr UNSCH PRN IV 05/01/17 17:30 05/05/17 08:55 (K-Phos) 2,000 mg UNSCH PRN PO/TUBE 05/01/17 17:30 Potassium Phosphate 30 mmol/ Sodium Chloride 260 ml @ 42 mls/hr UNSCH PRN IV 05/01/17 17:30 (NS Flush) 2 ml UNSCH PRN IV FLUSH 05/01/17 17:45 (NS Flush) 2 ml BID IV FLUSH 05/01/17 21:00 05/06/17 08:13 (Zofran Inj) 4 mg Q6H PRN IV PUSH 05/01/17 17:45 Miscellaneous Information 1 Q361D XX 05/01/17 17:45 (Chlorhexidine 2% Cloth) 3 pack Taper DAILY@04 TOP 05/02/17 04:00 04/28/18 03:59 (Chlorhexidine 2% Cloth) 3 pack UNSCH PRN TOP 05/01/17 17:45 (Morphine Inj) 2 mg Q2H PRN IV PUSH 05/02/17 10:45 05/05/17 13:25 (Ativan) 1 mg Q4H PRN PO 05/03/17 07:30 05/03/17 23:26 (Ativan Inj) 1 mg Q4H PRN IV PUSH 05/03/17 07:30 (Ativan) 2 mg Q2H PRN PO 05/03/17 07:30 05/03/17 16:15 (Ativan Inj) 2 mg Q2H PRN IV PUSH 05/03/17 07:30 (Ativan Inj) 2 mg Q1H PRN IV PUSH 05/03/17 07:30 (Ativan Inj) 2 mg Q15M PRN IV PUSH 05/03/17 07:30 (Albuterol Neb) 2.5 mg Q2HR NEB PRN NEB 05/03/17 14:00 (Duoneb Neb) 1 ampule Q6HR NEB NEB 05/03/17 16:00 05/06/17 15:28 (Lanoxin) 0.125 mg DAILY PO 05/04/17 09:00 05/06/17 08:16 (Symbicort 160-4.5 Mcg Inh) 2 puff Q12HR INH 05/03/17 21:00 05/06/17 08:12 (Sodium Chloride 3% Neb) 2 ml Q6HR NEB NEB 05/03/17 22:00 05/08/17 21:59 05/06/17 15:31 (Mucinex Er) 600 mg BID PO 05/03/17 21:00 05/06/17 08:10 Piperacillin Sod/ Tazobactam Sod 100 ml @ 200 mls/hr Q6H IV 05/03/17 18:00 05/06/17 12:15 (Vitamin B1) 100 mg DAILY PO 05/05/17 09:00 05/06/17 08:10 (Folate) 1 mg DAILY PO 05/04/17 09:00 05/06/17 08:10 (Theragran) 1 tab DAILY PO 05/04/17 09:00 12/27/17 08:10 (Miralax) 17 gm DAILY PO 05/05/17 09:00 05/06/17 08:09 (Lactulose Liq) 30 ml DAILY PO 05/05/17 09:00 05/06/17 08:09 (Cardizem) 60 mg Q6HR PO 05/05/17 12:00 05/06/17 12:15 Vital Signs / I&O Vital Signs Date Time Temp Pulse Resp B/P (MAP) Pulse Ox O2 Delivery O2 Flow Rate FiO2 05/06/17 13:15 22 05/06/17 12:00 77 05/06/17 10:00 82 05/06/17 09:10 16 05/06/17 08:45 97 21 05/06/17 08:00 92 05/06/17 08:00 98.4 92 16 137/69 (91) 97 05/06/17 07:00 95 Room Air 05/06/17 06:00 88 05/06/17 04:42 96 21 05/06/17 04:00 88 05/06/17 04:00 97.9 88 20 134/82 (99) 97 05/06/17 02:00 96 05/06/17 00:00 104 05/06/17 00:00 98.7 104 20 137/77 (97) 95 05/05/17 22:06 116 143/87 05/05/17 22:00 98 05/05/17 20:44 94 21 05/05/17 20:00 93 05/05/17 20:00 98.4 93 22 145/82 (103) 95 05/05/17 19:00 98 Room Air 05/05/17 18:00 95 05/05/17 16:00 98.0 77 16 119/78 (92) 95 05/05/17 16:00 77 I/O 05/05/17 05/05/17 05/05/17 05/06/17 05/06/17 05/06/17 07:00 15:00 23:00 07:00 15:00 23:00 Intake Total 503 ml 500 ml 240 ml Output Total 800 ml 700 ml 550 ml Balance -297 ml -200 ml -310 ml Intake Oral 240 ml 500 ml 240 ml IV Total 263 ml Output Urine Total 800 ml 700 ml 550 ml # Bowel Movements 0 0 0 Physical Exam GENERAL: In NAD SKIN: Warm and dry. HEAD: Normocephalic. Halo in place. EYES: No scleral icterus. No injection or drainage. NECK: Supple, trachea midline. No JVD or lymphadenopathy. CARDIOVASCULAR: Irreg, without murmurs, gallops, or rubs. RESPIRATORY: Breath sounds equal bilaterally. No accessory muscle use. GASTROINTESTINAL: Abdomen soft, non-tender, nondistended. MUSCULOSKELETAL: No cyanosis, or edema. Laboratory Laboratory Tests Test 05/06/17 05:45 White Blood Count 6.6 TH/MM3 Red Blood Count 3.44 MIL/MM3 Hemoglobin 13.2 GM/DL Hematocrit 38.1 % Mean Corpuscular Volume 110.7 FL Mean Corpuscular Hemoglobin 38.4 PG Mean Corpuscular Hemoglobin Concent 34.7 % Red Cell Distribution Width 13.8 % Platelet Count 176 TH/MM3 Mean Platelet Volume 7.0 FL Neutrophils (%) (Auto) 67.9 % Lymphocytes (%) (Auto) 13.4 % Monocytes (%) (Auto) 18.0 % Eosinophils (%) (Auto) 0.3 % Basophils (%) (Auto) 0.4 % Neutrophils # (Auto) 4.5 TH/MM3 Lymphocytes # (Auto) 0.9 TH/MM3 Monocytes # (Auto) 1.2 TH/MM3 Eosinophils # (Auto) 0.0 TH/MM3 Basophils # (Auto) 0.0 TH/MM3 CBC Comment DIFF FINAL Differential Comment Blood Urea Nitrogen 13 MG/DL Creatinine 0.76 MG/DL Random Glucose 98 MG/DL Total Protein 7.2 GM/DL Albumin 2.8 GM/DL Calcium Level 8.8 MG/DL Phosphorus Level 3.4 MG/DL Magnesium Level 1.9 MG/DL Alkaline Phosphatase 43 U/L Aspartate Amino Transf (AST/SGOT) 25 U/L Alanine Aminotransferase (ALT/SGPT) 18 U/L Total Bilirubin 1.0 MG/DL Sodium Level 137 MEQ/L Potassium Level 3.4 MEQ/L Chloride Level 103 MEQ/L Carbon Dioxide Level 24.5 MEQ/L Anion Gap 10 MEQ/L Estimat Glomerular Filtration Rate 105 ML/MIN Digoxin Level 0.5 NG/ML Imaging Last 24 hours Impressions Chest X-Ray 05/06/17 0600 Signed Impressions: Service Date/Time: Saturday, May 06, 2017 02:32 - CONCLUSION: Slight CHF. Phani Catherine MD Assessment and Plan Problem List: (1) Syncope ICD Codes: R55 - Syncope and collapse Status: Chronic (2) Atrial fibrillation with RVR ICD Codes: I48.91 - Unspecified atrial fibrillation Status: Acute (3) C2 cervical fracture ICD Codes: S12.100A - Unspecified displaced fracture of second cervical vertebra, initial encounter for closed fracture Status: Acute (4) Tobacco abuse ICD Codes: Z72.0 - Tobacco abuse Status: Acute (5) Alcohol abuse ICD Codes: F10.10 - Alcohol abuse Status: Chronic Assessment and Plan Continue monitoring on telemetry. A fib rate well controlled. No angina or CHF symptoms. Counseled again to quit smoking and drinking excessively. Continue current program. Problem Qualifiers (1) C2 cervical fracture: Qualified Codes: S12.100A - Unspecified displaced fracture of second cervical vertebra, initial encounter for closed fracture Ramon Jay MD May 06, 2017 15:51
[2017-05-06] MEDS: DILTIAZEM INJ 125 MG in SODIUM CHLORIDE 0.9% INJ 100 ML IV PRN (17:30)
[2017-05-07] VITALS (15 sets, daily range): BP systolic 108–144; BP diastolic 63–84; PULSE 65–99; RESP 15–20; TEMP 98–99; O2SAT 94–98
[2017-05-07] MEDS: PIPERACIL-TAZO 4.5 GM PREMIX 100 ML IV SCH ×4 (00:40→17:10)
[2017-05-07] MEDS: DILTIAZEM HCL 60 MG TAB PO SCH ×4 (00:40→17:10)
[2017-05-07] MEDS: MORPHINE SULFATE 2 MG/ML INJ IV PUSH PRN (03:56)
[2017-05-07] MEDS: CHLORHEXIDINE GLUCONATE 2 % 1 PACK (2 CLOTHS) TOP SCH (04:00)
[2017-05-07 04:33] LABS: AUTOMATED NEUTROPHIL # 4.4 TH/MM3 (1.8-7.7); BASOPHIL % 0.3 % (0.0-2.0); EOSINOPHIL % 0.6 % (0.0-4.0); HEMATOCRIT 35.4 % (39.0-51.0); HEMOGLOBIN 12.1 GM/DL (13.0-17.0); LYMPH % 15.2 % (9.0-44.0); MEAN CELL VOLUME 110.9 FL (80.0-100.0); MEAN CORPUSCULAR HEMOGLOBIN 38.1 PG (27.0-34.0); MEAN CORPUSCULAR HGB CONC 34.3 % (32.0-36.0); MEAN PLATELET VOLUME 6.9 FL (7.0-11.0); MONO % 16.6 % (0.0-8.0); MONOCYTE # 1.1 TH/MM3 (0-0.9); NEUT % 67.3 % (16.0-70.0); PLATELET COUNT 207 TH/MM3 (150-450); RED BLOOD COUNT 3.19 MIL/MM3 (4.50-5.90); RED CELL DISTRIBUTION WIDTH 13.6 % (11.6-17.2); WHITE BLOOD COUNT 6.5 TH/MM3 (4.0-11.0)
[2017-05-07 05:03] LABS: BICARBONATE 27.8 MEQ/L (21.0-32.0); CALCIUM 8.5 MG/DL (8.5-10.1); CREATININE 0.82 MG/DL (0.60-1.30)
[2017-05-07] MEDS: RESP: SODIUM CHLORIDE 3% 4 ML NEB NEB SCH ×4 (05:11→21:11)
[2017-05-07] MEDS: RESP: ALBUTEROL 2.5 MG/IPRATROPIUM 0.5 MG NEB (SCH) NEB ×2 (05:11→08:45)
[2017-05-07] MEDS: MIDODRINE 5 MG TAB PO SCH ×3 (05:58→17:10)
[2017-05-07] MEDS: HYDROmorphone HCL 2 MG TAB PO PRN (05:59)
[2017-05-07] MEDS: LACTULOSE SYRUP 20 GM/30 ML CUP PO SCH (08:13)
[2017-05-07] MEDS: POLYETHYLENE GLYCOL 17 GM PKG PO SCH (08:13)
[2017-05-07] MEDS: guaiFENesin E.R. 600 MG TAB PO SCH ×2 (08:14→20:11)
[2017-05-07] MEDS: MULTIVITAMIN TAB PO SCH (08:14)
[2017-05-07] MEDS: THIAMINE HCL 100 MG TAB PO SCH (08:14)
[2017-05-07] MEDS: PANTOPRAZOLE SOD 40 MG DELAYED RELEASE TAB PO SCH (08:14)
[2017-05-07] MEDS: DIGOXIN 0.125 MG TAB PO SCH (08:14)
[2017-05-07] MEDS: ASPIRIN EC 81 MG TABEC PO SCH (08:14)
[2017-05-07] MEDS: DOCUSATE SODIUM 50 MG/SENNA 8.6 MG TAB PO SCH ×2 (08:14→20:11)
[2017-05-07] MEDS: FOLIC ACID 1 MG TAB PO SCH (08:14)
[2017-05-07] MEDS: BUDESONIDE-FORMOTEROL 160/4.5 MCG INHALER INH SCH ×2 (08:15→21:00)
[2017-05-07] MEDS: SODIUM CHLORIDE 0.9% FLUSH 10 ML FLUSH IV FLUSH SCH ×2 (08:15→20:11)
--- NOTE | 2017-05-07 09:36 | HHI.NSPN ---
(Horace Gibbons) History Chief Complaint: Neck and sternal pain. (Horace Gibbons) Interval History A 64 year old gentleman who apparently had a syncopal episode while he was at a bar and fell back and struck his head. He relates that he only had 1 1/2 beers prior to this and was not really intoxicated. He does have a history of syncopal episodes. Last time he relates that he had a syncopal episode was about three months. He was diagnosed with atrial fibrillation a year ago. He was admitted also last month with atrial fibrillation with a rapid ventricular response and was seen by Dr. Hinojosa from cardiology. He relates that he is on blood thinners, although these are very expensive and he has no job or insurance and cannot afford them. He complains of neck pain. He initially had some numbness in his left hand, but this has resolved. He also complains of some anterior chest wall area pain. He was evaluated by the emergency room physician on arrival to [facility] and head CT scan is negative for any intracranial abnormality. He does have, on the CT scan of the cervical spine, a C2 fracture that partially extends to the base of the dens as well as the lateral mass in the right side with involvement of the foramen and transversarium. There is slight retropulsion of the C2 fracture moves posteriorly into the spinal canal. 05/02/17: Pt awake and alert. Complains of neck and sternal pain. No radiculopathy in UEs. Pt has intermittent paresthesias in left 1st and 2nd fingers primarily which he states is not new and has had prior to his fall. No numbness or paresthesias in UEs otherwise. No abdominal pain. No weakness that he has noticed but he is resting in bed. [place] cervical collar intact. 05/03/17: Pt awake, alert, with some confusion and agitation. Complains of neck and sternal pain. Neck pain extends up into the right posterior head. 05/05/17: Pt awake and alert. Less confusion and agitation this morning. Complains of neck pain extending into the right side of his head. 05/06/17: Pt awake and alert. Complains of neck pain and head pain that is worse when moving. Worked with PT to get oob to chair. 05/07/17: Pt awake and alert. Neck pain improving. Pt remains on Diltiazem IV weaning/converting to po. No radiculopathy in UEs. Stable chronic intermittent paresthesias in left 1-3 fingers and some forearm that improves with movement of extremity. (Horace Gibbons) Review of Systems General: Negative for: fever, chills, insomnia Respiratory: Negative for: shortness of breath, cough, sputum Cardiovascular: Negative for: chest pain Gastrointestinal: Negative for: nausea, vomitting, diarrhea, constipation ( Horace Gibbons) Exam Results Vital Signs Date Time Temp Pulse Resp B/P (MAP) Pulse Ox O2 Delivery O2 Flow Rate FiO2 05/07/17 08:45 96 21 05/07/17 08:00 98.0 81 16 121/63 (82) 05/07/17 07:00 Room Air 05/05/17 08:43 3.00 Intake and Output 05/07/17 05/07/17 05/08/17 08:00 16:00 00:00 Intake Total 120 ml Output Total 200 ml Balance -80 ml (Horace Gibbons) Physical Examination General: Pt resting in bed with less agitation. Eyes: Pupils 3mm bilaterally, reactive bilaterally. Resp: upper lung yang clearing, lower limited from halo vest. Heart: Irregular. Mild tachycardic. On Diltiazem IV. no murmurs. Abd: Soft positive bs Skin: No cyanosis or erythema. SCDs in place. Muscle: Moves all 4 extremities, strength appears 5/5 sitting up in bed. Halo in place with clean pin sites. Neuro: Pt awake and alert. Follows commands well. Speech clear and appropriate. Pupils equal. Sensation intact in UEs and LEs to light touch. (Horace Gibbons) Lab, Micro, Other Results Laboratory Tests Test 05/07/17 04:17 White Blood Count 6.5 TH/MM3 Red Blood Count 3.19 MIL/MM3 Hemoglobin 12.1 GM/DL Hematocrit 35.4 % Mean Corpuscular Volume 110.9 FL Mean Corpuscular Hemoglobin 38.1 PG Mean Corpuscular Hemoglobin Concent 34.3 % Red Cell Distribution Width 13.6 % Platelet Count 207 TH/MM3 Mean Platelet Volume 6.9 FL Neutrophils (%) (Auto) 67.3 % Lymphocytes (%) (Auto) 15.2 % Monocytes (%) (Auto) 16.6 % Eosinophils (%) (Auto) 0.6 % Basophils (%) (Auto) 0.3 % Neutrophils # (Auto) 4.4 TH/MM3 Lymphocytes # (Auto) 1.0 TH/MM3 Monocytes # (Auto) 1.1 TH/MM3 Eosinophils # (Auto) 0.0 TH/MM3 Basophils # (Auto) 0.0 TH/MM3 CBC Comment DIFF FINAL Differential Comment Blood Urea Nitrogen 17 MG/DL Creatinine 0.82 MG/DL Random Glucose 91 MG/DL Calcium Level 8.5 MG/DL Sodium Level 139 MEQ/L Potassium Level 3.3 MEQ/L Chloride Level 103 MEQ/L Carbon Dioxide Level 27.8 MEQ/L Anion Gap 8 MEQ/L Estimat Glomerular Filtration Rate 96 ML/MIN Laboratory Tests Test 05/07/17 04:17 White Blood Count 6.5 TH/MM3 Red Blood Count 3.19 MIL/MM3 Hemoglobin 12.1 GM/DL Hematocrit 35.4 % Mean Corpuscular Volume 110.9 FL Mean Corpuscular Hemoglobin 38.1 PG Mean Corpuscular Hemoglobin Concent 34.3 % Red Cell Distribution Width 13.6 % Platelet Count 207 TH/MM3 Mean Platelet Volume 6.9 FL Neutrophils (%) (Auto) 67.3 % Lymphocytes (%) (Auto) 15.2 % Monocytes (%) (Auto) 16.6 % Eosinophils (%) (Auto) 0.6 % Basophils (%) (Auto) 0.3 % Neutrophils # (Auto) 4.4 TH/MM3 Lymphocytes # (Auto) 1.0 TH/MM3 Monocytes # (Auto) 1.1 TH/MM3 Eosinophils # (Auto) 0.0 TH/MM3 Basophils # (Auto) 0.0 TH/MM3 CBC Comment DIFF FINAL Differential Comment Blood Urea Nitrogen 17 MG/DL Creatinine 0.82 MG/DL Random Glucose 91 MG/DL Calcium Level 8.5 MG/DL Sodium Level 139 MEQ/L Potassium Level 3.3 MEQ/L Chloride Level 103 MEQ/L Carbon Dioxide Level 27.8 MEQ/L Anion Gap 8 MEQ/L Estimat Glomerular Filtration Rate 96 ML/MIN (Horace Gibbons) Medical Decision Making Impression and Plan A: 62 y/o M with C2 partial odontoid fracture that extends to the base and into the body as well as a right C2 slightly displaced lateral mass fracture involving the foramen transversarium. s/p halo placement. 2. Recurrent syncopal episodes. 3. Atrial fibrillation with rapid ventricular response. 4. History of orthostatic hypotension 5. History of alcohol abuse. 6. Sternal fracture P: Continue to monitor Neuro exam and vitals. Continue with DVT mechanical prophylaxis. Continue with DT prophylaxis with Librium. continue with rehab efforts Pt will need follow up x-rays every 6 weeks for 4 months. weaning/converting of Diltiazem IV to po. (Horace Gibbons) Attending Statement The exam, history, and the medical decision-making described in the above note were completed with the assistance of the mid-level provider. I reviewed and agree with the findings presented. I attest that I had a [id number] encounter with the patient on the same day, and personally performed and documented my assessment and findings in the medical record. Stable examination. Still on Cardizem drip for heart rate control. He will need halo for the cervical fracture next to two to three months. Follow-up in office in 6 weeks. At this point transfer care to the medical service and discharge once medically stable. (Giancarlo Dodd MD) Horace Gibbons May 07, 2017 09:36 Giancarlo Dodd MD May 07, 2017 15:47
--- NOTE | 2017-05-07 12:02 | HHI.CCPN ---
Subjective Remarks/Hospital Course This is a 62-year-old male. Date of admission 05/01/2017. Date of consultation 05/01/2017. Past history includes atrial fibrillation, alcoholism , tobacco abuse and THC use. Today, he assumed 1-1/2 beers as well as 1 and half shots of alcohol when he stood up to urinate and passed out. He says he hit the back of his head. He complains of neck pain. He denies any weakness of his extremities. He says he did feel some tingling in his left arm, but this has resolved. No loss of consciousness. EtOH level 130 CT C-spine revealed a C2 fracture at the base of the dens ex- ankle lateral mass of C2 with the 4 mm retropulsed segment. Also fracture the foramen magnum. CT brain revealed a small posterior scalp hematoma. Dr. Dodd was notified. Plans for halo likely in a.m. Patient is currently in atrial fibrillation RVR. Has been evaluation by Dr. Hinojosa in the past. CHADS VASC2 currently 1 Currently on a diltiazem drip at 5 mg now for rate control. Denies chest pain 05/02: Complaining of pain and anxiety. Currently no neurological deficits. Noted horizontal fracture inferior sternum. On CT chest. 05/03: Remains atrial fibrillation off diltiazem drip. Status post halo placement today. Appears to go into early DTs. Currently resting in chair in no acute distress nasal cannula. Some coarse breath sounds that do clear with cough. 05/04: On 2-3 L normal saline overnight. Currently in simple mask due to desaturations while sleeping. Heart rate irregular but rate controlled. Continues with coarse transmitted upper airway sounds. Patient able to cough and clear secretions with self Yankauer suctioning. Subjective 05/05: Afebrile. Currently requiring 4 L nasal cannula.. Voice much improved today. Sitting up in bed eating breakfast. Less anxious. 05/06: Breathing comfortably, talkative, voice clear. No obstruction. Strong cough effort. 05/07: More oriented, less confused. Breathing comfortably. Protects airway. Objective Vital Signs Date Time Temp Pulse Resp B/P (MAP) Pulse Ox O2 Delivery O2 Flow Rate FiO2 05/07/17 10:00 90 05/07/17 08:45 96 21 05/07/17 08:00 98.0 16 121/63 (82) 05/07/17 07:00 Room Air 05/05/17 08:43 3.00 Intake and Output 05/07/17 05/07/17 05/08/17 08:00 16:00 00:00 Intake Total 120 ml Output Total 200 ml Balance -80 ml Result Diagram: 05/07/17 0417 05/07/17 0417 Other Results Microbiology Date/Time Source Procedure Growth Status 05/05/17 15:20 Sputum Expectorated Sputum Gram Stain - Final Complete 05/05/17 15:20 Sputum Expectorated Sputum Sputum Culture - Final MODERATE GROWTH NORMAL RESPIRATORY JUSTO Complete 05/05/17 15:20 Nasal Aspirate Influenza Types A,B Antigen (JAMES) - Final NEGATIVE FOR FLU A AND B ANTIGEN.... Complete Imaging Last Impressions Chest X-Ray 05/04/17 0000 Signed Impressions: Service Date/Time: Thursday, May 04, 2017 09:02 - CONCLUSION: Negative for acute process Abdiaziz Cheng MD FACR Cervical Spine X-Ray 05/03/17 0000 Signed Impressions: Service Date/Time: Wednesday, May 03, 2017 11:31 - CONCLUSION: Findings as above. Abdiaziz Cheng MD FACR Head CT 05/01/17 1515 Signed Impressions: Service Date/Time: Monday, May 01, 2017 15:27 - CONCLUSION: 1. No acute intracranial abnormality. 2. Small posterior scalp soft tissue hematoma. 3. Mild bilateral maxillary sinus disease. Aries Fowler MD Cervical Spine CT 05/01/17 1515 Signed Impressions: Service Date/Time: Monday, May 01, 2017 15:30 - CONCLUSION: 1. Abnormal examination. Minimally displaced C2 fracture extending from the base of the dens and the lateral mass of C2 with approximate 4 mm posterior retropulsed fragment. Fracture also extends through right transverse foramen which can result in possible vertebral artery injury. CTA examination may be performed as clinically warranted. Aries Fowler MD Neck CTA 05/01/17 0000 Signed Impressions: Service Date/Time: Monday, May 01, 2017 17:26 - CONCLUSION: 1. Negative exam. The right vertebral artery is patent and intact. Papo Lee MD Chest CT 05/01/17 0000 Signed Impressions: Service Date/Time: Monday, May 01, 2017 20:24 - CONCLUSION: 1. Mild right basilar atelectasis. 2. No evidence of pneumothorax. 3. Horizontal fracture through the inferior sternum with some mild soft tissue thickening in the substernal soft tissues Papo Lee MD Objective Remarks GENERAL: 62-year-old male resting in chair in halo in no acute distress SKIN: Warm and dry. Posterior scalp laceration noted HEAD: Posterior scalp hematoma noted. Normocephalic. Currently in halo EYES: Pupils equal and round around 3 mm bilaterally and reactive. No scleral icterus. No injection or drainage. ENT: No nasal bleeding or discharge. Mucous membranes pink and moist. NECK: Trachea midline. Airway widely patent. CARDIOVASCULAR: Irreg. S1, S2. Without murmur. No JVD. RESPIRATORY: Few crackles appreciated throughout upper lung yang. Good alexis air movement. Sternum tender to palpation GASTROINTESTINAL: Abdomen soft, non-tender, nondistended. Bowel sounds are appreciated MUSCULOSKELETAL: Extremities without without significant edema. No obvious deformities. Well perfused. NEUROLOGICAL: Awake and alert. No obvious cranial nerve deficits. Motor grossly within normal limits. Five out of 5 muscle strength in the arms and legs. A/P Assessment and Plan Neuro/Psych: Cervical C2 type 2 posterior displaced odontoid fracture/right C2 lateral mass fracture EtOH THC use Posterior scalp hematoma 05/03 - close reduction with manipulation and fixation of C2 fracture/halo placement secondary to cervical CT 2 posterior displaced odontoid fracture/ right C2 lateral mass fracture by Dr. Dodd CT brain - small posterior scalp hematoma CT C-spine - C2 fracture - base of dens -lateral mass of C2 with 4 mm retropulsion segment. Fracture fragment magnum Followed by Dr. Dodd. Tramadol 50 mg as needed for pain management Morphine sulfate 2 mg every 2 hours hydromorphone 2 mg every 4 hours for breakthrough pain Early on thiamine 100 mg daily, folate 1 mg daily and multivitamin one tablet for EtOH use Monitor for DVT. CIWA protocol initiated Patient states he has no allergy to acetaminophen. States that Percocet caused an "itching mustache" in past Continue on chlordiazepoxide 10 mg 3 times a day for agitation On cyclobenzaprine 10 mg every 8 hours when necessary muscle relaxant CV: Atrial fibrillation with rapid ventricular response History of hypotension with dysautonomia 2-D echocardiogram 03/27 revealed ejection fraction 50-55%. Mild LVH. At home on diltiazem 30 by mouth 4 times a day. Hold increased to 60 mg 4 times daily in attempt to wean off Cardizem drip currently at 5 mg an hour Currently on digoxin 0.125 mill grams daily. Recheck dig level in a.m. 05/06 Continue Midodrine 5 mg 3 times a day for dysautonomia Check troponin initially 0.02. Evaluated by Dr. Jay. CHADS VASc2 score 1. Recommended aspirin only. 81 mg daily Resp: Tobaccoism Nasal cannula to maintain saturations greater than equal to 92% Incentive spirometry while awake Tobacco sensation will be encouraged with educational booklet provided for him to self evaluate Scheduled albuterol/ipratropium aerosols every 6 hours albuterol aerosols every 2 hours when necessary dyspnea Incentive spirometry while awake A cappella/pep Every 6 hours Added guaifenesin 600 mg twice a day and hypertonic saline aerosols every 6 hours thin secretions GI: Gastroesophageal reflux disease Hypoalbuminemia Elevated AST/total bilirubin On regular diet On pantoprazole 40 milligrams by mouth daily for GI prophylaxis Docusate sodium/senna 1 tablet twice a day for bowel regimen : No indication for Foster catheter Endo: Hyperglycemia Sliding-scale insulin if indicated to maintain euglycemia Check TSH - 1.63 Renal: Monitor urine output Accurate I's and O's. Heme: Macrocytosis Thrombocytopenia Monitor CBC daily. Follow trends Follow-up on coags Currently on aspirin 81 mg daily. Resume by neurosurgery ID: Monitor for infection Sputum sample ordered results pending. Influenza pending. Currently on piperacillin/tazobactam 4.5 g IV every 6 hours day #5 MSK: OA Inferior horizontal sternal fracture PT evaluate and treat when appropriate FEN: Hypophosphatemia Hyponatremia Replace electrolytes per ICU electrolyte protocol 30 mmol sodium phosphorus, 40 mEq KCl and 2 g mag sulfate IV times 1. Recheck in a.m. Access - Utilize peripheral IV. Central line if indicated Prophylaxis - GI - pantoprazole - DVT - SCD/holding pharmacological prophylaxis until okay with neurosurgery Overall impression: Warm and well perfused. Protects airway well. Marcin Schmid MD May 07, 2017 12:02
--- NOTE | 2017-05-07 15:29 | PD.CARD.PN ---
Subjective Subjective Remarks No CP or SOB Objective Medications Current Medications Medications (Trade) Dose Ordered Sig/Michael Route Start Time Stop Time Status Last Admin (Ecotrin Ec) 81 mg DAILY PO 05/02/17 09:00 05/07/17 08:14 (Proamatine) 5 mg TID@07,,17 PO 05/01/17 17:30 05/07/17 11:08 Diltiazem HCl 125 mg/Sodium Chloride 125 ml @ 5 mls/hr TITRATE PRN IV 05/01/17 16:45 05/06/17 17:30 (Ativan Inj) 1 mg Q1H PRN IV PUSH 05/01/17 17:30 (Mag-Al Plus Susp Liq) 30 ml Q6H PRN PO 05/01/17 17:15 (Protonix) 40 mg DAILY PO 05/02/17 09:00 05/07/17 08:14 (Phenergan Inj) 25 mg Q4H PRN IM 05/01/17 17:15 Calcium Gluconate 1 gm/Sodium Chloride 110 ml @ 110 mls/hr UNSCH PRN IV 05/01/17 17:15 Potassium Chloride 100 ml @ 50 mls/hr UNSCH PRN IV 05/01/17 17:15 Magnesium Sulfate 2 gm/Sodium Chloride 104 ml @ 100 mls/hr UNSCH PRN IV 05/01/17 18:00 05/04/17 11:16 (Flexeril) 10 mg Q8H PRN PO 05/01/17 16:45 05/03/17 05:36 (Trandate Inj) 10 mg Q1H PRN IV PUSH 05/01/17 17:30 (Catapres) 0.1 mg Q6H PRN PO 05/01/17 17:15 (Ambien) 5 mg HS PRN PO 05/01/17 21:00 05/02/17 21:21 (Nicole-Colace) 1 tab BID PO 05/01/17 21:00 05/07/17 08:14 (Milk Of Magnesia Liq) 30 ml Q12H PRN PO 05/01/17 17:15 (Senokot) 17.2 mg Q12H PRN PO 05/01/17 17:15 (Dulcolax Supp) 10 mg DAILY PRN RECTAL 05/01/17 17:15 (Lactulose Liq) 30 ml DAILY PRN PO 05/01/17 17:15 (Ultram) 50 mg Q4H PRN PO 05/01/17 16:45 05/06/17 21:28 (Dilaudid) 2 mg Q4H PRN PO 05/01/17 16:45 05/07/17 05:59 (Librium) 10 mg TID PO 05/01/17 18:00 05/07/17 13:48 Potassium Chloride 100 ml @ 50 mls/hr Q2H PRN IV 05/01/17 17:30 Potassium Chloride 100 ml @ 50 mls/hr Q2H PRN IV 05/01/17 17:30 (K-Lyte Cl Eff) 50 meq UNSCH PRN PO 05/01/17 17:30 05/07/17 05:58 Potassium Chloride 100 ml @ 25 mls/hr UNSCH PRN IV 05/01/17 17:30 Potassium Chloride 100 ml @ 50 mls/hr Q2H PRN IV 05/01/17 17:30 05/04/17 13:57 Magnesium Sulfate 4 gm/Sodium Chloride 100 ml @ 50 mls/hr UNSCH PRN IV 05/01/17 17:30 (Mag-Ox) 800 mg UNSCH PRN PO 05/01/17 17:30 Magnesium Sulfate 2 gm/Sodium Chloride 100 ml @ 50 mls/hr UNSCH PRN IV 05/01/17 17:30 (K-Phos) 2,000 mg Q4H PRN PO 05/01/17 17:30 Sodium Phosphate 30 mmol/Sodium Chloride 250 ml @ 42 mls/hr UNSCH PRN IV 05/01/17 17:30 05/05/17 08:55 (K-Phos) 2,000 mg UNSCH PRN PO/TUBE 05/01/17 17:30 Potassium Phosphate 30 mmol/ Sodium Chloride 260 ml @ 42 mls/hr UNSCH PRN IV 05/01/17 17:30 (NS Flush) 2 ml UNSCH PRN IV FLUSH 05/01/17 17:45 (NS Flush) 2 ml BID IV FLUSH 05/01/17 21:00 05/07/17 08:15 (Zofran Inj) 4 mg Q6H PRN IV PUSH 05/01/17 17:45 Miscellaneous Information 1 Q361D XX 05/01/17 17:45 (Chlorhexidine 2% Cloth) Taper DAILY@04 TOP 05/02/17 04:00 04/28/18 03:59 (Chlorhexidine 2% Cloth) 3 pack UNSCH PRN TOP 05/01/17 17:45 (Morphine Inj) 2 mg Q2H PRN IV PUSH 05/02/17 10:45 05/07/17 03:56 (Ativan) 1 mg Q4H PRN PO 05/03/17 07:30 05/03/17 23:26 (Ativan Inj) 1 mg Q4H PRN IV PUSH 05/03/17 07:30 (Ativan) 2 mg Q2H PRN PO 05/03/17 07:30 05/03/17 16:15 (Ativan Inj) 2 mg Q2H PRN IV PUSH 05/03/17 07:30 (Ativan Inj) 2 mg Q1H PRN IV PUSH 05/03/17 07:30 (Ativan Inj) 2 mg Q15M PRN IV PUSH 05/03/17 07:30 (Albuterol Neb) 2.5 mg Q2HR NEB PRN NEB 05/03/17 14:00 (Duoneb Neb) 1 ampule Q6HR NEB NEB 05/03/17 16:00 05/07/17 08:45 (Lanoxin) 0.125 mg DAILY PO 05/04/17 09:00 05/07/17 08:14 (Symbicort 160-4.5 Mcg Inh) 2 puff Q12HR INH 05/03/17 21:00 05/07/17 08:15 (Sodium Chloride 3% Neb) 2 ml Q6HR NEB NEB 05/03/17 22:00 05/08/17 21:59 05/07/17 08:46 (Mucinex Er) 600 mg BID PO 05/03/17 21:00 05/07/17 08:14 Piperacillin Sod/ Tazobactam Sod 100 ml @ 200 mls/hr Q6H IV 05/03/17 18:00 05/07/17 11:08 (Vitamin B1) 100 mg DAILY PO 05/05/17 09:00 05/07/17 08:14 (Folate) 1 mg DAILY PO 05/04/17 09:00 05/07/17 08:14 (Theragran) 1 tab DAILY PO 05/04/17 09:00 05/07/17 08:14 (Miralax) 17 gm DAILY PO 05/05/17 09:00 05/07/17 08:13 (Lactulose Liq) 30 ml DAILY PO 05/05/17 09:00 05/07/17 08:13 (Cardizem) 60 mg Q6HR PO 05/05/17 12:00 05/07/17 11:08 Vital Signs / I&O Vital Signs Date Time Temp Pulse Resp B/P (MAP) Pulse Ox O2 Delivery O2 Flow Rate FiO2 05/07/17 14:00 99 05/07/17 12:00 94 05/07/17 12:00 98.9 95 20 125/68 (87) 95 05/07/17 10:00 90 05/07/17 08:45 96 21 05/07/17 08:00 98.0 81 16 121/63 (82) 97 05/07/17 08:00 81 05/07/17 07:00 96 Room Air 05/07/17 06:59 14 05/07/17 06:00 94 05/07/17 05:14 98 21 05/07/17 04:01 17 05/07/17 04:00 98.1 93 15 119/73 (88) 95 05/07/17 04:00 93 05/07/17 02:00 76 05/07/17 00:00 76 05/07/17 00:00 98.0 80 20 116/80 (92) 94 05/06/17 22:28 23 05/06/17 22:00 88 05/06/17 20:36 93 21 05/06/17 20:00 98.7 76 12 123/76 (92) 05/06/17 20:00 76 05/06/17 19:00 93 Room Air 28 05/06/17 18:00 78 05/06/17 17:30 88 132/81 05/06/17 16:00 98.2 90 15 148/85 (106) 95 05/06/17 16:00 90 I/O 05/06/17 05/06/17 05/06/17 05/07/17 05/07/17 05/07/17 07:00 15:00 23:00 07:00 15:00 23:00 Intake Total 240 ml 100 ml 680 ml 120 ml Output Total 550 ml 425 ml 200 ml Balance -310 ml 100 ml 255 ml -80 ml Intake Oral 240 ml 480 ml 120 ml IV Total 100 ml 200 ml Output Urine Total 550 ml 425 ml 200 ml # Bowel Movements 0 0 0 Physical Exam GENERAL: In NAD SKIN: Warm and dry. HEAD: Normocephalic. Halo in place. EYES: No scleral icterus. No injection or drainage. NECK: Supple, trachea midline. No JVD or lymphadenopathy. CARDIOVASCULAR: Irreg, without murmurs, gallops, or rubs. RESPIRATORY: Breath sounds equal bilaterally. No accessory muscle use. GASTROINTESTINAL: Abdomen soft, non-tender, nondistended. MUSCULOSKELETAL: No cyanosis, or edema. Laboratory Laboratory Tests Test 05/07/17 04:17 White Blood Count 6.5 TH/MM3 Red Blood Count 3.19 MIL/MM3 Hemoglobin 12.1 GM/DL Hematocrit 35.4 % Mean Corpuscular Volume 110.9 FL Mean Corpuscular Hemoglobin 38.1 PG Mean Corpuscular Hemoglobin Concent 34.3 % Red Cell Distribution Width 13.6 % Platelet Count 207 TH/MM3 Mean Platelet Volume 6.9 FL Neutrophils (%) (Auto) 67.3 % Lymphocytes (%) (Auto) 15.2 % Monocytes (%) (Auto) 16.6 % Eosinophils (%) (Auto) 0.6 % Basophils (%) (Auto) 0.3 % Neutrophils # (Auto) 4.4 TH/MM3 Lymphocytes # (Auto) 1.0 TH/MM3 Monocytes # (Auto) 1.1 TH/MM3 Eosinophils # (Auto) 0.0 TH/MM3 Basophils # (Auto) 0.0 TH/MM3 CBC Comment DIFF FINAL Differential Comment Blood Urea Nitrogen 17 MG/DL Creatinine 0.82 MG/DL Random Glucose 91 MG/DL Calcium Level 8.5 MG/DL Sodium Level 139 MEQ/L Potassium Level 3.3 MEQ/L Chloride Level 103 MEQ/L Carbon Dioxide Level 27.8 MEQ/L Anion Gap 8 MEQ/L Estimat Glomerular Filtration Rate 96 ML/MIN Assessment and Plan Problem List: (1) Syncope ICD Codes: R55 - Syncope and collapse Status: Chronic (2) Atrial fibrillation with RVR ICD Codes: I48.91 - Unspecified atrial fibrillation Status: Acute (3) C2 cervical fracture ICD Codes: S12.100A - Unspecified displaced fracture of second cervical vertebra, initial encounter for closed fracture Status: Acute (4) Tobacco abuse ICD Codes: Z72.0 - Tobacco abuse Status: Acute (5) Alcohol abuse ICD Codes: F10.10 - Alcohol abuse Status: Chronic Assessment and Plan No new cardiac issues. A fib rate remains well controlled. No angina or CHF symptoms. Continue current program. Problem Qualifiers (1) C2 cervical fracture: Qualified Codes: S12.100A - Unspecified displaced fracture of second cervical vertebra, initial encounter for closed fracture Ramon Jay MD May 07, 2017 15:29
[2017-05-07] MEDS: DILTIAZEM INJ 125 MG in SODIUM CHLORIDE 0.9% INJ 100 ML IV PRN (20:11)
[2017-05-07] MEDS: CYCLOBENZAPRINE HCL 10 MG TAB PO PRN (20:11)
[2017-05-07] MEDS: ZOLPIDEM TARTRATE 5 MG TAB PO PRN (20:11)
[2017-05-07] MEDS: traMADol HCL 50 MG TAB PO PRN (20:11)
[2017-05-07] MEDS: RESP: ALBUTEROL 2.5 MG/3 ML NEB (PRN) NEB (21:22)
[2017-05-08] VITALS (14 sets, daily range): BP systolic 120–134; BP diastolic 63–90; PULSE 78–107; RESP 13–24; TEMP 98.3–98.9; O2SAT 92–97
[2017-05-08] MEDS: HYDROmorphone HCL 2 MG TAB PO PRN ×3 (00:51→12:23)
[2017-05-08] MEDS: PIPERACIL-TAZO 4.5 GM PREMIX 100 ML IV SCH ×4 (00:51→17:50)
[2017-05-08] MEDS: DILTIAZEM HCL 60 MG TAB PO SCH ×3 (00:51→12:14)
[2017-05-08] MEDS: RESP: SODIUM CHLORIDE 3% 4 ML NEB NEB SCH ×4 (03:59→19:49)
[2017-05-08] MEDS: CHLORHEXIDINE GLUCONATE 2 % 1 PACK (2 CLOTHS) TOP SCH (04:00)
[2017-05-08] MEDS: CYCLOBENZAPRINE HCL 10 MG TAB PO PRN (04:59)
[2017-05-08] MEDS: MIDODRINE 5 MG TAB PO SCH ×3 (05:00→17:49)
[2017-05-08 05:46] LABS: BICARBONATE 25.2 MEQ/L (21.0-32.0); CALCIUM 8.9 MG/DL (8.5-10.1); CREATININE 0.85 MG/DL (0.60-1.30)
--- NOTE | 2017-05-08 08:55 | HHI.CCPN ---
Subjective Remarks/Hospital Course This is a 62-year-old male. Date of admission 05/01/2017. Date of consultation 05/01/2017. Past history includes atrial fibrillation, alcoholism , tobacco abuse and THC use. Today, he assumed 1-1/2 beers as well as 1 and half shots of alcohol when he stood up to urinate and passed out. He says he hit the back of his head. He complains of neck pain. He denies any weakness of his extremities. He says he did feel some tingling in his left arm, but this has resolved. No loss of consciousness. EtOH level 130 CT C-spine revealed a C2 fracture at the base of the dens ex- ankle lateral mass of C2 with the 4 mm retropulsed segment. Also fracture the foramen magnum. CT brain revealed a small posterior scalp hematoma. Dr. Dodd was notified. Plans for halo likely in a.m. Patient is currently in atrial fibrillation RVR. Has been evaluation by Dr. Hinojosa in the past. CHADS VASC2 currently 1 Currently on a diltiazem drip at 5 mg now for rate control. Denies chest pain 05/02: Complaining of pain and anxiety. Currently no neurological deficits. Noted horizontal fracture inferior sternum. On CT chest. 05/03: Remains atrial fibrillation off diltiazem drip. Status post halo placement today. Appears to go into early DTs. Currently resting in chair in no acute distress nasal cannula. Some coarse breath sounds that do clear with cough. 05/04: On 2-3 L normal saline overnight. Currently in simple mask due to desaturations while sleeping. Heart rate irregular but rate controlled. Continues with coarse transmitted upper airway sounds. Patient able to cough and clear secretions with self Yankauer suctioning. Subjective 05/05: Afebrile. Currently requiring 4 L nasal cannula.. Voice much improved today. Sitting up in bed eating breakfast. Less anxious. 05/06: Breathing comfortably, talkative, voice clear. No obstruction. Strong cough effort. 05/07: More oriented, less confused. Breathing comfortably. Protects airway. 05/08: Oriented and conversant. Protects airway well. Work on disposition. Objective Vital Signs Date Time Temp Pulse Resp B/P (MAP) Pulse Ox O2 Delivery O2 Flow Rate FiO2 05/08/17 06:00 80 05/08/17 06:00 117/68 05/08/17 04:00 98.8 22 92 05/08/17 04:00 21 05/07/17 19:00 Room Air 05/05/17 08:43 3.00 Intake and Output 05/08/17 05/08/17 05/09/17 08:00 16:00 00:00 Intake Total 652 ml Output Total 350 ml Balance 302 ml Result Diagram: 05/07/17 0417 05/08/17 0443 Other Results Microbiology Date/Time Source Procedure Growth Status 05/05/17 15:20 Sputum Expectorated Sputum Gram Stain - Final Complete 05/05/17 15:20 Sputum Expectorated Sputum Sputum Culture - Final MODERATE GROWTH NORMAL RESPIRATORY JUSTO Complete 05/05/17 15:20 Nasal Aspirate Influenza Types A,B Antigen (JAMES) - Final NEGATIVE FOR FLU A AND B ANTIGEN.... Complete Imaging Last Impressions Chest X-Ray 05/04/17 0000 Signed Impressions: Service Date/Time: Thursday, May 04, 2017 09:02 - CONCLUSION: Negative for acute process Abdiaziz Cheng MD FACR Cervical Spine X-Ray 05/03/17 0000 Signed Impressions: Service Date/Time: Wednesday, May 03, 2017 11:31 - CONCLUSION: Findings as above. Abdiaziz Cheng MD FACR Head CT 05/01/17 1515 Signed Impressions: Service Date/Time: Monday, May 01, 2017 15:27 - CONCLUSION: 1. No acute intracranial abnormality. 2. Small posterior scalp soft tissue hematoma. 3. Mild bilateral maxillary sinus disease. Aries Fowler MD Cervical Spine CT 05/01/17 1515 Signed Impressions: Service Date/Time: Monday, May 01, 2017 15:30 - CONCLUSION: 1. Abnormal examination. Minimally displaced C2 fracture extending from the base of the dens and the lateral mass of C2 with approximate 4 mm posterior retropulsed fragment. Fracture also extends through right transverse foramen which can result in possible vertebral artery injury. CTA examination may be performed as clinically warranted. Aries Fowler MD Neck CTA 05/01/17 0000 Signed Impressions: Service Date/Time: Monday, May 01, 2017 17:26 - CONCLUSION: 1. Negative exam. The right vertebral artery is patent and intact. Papo Lee MD Chest CT 05/01/17 0000 Signed Impressions: Service Date/Time: Monday, May 01, 2017 20:24 - CONCLUSION: 1. Mild right basilar atelectasis. 2. No evidence of pneumothorax. 3. Horizontal fracture through the inferior sternum with some mild soft tissue thickening in the substernal soft tissues Papo Lee MD Objective Remarks GENERAL: 62-year-old male resting in chair in halo in no acute distress SKIN: Warm and dry. Posterior scalp laceration noted HEAD: Posterior scalp hematoma noted. Normocephalic. Currently in halo EYES: Pupils equal and round around 2 mm bilaterally and reactive. No scleral icterus. No injection or drainage. ENT: No nasal bleeding or discharge. Mucous membranes pink and moist. NECK: Trachea midline. Airway widely patent. CARDIOVASCULAR: Irreg. S1, S2. Without murmur. No JVD. RESPIRATORY: Few crackles appreciated throughout upper lung yang. Good alexis air movement. Sternum tender to palpation GASTROINTESTINAL: Abdomen soft, non-tender, nondistended. Bowel sounds are appreciated MUSCULOSKELETAL: Extremities without without significant edema. No obvious deformities. Well perfused. NEUROLOGICAL: Awake and alert. Conversant. No obvious cranial nerve deficits. Motor grossly within normal limits. Five out of 5 muscle strength in the arms and legs. A/P Assessment and Plan Neuro/Psych: Cervical C2 type 2 posterior displaced odontoid fracture/right C2 lateral mass fracture EtOH THC use Posterior scalp hematoma 05/03 - close reduction with manipulation and fixation of C2 fracture/halo placement secondary to cervical CT 2 posterior displaced odontoid fracture/ right C2 lateral mass fracture by Dr. Dodd CT brain - small posterior scalp hematoma CT C-spine - C2 fracture - base of dens -lateral mass of C2 with 4 mm retropulsion segment. Fracture fragment magnum Followed by Dr. Dodd. Tramadol 50 mg as needed for pain management Morphine sulfate 2 mg every 2 hours hydromorphone 2 mg every 4 hours for breakthrough pain Early on thiamine 100 mg daily, folate 1 mg daily and multivitamin one tablet for EtOH use Monitor for DVT. CIWA protocol initiated Patient states he has no allergy to acetaminophen. States that Percocet caused an "itching mustache" in past Continue on chlordiazepoxide 10 mg 3 times a day for agitation On cyclobenzaprine 10 mg every 8 hours when necessary muscle relaxant CV: Atrial fibrillation with rapid ventricular response History of hypotension with dysautonomia 2-D echocardiogram 03/27 revealed ejection fraction 50-55%. Mild LVH. At home on diltiazem 30 by mouth 4 times a day. Hold increased to 60 mg 4 times daily in attempt to wean off Cardizem drip currently at 5 mg an hour Currently on digoxin 0.125 mill grams daily. Recheck dig level in a.m. 05/06 Continue Midodrine 5 mg 3 times a day for dysautonomia Check troponin initially 0.02. Evaluated by Dr. Jay. CHADS VASc2 score 1. Recommended aspirin only. 81 mg daily Resp: Tobaccoism Nasal cannula to maintain saturations greater than equal to 92% Incentive spirometry while awake Tobacco sensation will be encouraged with educational booklet provided for him to self evaluate Scheduled albuterol/ipratropium aerosols every 6 hours albuterol aerosols every 2 hours when necessary dyspnea Incentive spirometry while awake A cappella/pep Every 6 hours Added guaifenesin 600 mg twice a day and hypertonic saline aerosols every 6 hours thin secretions GI: Gastroesophageal reflux disease Hypoalbuminemia Elevated AST/total bilirubin On regular diet On pantoprazole 40 milligrams by mouth daily for GI prophylaxis Docusate sodium/senna 1 tablet twice a day for bowel regimen : No indication for Foster catheter Endo: Hyperglycemia Sliding-scale insulin if indicated to maintain euglycemia Check TSH - 1.63 Renal: Monitor urine output Accurate I's and O's. Heme: Macrocytosis Thrombocytopenia Monitor CBC daily. Follow trends Follow-up on coags Currently on aspirin 81 mg daily. Resume by neurosurgery ID: Monitor for infection Sputum sample ordered results pending. Influenza pending. Currently on piperacillin/tazobactam 4.5 g IV every 6 hours day #5 MSK: OA Inferior horizontal sternal fracture PT evaluate and treat when appropriate FEN: Hypophosphatemia Hyponatremia Replace electrolytes per ICU electrolyte protocol 30 mmol sodium phosphorus, 40 mEq KCl and 2 g mag sulfate IV times 1. Recheck in a.m. Access - Utilize peripheral IV. Central line if indicated Prophylaxis - GI - pantoprazole - DVT - SCD/holding pharmacological prophylaxis until okay with neurosurgery Overall impression: Warm and well perfused. Protects airway well. Marcin Schmid MD May 08, 2017 08:55
[2017-05-08] MEDS: SODIUM CHLORIDE 0.9% FLUSH 10 ML FLUSH IV FLUSH SCH ×2 (09:00→21:03)
[2017-05-08] MEDS: RESP: ALBUTEROL 2.5 MG/3 ML NEB (PRN) NEB ×3 (09:14→19:50)
[2017-05-08] MEDS: ASPIRIN EC 81 MG TABEC PO SCH (09:36)
[2017-05-08] MEDS: LACTULOSE SYRUP 20 GM/30 ML CUP PO SCH (09:36)
[2017-05-08] MEDS: POLYETHYLENE GLYCOL 17 GM PKG PO SCH (09:36)
[2017-05-08] MEDS: DOCUSATE SODIUM 50 MG/SENNA 8.6 MG TAB PO SCH ×2 (09:36→21:03)
[2017-05-08] MEDS: guaiFENesin E.R. 600 MG TAB PO SCH ×2 (09:37→21:03)
[2017-05-08] MEDS: DIGOXIN 0.125 MG TAB PO SCH (09:37)
[2017-05-08] MEDS: THIAMINE HCL 100 MG TAB PO SCH (09:37)
[2017-05-08] MEDS: PANTOPRAZOLE SOD 40 MG DELAYED RELEASE TAB PO SCH (09:37)
[2017-05-08] MEDS: MULTIVITAMIN TAB PO SCH (09:37)
[2017-05-08] MEDS: FOLIC ACID 1 MG TAB PO SCH (09:37)
[2017-05-08] MEDS: BUDESONIDE-FORMOTEROL 160/4.5 MCG INHALER INH SCH ×2 (09:38→21:03)
--- NOTE | 2017-05-08 10:33 | HHI.NSPN ---
(Horace Gibbons) History Chief Complaint: Neck and sternal pain. (Horace Gibbons) Interval History A 64 year old gentleman who apparently had a syncopal episode while he was at a bar and fell back and struck his head. He relates that he only had 1 1/2 beers prior to this and was not really intoxicated. He does have a history of syncopal episodes. Last time he relates that he had a syncopal episode was about three months. He was diagnosed with atrial fibrillation a year ago. He was admitted also last month with atrial fibrillation with a rapid ventricular response and was seen by Dr. Hinojosa from cardiology. He relates that he is on blood thinners, although these are very expensive and he has no job or insurance and cannot afford them. He complains of neck pain. He initially had some numbness in his left hand, but this has resolved. He also complains of some anterior chest wall area pain. He was evaluated by the emergency room physician on arrival to [facility] and head CT scan is negative for any intracranial abnormality. He does have, on the CT scan of the cervical spine, a C2 fracture that partially extends to the base of the dens as well as the lateral mass in the right side with involvement of the foramen and transversarium. There is slight retropulsion of the C2 fracture moves posteriorly into the spinal canal. 05/02/17: Pt awake and alert. Complains of neck and sternal pain. No radiculopathy in UEs. Pt has intermittent paresthesias in left 1st and 2nd fingers primarily which he states is not new and has had prior to his fall. No numbness or paresthesias in UEs otherwise. No abdominal pain. No weakness that he has noticed but he is resting in bed. [place] cervical collar intact. 05/03/17: Pt awake, alert, with some confusion and agitation. Complains of neck and sternal pain. Neck pain extends up into the right posterior head. 05/05/17: Pt awake and alert. Less confusion and agitation this morning. Complains of neck pain extending into the right side of his head. 05/06/17: Pt awake and alert. Complains of neck pain and head pain that is worse when moving. Worked with PT to get oob to chair. 05/07/17: Pt awake and alert. Neck pain improving. Pt remains on Diltiazem IV weaning/converting to po. No radiculopathy in UEs. Stable chronic intermittent paresthesias in left 1-3 fingers and some forearm that improves with movement of extremity. 05/08/17: Pt awake and alert. Continues with IV Diltiazem which is being placed on hold. Pt complains of right sided neck discomfort. No radiculopathy in UEs. Pin sites are clean and dry. Generalized weakness in all 4 extremities. (Horace Gibbons) Review of Systems General: Negative for: fever, chills, insomnia Respiratory: Negative for: shortness of breath, cough, sputum Cardiovascular: Positive for: chest pain (Sternal pain from fracture.) Gastrointestinal: Negative for: nausea, vomitting, diarrhea, constipation ( Horace Gibbons) Exam Results Vital Signs Date Time Temp Pulse Resp B/P (MAP) Pulse Ox O2 Delivery O2 Flow Rate FiO2 05/08/17 09:14 96 21 05/08/17 06:00 80 05/08/17 06:00 117/68 05/08/17 04:00 98.8 22 05/07/17 19:00 Room Air 05/05/17 08:43 3.00 Intake and Output 05/08/17 05/08/17 05/09/17 08:00 16:00 00:00 Intake Total 652 ml Output Total 350 ml Balance 302 ml (Horace Gibbons) Physical Examination General: Pt resting in bed with less agitation. Eyes: Pupils 3mm bilaterally, reactive bilaterally. Resp: upper lung yang clear, lower limited from halo vest. Heart: Irregular. Mild tachycardic. On Diltiazem IV. no murmurs. Abd: Soft positive bs Skin: No cyanosis or erythema. SCDs in place. Muscle: Moves all 4 extremities, strength appears 5/5 sitting up in bed. Halo in place with clean pin sites, no signs of infection. Neuro: Pt awake and alert. Follows commands well. Speech clear and appropriate. Pupils equal. Sensation intact in UEs and LEs to light touch. (Horace Gibbons) Lab, Micro, Other Results Last Impressions Chest X-Ray 05/06/17 0600 Signed Impressions: Service Date/Time: Saturday, May 06, 2017 02:32 - CONCLUSION: Slight CHF. K. Raul Catherine MD Cervical Spine X-Ray 05/03/17 0000 Signed Impressions: Service Date/Time: Wednesday, May 03, 2017 11:31 - CONCLUSION: Findings as above. Abdiaziz Cheng MD FACR Head CT 05/01/17 1515 Signed Impressions: Service Date/Time: Monday, May 01, 2017 15:27 - CONCLUSION: 1. No acute intracranial abnormality. 2. Small posterior scalp soft tissue hematoma. 3. Mild bilateral maxillary sinus disease. Aries Fowler MD Cervical Spine CT 05/01/17 1515 Signed Impressions: Service Date/Time: Monday, May 01, 2017 15:30 - CONCLUSION: 1. Abnormal examination. Minimally displaced C2 fracture extending from the base of the dens and the lateral mass of C2 with approximate 4 mm posterior retropulsed fragment. Fracture also extends through right transverse foramen which can result in possible vertebral artery injury. CTA examination may be performed as clinically warranted. Aries Fowler MD Neck CTA 05/01/17 0000 Signed Impressions: Service Date/Time: Monday, May 01, 2017 17:26 - CONCLUSION: 1. Negative exam. The right vertebral artery is patent and intact. Papo Lee MD Chest CT 05/01/17 0000 Signed Impressions: Service Date/Time: Monday, May 01, 2017 20:24 - CONCLUSION: 1. Mild right basilar atelectasis. 2. No evidence of pneumothorax. 3. Horizontal fracture through the inferior sternum with some mild soft tissue thickening in the substernal soft tissues Papo Lee MD Laboratory Tests Test 05/08/17 04:43 Blood Urea Nitrogen 19 MG/DL Creatinine 0.85 MG/DL Random Glucose 103 MG/DL Calcium Level 8.9 MG/DL Sodium Level 138 MEQ/L Potassium Level 3.8 MEQ/L Chloride Level 103 MEQ/L Carbon Dioxide Level 25.2 MEQ/L Anion Gap 10 MEQ/L Estimat Glomerular Filtration Rate 92 ML/MIN (Horace Gibbons) Medical Decision Making Impression and Plan A: 62 y/o M with C2 partial odontoid fracture that extends to the base and into the body as well as a right C2 slightly displaced lateral mass fracture involving the foramen transversarium. s/p halo placement. 2. Recurrent syncopal episodes. 3. Atrial fibrillation with rapid ventricular response. 4. History of orthostatic hypotension 5. History of alcohol abuse. 6. Sternal fracture P: Continue to monitor Neuro exam and vitals. Continue with DVT mechanical prophylaxis. Continue with DT prophylaxis with Librium. continue with rehab efforts Pt will need follow up x-rays every 6 weeks for 4 months. weaning/converting of Diltiazem IV to po. (Horace Gibbons) Attending Statement The exam, history, and the medical decision-making described in the above note were completed with the assistance of the mid-level provider. I reviewed and agree with the findings presented. I attest that I had a [id number] encounter with the patient on the same day, and personally performed and documented my assessment and findings in the medical record. No nsx issues; d/c when ok with medical service. (Giancarlo Dodd MD) Horace Gibbons May 08, 2017 10:33 Giancarlo Dodd MD May 08, 2017 16:16
--- NOTE | 2017-05-08 14:03 | PD.CARD.PN ---
Subjective Subjective Remarks No CP or SOB, on IV dilt due to AF w RVR (140) Objective Medications Current Medications Medications (Trade) Dose Ordered Sig/Michael Route Start Time Stop Time Status Last Admin (Ecotrin Ec) 81 mg DAILY PO 05/02/17 09:00 05/08/17 09:36 (Proamatine) 5 mg TID@07,12,17 PO 05/01/17 17:30 05/08/17 12:14 Diltiazem HCl 125 mg/Sodium Chloride 125 ml @ 5 mls/hr TITRATE PRN IV 05/01/17 16:45 05/07/17 20:11 (Ativan Inj) 1 mg Q1H PRN IV PUSH 05/01/17 17:30 (Mag-Al Plus Susp Liq) 30 ml Q6H PRN PO 05/01/17 17:15 (Protonix) 40 mg DAILY PO 05/02/17 09:00 05/08/17 09:37 (Phenergan Inj) 25 mg Q4H PRN IM 05/01/17 17:15 Calcium Gluconate 1 gm/Sodium Chloride 110 ml @ 110 mls/hr UNSCH PRN IV 05/01/17 17:15 Potassium Chloride 100 ml @ 50 mls/hr UNSCH PRN IV 05/01/17 17:15 Magnesium Sulfate 2 gm/Sodium Chloride 104 ml @ 100 mls/hr UNSCH PRN IV 05/01/17 18:00 05/04/17 11:16 (Flexeril) 10 mg Q8H PRN PO 05/01/17 16:45 05/08/17 04:59 (Trandate Inj) 10 mg Q1H PRN IV PUSH 05/01/17 17:30 (Catapres) 0.1 mg Q6H PRN PO 05/01/17 17:15 (Ambien) 5 mg HS PRN PO 05/01/17 21:00 05/07/17 20:11 (Nicole-Colace) 1 tab BID PO 05/01/17 21:00 05/08/17 09:36 (Milk Of Magnesia Liq) 30 ml Q12H PRN PO 05/01/17 17:15 (Senokot) 17.2 mg Q12H PRN PO 05/01/17 17:15 (Dulcolax Supp) 10 mg DAILY PRN RECTAL 05/01/17 17:15 (Lactulose Liq) 30 ml DAILY PRN PO 05/01/17 17:15 (Ultram) 50 mg Q4H PRN PO 05/01/17 16:45 05/07/17 20:11 (Dilaudid) 2 mg Q4H PRN PO 05/01/17 16:45 05/08/17 12:23 (Librium) 10 mg TID PO 05/01/17 18:00 05/08/17 12:14 Potassium Chloride 100 ml @ 50 mls/hr Q2H PRN IV 05/01/17 17:30 Potassium Chloride 100 ml @ 50 mls/hr Q2H PRN IV 05/01/17 17:30 (K-Lyte Cl Eff) 50 meq UNSCH PRN PO 05/01/17 17:30 05/07/17 05:58 Potassium Chloride 100 ml @ 25 mls/hr UNSCH PRN IV 05/01/17 17:30 Potassium Chloride 100 ml @ 50 mls/hr Q2H PRN IV 05/01/17 17:30 05/04/17 13:57 Magnesium Sulfate 4 gm/Sodium Chloride 100 ml @ 50 mls/hr UNSCH PRN IV 05/01/17 17:30 (Mag-Ox) 800 mg UNSCH PRN PO 05/01/17 17:30 Magnesium Sulfate 2 gm/Sodium Chloride 100 ml @ 50 mls/hr UNSCH PRN IV 05/01/17 17:30 (K-Phos) 2,000 mg Q4H PRN PO 05/01/17 17:30 Sodium Phosphate 30 mmol/Sodium Chloride 250 ml @ 42 mls/hr UNSCH PRN IV 05/01/17 17:30 05/05/17 08:55 (K-Phos) 2,000 mg UNSCH PRN PO/TUBE 05/01/17 17:30 Potassium Phosphate 30 mmol/ Sodium Chloride 260 ml @ 42 mls/hr UNSCH PRN IV 05/01/17 17:30 (NS Flush) 2 ml UNSCH PRN IV FLUSH 05/01/17 17:45 (NS Flush) 2 ml BID IV FLUSH 05/01/17 21:00 05/07/17 20:11 (Zofran Inj) 4 mg Q6H PRN IV PUSH 05/01/17 17:45 Miscellaneous Information 1 Q361D XX 05/01/17 17:45 (Chlorhexidine 2% Cloth) Taper DAILY@04 TOP 05/02/17 04:00 04/28/18 03:59 (Chlorhexidine 2% Cloth) 3 pack UNSCH PRN TOP 05/01/17 17:45 (Morphine Inj) 2 mg Q2H PRN IV PUSH 05/02/17 10:45 05/07/17 03:56 (Ativan) 1 mg Q4H PRN PO 05/03/17 07:30 05/03/17 23:26 (Ativan Inj) 1 mg Q4H PRN IV PUSH 05/03/17 07:30 (Ativan) 2 mg Q2H PRN PO 05/03/17 07:30 05/03/17 16:15 (Ativan Inj) 2 mg Q2H PRN IV PUSH 05/03/17 07:30 (Ativan Inj) 2 mg Q1H PRN IV PUSH 05/03/17 07:30 (Ativan Inj) 2 mg Q15M PRN IV PUSH 05/03/17 07:30 (Albuterol Neb) 2.5 mg Q2HR NEB PRN NEB 05/03/17 14:00 05/08/17 09:14 (Lanoxin) 0.125 mg DAILY PO 05/04/17 09:00 05/08/17 09:37 (Symbicort 160-4.5 Mcg Inh) 2 puff Q12HR INH 05/03/17 21:00 05/08/17 09:38 (Sodium Chloride 3% Neb) 2 ml Q6HR NEB NEB 05/03/17 22:00 05/08/17 21:59 05/08/17 09:14 (Mucinex Er) 600 mg BID PO 05/03/17 21:00 05/08/17 09:37 Piperacillin Sod/ Tazobactam Sod 100 ml @ 200 mls/hr Q6H IV 05/03/17 18:00 05/08/17 12:14 (Vitamin B1) 100 mg DAILY PO 05/05/17 09:00 05/08/17 09:37 (Folate) 1 mg DAILY PO 05/04/17 09:00 05/08/17 09:37 (Theragran) 1 tab DAILY PO 05/04/17 09:00 05/08/17 09:37 (Miralax) 17 gm DAILY PO 05/05/17 09:00 05/08/17 09:36 (Lactulose Liq) 30 ml DAILY PO 05/05/17 09:00 05/08/17 09:36 (Cardizem) 60 mg Q6HR PO 05/05/17 12:00 05/08/17 12:14 Vital Signs / I&O Vital Signs Date Time Temp Pulse Resp B/P (MAP) Pulse Ox O2 Delivery O2 Flow Rate FiO2 05/08/17 10:00 84 05/08/17 09:35 86 130/91 05/08/17 09:14 96 21 05/08/17 08:00 88 05/08/17 08:00 98.7 88 24 133/73 (93) 95 05/08/17 07:00 94 Room Air 23 05/08/17 06:00 80 05/08/17 06:00 106 117/68 05/08/17 04:00 98.8 96 22 127/90 (102) 92 05/08/17 04:00 96 05/08/17 04:00 94 21 05/08/17 02:00 107 05/08/17 01:51 16 05/08/17 00:00 78 05/08/17 00:00 98.9 78 24 122/69 (86) 93 05/07/17 22:00 85 05/07/17 21:23 94 21 05/07/17 21:11 16 05/07/17 20:11 82 108/70 05/07/17 20:00 65 05/07/17 20:00 99.0 65 20 108/70 (83) 96 05/07/17 19:00 96 Room Air 28 05/07/17 18:00 97 05/07/17 16:00 87 05/07/17 16:00 98.8 87 18 144/84 (104) 94 I/O 05/07/17 05/07/17 05/07/17 05/08/17 05/08/17 05/08/17 07:00 15:00 23:00 07:00 15:00 23:00 Intake Total 120 ml 100 ml 700 ml 652 ml Output Total 200 ml 800 ml 350 ml Balance -80 ml 100 ml -100 ml 302 ml Intake Oral 120 ml 600 ml 120 ml IV Total 100 ml 100 ml 532 ml Output Urine Total 200 ml 800 ml 350 ml # Bowel Movements 0 0 0 Physical Exam GENERAL: In NAD SKIN: Warm and dry. HEAD: Normocephalic. Halo in place. EYES: No scleral icterus. No injection or drainage. NECK: Supple, trachea midline. No JVD or lymphadenopathy. CARDIOVASCULAR: Irreg, without murmurs, gallops, or rubs. RESPIRATORY: Breath sounds equal bilaterally. No accessory muscle use. GASTROINTESTINAL: Abdomen soft, non-tender, nondistended. MUSCULOSKELETAL: No cyanosis, or edema. Laboratory Laboratory Tests Test 05/08/17 04:43 Blood Urea Nitrogen 19 MG/DL Creatinine 0.85 MG/DL Random Glucose 103 MG/DL Calcium Level 8.9 MG/DL Sodium Level 138 MEQ/L Potassium Level 3.8 MEQ/L Chloride Level 103 MEQ/L Carbon Dioxide Level 25.2 MEQ/L Anion Gap 10 MEQ/L Estimat Glomerular Filtration Rate 92 ML/MIN Assessment and Plan Problem List: (1) Syncope ICD Codes: R55 - Syncope and collapse Status: Chronic (2) Atrial fibrillation with RVR ICD Codes: I48.91 - Unspecified atrial fibrillation Status: Acute (3) C2 cervical fracture ICD Codes: S12.100A - Unspecified displaced fracture of second cervical vertebra, initial encounter for closed fracture Status: Acute (4) Tobacco abuse ICD Codes: Z72.0 - Tobacco abuse Status: Acute (5) Alcohol abuse ICD Codes: F10.10 - Alcohol abuse Status: Chronic Assessment and Plan A fib rate increased, now on IV dilt. Switch back to increased dose of PO dilt ( short acting), later switch to long acting. No angina or CHF symptoms. ETOH likely plays significant role in his episodes of syncope. Continue monitoring on tele. Anticipate transfer out of ICU soon. Problem Qualifiers (1) C2 cervical fracture: Qualified Codes: S12.100A - Unspecified displaced fracture of second cervical vertebra, initial encounter for closed fracture Ramon Jay MD May 08, 2017 14:03
[2017-05-08] MEDS: DILTIAZEM HCL 90 MG TAB PO SCH ×2 (18:13→21:03)
[2017-05-09] VITALS (13 sets, daily range): BP systolic 114–135; BP diastolic 63–80; PULSE 72–86; RESP 15–22; TEMP 98–98.5; O2SAT 95–98
[2017-05-09] MEDS: PIPERACIL-TAZO 4.5 GM PREMIX 100 ML IV SCH ×5 (00:52→23:39)
[2017-05-09] MEDS: HYDROmorphone HCL 2 MG TAB PO PRN ×3 (00:53→20:04)
[2017-05-09] MEDS: DILTIAZEM HCL 90 MG TAB PO SCH ×4 (02:29→19:52)
[2017-05-09] MEDS: CHLORHEXIDINE GLUCONATE 2 % 1 PACK (2 CLOTHS) TOP SCH (03:30)
[2017-05-09] MEDS: MIDODRINE 5 MG TAB PO SCH ×3 (06:10→16:44)
[2017-05-09] MEDS: BUDESONIDE-FORMOTEROL 160/4.5 MCG INHALER INH SCH (08:30)
[2017-05-09] MEDS: THIAMINE HCL 100 MG TAB PO SCH (08:31)
[2017-05-09] MEDS: ASPIRIN EC 81 MG TABEC PO SCH (08:31)
[2017-05-09] MEDS: MULTIVITAMIN TAB PO SCH (08:31)
[2017-05-09] MEDS: PANTOPRAZOLE SOD 40 MG DELAYED RELEASE TAB PO SCH (08:31)
[2017-05-09] MEDS: LACTULOSE SYRUP 20 GM/30 ML CUP PO SCH (08:31)
[2017-05-09] MEDS: POLYETHYLENE GLYCOL 17 GM PKG PO SCH (08:31)
[2017-05-09] MEDS: guaiFENesin E.R. 600 MG TAB PO SCH ×2 (08:31→19:52)
[2017-05-09] MEDS: DIGOXIN 0.125 MG TAB PO SCH (08:32)
[2017-05-09] MEDS: FOLIC ACID 1 MG TAB PO SCH (08:32)
[2017-05-09] MEDS: SODIUM CHLORIDE 0.9% FLUSH 10 ML FLUSH IV FLUSH SCH ×2 (08:33→19:52)
[2017-05-09] MEDS: DOCUSATE SODIUM 50 MG/SENNA 8.6 MG TAB PO SCH ×2 (08:33→19:52)
--- NOTE | 2017-05-09 10:40 | HHI.CCPN ---
Subjective Remarks/Hospital Course This is a 62-year-old male. Date of admission 05/01/2017. Date of consultation 05/01/2017. Past history includes atrial fibrillation, alcoholism , tobacco abuse and THC use. Today, he assumed 1-1/2 beers as well as 1 and half shots of alcohol when he stood up to urinate and passed out. He says he hit the back of his head. He complains of neck pain. He denies any weakness of his extremities. He says he did feel some tingling in his left arm, but this has resolved. No loss of consciousness. EtOH level 130 CT C-spine revealed a C2 fracture at the base of the dens ex- ankle lateral mass of C2 with the 4 mm retropulsed segment. Also fracture the foramen magnum. CT brain revealed a small posterior scalp hematoma. Dr. Dodd was notified. Plans for halo likely in a.m. Patient is currently in atrial fibrillation RVR. Has been evaluation by Dr. Hinojosa in the past. CHADS VASC2 currently 1 Currently on a diltiazem drip at 5 mg now for rate control. Denies chest pain 05/02: Complaining of pain and anxiety. Currently no neurological deficits. Noted horizontal fracture inferior sternum. On CT chest. 05/03: Remains atrial fibrillation off diltiazem drip. Status post halo placement today. Appears to go into early DTs. Currently resting in chair in no acute distress nasal cannula. Some coarse breath sounds that do clear with cough. 05/04: On 2-3 L normal saline overnight. Currently in simple mask due to desaturations while sleeping. Heart rate irregular but rate controlled. Continues with coarse transmitted upper airway sounds. Patient able to cough and clear secretions with self Yankauer suctioning. Subjective 05/05: Afebrile. Currently requiring 4 L nasal cannula.. Voice much improved today. Sitting up in bed eating breakfast. Less anxious. 05/06: Breathing comfortably, talkative, voice clear. No obstruction. Strong cough effort. 05/07: More oriented, less confused. Breathing comfortably. Protects airway. 05/08: Oriented and conversant. Protects airway well. Work on disposition. 05/09: Off cardizem gtt and on cardizem 90 mg po q6h. Heart rate well controlled. Protects airway well, swallows without difficulty. Transfer to telemetry. Objective Vital Signs Date Time Temp Pulse Resp B/P (MAP) Pulse Ox O2 Delivery O2 Flow Rate FiO2 05/09/17 10:00 74 05/09/17 08:00 98.0 17 114/72 (86) 97 05/09/17 07:00 Room Air 05/08/17 09:14 21 05/05/17 08:43 3.00 Intake and Output 05/09/17 05/09/17 05/10/17 08:00 16:00 00:00 Intake Total 650 ml Output Total 800 ml Balance -150 ml Result Diagram: 05/07/17 0417 05/08/17 0443 Imaging Last Impressions Chest X-Ray 05/04/17 0000 Signed Impressions: Service Date/Time: Thursday, May 04, 2017 09:02 - CONCLUSION: Negative for acute process Abdiaziz Cheng MD FACR Cervical Spine X-Ray 05/03/17 0000 Signed Impressions: Service Date/Time: Wednesday, May 03, 2017 11:31 - CONCLUSION: Findings as above. Abdiaziz Cheng MD FACR Head CT 05/01/17 1515 Signed Impressions: Service Date/Time: Monday, May 01, 2017 15:27 - CONCLUSION: 1. No acute intracranial abnormality. 2. Small posterior scalp soft tissue hematoma. 3. Mild bilateral maxillary sinus disease. Aries Fowler MD Cervical Spine CT 05/01/17 1515 Signed Impressions: Service Date/Time: Monday, May 01, 2017 15:30 - CONCLUSION: 1. Abnormal examination. Minimally displaced C2 fracture extending from the base of the dens and the lateral mass of C2 with approximate 4 mm posterior retropulsed fragment. Fracture also extends through right transverse foramen which can result in possible vertebral artery injury. CTA examination may be performed as clinically warranted. Aries Fowler MD Neck CTA 05/01/17 0000 Signed Impressions: Service Date/Time: Monday, May 01, 2017 17:26 - CONCLUSION: 1. Negative exam. The right vertebral artery is patent and intact. Papo Lee MD Chest CT 05/01/17 0000 Signed Impressions: Service Date/Time: Monday, May 01, 2017 20:24 - CONCLUSION: 1. Mild right basilar atelectasis. 2. No evidence of pneumothorax. 3. Horizontal fracture through the inferior sternum with some mild soft tissue thickening in the substernal soft tissues Papo Lee MD Objective Remarks GENERAL: 62-year-old male resting in chair in halo in no acute distress SKIN: Warm and dry. Posterior scalp laceration noted, clean, dry. HEAD: Posterior scalp hematoma noted. Normocephalic. Currently in halo EYES: Pupils equal and round around 2 mm bilaterally and reactive. No scleral icterus. No injection or drainage. ENT: No nasal bleeding or discharge. Mucous membranes pink and moist. NECK: Trachea midline. Airway widely patent. CARDIOVASCULAR: Irreg. Irreg. S1, S2. Without murmur. No JVD. RESPIRATORY: Few crackles appreciated throughout upper lung yang. Good alexis air movement. Sternum tender to palpation GASTROINTESTINAL: Abdomen soft, non-tender, nondistended. Bowel sounds active. MUSCULOSKELETAL: Extremities without significant edema. No obvious deformities. Well perfused. NEUROLOGICAL: Awake and alert. Conversant. No obvious cranial nerve deficits. Motor grossly within normal limits. Five out of 5 muscle strength in the arms and legs. A/P Assessment and Plan Neuro/Psych: Cervical C2 type 2 posterior displaced odontoid fracture/right C2 lateral mass fracture EtOH THC use Posterior scalp hematoma 05/03 - close reduction with manipulation and fixation of C2 fracture/halo placement secondary to cervical CT 2 posterior displaced odontoid fracture/ right C2 lateral mass fracture by Dr. Dodd CT brain - small posterior scalp hematoma CT C-spine - C2 fracture - base of dens -lateral mass of C2 with 4 mm retropulsion segment. Fracture fragment magnum Followed by Dr. Dodd. Tramadol 50 mg as needed for pain management Morphine sulfate 2 mg every 2 hours hydromorphone 2 mg every 4 hours for breakthrough pain Early on thiamine 100 mg daily, folate 1 mg daily and multivitamin one tablet for EtOH use Monitor for DVT. CIWA protocol initiated Patient states he has no allergy to acetaminophen. States that Percocet caused an "itching mustache" in past Continue on chlordiazepoxide 10 mg 3 times a day for agitation On cyclobenzaprine 10 mg every 8 hours when necessary muscle relaxant CV: Atrial fibrillation with rapid ventricular response History of hypotension with dysautonomia 2-D echocardiogram 03/27 revealed ejection fraction 50-55%. Mild LVH. At home on diltiazem 30 by mouth 4 times a day. Hold increased to 60 mg 4 times daily in attempt to wean off Cardizem drip currently at 5 mg an hour Currently on digoxin 0.125 mill grams daily. Recheck dig level in a.m. 05/06 Continue Midodrine 5 mg 3 times a day for dysautonomia Check troponin initially 0.02. Evaluated by Dr. Jay. CHADS VASc2 score 1. Recommended aspirin only. 81 mg daily Resp: Tobaccoism Nasal cannula to maintain saturations greater than equal to 92% Incentive spirometry while awake Tobacco sensation will be encouraged with educational booklet provided for him to self evaluate Scheduled albuterol/ipratropium aerosols every 6 hours albuterol aerosols every 2 hours when necessary dyspnea Incentive spirometry while awake A cappella/pep Every 6 hours Added guaifenesin 600 mg twice a day and hypertonic saline aerosols every 6 hours thin secretions GI: Gastroesophageal reflux disease Hypoalbuminemia Elevated AST/total bilirubin On regular diet On pantoprazole 40 milligrams by mouth daily for GI prophylaxis Docusate sodium/senna 1 tablet twice a day for bowel regimen : No indication for Foster catheter Endo: Hyperglycemia Sliding-scale insulin if indicated to maintain euglycemia Check TSH - 1.63 Renal: Monitor urine output Accurate I's and O's. Heme: Macrocytosis Thrombocytopenia Monitor CBC daily. Follow trends Follow-up on coags Currently on aspirin 81 mg daily. Resume by neurosurgery ID: Monitor for infection Sputum sample ordered results pending. Influenza pending. Currently on piperacillin/tazobactam 4.5 g IV every 6 hours day #5 MSK: OA Inferior horizontal sternal fracture PT evaluate and treat when appropriate FEN: Hypophosphatemia Hyponatremia Replace electrolytes per ICU electrolyte protocol Access - Utilize peripheral IV. Central line if indicated Prophylaxis - GI - pantoprazole - DVT - SCD/holding pharmacological prophylaxis until okay with neurosurgery Overall impression: Warm and well perfused. Protects airway well. Heart rate well controlled. Marcin Schmid MD May 09, 2017 10:40
--- NOTE | 2017-05-09 11:41 | HHI.NSPN ---
(Filemon Stevenson Heriberto LACY) History Chief Complaint: Neck and sternal pain. (Oleg Stevensoncathie LACY) Interval History A 64 year old gentleman who apparently had a syncopal episode while he was at a bar and fell back and struck his head. He relates that he only had 1 1/2 beers prior to this and was not really intoxicated. He does have a history of syncopal episodes. Last time he relates that he had a syncopal episode was about three months. He was diagnosed with atrial fibrillation a year ago. He was admitted also last month with atrial fibrillation with a rapid ventricular response and was seen by Dr. Hinojosa from cardiology. He relates that he is on blood thinners, although these are very expensive and he has no job or insurance and cannot afford them. He complains of neck pain. He initially had some numbness in his left hand, but this has resolved. He also complains of some anterior chest wall area pain. He was evaluated by the emergency room physician on arrival to [facility] and head CT scan is negative for any intracranial abnormality. He does have, on the CT scan of the cervical spine, a C2 fracture that partially extends to the base of the dens as well as the lateral mass in the right side with involvement of the foramen and transversarium. There is slight retropulsion of the C2 fracture moves posteriorly into the spinal canal. 05/02/17: Pt awake and alert. Complains of neck and sternal pain. No radiculopathy in UEs. Pt has intermittent paresthesias in left 1st and 2nd fingers primarily which he states is not new and has had prior to his fall. No numbness or paresthesias in UEs otherwise. No abdominal pain. No weakness that he has noticed but he is resting in bed. Angora cervical collar intact. 05/03/17: Pt awake, alert, with some confusion and agitation. Complains of neck and sternal pain. Neck pain extends up into the right posterior head. 05/05/17: Pt awake and alert. Less confusion and agitation this morning. Complains of neck pain extending into the right side of his head. 05/06/17: Pt awake and alert. Complains of neck pain and head pain that is worse when moving. Worked with PT to get oob to chair. 05/07/17: Pt awake and alert. Neck pain improving. Pt remains on Diltiazem IV weaning/converting to po. No radiculopathy in UEs. Stable chronic intermittent paresthesias in left 1-3 fingers and some forearm that improves with movement of extremity. 05/08/17: Pt awake and alert. Continues with IV Diltiazem which is being placed on hold. Pt complains of right sided neck discomfort. No radiculopathy in UEs. Pin sites are clean and dry. Generalized weakness in all 4 extremities. 05/09: The patient is awake and alert when seen this morning. He is watching TV. He states the neck is a little sore but alright. He does say he has some head pain but indicates it to the right side of the head and face. He does say he has some intermittent numbness to the distal left forearm into the hand and digits. He does say he has some chest pain that is worse when he coughs. Nursing reports that the patient has been off intravenous diltiazem for 24 hours. (Filemon Stevenson) Exam Results 05/07/17 05/07/17 05/08/17 05/08/17 05/09/17 05/09/17 06:00 18:00 06:00 18:00 06:00 18:00 Intake Total 120 ml 800 ml 652 ml 240 ml 650 ml Output Total 200 ml 800 ml 350 ml 400 ml 800 ml Balance -80 ml 0 ml 302 ml -160 ml -150 ml Intake Oral 120 ml 600 ml 120 ml 240 ml 650 ml IV Total 200 ml 532 ml Output Urine Total 200 ml 800 ml 350 ml 400 ml 800 ml # Bowel Movements 0 0 0 0 0 Vital Signs Date Time Temp Pulse Resp B/P (MAP) Pulse Ox O2 Delivery O2 Flow Rate FiO2 05/09/17 10:00 74 05/09/17 08:00 98.0 73 17 114/72 (86) 97 05/09/17 08:00 72 05/09/17 07:00 Room Air 05/09/17 06:00 72 05/09/17 04:00 78 05/09/17 04:00 98.0 78 15 135/63 (87) 97 05/09/17 02:00 78 05/09/17 00:00 98.0 82 18 124/66 (85) 95 05/09/17 00:00 82 05/08/17 22:00 92 05/08/17 20:00 98.3 92 21 122/63 (82) 93 05/08/17 20:00 92 05/08/17 19:50 97 Nasal Cannula 05/08/17 19:00 96 Room Air 05/08/17 18:00 88 05/08/17 16:00 98.6 82 18 120/75 (90) 95 05/08/17 16:00 82 05/08/17 14:00 106 05/08/17 12:00 94 05/08/17 12:00 98.6 94 13 134/82 (99) 93 05/08/17 10:00 84 05/08/17 09:35 86 130/91 05/08/17 09:14 96 21 05/08/17 08:00 88 05/08/17 08:00 98.7 88 24 133/73 (93) 95 05/08/17 07:00 94 Room Air 23 05/08/17 06:00 80 05/08/17 06:00 106 117/68 05/08/17 04:00 98.8 96 22 127/90 (102) 92 05/08/17 04:00 96 05/08/17 04:00 94 21 05/08/17 02:00 107 05/08/17 01:51 16 05/08/17 00:00 78 05/08/17 00:00 98.9 78 24 122/69 (86) 93 05/07/17 22:00 85 05/07/17 21:23 94 21 05/07/17 21:11 16 05/07/17 20:11 82 108/70 05/07/17 20:00 65 05/07/17 20:00 99.0 65 20 108/70 (83) 96 05/07/17 19:00 96 Room Air 28 05/07/17 18:00 97 05/07/17 16:00 87 05/07/17 16:00 98.8 87 18 144/84 (104) 94 05/07/17 14:00 99 05/07/17 12:00 94 05/07/17 12:00 98.9 95 20 125/68 (87) 95 05/07/17 10:00 90 05/07/17 08:45 96 21 05/07/17 08:00 98.0 81 16 121/63 (82) 97 05/07/17 08:00 81 05/07/17 07:00 96 Room Air 05/07/17 06:00 94 05/07/17 05:14 98 21 05/07/17 04:01 17 05/07/17 04:00 98.1 93 15 119/73 (88) 95 05/07/17 04:00 93 05/07/17 02:00 76 05/07/17 00:00 76 05/07/17 00:00 98.0 80 20 116/80 (92) 94 05/06/17 22:00 88 05/06/17 20:36 93 21 05/06/17 20:00 98.7 76 12 123/76 (92) 05/06/17 20:00 76 05/06/17 19:00 93 Room Air 28 05/06/17 18:00 78 05/06/17 17:30 88 132/81 05/06/17 16:00 98.2 90 15 148/85 (106) 95 05/06/17 16:00 90 05/06/17 14:00 85 05/06/17 12:00 77 05/06/17 12:00 98.7 74 18 122/70 (87) 95 (Filemon Stevenson) Physical Examination GENERAL: Awake & alert and watching TV, readily interacts, essentially normal affect, no distress apparent. HALO in place. SKIN: Warm & dry, no evident drainage, erythema or streaking from HALO pin sites. HEENT: Normocephalic, HALO pin sites TTP, also TTP along the right side of the face. NECK: Midline cervical spine NTTP, no JVD, trachea midline. RESPIRATORY: Upper yang CTAB w/o W/R/R, equal excursion, nonlaboured, unable to assess lower due to HALO vest. CARDIOVASCULAR: S1S2 w/irregularly irregular rate w/o M/G/R, monitor is atrial fibrillation w/controlled ventricular rate. GASTROINTESTINAL: Abdomen soft, nontender, positive bowel sounds. MUSCULOSKELETAL: Moves all extremities w/o any difficulty, no evident clubbing or deformity. NEUROLOGICAL: AAOx3. Speech clear & appropriate. Follows simple commands w/o difficulty. Sensation intact to light touch to all extremities when examined. Motor strength is 5/5 to all major flexion & extension muscle groups. (Filemon Stevenson) Lab, Micro, Other Results Laboratory Tests Test 05/07/17 04:17 05/08/17 04:43 White Blood Count 6.5 TH/MM3 Red Blood Count 3.19 MIL/MM3 Hemoglobin 12.1 GM/DL Hematocrit 35.4 % Mean Corpuscular Volume 110.9 FL Mean Corpuscular Hemoglobin 38.1 PG Mean Corpuscular Hemoglobin Concent 34.3 % Red Cell Distribution Width 13.6 % Platelet Count 207 TH/MM3 Mean Platelet Volume 6.9 FL Neutrophils (%) (Auto) 67.3 % Lymphocytes (%) (Auto) 15.2 % Monocytes (%) (Auto) 16.6 % Eosinophils (%) (Auto) 0.6 % Basophils (%) (Auto) 0.3 % Neutrophils # (Auto) 4.4 TH/MM3 Lymphocytes # (Auto) 1.0 TH/MM3 Monocytes # (Auto) 1.1 TH/MM3 Eosinophils # (Auto) 0.0 TH/MM3 Basophils # (Auto) 0.0 TH/MM3 CBC Comment DIFF FINAL Differential Comment Blood Urea Nitrogen 17 MG/DL 19 MG/DL Creatinine 0.82 MG/DL 0.85 MG/DL Random Glucose 91 MG/DL 103 MG/DL Calcium Level 8.5 MG/DL 8.9 MG/DL Sodium Level 139 MEQ/L 138 MEQ/L Potassium Level 3.3 MEQ/L 3.8 MEQ/L Chloride Level 103 MEQ/L 103 MEQ/L Carbon Dioxide Level 27.8 MEQ/L 25.2 MEQ/L Anion Gap 8 MEQ/L 10 MEQ/L Estimat Glomerular Filtration Rate 96 ML/MIN 92 ML/MIN (Filemon Stevenson) Medical Decision Making Impression and Plan Impression: 1. 62 y/o M with C2 partial odontoid fracture that extends to the base and into the body as well as a right C2 slightly displaced lateral mass fracture involving the foramen transversarium. s/p halo placement. 2. Recurrent syncopal episodes. 3. Atrial fibrillation with rapid ventricular response. 4. History of orthostatic hypotension 5. History of alcohol abuse. 6. Sternal fracture The patient is doing well. His pain is controlled. He is neurologically intact except for intermittent tingling to the distal LUE. Still in atrial fibrillation but w/controlled ventricular rate. Now on PO diltiazem. PT recommends the patient use a wheeled walker and have further rehab inpatient but patient has no means to pay for it. Plan: Continue to monitor Neuro exam and vitals. Continue with DVT mechanical prophylaxis. Continue with DT prophylaxis with Librium. Continue with rehab efforts. Patient will need follow up x-rays every 6 weeks for 4 months. Patient is able to be transferred to a regular med/surg floor. Plan for discharge home w/wheeled walker when Cardiology indicates patient is medically ready. (Filemon Stevenson) Attending Statement The exam, history, and the medical decision-making described in the above note were completed with the assistance of the mid-level provider. I reviewed and agree with the findings presented. I attest that I had a [id number] encounter with the patient on the same day, and personally performed and documented my assessment and findings in the medical record. On my examination this morning the patient is calm, no apparent distress. Cardiac: Regular without murmur Abdomen: Soft nontender Respirations: Clear to auscultation Neck and musculoskeletal: Halo in good position. Pin sites clean. Mild to moderate neck and low back tenderness Neurologic: Awake alert oriented conversant and appropriate Mild decreased sensation dorsal aspect left distal forearm and hand Strength is 4/5 bilateral hand intrinsics, mostly 4+-5/5 throughout the remainder upper and lower extremity major flexion and extension groups Shan's response absent bilateral Neurologically stable Continue halo Mobilize out of bed with assist Continue physical therapy Weaned off Cardizem. Okay for floor and discharge when stable from medical standpoint (Khai Lal MD) Filemon Stevenson May 09, 2017 11:41 Khai Lal MD May 09, 2017 14:49
[2017-05-09] MEDS: RESP: ALBUTEROL 2.5 MG/3 ML NEB (PRN) NEB (20:32)
[2017-05-10] VITALS (14 sets, daily range): BP systolic 112–160; BP diastolic 62–87; PULSE 56–86; RESP 14–20; TEMP 97.6–98.7; O2SAT 94–97
[2017-05-10] MEDS: DILTIAZEM HCL 90 MG TAB PO SCH ×4 (03:35→22:03)
[2017-05-10] MEDS: HYDROmorphone HCL 2 MG TAB PO PRN ×2 (03:35→18:28)
[2017-05-10] MEDS: CHLORHEXIDINE GLUCONATE 2 % 1 PACK (2 CLOTHS) TOP SCH ×2 (04:00→22:06)
[2017-05-10] MEDS: PIPERACIL-TAZO 4.5 GM PREMIX 100 ML IV SCH ×3 (05:54→18:28)
[2017-05-10] MEDS: MIDODRINE 5 MG TAB PO SCH ×3 (05:54→16:10)
[2017-05-10 06:40] LABS: BICARBONATE 22.4 MEQ/L (21.0-32.0); CALCIUM 9.1 MG/DL (8.5-10.1); CREATININE 0.87 MG/DL (0.60-1.30)
--- NOTE | 2017-05-10 08:28 | HHI.PR ---
Subjective Remarks Follow up a-fib. Patient reports pain in his sternum with coughing. The cough is nonproductive. Denies dyspnea, nausea, vomiting. Objective Vitals Vital Signs Date Time Temp Pulse Resp B/P (MAP) Pulse Ox O2 Delivery O2 Flow Rate FiO2 05/10/17 06:00 62 05/10/17 04:00 98.0 76 16 119/71 (87) 95 05/10/17 04:00 76 05/10/17 02:00 78 05/10/17 00:00 98.4 83 20 125/70 (88) 94 05/10/17 00:00 83 05/09/17 22:00 86 05/09/17 20:32 97 05/09/17 20:00 85 05/09/17 20:00 98.4 85 21 124/68 (86) 97 05/09/17 19:00 97 Room Air 05/09/17 18:00 85 05/09/17 16:00 98.2 78 22 127/80 (96) 98 05/09/17 16:00 75 05/09/17 14:00 80 05/09/17 12:00 98.5 74 19 121/69 (86) 98 05/09/17 12:00 73 05/09/17 10:00 74 I/O 05/09/17 05/09/17 05/09/17 05/10/17 05/10/17 05/10/17 06:59 14:59 22:59 06:59 14:59 22:59 Intake Total 650 ml 100 ml 600 ml 400 ml Output Total 800 ml 550 ml 900 ml Balance -150 ml 100 ml 50 ml -500 ml Intake Oral 650 ml 500 ml 400 ml IV Total 100 ml 100 ml Output Urine Total 800 ml 550 ml 900 ml # Bowel Movements 0 0 0 Result Diagram: 05/07/17 0417 05/10/17 0514 Imaging Last Impressions Chest X-Ray 05/06/17 0600 Signed Impressions: Service Date/Time: Saturday, May 06, 2017 02:32 - CONCLUSION: Slight CHF. K. Raul Catherine MD Cervical Spine X-Ray 05/03/17 0000 Signed Impressions: Service Date/Time: Wednesday, May 03, 2017 11:31 - CONCLUSION: Findings as above. Abdiaziz Cheng MD FACR Head CT 05/01/17 0584 Signed Impressions: Service Date/Time: Monday, May 01, 2017 15:27 - CONCLUSION: 1. No acute intracranial abnormality. 2. Small posterior scalp soft tissue hematoma. 3. Mild bilateral maxillary sinus disease. Aries Fowler MD Cervical Spine CT 05/01/17 1515 Signed Impressions: Service Date/Time: Monday, May 01, 2017 15:30 - CONCLUSION: 1. Abnormal examination. Minimally displaced C2 fracture extending from the base of the dens and the lateral mass of C2 with approximate 4 mm posterior retropulsed fragment. Fracture also extends through right transverse foramen which can result in possible vertebral artery injury. CTA examination may be performed as clinically warranted. Aries Fowler MD Neck CTA 05/01/17 0000 Signed Impressions: Service Date/Time: Monday, May 01, 2017 17:26 - CONCLUSION: 1. Negative exam. The right vertebral artery is patent and intact. aPpo Lee MD Chest CT 05/01/17 0000 Signed Impressions: Service Date/Time: Monday, May 01, 2017 20:24 - CONCLUSION: 1. Mild right basilar atelectasis. 2. No evidence of pneumothorax. 3. Horizontal fracture through the inferior sternum with some mild soft tissue thickening in the substernal soft tissues Papo Lee MD Objective Remarks General: No acute distress. In HALO. Heart: Irregular rhythm. Lungs: Clear to auscultation bilaterally. No wheezes, rales, or rhonchi. Breathing is nonlabored. Abdomen: Soft, nontender, nondistended. Extremities: No lower extremity edema. Psych: Alert and oriented. Procedures 05/03/17 Closed reduction with manipulation and fixation of C2 fracture; HALO placement Urinary Catheter: No Vascular Central Line Catheter: No A/P Assessment and Plan 1. C2 fracture: Status post closed reduction with placement of halo. Management per neurosurgery. 2. Atrial fibrillation with RVR: Rate is now borderline low. Continue digoxin, oral diltiazem. Appreciate cardiology recommendations. CHADS VASc2 score 1. Continue Aspirin 81mg daily. No other anticoagulation recommended at this time. 3. Tobacco abuse: Patient has been counseled. Oxygen, bronchodilators as needed. 4. GERD: Continue PPI. 5. Inferior sternal fracture: Continue pain control. Physical therapy. 6. Hypophosphatemia, hyponatremia: Replace electrolytes per ICU electrolyte protocol. 7. DVT prophylaxis: SCDs. Discharge Planning Transfer to floor when bed is available. Physical therapy recommending rehabilitation, however patient has no payor source. Case management to assist with discharge planning. iBpin Turcios MD May 10, 2017 08:28
[2017-05-10] MEDS: BUDESONIDE-FORMOTEROL 160/4.5 MCG INHALER INH SCH ×2 (09:00→22:00)
[2017-05-10] MEDS: SODIUM CHLORIDE 0.9% FLUSH 10 ML FLUSH IV FLUSH SCH ×2 (09:00→22:02)
[2017-05-10] MEDS: LACTULOSE SYRUP 20 GM/30 ML CUP PO SCH (09:57)
[2017-05-10] MEDS: FOLIC ACID 1 MG TAB PO SCH (09:58)
[2017-05-10] MEDS: DOCUSATE SODIUM 50 MG/SENNA 8.6 MG TAB PO SCH ×2 (09:58→22:05)
[2017-05-10] MEDS: ASPIRIN EC 81 MG TABEC PO SCH (09:58)
[2017-05-10] MEDS: PANTOPRAZOLE SOD 40 MG DELAYED RELEASE TAB PO SCH (09:58)
[2017-05-10] MEDS: guaiFENesin E.R. 600 MG TAB PO SCH ×2 (09:58→22:05)
[2017-05-10] MEDS: DIGOXIN 0.125 MG TAB PO SCH (09:58)
[2017-05-10] MEDS: MULTIVITAMIN TAB PO SCH (09:58)
[2017-05-10] MEDS: THIAMINE HCL 100 MG TAB PO SCH (09:58)
[2017-05-10] MEDS: POLYETHYLENE GLYCOL 17 GM PKG PO SCH (09:59)
--- NOTE | 2017-05-10 10:13 | HHI.NSPN ---
(Filemon Stevenson) History Chief Complaint: Neck pain (Filemon Stevenson) Interval History A 64 year old gentleman who apparently had a syncopal episode while he was at a bar and fell back and struck his head. He relates that he only had 1 1/2 beers prior to this and was not really intoxicated. He does have a history of syncopal episodes. Last time he relates that he had a syncopal episode was about three months. He was diagnosed with atrial fibrillation a year ago. He was admitted also last month with atrial fibrillation with a rapid ventricular response and was seen by Dr. Hinojosa from cardiology. He relates that he is on blood thinners, although these are very expensive and he has no job or insurance and cannot afford them. He complains of neck pain. He initially had some numbness in his left hand, but this has resolved. He also complains of some anterior chest wall area pain. He was evaluated by the emergency room physician on arrival to [facility] and head CT scan is negative for any intracranial abnormality. He does have, on the CT scan of the cervical spine, a C2 fracture that partially extends to the base of the dens as well as the lateral mass in the right side with involvement of the foramen and transversarium. There is slight retropulsion of the C2 fracture moves posteriorly into the spinal canal. 05/02/17: Pt awake and alert. Complains of neck and sternal pain. No radiculopathy in UEs. Pt has intermittent paresthesias in left 1st and 2nd fingers primarily which he states is not new and has had prior to his fall. No numbness or paresthesias in UEs otherwise. No abdominal pain. No weakness that he has noticed but he is resting in bed. Gallagher cervical collar intact. 05/03/17: Pt awake, alert, with some confusion and agitation. Complains of neck and sternal pain. Neck pain extends up into the right posterior head. 05/05/17: Pt awake and alert. Less confusion and agitation this morning. Complains of neck pain extending into the right side of his head. 05/06/17: Pt awake and alert. Complains of neck pain and head pain that is worse when moving. Worked with PT to get oob to chair. 05/07/17: Pt awake and alert. Neck pain improving. Pt remains on Diltiazem IV weaning/converting to po. No radiculopathy in UEs. Stable chronic intermittent paresthesias in left 1-3 fingers and some forearm that improves with movement of extremity. 05/08/17: Pt awake and alert. Continues with IV Diltiazem which is being placed on hold. Pt complains of right sided neck discomfort. No radiculopathy in UEs. Pin sites are clean and dry. Generalized weakness in all 4 extremities. 05/09: The patient is awake and alert when seen this morning. He is watching TV. He states the neck is a little sore but alright. He does say he has some head pain but indicates it to the right side of the head and face. He does say he has some intermittent numbness to the distal left forearm into the hand and digits. He does say he has some chest pain that is worse when he coughs. Nursing reports that the patient has been off intravenous diltiazem for 24 hours. 05/10: When seen the patient is asleep but awakens to voice. After that he is awake and readily interacts. He does have some pain to the neck. Today he complains of pain along the jaw and itching to the right occipital scalp. He is in atrial fibrillation with a ventricular rate of 50 to the mid 60s and is only on oral diltiazem. He does again report intermittent numbness to the distal left forearm into the hand but doesn't have any at present. (Filemon Stevenson) Exam Results 05/08/17 05/08/17 05/09/17 05/09/17 05/10/17 05/10/17 06:00 18:00 06:00 18:00 06:00 18:00 Intake Total 652 ml 240 ml 650 ml 600 ml 500 ml Output Total 350 ml 400 ml 800 ml 550 ml 900 ml Balance 302 ml -160 ml -150 ml 50 ml -400 ml Intake Oral 120 ml 240 ml 650 ml 500 ml 400 ml IV Total 532 ml 100 ml 100 ml Output Urine Total 350 ml 400 ml 800 ml 550 ml 900 ml # Bowel Movements 0 0 0 0 0 Vital Signs Date Time Temp Pulse Resp B/P (MAP) Pulse Ox O2 Delivery O2 Flow Rate FiO2 05/10/17 08:59 97 21 05/10/17 06:00 62 05/10/17 04:00 98.0 76 16 119/71 (87) 95 05/10/17 04:00 76 05/10/17 02:00 78 05/10/17 00:00 98.4 83 20 125/70 (88) 94 05/10/17 00:00 83 05/09/17 22:00 86 05/09/17 20:32 97 05/09/17 20:00 85 05/09/17 20:00 98.4 85 21 124/68 (86) 97 05/09/17 19:00 97 Room Air 05/09/17 18:00 85 05/09/17 16:00 98.2 78 22 127/80 (96) 98 05/09/17 16:00 75 05/09/17 14:00 80 05/09/17 12:00 98.5 74 19 121/69 (86) 98 05/09/17 12:00 73 05/09/17 10:00 74 05/09/17 08:00 98.0 73 17 114/72 (86) 97 05/09/17 08:00 72 05/09/17 07:00 Room Air 05/09/17 06:00 72 05/09/17 04:00 78 05/09/17 04:00 98.0 78 15 135/63 (87) 97 05/09/17 02:00 78 05/09/17 00:00 98.0 82 18 124/66 (85) 95 05/09/17 00:00 82 05/08/17 22:00 92 05/08/17 20:00 98.3 92 21 122/63 (82) 93 05/08/17 20:00 92 05/08/17 19:50 97 Nasal Cannula 05/08/17 19:00 96 Room Air 05/08/17 18:00 88 05/08/17 16:00 98.6 82 18 120/75 (90) 95 05/08/17 16:00 82 05/08/17 14:00 106 05/08/17 12:00 94 05/08/17 12:00 98.6 94 13 134/82 (99) 93 05/08/17 10:00 84 05/08/17 09:35 86 130/91 05/08/17 09:14 96 21 05/08/17 08:00 88 05/08/17 08:00 98.7 88 24 133/73 (93) 95 05/08/17 07:00 94 Room Air 23 05/08/17 06:00 80 05/08/17 06:00 106 117/68 05/08/17 04:00 98.8 96 22 127/90 (102) 92 05/08/17 04:00 96 05/08/17 04:00 94 21 05/08/17 02:00 107 05/08/17 01:51 16 05/08/17 00:00 78 05/08/17 00:00 98.9 78 24 122/69 (86) 93 05/07/17 22:00 85 05/07/17 21:23 94 21 05/07/17 21:11 16 05/07/17 20:11 82 108/70 05/07/17 20:00 65 05/07/17 20:00 99.0 65 20 108/70 (83) 96 05/07/17 19:00 96 Room Air 28 05/07/17 18:00 97 05/07/17 16:00 87 05/07/17 16:00 98.8 87 18 144/84 (104) 94 05/07/17 14:00 99 05/07/17 12:00 94 05/07/17 12:00 98.9 95 20 125/68 (87) 95 05/07/17 10:00 90 (Filemon Stevenson) Physical Examination GENERAL: Asleep but awakens to voice, alert after that, readily interacts, essentially normal affect, no distress apparent. HALO in place. SKIN: Warm & dry, no evident drainage, erythema or streaking from HALO pin sites. HEENT: Normocephalic, HALO pin sites TTP, also TTP to the jaw. NECK: Midline cervical spine mildly TTP, no JVD, trachea midline. MUSCULOSKELETAL: Moves all extremities w/o any difficulty, no evident clubbing or deformity. NEUROLOGICAL: AAOx3. Speech clear & appropriate. Follows simple commands w/o difficulty. Sensation intact to light touch to all extremities when examined. Motor strength is 4+/5 to right deltoid, 4 to 4+/5 to hand intrinsic/extrinsic, o/w 5/5 to all major flexion & extension muscle groups. (Filemon Stevenson) Lab, Micro, Other Results Laboratory Tests Test 05/08/17 04:43 05/10/17 05:14 Blood Urea Nitrogen 19 MG/DL 16 MG/DL Creatinine 0.85 MG/DL 0.87 MG/DL Random Glucose 103 MG/DL 91 MG/DL Calcium Level 8.9 MG/DL 9.1 MG/DL Sodium Level 138 MEQ/L 134 MEQ/L Potassium Level 3.8 MEQ/L 3.8 MEQ/L Chloride Level 103 MEQ/L 102 MEQ/L Carbon Dioxide Level 25.2 MEQ/L 22.4 MEQ/L Anion Gap 10 MEQ/L 10 MEQ/L Estimat Glomerular Filtration Rate 92 ML/MIN 90 ML/MIN Magnesium Level 2.0 MG/DL (Filemon Stevenson) Medical Decision Making Impression and Plan Impression: 1. 62 y/o M with C2 partial odontoid fracture that extends to the base and into the body as well as a right C2 slightly displaced lateral mass fracture involving the foramen transversarium. s/p halo placement. 2. Recurrent syncopal episodes. 3. Atrial fibrillation with rapid ventricular response. 4. History of orthostatic hypotension 5. History of alcohol abuse. 6. Sternal fracture The patient continues to do well. His pain is controlled. He remains neurologically intact except for intermittent tingling to the distal LUE. Still in atrial fibrillation but w/controlled ventricular rate. Now on PO diltiazem. PT recommends the patient use a wheeled walker and have further rehab inpatient but patient has no means to pay for it. Plan: Continue to monitor Neuro exam and vitals. Continue with DVT mechanical prophylaxis. Continue with DT prophylaxis with Librium. Continue with rehab efforts. Patient will need follow up x-rays every 6 weeks for 4 months. Patient is able to be transferred to a regular med/surg floor. Plan for discharge home w/wheeled walker when Cardiology indicates patient is medically ready. (Filemon Stevenson) Attending Statement The exam, history, and the medical decision-making described in the above note were completed with the assistance of the mid-level provider. I reviewed and agree with the findings presented. I attest that I had a [id number] encounter with the patient on the same day, and personally performed and documented my assessment and findings in the medical record. On my examination call 09/06/2016, patient remains awake and alert. Halo in good position Pin sites clean Sensorimotor function mostly intact in the upper or lower extremities except for complain of some mild paresthesias in the hands. He ambulates with minimal assist Stable from neurosurgical standpoint for discharge when medically stable. (Khai Lal MD) Filemon StevensonP May 10, 2017 10:13 Khai Lal MD May 14, 2017 20:01
[2017-05-10] MEDS: CYCLOBENZAPRINE HCL 10 MG TAB PO PRN (21:00)
[2017-05-10] MEDS: ZOLPIDEM TARTRATE 5 MG TAB PO PRN (21:00)
[2017-05-11] VITALS (10 sets, daily range): BP systolic 101–116; BP diastolic 61–70; PULSE 67–102; RESP 14–24; TEMP 97.7–100.7; O2SAT 92–97
[2017-05-11] MEDS: PIPERACIL-TAZO 4.5 GM PREMIX 100 ML IV SCH ×3 (00:28→13:19)
[2017-05-11] MEDS: DILTIAZEM HCL 90 MG TAB PO SCH ×4 (03:00→20:58)
[2017-05-11 05:28] LABS: AUTOMATED NEUTROPHIL # 4.5 TH/MM3 (1.8-7.7); BASOPHIL # 0.1 TH/MM3 (0-0.2); BASOPHIL % 1.2 % (0.0-2.0); EOSINOPHIL # 0.1 TH/MM3 (0-0.4); EOSINOPHIL % 0.8 % (0.0-4.0); HEMOGLOBIN 13.9 GM/DL (13.0-17.0); LYMPH % 22.9 % (9.0-44.0); LYMPHOCYTE # 1.6 TH/MM3 (1.0-4.8); MEAN CELL VOLUME 110.1 FL (80.0-100.0); MEAN CORPUSCULAR HEMOGLOBIN 37.5 PG (27.0-34.0); MEAN PLATELET VOLUME 7.3 FL (7.0-11.0); MONO % 11.1 % (0.0-8.0); MONOCYTE # 0.8 TH/MM3 (0-0.9); PLATELET COUNT 364 TH/MM3 (150-450); RED BLOOD COUNT 3.72 MIL/MM3 (4.50-5.90); RED CELL DISTRIBUTION WIDTH 13.9 % (11.6-17.2); WHITE BLOOD COUNT 7.1 TH/MM3 (4.0-11.0)
[2017-05-11 05:44] LABS: BICARBONATE 25.5 MEQ/L (21.0-32.0); CALCIUM 8.9 MG/DL (8.5-10.1); CREATININE 1.04 MG/DL (0.60-1.30)
[2017-05-11 05:59] LABS: DIGOXIN 0.7 NG/ML (0.8-2.0)
[2017-05-11] MEDS: CYCLOBENZAPRINE HCL 10 MG TAB PO PRN ×2 (06:14→21:00)
[2017-05-11] MEDS: SODIUM CHLORIDE 0.9% FLUSH 10 ML FLUSH IV FLUSH SCH ×2 (09:00→20:58)
[2017-05-11] MEDS: POLYETHYLENE GLYCOL 17 GM PKG PO SCH (09:00)
[2017-05-11] MEDS: LACTULOSE SYRUP 20 GM/30 ML CUP PO SCH (09:00)
[2017-05-11] MEDS: THIAMINE HCL 100 MG TAB PO SCH (09:00)
[2017-05-11] MEDS: DOCUSATE SODIUM 50 MG/SENNA 8.6 MG TAB PO SCH ×2 (09:00→20:58)
[2017-05-11] MEDS: FOLIC ACID 1 MG TAB PO SCH ×2 (09:16→09:21)
[2017-05-11] MEDS: ASPIRIN EC 81 MG TABEC PO SCH (09:16)
[2017-05-11] MEDS: PANTOPRAZOLE SOD 40 MG DELAYED RELEASE TAB PO SCH (09:16)
[2017-05-11] MEDS: MIDODRINE 5 MG TAB PO SCH ×3 (09:16→17:00)
[2017-05-11] MEDS: MULTIVITAMIN TAB PO SCH (09:16)
[2017-05-11] MEDS: guaiFENesin E.R. 600 MG TAB PO SCH ×2 (09:16→20:58)
[2017-05-11] MEDS: DIGOXIN 0.125 MG TAB PO SCH (09:17)
[2017-05-11] MEDS: HYDROmorphone HCL 2 MG TAB PO PRN ×2 (09:17→10:00)
--- NOTE | 2017-05-11 10:47 | HHI.NSPN ---
(Piper Morillo) Note Status Status: Progress Note (Piper Morillo) Interval History Interval History A 64 year old gentleman who apparently had a syncopal episode while he was at a bar and fell back and struck his head. He relates that he only had 1 1/2 beers prior to this and was not really intoxicated. He does have a history of syncopal episodes. Last time he relates that he had a syncopal episode was about three months. He was diagnosed with atrial fibrillation a year ago. He was admitted also last month with atrial fibrillation with a rapid ventricular response and was seen by Dr. Hinojosa from cardiology. He relates that he is on blood thinners, although these are very expensive and he has no job or insurance and cannot afford them. He complains of neck pain. He initially had some numbness in his left hand, but this has resolved. He also complains of some anterior chest wall area pain. He was evaluated by the emergency room physician on arrival to [facility] and head CT scan is negative for any intracranial abnormality. He does have, on the CT scan of the cervical spine, a C2 fracture that partially extends to the base of the dens as well as the lateral mass in the right side with involvement of the foramen and transversarium. There is slight retropulsion of the C2 fracture moves posteriorly into the spinal canal. 05/02/17: Pt awake and alert. Complains of neck and sternal pain. No radiculopathy in UEs. Pt has intermittent paresthesias in left 1st and 2nd fingers primarily which he states is not new and has had prior to his fall. No numbness or paresthesias in UEs otherwise. No abdominal pain. No weakness that he has noticed but he is resting in bed. [place] cervical collar intact. 05/03/17: Pt awake, alert, with some confusion and agitation. Complains of neck and sternal pain. Neck pain extends up into the right posterior head. 05/05/17: Pt awake and alert. Less confusion and agitation this morning. Complains of neck pain extending into the right side of his head. 05/06/17: Pt awake and alert. Complains of neck pain and head pain that is worse when moving. Worked with PT to get oob to chair. 05/07/17: Pt awake and alert. Neck pain improving. Pt remains on Diltiazem IV weaning/converting to po. No radiculopathy in UEs. Stable chronic intermittent paresthesias in left 1-3 fingers and some forearm that improves with movement of extremity. 05/08/17: Pt awake and alert. Continues with IV Diltiazem which is being placed on hold. Pt complains of right sided neck discomfort. No radiculopathy in UEs. Pin sites are clean and dry. Generalized weakness in all 4 extremities. 05/09: The patient is awake and alert when seen this morning. He is watching TV. He states the neck is a little sore but alright. He does say he has some head pain but indicates it to the right side of the head and face. He does say he has some intermittent numbness to the distal left forearm into the hand and digits. He does say he has some chest pain that is worse when he coughs. Nursing reports that the patient has been off intravenous diltiazem for 24 hours. 05/10: When seen the patient is asleep but awakens to voice. After that he is awake and readily interacts. He does have some pain to the neck. Today he complains of pain along the jaw and itching to the right occipital scalp. He is in atrial fibrillation with a ventricular rate of 50 to the mid 60s and is only on oral diltiazem. He does again report intermittent numbness to the distal left forearm into the hand but doesn't have any at present. 05/11/17: c/o diffuse body pain. awake and alert. On digoxin and oral diltiazem, on ASA 81, no anticoagulation recommended per Cardiology. (Piper Morillo) Labs, Micro, & Vital Signs Results Date Time Temp Pulse Resp B/P (MAP) Pulse Ox O2 Delivery O2 Flow Rate FiO2 05/11/17 08:00 98.0 85 21 106/68 (81) 96 05/11/17 08:00 78 05/11/17 07:35 94 21 05/11/17 07:00 96 Room Air 05/11/17 06:00 69 05/11/17 04:00 81 05/11/17 04:00 98.6 81 23 108/68 (81) 92 05/11/17 02:00 102 05/11/17 00:00 97.7 83 20 101/61 (74) 94 05/11/17 00:00 91 05/10/17 22:00 84 05/10/17 20:52 95 21 05/10/17 20:00 56 05/10/17 20:00 98.7 86 14 160/77 (104) 97 05/10/17 19:28 18 05/10/17 19:00 94 Room Air 05/10/17 18:00 80 05/10/17 16:00 98.1 70 16 143/87 (105) 95 05/10/17 16:00 70 05/10/17 14:00 76 05/10/17 12:00 98.2 70 16 123/80 (94) 96 05/10/17 12:00 70 Constitutional Vital Signs Date Time Temp Pulse Resp B/P (MAP) Pulse Ox O2 Delivery O2 Flow Rate FiO2 05/11/17 08:00 98.0 85 21 106/68 (81) 96 05/11/17 08:00 78 05/11/17 07:35 94 21 05/11/17 07:00 96 Room Air 05/11/17 06:00 69 05/11/17 04:00 81 05/11/17 04:00 98.6 81 23 108/68 (81) 92 05/11/17 02:00 102 05/11/17 00:00 97.7 83 20 101/61 (74) 94 05/11/17 00:00 91 05/10/17 22:00 84 05/10/17 20:52 95 21 05/10/17 20:00 56 05/10/17 20:00 98.7 86 14 160/77 (104) 97 05/10/17 19:28 18 05/10/17 19:00 94 Room Air 05/10/17 18:00 80 05/10/17 16:00 98.1 70 16 143/87 (105) 95 05/10/17 16:00 70 05/10/17 14:00 76 05/10/17 12:00 98.2 70 16 123/80 (94) 96 05/10/17 12:00 70 (Piper Morillo) Review of Systems Constitutional: DENIES: Fever Cardiovascular: DENIES: Chest pain Gastrointestinal: DENIES: Nausea, Vomiting Musculoskeletal: COMPLAINS OF: Muscle aches, Neck pain Neurologic: DENIES: Localized weakness, Paresthesias (Piper Morillo) Physical Exam Awake, alert. Speech is fluent. Follows commands w/o difficulties Halo brace intact. Pin sites x 4 clean CN: pupils equal bilaterally, facial motor symmetric Motor: moves all major muscle groups well 5/5 Sensation intact to light touch x 4 extremities Plantars flexors b/l (Piper Morillo) Medications Current Medications Current Medications Medications (Trade) Dose Ordered Sig/Michael Route PRN Reason Start Time Stop Time Status Last Admin Dose Admin Aspirin (Ecotrin Ec) 81 mg DAILY PO 05/02/17 09:00 05/11/17 09:16 Midodrine (Proamatine) 5 mg TID@07,, PO 05/01/17 17:30 05/11/17 09:16 Diltiazem HCl 125 mg/Sodium Chloride 125 ml @ 5 mls/hr TITRATE PRN IV Tachycardia 05/01/17 16:45 05/07/17 20:11 Lorazepam (Ativan Inj) 1 mg Q1H PRN IV PUSH SEIZURES 05/01/17 17:30 Al Hydrox/Mg Hydrox/Simethicone (Mag-Al Plus Susp Liq) 30 ml Q6H PRN PO DYSPEPSIA 05/01/17 17:15 Pantoprazole Sodium (Protonix) 40 mg DAILY PO 05/02/17 09:00 05/11/17 09:16 Promethazine HCl (Phenergan Inj) 25 mg Q4H PRN IM NAUSEA OR VOMITING 05/01/17 17:15 Calcium Gluconate 1 gm/Sodium Chloride 110 ml @ 110 mls/hr UNSCH PRN IV SEE LABEL COMMENTS 05/01/17 17:15 Potassium Chloride 100 ml @ 50 mls/hr UNSCH PRN IV POTASSIUM LESS THAN 4 05/01/17 17:15 Magnesium Sulfate 2 gm/Sodium Chloride 104 ml @ 100 mls/hr UNSCH PRN IV MAGNESIUM LESS THAN 2 05/01/17 18:00 05/04/17 11:16 Cyclobenzaprine HCl (Flexeril) 10 mg Q8H PRN PO MUSCLE SPASM 05/01/17 16:45 05/11/17 06:14 Labetalol HCl (Trandate Inj) 10 mg Q1H PRN IV PUSH SYS BP GREATER THAN 170 MMHG 05/01/17 17:30 Clonidine (Catapres) 0.1 mg Q6H PRN PO SYS BP GREATER THAN 170 MMHG 05/01/17 17:15 Zolpidem Tartrate (Ambien) 5 mg HS PRN PO INSOMNIA 05/01/17 21:00 05/10/17 21:00 Senna/Docusate Sodium (Nicole-Colace) 1 tab BID PO 05/01/17 21:00 05/10/17 22:05 Magnesium Hydroxide (Milk Of Magnesia Liq) 30 ml Q12H PRN PO Mild constipation 05/01/17 17:15 Sennosides (Senokot) 17.2 mg Q12H PRN PO Moderate constipation 05/01/17 17:15 Bisacodyl (Dulcolax Supp) 10 mg DAILY PRN RECTAL SEVERE CONSITIPATION 05/01/17 17:15 Lactulose (Lactulose Liq) 30 ml DAILY PRN PO SEVERE CONSITIPATION 05/01/17 17:15 Tramadol HCl (Ultram) 50 mg Q4H PRN PO pain 1-6 05/01/17 16:45 05/07/17 20:11 Hydromorphone HCl (Dilaudid) 2 mg Q4H PRN PO pain>6 05/01/17 16:45 05/11/17 09:17 Potassium Chloride 100 ml @ 50 mls/hr Q2H PRN IV For Potassium 2.8 - 3.2 mEq/L 05/01/17 17:30 Potassium Chloride 100 ml @ 50 mls/hr Q2H PRN IV For Potassium 2.8 - 3.2 mEq/L 05/01/17 17:30 Potassium Bicarb/ Potassium Chloride (K-Lyte Cl Eff) 50 meq UNSCH PRN PO For Potassium 3.3 - 3.5 mEq/L 05/01/17 17:30 05/07/17 05:58 Potassium Chloride 100 ml @ 25 mls/hr UNSCH PRN IV For Potassium 3.3 - 3.5 mEq/L 05/01/17 17:30 Potassium Chloride 100 ml @ 50 mls/hr Q2H PRN IV For Potassium 3.3 - 3.5 mEq/L 05/01/17 17:30 05/04/17 13:57 Magnesium Sulfate 4 gm/Sodium Chloride 100 ml @ 50 mls/hr UNSCH PRN IV For Magnesium 0.9 - 1.1 mg/dL 05/01/17 17:30 Magnesium Oxide (Mag-Ox) 800 mg UNSCH PRN PO For Magnesium 1.2 - 1.6 mg/dL 05/01/17 17:30 Magnesium Sulfate 2 gm/Sodium Chloride 100 ml @ 50 mls/hr UNSCH PRN IV For Magnesium 1.2 - 1.6 mg/dL 05/01/17 17:30 Potassium Phosphate (K-Phos) 2,000 mg Q4H PRN PO For Phosphorus < 2.5 mg/dL 05/01/17 17:30 Sodium Phosphate 30 mmol/Sodium Chloride 250 ml @ 42 mls/hr UNSCH PRN IV For Phosphorus < 2.5 mg/dL 05/01/17 17:30 05/05/17 08:55 Potassium Phosphate (K-Phos) 2,000 mg UNSCH PRN PO/TUBE SEE LABEL COMMENTS 05/01/17 17:30 Potassium Phosphate 30 mmol/ Sodium Chloride 260 ml @ 42 mls/hr UNSCH PRN IV SEE LABEL COMMENTS 05/01/17 17:30 Sodium Chloride (NS Flush) 2 ml UNSCH PRN IV FLUSH FLUSH AFTER USING IV ACCESS 05/01/17 17:45 Sodium Chloride (NS Flush) 2 ml BID IV FLUSH 05/01/17 21:00 05/11/17 09:00 Ondansetron HCl (Zofran Inj) 4 mg Q6H PRN IV PUSH NAUSEA OR VOMITING 05/01/17 17:45 Miscellaneous Information 1 Q361D XX 05/01/17 17:45 Chlorhexidine Gluconate (Chlorhexidine 2% Cloth) Taper DAILY@04 TOP 05/02/17 04:00 04/28/18 03:59 Chlorhexidine Gluconate (Chlorhexidine 2% Cloth) 3 pack UNSCH PRN TOP HYGIENIC CARE 05/01/17 17:45 Morphine Sulfate (Morphine Inj) 2 mg Q2H PRN IV PUSH breakthrough Pain>6 05/02/17 10:45 05/07/17 03:56 Lorazepam (Ativan) 1 mg Q4H PRN PO CIWA 8 - 10 05/03/17 07:30 05/03/17 23:26 Lorazepam (Ativan Inj) 1 mg Q4H PRN IV PUSH CIWA 8 - 10 05/03/17 07:30 Lorazepam (Ativan) 2 mg Q2H PRN PO CIWA 11-14 05/03/17 07:30 05/03/17 16:15 Lorazepam (Ativan Inj) 2 mg Q2H PRN IV PUSH CIWA 11-14 05/03/17 07:30 Lorazepam (Ativan Inj) 2 mg Q1H PRN IV PUSH CIWA 15-20 05/03/17 07:30 Lorazepam (Ativan Inj) 2 mg Q15M PRN IV PUSH CIWA > 20 05/03/17 07:30 Albuterol Sulfate (Albuterol Neb) 2.5 mg Q2HR NEB PRN NEB WHEEZING 05/03/17 14:00 05/09/17 20:32 Digoxin (Lanoxin) 0.125 mg DAILY PO 05/04/17 09:00 05/11/17 09:17 Budesonide/ Formoterol Fumarate (Symbicort 160-4.5 Mcg Inh) 2 puff Q12HR INH 05/03/17 21:00 05/10/17 22:00 Guaifenesin (Mucinex Er) 600 mg BID PO 05/03/17 21:00 05/11/17 09:16 Piperacillin Sod/ Tazobactam Sod 100 ml @ 200 mls/hr Q6H IV 05/03/17 18:00 05/11/17 06:00 Thiamine HCl (Vitamin B1) 100 mg DAILY PO 05/05/17 09:00 05/10/17 09:58 Folic Acid (Folate) 1 mg DAILY PO 05/04/17 09:00 05/11/17 09:21 Multivitamins (Theragran) 1 tab DAILY PO 05/04/17 09:00 05/11/17 09:16 Polyethylene Glycol (Miralax) 17 gm DAILY PO 05/05/17 09:00 05/10/17 09:59 Lactulose (Lactulose Liq) 30 ml DAILY PO 05/05/17 09:00 05/10/17 09:57 Diltiazem HCl (Cardizem) 90 mg Q6H PO 05/08/17 15:00 05/11/17 09:16 Chlordiazepoxide (Librium) 10 mg BID PO 05/08/17 21:00 05/11/17 09:17 (Piper Morillo) Current Medications Current Medications Ondansetron HCl (Zofran Inj) 4 mg ONCE ONCE IVP Last administered on 15:20; Start 05/01/17 at 15:15; Stop 05/01/17 at 15:16; Status DC Sodium Chloride (NS Flush) 2 ml UNSCH PRN IVF FLUSH AFTER USING IV ACCESS; Start 05/01/17 at 15:15; Stop 05/01/17 at 18:21; Status DC Sodium Chloride 1,000 ml @ 1,000 mls/hr Q1H ONCE IV Last administered on 05/01 15:20; Start 05/01/17 at 15:15; Stop 05/01/17 at 16:14; Status DC Diltiazem HCl (Cardizem Inj) 10 mg ONCE ONCE IV Last administered on 15:20; Start 05/01/17 at 15:15; Stop 05/01/17 at 15:16; Status DC Diltiazem HCl (Cardizem Inj) 18 mg BOLUS ONCE IV PUSH Last administered on 16:05; Start 05/01/17 at 16:00; Stop 05/01/17 at 16:01; Status DC Morphine Sulfate (Morphine Inj) 2 mg ONCE ONCE IV PUSH Last administered on 16:28; Start 05/01/17 at 16:30; Stop 05/01/17 at 16:31; Status DC Morphine Sulfate (Morphine Inj) 2 mg ONCE ONCE IV PUSH Last administered on 16:27; Start 05/01/17 at 16:30; Stop 05/01/17 at 16:31; Status DC Nicardipine HCl 25 mg/Sodium Chloride 250 ml @ 0 mls/hr TITRATE ONCE IV ; Start 05/01/17 at 16:45; Stop 05/01/17 at 16:45; Status DC Aspirin (Ecotrin Ec) 81 mg DAILY PO Last administered on 05/11/17at 09:16; Start 05/02/17 at 09:00 Diltiazem HCl (Cardizem) 30 mg Q6HR PO Last administered on 05/05/17 05:23; Start 05/01/17 at 18:00; Stop 05/05/17 at 08:39; Status DC Midodrine (Proamatine) 5 mg TID@07,12,17 PO Last administered on 05/11/17 09:16 ; Start 05/01/17 at 17:30 Diltiazem HCl (Cardizem Inj) 20 mg ONCE ONCE IV PUSH ; Start 05/01/17 at 16:45 ; Stop 05/01/17 at 16:46; Status DC Diltiazem HCl 125 mg/Sodium Chloride 125 ml @ 5 mls/hr TITRATE PRN IV Tachycardia Last administered on 05/07/17 20:11; Start 05/01/17 at 16:45 Multivitamins 10 ml/Thiamine HCl 100 mg/Folic Acid 1 mg/Sodium Chloride 511.2 ml @ 125 mls/hr Q24H IV Last administered on 05/03/17 17:40; Start at 18:00; Stop 05/04/17 at 08:48; Status DC Sodium Chloride (NS Flush) 2 ml UNSCH PRN IV FLUSH FLUSH AFTER USING IV ACCESS ; Start 05/01/17 at 17:15; Stop 05/01/17 at 18:21; Status DC Sodium Chloride (NS Flush) 2 ml BID IV FLUSH ; Start 05/01/17 at 21:00; Stop 05/01/17 at 21:00; Status DC Lorazepam (Ativan Inj) 1 mg Q1H PRN IV PUSH SEIZURES; Start 05/01/17 at 17:30 Al Hydrox/Mg Hydrox/Simethicone (Mag-Al Plus Susp Liq) 30 ml Q6H PRN PO DYSPEPSIA; Start 05/01/17 at 17:15 Pantoprazole Sodium (Protonix) 40 mg DAILY PO Last administered on 05/11/17 09: 16; Start 05/02/17 at 09:00 Ondansetron HCl (Zofran Inj) 4 mg Q6H PRN IV PUSH NAUSEA OR VOMITING; Start at 17:15; Stop 05/01/17 at 18:20; Status DC Promethazine HCl (Phenergan Inj) 25 mg Q4H PRN IM NAUSEA OR VOMITING; Start at 17:15 Calcium Gluconate 1 gm/Sodium Chloride 110 ml @ 110 mls/hr UNSCH PRN IV SEE LABEL COMMENTS; Start 05/01/17 at 17:15 Potassium Chloride 100 ml @ 50 mls/hr UNSCH PRN IV POTASSIUM LESS THAN 4; Start 05/01/17 at 17:15 Magnesium Sulfate 2 gm/Sodium Chloride 104 ml @ 100 mls/hr UNSCH PRN IV MAGNESIUM LESS THAN 2 Last administered on 05/04/17 11:16; Start 05/01/17 at 18:00 Morphine Sulfate (Morphine Inj) 2 mg Q2H PRN IV PUSH breakthrough Pain>6; Start 05/01/17 at 16:45; Stop 05/02/17 at 10:32; Status DC Cyclobenzaprine HCl (Flexeril) 10 mg Q8H PRN PO MUSCLE SPASM Last administered on 05/11/17at 06:14; Start 05/01/17 at 16:45 Labetalol HCl (Trandate Inj) 10 mg Q1H PRN IV PUSH SYS BP GREATER THAN 170 MMHG ; Start 05/01/17 at 17:30 Clonidine (Catapres) 0.1 mg Q6H PRN PO SYS BP GREATER THAN 170 MMHG; Start at 17:15 Zolpidem Tartrate (Ambien) 5 mg HS PRN PO INSOMNIA Last administered on 21:00; Start 05/01/17 at 21:00 Albuterol Sulfate (Albuterol Neb) 2.5 mg Q4HR NEB PRN NEB WHEEZING Last administered on 05/03/17 04:25; Start 05/01/17 at 17:30; Stop 05/03/17 at 13 :57; Status DC Senna/Docusate Sodium (Nicole-Colace) 1 tab BID PO Last administered on 22:05; Start 05/01/17 at 21:00 Magnesium Hydroxide (Milk Of Magnesia Liq) 30 ml Q12H PRN PO Mild constipation ; Start 05/01/17 at 17:15 Sennosides (Senokot) 17.2 mg Q12H PRN PO Moderate constipation; Start at 17:15 Bisacodyl (Dulcolax Supp) 10 mg DAILY PRN RECTAL SEVERE CONSITIPATION; Start 05/01/17 at 17:15 Lactulose (Lactulose Liq) 30 ml DAILY PRN PO SEVERE CONSITIPATION; Start 05/01 at 17:15 Nicardipine HCl 25 mg/Sodium Chloride 250 ml @ 50 mls/hr TITRATE PRN IV Blood pressure management; Start 05/01/17 at 18:00; Stop 05/05/17 at 08:41; Status DC Tramadol HCl (Ultram) 50 mg Q4H PRN PO pain 1-6 Last administered on 20:11; Start 05/01/17 at 16:45 Hydromorphone HCl (Dilaudid) 2 mg Q4H PRN PO pain>6 Last administered on at 09:17; Start 05/01/17 at 16:45 Chlordiazepoxide (Librium) 10 mg TID PO Last administered on 05/08/17 12:14; Start 05/01/17 at 18:00; Stop 05/08/17 at 16:20; Status DC Digoxin (Lanoxin Inj) 0.25 mg ONCE ONCE IV PUSH Last administered on 18:35; Start 05/01/17 at 17:45; Stop 05/01/17 at 17:46; Status DC Digoxin (Lanoxin Inj) 0.125 mg DAILY IV PUSH Last administered on 05/03/17 08 :10; Start 05/02/17 at 09:00; Stop 05/03/17 at 13:59; Status DC Potassium Chloride (KCl) 30 meq ONCE ONCE PO Last administered on 05/01/17 18:34; Start 05/01/17 at 17:30; Stop 05/01/17 at 17:40; Status DC Magnesium Sulfate/ Dextrose 100 ml @ 100 mls/hr ONCE ONCE IV Last administered on 05/01/17 18:34; Start 05/01/17 at 17:30; Stop 05/01/17 at 18 :29; Status DC Potassium Chloride 100 ml @ 50 mls/hr Q2H PRN IV For Potassium 2.8 - 3.2 mEq/L ; Start 05/01/17 at 17:30 Potassium Chloride 100 ml @ 50 mls/hr Q2H PRN IV For Potassium 2.8 - 3.2 mEq/L ; Start 05/01/17 at 17:30 Potassium Bicarb/ Potassium Chloride (K-Lyte Cl Eff) 50 meq UNSCH PRN PO For Potassium 3.3 - 3.5 mEq/L Last administered on 05/07/17 05:58; Start at 17:30 Potassium Chloride 100 ml @ 25 mls/hr UNSCH PRN IV For Potassium 3.3 - 3.5 mEq /L; Start 05/01/17 at 17:30 Potassium Chloride 100 ml @ 50 mls/hr Q2H PRN IV For Potassium 3.3 - 3.5 mEq/ L Last administered on 05/04/17 13:57; Start 05/01/17 at 17:30 Magnesium Sulfate 4 gm/Sodium Chloride 100 ml @ 50 mls/hr UNSCH PRN IV For Magnesium 0.9 - 1.1 mg/dL; Start 05/01/17 at 17:30 Magnesium Oxide (Mag-Ox) 800 mg UNSCH PRN PO For Magnesium 1.2 - 1.6 mg/dL; Start 05/01/17 at 17:30 Magnesium Sulfate 2 gm/Sodium Chloride 100 ml @ 50 mls/hr UNSCH PRN IV For Magnesium 1.2 - 1.6 mg/dL; Start 05/01/17 at 17:30 Potassium Phosphate (K-Phos) 2,000 mg Q4H PRN PO For Phosphorus < 2.5 mg/dL; Start 05/01/17 at 17:30 Sodium Phosphate 30 mmol/Sodium Chloride 250 ml @ 42 mls/hr UNSCH PRN IV For Phosphorus < 2.5 mg/dL Last administered on 05/05/17 08:55; Start 05/01/17 at 17:30 Potassium Phosphate (K-Phos) 2,000 mg UNSCH PRN PO/TUBE SEE LABEL COMMENTS; Start 05/01/17 at 17:30 Potassium Phosphate 30 mmol/ Sodium Chloride 260 ml @ 42 mls/hr UNSCH PRN IV SEE LABEL COMMENTS; Start 05/01/17 at 17:30 Iohexol (Omnipaque 350 Inj) 76 ml STK-MED ONCE IVCONTRAST Last administered on 05/01/17 17:34; Start 05/01/17 at 17:34; Stop 05/01/17 at 17:35; Status DC Thiamine HCl (Vitamin B1) 100 mg DAILY PO ; Start 05/02/17 at 09:00; Stop at 09:00; Status DC Folic Acid (Folate) 1 mg DAILY PO ; Start 05/02/17 at 09:00; Stop 05/02/17 at 09:00; Status DC Multivitamins (Theragran) 1 tab DAILY PO ; Start 05/02/17 at 09:00; Stop 05/02 at 09:00; Status DC Sodium Chloride (NS Flush) 2 ml UNSCH PRN IV FLUSH FLUSH AFTER USING IV ACCESS ; Start 05/01/17 at 17:45 Sodium Chloride (NS Flush) 2 ml BID IV FLUSH Last administered on 05/11/17at 09: 00; Start 05/01/17 at 21:00 Ondansetron HCl (Zofran Inj) 4 mg Q6H PRN IV PUSH NAUSEA OR VOMITING; Start at 17:45 Miscellaneous Information 1 Q361D XX ; Start 05/01/17 at 17:45 Chlorhexidine Gluconate (Chlorhexidine 2% Cloth) Taper DAILY@04 TOP ; Start at 04:00; Stop 04/28/18 at 03:59 Chlorhexidine Gluconate (Chlorhexidine 2% Cloth) 3 pack UNSCH PRN TOP HYGIENIC CARE; Start 05/01/17 at 17:45 Chlordiazepoxide (Librium) 10 mg TID PO ; Start 05/02/17 at 09:00; Stop at 09:10; Status DC Morphine Sulfate (Morphine Inj) 2 mg Q2H PRN IV PUSH breakthrough Pain>6 Last administered on 05/07/17 03:56; Start 05/02/17 at 10:45 Lorazepam (Ativan) 1 mg Q4H PRN PO CIWA 8 - 10 Last administered on 05/03/17 23:26; Start 05/03/17 at 07:30 Lorazepam (Ativan Inj) 1 mg Q4H PRN IV PUSH CIWA 8 - 10; Start 05/03/17 at 07: 30 Lorazepam (Ativan) 2 mg Q2H PRN PO CIWA 11-14 Last administered on 05/03/17 16:15; Start 05/03/17 at 07:30 Lorazepam (Ativan Inj) 2 mg Q2H PRN IV PUSH CIWA 11-14; Start 05/03/17 at 07: 30 Lorazepam (Ativan Inj) 2 mg Q1H PRN IV PUSH CIWA 15-20; Start 05/03/17 at 07: 30 Lorazepam (Ativan Inj) 2 mg Q15M PRN IV PUSH CIWA > 20; Start 05/03/17 at 07: 30 Morphine Sulfate (Morphine Inj) 10 mg NOW ONCE IV PUSH Last administered on 11:00; Start 05/03/17 at 10:15; Stop 05/03/17 at 10:17; Status DC Midazolam HCl (Versed Inj) 5 mg NOW ONCE IV PUSH ; Start 05/03/17 at 10:15; Stop 05/03/17 at 10:17; Status DC Lidocaine/ Epinephrine (Xylocaine-Epi Mpf 2%-1:200,000 Inj) 20 ml UNSCH X1 NERV BLOCK Last administered on 05/03/17 11:21; Start 05/03/17 at 10:30; Stop 05/04/17 at 10:29; Status DC Albuterol Sulfate (Albuterol Neb) 2.5 mg Q2HR NEB PRN NEB WHEEZING Last administered on 05/09/17 20:32; Start 05/03/17 at 14:00 Albuterol/ Ipratropium (Duoneb Neb) 1 ampule Q6HR NEB NEB Last administered on 05/07/17 08:45; Start 05/03/17 at 16:00; Stop 05/07/17 at 15:59; Status DC Digoxin (Lanoxin) 0.125 mg DAILY PO Last administered on 05/11/17 09:17; Start 05/04/17 at 09:00 Budesonide/ Formoterol Fumarate (Symbicort 160-4.5 Mcg Inh) 2 puff Q12HR INH Last administered on 05/10/17 22:00; Start 05/03/17 at 21:00 Sodium Chloride (Sodium Chloride 3% Neb) 2 ml Q6HR NEB NEB Last administered on 05/08/17 19:49; Start 05/03/17 at 22:00; Stop 05/08/17 at 21:59; Status DC Guaifenesin (Mucinex Er) 600 mg BID PO Last administered on 05/11/17 09:16; Start 05/03/17 at 21:00 Piperacillin Sod/ Tazobactam Sod 100 ml @ 200 mls/hr Q6H IV Last administered on 05/11/17 06:00; Start 05/03/17 at 18:00 Thiamine HCl 100 mg/Sodium Chloride 101 ml @ 101 mls/hr ONCE ONCE IV Last administered on 05/04/17 09:41; Start 05/04/17 at 09:00; Stop 05/04/17 at 09 :59; Status DC Thiamine HCl (Vitamin B1) 100 mg DAILY PO Last administered on 05/10/17 09:58 ; Start 05/05/17 at 09:00 Folic Acid (Folate) 1 mg DAILY PO Last administered on 05/11/17 09:21; Start 05/04/17 at 09:00 Multivitamins (Theragran) 1 tab DAILY PO Last administered on 05/11/17 09:16; Start 05/04/17 at 09:00 Magnesium Sulfate/ Dextrose 100 ml @ 100 mls/hr Q1H IV ; Start 05/04/17 at 10: 00; Stop 05/04/17 at 11:59; Status DC Sodium Phosphate 30 mmol/Sodium Chloride 260 ml @ 43.333 mls/ hr ONCE ONCE IV Last administered on 05/04/17 12:55; Start 05/04/17 at 10:00; Stop at 15:59; Status DC Polyethylene Glycol (Miralax) 17 gm DAILY PO Last administered on 05/10/17 09 :59; Start 05/05/17 at 09:00 Lactulose (Lactulose Liq) 30 ml DAILY PO Last administered on 05/10/17 09:57 ; Start 05/05/17 at 09:00 Potassium Chloride (KCl) 40 meq ONCE ONCE PO Last administered on 05/05/17 08:55; Start 05/05/17 at 08:30; Stop 05/05/17 at 08:31; Status DC Magnesium Sulfate/ Dextrose 100 ml @ 100 mls/hr Q1H IV Last administered on 09:16; Start 05/05/17 at 09:00; Stop 05/05/17 at 10:59; Status DC Sodium Phosphate 30 mmol/Sodium Chloride 260 ml @ 43.333 mls/ hr ONCE ONCE IV ; Start 05/05/17 at 09:30; Stop 05/05/17 at 15:29; Status DC Diltiazem HCl (Cardizem) 60 mg Q6HR PO Last administered on 05/08/17t 12:14; Start 05/05/17 at 12:00; Stop 05/08/17 at 14:42; Status DC Diltiazem HCl (Cardizem) 90 mg Q6H PO Last administered on 05/11/17 09:16; Start 05/08/17 at 15:00 Chlordiazepoxide (Librium) 10 mg BID PO Last administered on 05/11/17 09:17; Start 05/08/17 at 21:00 (Blayne Lott MD) Medical Decision Making MDM Remarks 62 y/o male with C2 fracture s/p placement of halo brace, stable neurological examination Atrial fibrillation with RVR, on digoxin, oral diltiazem. cardiology - No other anticoagulation recommended at this time, on aspirin (Piper Morillo) Plan Plan Remarks appreciate medical assistance, cardiology consultation cont pin care cont therapy and rehab placement, increase mobilization OOB (Piper Morillo) Attending Statement The exam, history, and the medical decision-making described in the above note were completed with the assistance of the mid-level provider. I reviewed and agree with the findings presented. I attest that I had a [id number] encounter with the patient on the same day, and personally performed and documented my assessment and findings in the medical record. (Blayne Lott MD) Piper Morillo May 11, 2017 10:47 Blayne Lott MD May 11, 2017 12:01
--- NOTE | 2017-05-11 13:27 | HHI.PR ---
Subjective Remarks The patient was resting comfortably. He said that his pain was not well- controlled on the by mouth Dilaudid. He says he has been doing his breathing treatments regularly. He was watching a football game. Family was at the bedside. Objective Vitals Vital Signs Date Time Temp Pulse Resp B/P (MAP) Pulse Ox O2 Delivery O2 Flow Rate FiO2 05/11/17 12:00 98.0 98 16 110/69 (83) 05/11/17 08:00 98.0 85 21 106/68 (81) 96 05/11/17 08:00 78 05/11/17 07:35 94 21 05/11/17 07:00 96 Room Air 05/11/17 06:00 69 05/11/17 04:00 81 05/11/17 04:00 98.6 81 23 108/68 (81) 92 05/11/17 02:00 102 05/11/17 00:00 97.7 83 20 101/61 (74) 94 05/11/17 00:00 91 05/10/17 22:00 84 05/10/17 20:52 95 21 05/10/17 20:00 56 05/10/17 20:00 98.7 86 14 160/77 (104) 97 05/10/17 19:28 18 05/10/17 19:00 94 Room Air 05/10/17 18:00 80 05/10/17 16:00 98.1 70 16 143/87 (105) 95 05/10/17 16:00 70 05/10/17 14:00 76 I/O 05/10/17 05/10/17 05/10/17 05/11/17 05/11/17 05/11/17 07:00 15:00 23:00 07:00 15:00 23:00 Intake Total 400 ml 100 ml 320 ml 420 ml Output Total 900 ml 850 ml 650 ml Balance -500 ml 100 ml -530 ml -230 ml Intake Oral 400 ml 320 ml 420 ml IV Total 100 ml Output Urine Total 900 ml 850 ml 650 ml Stool Total 0 ml # Bowel Movements 0 1 Result Diagram: 05/11/17 0454 05/11/17 0454 Imaging Last Impressions Chest X-Ray 05/06/17 0600 Signed Impressions: Service Date/Time: Saturday, May 06, 2017 02:32 - CONCLUSION: Slight CHF. K. Raul Shamlou, MD Cervical Spine X-Ray 05/03/17 0000 Signed Impressions: Service Date/Time: Wednesday, May 03, 2017 11:31 - CONCLUSION: Findings as above. Abdiaziz Cheng MD FACR Head CT 05/01/17 1515 Signed Impressions: Service Date/Time: Monday, May 01, 2017 15:27 - CONCLUSION: 1. No acute intracranial abnormality. 2. Small posterior scalp soft tissue hematoma. 3. Mild bilateral maxillary sinus disease. Aries Fowler MD Cervical Spine CT 05/01/17 1515 Signed Impressions: Service Date/Time: Monday, May 01, 2017 15:30 - CONCLUSION: 1. Abnormal examination. Minimally displaced C2 fracture extending from the base of the dens and the lateral mass of C2 with approximate 4 mm posterior retropulsed fragment. Fracture also extends through right transverse foramen which can result in possible vertebral artery injury. CTA examination may be performed as clinically warranted. Aries Fowler MD Neck CTA 05/01/17 0000 Signed Impressions: Service Date/Time: Monday, May 01, 2017 17:26 - CONCLUSION: 1. Negative exam. The right vertebral artery is patent and intact. Papo Lee MD Chest CT 05/01/17 0000 Signed Impressions: Service Date/Time: Monday, May 01, 2017 20:24 - CONCLUSION: 1. Mild right basilar atelectasis. 2. No evidence of pneumothorax. 3. Horizontal fracture through the inferior sternum with some mild soft tissue thickening in the substernal soft tissues Papo Lee MD Objective Remarks General: No acute distress. HEENT: In HALO. Heart: Irregular rhythm. Lungs: Clear to auscultation bilaterally. No wheezes, rales, or rhonchi. Breathing is nonlabored. Abdomen: Soft, nontender, nondistended. Extremities: No lower extremity edema. Neuro: Alert and oriented. Psych: Mood and affect appropriate. Procedures 05/03/17 Closed reduction with manipulation and fixation of C2 fracture; HALO placement Medications and IVs Current Medications Medications (Trade) Dose Ordered Sig/Michael Route Start Time Stop Time Status Last Admin (Ecotrin Ec) 81 mg DAILY PO 05/02/17 09:00 05/11/17 09:16 (Proamatine) 5 mg TID@07,12,17 PO 05/01/17 17:30 05/11/17 13:19 Diltiazem HCl 125 mg/Sodium Chloride 125 ml @ 5 mls/hr TITRATE PRN IV 05/01/17 16:45 05/07/17 20:11 (Ativan Inj) 1 mg Q1H PRN IV PUSH 05/01/17 17:30 (Mag-Al Plus Susp Liq) 30 ml Q6H PRN PO 05/01/17 17:15 (Protonix) 40 mg DAILY PO 05/02/17 09:00 05/11/17 09:16 (Phenergan Inj) 25 mg Q4H PRN IM 05/01/17 17:15 Calcium Gluconate 1 gm/Sodium Chloride 110 ml @ 110 mls/hr UNSCH PRN IV 05/01/17 17:15 Potassium Chloride 100 ml @ 50 mls/hr UNSCH PRN IV 05/01/17 17:15 Magnesium Sulfate 2 gm/Sodium Chloride 104 ml @ 100 mls/hr UNSCH PRN IV 05/01/17 18:00 05/04/17 11:16 (Flexeril) 10 mg Q8H PRN PO 05/01/17 16:45 05/11/17 06:14 (Trandate Inj) 10 mg Q1H PRN IV PUSH 05/01/17 17:30 (Catapres) 0.1 mg Q6H PRN PO 05/01/17 17:15 (Ambien) 5 mg HS PRN PO 05/01/17 21:00 05/10/17 21:00 (Nicole-Colace) 1 tab BID PO 05/01/17 21:00 05/10/17 22:05 (Milk Of Magnesia Liq) 30 ml Q12H PRN PO 05/01/17 17:15 (Senokot) 17.2 mg Q12H PRN PO 05/01/17 17:15 (Dulcolax Supp) 10 mg DAILY PRN RECTAL 05/01/17 17:15 (Lactulose Liq) 30 ml DAILY PRN PO 05/01/17 17:15 (Ultram) 50 mg Q4H PRN PO 05/01/17 16:45 05/07/17 20:11 (Dilaudid) 2 mg Q4H PRN PO 05/01/17 16:45 05/11/17 10:00 Potassium Chloride 100 ml @ 50 mls/hr Q2H PRN IV 05/01/17 17:30 Potassium Chloride 100 ml @ 50 mls/hr Q2H PRN IV 05/01/17 17:30 (K-Lyte Cl Eff) 50 meq UNSCH PRN PO 05/01/17 17:30 05/07/17 05:58 Potassium Chloride 100 ml @ 25 mls/hr UNSCH PRN IV 05/01/17 17:30 Potassium Chloride 100 ml @ 50 mls/hr Q2H PRN IV 05/01/17 17:30 05/04/17 13:57 Magnesium Sulfate 4 gm/Sodium Chloride 100 ml @ 50 mls/hr UNSCH PRN IV 05/01/17 17:30 (Mag-Ox) 800 mg UNSCH PRN PO 05/01/17 17:30 Magnesium Sulfate 2 gm/Sodium Chloride 100 ml @ 50 mls/hr UNSCH PRN IV 05/01/17 17:30 (K-Phos) 2,000 mg Q4H PRN PO 05/01/17 17:30 Sodium Phosphate 30 mmol/Sodium Chloride 250 ml @ 42 mls/hr UNSCH PRN IV 05/01/17 17:30 05/05/17 08:55 (K-Phos) 2,000 mg UNSCH PRN PO/TUBE 05/01/17 17:30 Potassium Phosphate 30 mmol/ Sodium Chloride 260 ml @ 42 mls/hr UNSCH PRN IV 05/01/17 17:30 (NS Flush) 2 ml UNSCH PRN IV FLUSH 05/01/17 17:45 (NS Flush) 2 ml BID IV FLUSH 05/01/17 21:00 05/11/17 09:00 (Zofran Inj) 4 mg Q6H PRN IV PUSH 05/01/17 17:45 Miscellaneous Information 1 Q361D XX 05/01/17 17:45 (Chlorhexidine 2% Cloth) Taper DAILY@04 TOP 05/02/17 04:00 04/28/18 03:59 (Chlorhexidine 2% Cloth) 3 pack UNSCH PRN TOP 05/01/17 17:45 (Morphine Inj) 2 mg Q2H PRN IV PUSH 05/02/17 10:45 05/07/17 03:56 (Ativan) 1 mg Q4H PRN PO 05/03/17 07:30 05/03/17 23:26 (Ativan Inj) 1 mg Q4H PRN IV PUSH 05/03/17 07:30 (Ativan) 2 mg Q2H PRN PO 05/03/17 07:30 05/03/17 16:15 (Ativan Inj) 2 mg Q2H PRN IV PUSH 05/03/17 07:30 (Ativan Inj) 2 mg Q1H PRN IV PUSH 05/03/17 07:30 (Ativan Inj) 2 mg Q15M PRN IV PUSH 05/03/17 07:30 (Albuterol Neb) 2.5 mg Q2HR NEB PRN NEB 05/03/17 14:00 05/09/17 20:32 (Lanoxin) 0.125 mg DAILY PO 05/04/17 09:00 05/11/17 09:17 (Symbicort 160-4.5 Mcg Inh) 2 puff Q12HR INH 05/03/17 21:00 05/10/17 22:00 (Mucinex Er) 600 mg BID PO 05/03/17 21:00 05/11/17 09:16 Piperacillin Sod/ Tazobactam Sod 100 ml @ 200 mls/hr Q6H IV 05/03/17 18:00 05/11/17 13:19 (Vitamin B1) 100 mg DAILY PO 05/05/17 09:00 05/10/17 09:58 (Folate) 1 mg DAILY PO 05/04/17 09:00 05/11/17 09:21 (Theragran) 1 tab DAILY PO 05/04/17 09:00 05/11/17 09:16 (Miralax) 17 gm DAILY PO 05/05/17 09:00 05/10/17 09:59 (Lactulose Liq) 30 ml DAILY PO 05/05/17 09:00 05/10/17 09:57 (Cardizem) 90 mg Q6H PO 05/08/17 15:00 05/11/17 13:19 (Librium) 10 mg BID PO 05/08/17 21:00 05/11/17 09:17 A/P Assessment and Plan C2 fracture Status post closed reduction with placement of halo. - Management per neurosurgery. - PT. - IS. - pain control with a bowel regimen. Atrial fibrillation with RVR Rate controlled. Appreciate cardiology recommendations. CHADS VASc2 score 1. - Continue digoxin, oral diltiazem, aspirin 81mg daily. No other anticoagulation recommended at this time. - telemetry. Tobacco abuse Patient has been counseled. - Oxygen, bronchodilators as needed. Inferior sternal fracture Nonoperative. - Continue pain control. - Physical therapy. DVT prophylaxis: SCDs. Dean Lobato DO May 11, 2017 13:27
[2017-05-11] MEDS ORDERED: HYDROmorphone HCL 2 MG TAB PO PRN (13:45)
[2017-05-11] MEDS: CHLORHEXIDINE GLUCONATE 2 % 1 PACK (2 CLOTHS) TOP SCH (19:46)
[2017-05-11] MEDS: BUDESONIDE-FORMOTEROL 160/4.5 MCG INHALER INH SCH (20:57)
[2017-05-11] MEDS: ZOLPIDEM TARTRATE 5 MG TAB PO PRN (20:59)
[2017-05-11] MEDS: traMADol HCL 50 MG TAB PO PRN (22:55)
[2017-05-12] VITALS (8 sets, daily range): BP systolic 118–163; BP diastolic 65–99; PULSE 78–103; RESP 16–23; TEMP 96.2–98; O2SAT 92–97
[2017-05-12] MEDS: DILTIAZEM HCL 90 MG TAB PO SCH ×4 (03:27→21:31)
[2017-05-12] MEDS: traMADol HCL 50 MG TAB PO PRN (03:35)
[2017-05-12 05:44] LABS: BICARBONATE 24.1 MEQ/L (21.0-32.0); CALCIUM 8.9 MG/DL (8.5-10.1); CREATININE 0.96 MG/DL (0.60-1.30); MAGNESIUM 1.8 MG/DL (1.5-2.5)
[2017-05-12] MEDS: MIDODRINE 5 MG TAB PO SCH ×3 (06:04→18:41)
[2017-05-12] MEDS: BUDESONIDE-FORMOTEROL 160/4.5 MCG INHALER INH SCH ×2 (08:49→21:39)
[2017-05-12] MEDS: SODIUM CHLORIDE 0.9% FLUSH 10 ML FLUSH IV FLUSH SCH ×2 (08:49→21:38)
[2017-05-12] MEDS: DIGOXIN 0.125 MG TAB PO SCH (08:50)
[2017-05-12] MEDS: PANTOPRAZOLE SOD 40 MG DELAYED RELEASE TAB PO SCH (08:50)
[2017-05-12] MEDS: MULTIVITAMIN TAB PO SCH (08:50)
[2017-05-12] MEDS: THIAMINE HCL 100 MG TAB PO SCH (08:50)
[2017-05-12] MEDS: ASPIRIN EC 81 MG TABEC PO SCH (08:51)
[2017-05-12] MEDS: guaiFENesin E.R. 600 MG TAB PO SCH ×2 (08:51→21:31)
[2017-05-12] MEDS: DOCUSATE SODIUM 50 MG/SENNA 8.6 MG TAB PO SCH ×2 (08:52→21:38)
[2017-05-12] MEDS: POLYETHYLENE GLYCOL 17 GM PKG PO SCH (08:52)
[2017-05-12] MEDS: LACTULOSE SYRUP 20 GM/30 ML CUP PO SCH (08:52)
[2017-05-12] MEDS: HYDROmorphone HCL 2 MG TAB PO PRN ×3 (08:59→21:37)
--- NOTE | 2017-05-12 10:48 | HHI.NSPN ---
(Filemon Stevenson) History Chief Complaint: Sore neck (Filemon Stevenson) Interval History A 64 year old gentleman who apparently had a syncopal episode while he was at a bar and fell back and struck his head. He relates that he only had 1 1/2 beers prior to this and was not really intoxicated. He does have a history of syncopal episodes. Last time he relates that he had a syncopal episode was about three months. He was diagnosed with atrial fibrillation a year ago. He was admitted also last month with atrial fibrillation with a rapid ventricular response and was seen by Dr. Hinojosa from cardiology. He relates that he is on blood thinners, although these are very expensive and he has no job or insurance and cannot afford them. He complains of neck pain. He initially had some numbness in his left hand, but this has resolved. He also complains of some anterior chest wall area pain. He was evaluated by the emergency room physician on arrival to [facility] and head CT scan is negative for any intracranial abnormality. He does have, on the CT scan of the cervical spine, a C2 fracture that partially extends to the base of the dens as well as the lateral mass in the right side with involvement of the foramen and transversarium. There is slight retropulsion of the C2 fracture moves posteriorly into the spinal canal. 05/02/17: Pt awake and alert. Complains of neck and sternal pain. No radiculopathy in UEs. Pt has intermittent paresthesias in left 1st and 2nd fingers primarily which he states is not new and has had prior to his fall. No numbness or paresthesias in UEs otherwise. No abdominal pain. No weakness that he has noticed but he is resting in bed. [place] cervical collar intact. 05/03/17: Pt awake, alert, with some confusion and agitation. Complains of neck and sternal pain. Neck pain extends up into the right posterior head. 05/05/17: Pt awake and alert. Less confusion and agitation this morning. Complains of neck pain extending into the right side of his head. 05/06/17: Pt awake and alert. Complains of neck pain and head pain that is worse when moving. Worked with PT to get oob to chair. 05/07/17: Pt awake and alert. Neck pain improving. Pt remains on Diltiazem IV weaning/converting to po. No radiculopathy in UEs. Stable chronic intermittent paresthesias in left 1-3 fingers and some forearm that improves with movement of extremity. 05/08/17: Pt awake and alert. Continues with IV Diltiazem which is being placed on hold. Pt complains of right sided neck discomfort. No radiculopathy in UEs. Pin sites are clean and dry. Generalized weakness in all 4 extremities. 05/09: The patient is awake and alert when seen this morning. He is watching TV. He states the neck is a little sore but alright. He does say he has some head pain but indicates it to the right side of the head and face. He does say he has some intermittent numbness to the distal left forearm into the hand and digits. He does say he has some chest pain that is worse when he coughs. Nursing reports that the patient has been off intravenous diltiazem for 24 hours. 05/10: When seen the patient is asleep but awakens to voice. After that he is awake and readily interacts. He does have some pain to the neck. Today he complains of pain along the jaw and itching to the right occipital scalp. He is in atrial fibrillation with a ventricular rate of 50 to the mid 60s and is only on oral diltiazem. He does again report intermittent numbness to the distal left forearm into the hand but doesn't have any at present. 05/11/17: c/o diffuse body pain. awake and alert. On digoxin and oral diltiazem, on ASA 81, no anticoagulation recommended per Cardiology. 05/12: This morning the patient is asleep in bed but does awaken to voice. He says he is doing alright but does have soreness to the neck that comes around to the right side. He says he has been getting up to the chair but hasn't really ambulated yet. He does state that he gets an electric shock feeling when he does stand up and ambulate. He denies any pain, numbness or tingling to the extremities except for intermittent numbness to the left forearm and hand which is not present currently. The patient states he does exercises in the bed. (Filemon Stevenson) Exam Results 05/10/17 05/10/17 05/11/17 05/11/17 05/12/17 05/12/17 06:00 18:00 06:00 18:00 06:00 18:00 Intake Total 500 ml 420 ml 420 ml 620 ml 640 ml Output Total 900 ml 850 ml 650 ml 2525 ml 675 ml Balance -400 ml -430 ml -230 ml -1905 ml -35 ml Intake Oral 400 ml 320 ml 420 ml 640 ml IV Total 100 ml 100 ml 100 ml Tube Feeding 420 ml Other 100 ml Output Urine Total 900 ml 850 ml 650 ml 2400 ml 675 ml Stool Total 0 ml Chest Tube Drainage Total 100 ml Drainage Total 25 ml # Bowel Movements 0 1 0 Vital Signs Date Time Temp Pulse Resp B/P (MAP) Pulse Ox O2 Delivery O2 Flow Rate FiO2 05/12/17 09:15 93 05/12/17 08:00 97.6 87 22 122/65 (84) 92 05/12/17 07:00 85 05/12/17 04:00 103 05/12/17 04:00 97.3 103 23 131/77 (95) 93 05/12/17 03:15 22 05/12/17 00:00 97.4 90 21 133/81 (98) 95 05/11/17 20:00 97.8 67 24 115/69 (84) 94 05/11/17 19:00 73 05/11/17 16:00 100.7 91 14 116/70 (85) 97 05/11/17 12:00 98.0 98 16 110/69 (83) 05/11/17 08:00 98.0 85 21 106/68 (81) 96 05/11/17 08:00 78 05/11/17 07:35 94 21 05/11/17 07:00 96 Room Air 05/11/17 06:00 69 05/11/17 04:00 81 05/11/17 04:00 98.6 81 23 108/68 (81) 92 05/11/17 02:00 102 05/11/17 00:00 97.7 83 20 101/61 (74) 94 05/11/17 00:00 91 05/10/17 22:00 84 05/10/17 20:52 95 21 05/10/17 20:00 56 05/10/17 20:00 98.7 86 14 160/77 (104) 97 05/10/17 19:28 18 05/10/17 19:00 94 Room Air 05/10/17 18:00 80 05/10/17 16:00 98.1 70 16 143/87 (105) 95 05/10/17 16:00 70 05/10/17 14:00 76 05/10/17 12:00 98.2 70 16 123/80 (94) 96 05/10/17 12:00 70 05/10/17 10:00 68 05/10/17 08:59 97 21 05/10/17 08:00 97.6 56 15 112/62 (79) 95 05/10/17 08:00 56 05/10/17 07:00 96 Room Air 05/10/17 06:00 62 05/10/17 04:00 98.0 76 16 119/71 (87) 95 05/10/17 04:00 76 05/10/17 02:00 78 05/10/17 00:00 98.4 83 20 125/70 (88) 94 05/10/17 00:00 83 05/09/17 22:00 86 05/09/17 20:32 97 05/09/17 20:00 85 05/09/17 20:00 98.4 85 21 124/68 (86) 97 05/09/17 19:00 97 Room Air 05/09/17 18:00 85 05/09/17 16:00 98.2 78 22 127/80 (96) 98 05/09/17 16:00 75 05/09/17 14:00 80 05/09/17 12:00 98.5 74 19 121/69 (86) 98 05/09/17 12:00 73 (Filemon Stevenson) Physical Examination GENERAL: Asleep but awakens to voice, alert after that, readily interacts, essentially normal affect, no distress apparent. HALO in place. SKIN: Warm & dry, no evident drainage, erythema or streaking from HALO pin sites. HEENT: Normocephalic, face NTTP, HALO pin sites minimally TTP. NECK: Midline cervical spine mildly TTP, no JVD, trachea midline. MUSCULOSKELETAL: Moves all extremities w/o any difficulty, no evident clubbing or deformity. NEUROLOGICAL: AAOx3. Speech clear & appropriate. Follows simple commands w/o difficulty. Sensation intact to light touch to all extremities when examined. Motor strength is 5/5 to all major flexion & extension muscle groups. (Filemon Stevenson) Lab, Micro, Other Results Laboratory Tests Test 05/10/17 05:14 05/11/17 04:54 05/12/17 04:20 Blood Urea Nitrogen 16 MG/DL 17 MG/DL 20 MG/DL Creatinine 0.87 MG/DL 1.04 MG/DL 0.96 MG/DL Random Glucose 91 MG/DL 114 MG/DL 90 MG/DL Calcium Level 9.1 MG/DL 8.9 MG/DL 8.9 MG/DL Magnesium Level 2.0 MG/DL 1.8 MG/DL Sodium Level 134 MEQ/L 135 MEQ/L 136 MEQ/L Potassium Level 3.8 MEQ/L 3.5 MEQ/L 3.6 MEQ/L Chloride Level 102 MEQ/L 101 MEQ/L 104 MEQ/L Carbon Dioxide Level 22.4 MEQ/L 25.5 MEQ/L 24.1 MEQ/L Anion Gap 10 MEQ/L 9 MEQ/L 8 MEQ/L Estimat Glomerular Filtration Rate 90 ML/MIN 73 ML/MIN 80 ML/MIN White Blood Count 7.1 TH/MM3 Red Blood Count 3.72 MIL/MM3 Hemoglobin 13.9 GM/DL Hematocrit 41.0 % Mean Corpuscular Volume 110.1 FL Mean Corpuscular Hemoglobin 37.5 PG Mean Corpuscular Hemoglobin Concent 34.0 % Red Cell Distribution Width 13.9 % Platelet Count 364 TH/MM3 Mean Platelet Volume 7.3 FL Neutrophils (%) (Auto) 64.0 % Lymphocytes (%) (Auto) 22.9 % Monocytes (%) (Auto) 11.1 % Eosinophils (%) (Auto) 0.8 % Basophils (%) (Auto) 1.2 % Neutrophils # (Auto) 4.5 TH/MM3 Lymphocytes # (Auto) 1.6 TH/MM3 Monocytes # (Auto) 0.8 TH/MM3 Eosinophils # (Auto) 0.1 TH/MM3 Basophils # (Auto) 0.1 TH/MM3 CBC Comment DIFF FINAL Differential Comment Digoxin Level 0.7 NG/ML (Filemon Stevenson) Medical Decision Making Impression and Plan Impression: 1. 62 y/o M with C2 partial odontoid fracture that extends to the base and into the body as well as a right C2 slightly displaced lateral mass fracture involving the foramen transversarium. s/p halo placement. 2. Recurrent syncopal episodes. 3. Atrial fibrillation with rapid ventricular response. 4. History of orthostatic hypotension 5. History of alcohol abuse. 6. Sternal fracture The patient is doing good. His pain seems controlled. He remains neurologically intact except for intermittent tingling to the distal LUE. Atrial fibrillation but w/controlled ventricular rate. On PO diltiazem & digoxin. Reviewed labs for today. Interval improvement in GFR. PT recommends the patient use a wheeled walker and have further rehab inpatient but patient has no means to pay for it. Plan: Continue to monitor euro exam and vitals. Continue with DVT mechanical prophylaxis. Continue with DT prophylaxis with Librium. Continue with rehab efforts. Patient will need follow up x-rays every 6 weeks for 4 months. Patient is able to be transferred to a regular med/surg floor. Plan for discharge home w/wheeled walker when Cardiology indicates patient is medically ready. (Filemon Stevenson) Attending Statement The exam, history, and the medical decision-making described in the above note were completed with the assistance of the mid-level provider. I reviewed and agree with the findings presented. I attest that I had a [id number] encounter with the patient on the same day, and personally performed and documented my assessment and findings in the medical record. On my examination 05/12/17, the patient remains awake and alert Complains of moderate neck pain when out of bed Moderate neck tenderness to palpation Halo in good position All paresthesias in the hands Otherwise normal motor strength all extremities Neuro stable Medicine following for A. fib with RVR. Librium when necessary for DT. (Khai Lal MD) Filemon Stevenson May 12, 2017 10:48 Khai Lal MD May 14, 2017 20:03
--- NOTE | 2017-05-12 16:42 | HHI.PR ---
Subjective Remarks The pt was resting comfortably. He reported his pain was well controlled. He said he will drink less. Discussed with nursing at the bedside. Objective Vitals Vital Signs Date Time Temp Pulse Resp B/P (MAP) Pulse Ox O2 Delivery O2 Flow Rate FiO2 05/12/17 12:00 97.5 90 19 118/67 (84) 92 05/12/17 09:15 93 05/12/17 08:00 97.6 87 22 122/65 (84) 92 05/12/17 07:00 85 05/12/17 04:00 103 05/12/17 04:00 97.3 103 23 131/77 (95) 93 05/12/17 03:15 22 05/12/17 00:00 97.4 90 21 133/81 (98) 95 05/11/17 20:00 97.8 67 24 115/69 (84) 94 05/11/17 19:00 73 I/O 05/11/17 05/11/17 05/11/17 05/12/17 05/12/17 05/12/17 07:00 15:00 23:00 07:00 15:00 23:00 Intake Total 420 ml 100 ml 920 ml 240 ml Output Total 650 ml 2825 ml 375 ml Balance -230 ml 100 ml -1905 ml -135 ml Intake Oral 420 ml 400 ml 240 ml IV Total 100 ml Tube Feeding 420 ml Other 100 ml Output Urine Total 650 ml 2700 ml 375 ml Stool Total 0 ml Chest Tube Drainage Total 100 ml Drainage Total 25 ml # Bowel Movements 0 Result Diagram: 05/11/17 0454 05/12/17 0420 Imaging Last Impressions Chest X-Ray 05/06/17 0600 Signed Impressions: Service Date/Time: Saturday, May 06, 2017 02:32 - CONCLUSION: Slight CHF. K. Raul Catherine MD Cervical Spine X-Ray 05/03/17 0000 Signed Impressions: Service Date/Time: Wednesday, May 03, 2017 11:31 - CONCLUSION: Findings as above. Abdiaziz Cheng MD FACR Head CT 05/01/17 1515 Signed Impressions: Service Date/Time: Monday, May 01, 2017 15:27 - CONCLUSION: 1. No acute intracranial abnormality. 2. Small posterior scalp soft tissue hematoma. 3. Mild bilateral maxillary sinus disease. Aries Fowler MD Cervical Spine CT 05/01/17 1515 Signed Impressions: Service Date/Time: Monday, May 01, 2017 15:30 - CONCLUSION: 1. Abnormal examination. Minimally displaced C2 fracture extending from the base of the dens and the lateral mass of C2 with approximate 4 mm posterior retropulsed fragment. Fracture also extends through right transverse foramen which can result in possible vertebral artery injury. CTA examination may be performed as clinically warranted. Aries Fowler MD Neck CTA 05/01/17 0000 Signed Impressions: Service Date/Time: Monday, May 01, 2017 17:26 - CONCLUSION: 1. Negative exam. The right vertebral artery is patent and intact. Papo Lee MD Chest CT 05/01/17 0000 Signed Impressions: Service Date/Time: Monday, May 01, 2017 20:24 - CONCLUSION: 1. Mild right basilar atelectasis. 2. No evidence of pneumothorax. 3. Horizontal fracture through the inferior sternum with some mild soft tissue thickening in the substernal soft tissues Papo Lee MD Objective Remarks General: No acute distress. HEENT: In HALO. Heart: Irregular rhythm. Lungs: Clear to auscultation bilaterally. No wheezes, rales, or rhonchi. Breathing is nonlabored. Abdomen: Soft, nontender, nondistended. Extremities: No lower extremity edema. Neuro: Alert and oriented. Psych: Mood and affect appropriate. Procedures 05/03/17 Closed reduction with manipulation and fixation of C2 fracture; HALO placement Medications and IVs Current Medications Medications (Trade) Dose Ordered Sig/Michael Route Start Time Stop Time Status Last Admin (Ecotrin Ec) 81 mg DAILY PO 05/02/17 09:00 05/12/17 08:51 (Proamatine) 5 mg TID@07,12,17 PO 05/01/17 17:30 05/12/17 12:00 (Ativan Inj) 1 mg Q1H PRN IV PUSH 05/01/17 17:30 (Mag-Al Plus Susp Liq) 30 ml Q6H PRN PO 05/01/17 17:15 (Protonix) 40 mg DAILY PO 05/02/17 09:00 05/12/17 08:50 (Phenergan Inj) 25 mg Q4H PRN IM 05/01/17 17:15 Calcium Gluconate 1 gm/Sodium Chloride 110 ml @ 110 mls/hr UNSCH PRN IV 05/01/17 17:15 Potassium Chloride 100 ml @ 50 mls/hr UNSCH PRN IV 05/01/17 17:15 Magnesium Sulfate 2 gm/Sodium Chloride 104 ml @ 100 mls/hr UNSCH PRN IV 05/01/17 18:00 05/04/17 11:16 (Flexeril) 10 mg Q8H PRN PO 05/01/17 16:45 05/11/17 21:00 (Trandate Inj) 10 mg Q1H PRN IV PUSH 05/01/17 17:30 (Catapres) 0.1 mg Q6H PRN PO 05/01/17 17:15 (Ambien) 5 mg HS PRN PO 05/01/17 21:00 05/11/17 20:59 (Nicole-Colace) 1 tab BID PO 05/01/17 21:00 05/12/17 08:52 (Milk Of Magnesia Liq) 30 ml Q12H PRN PO 05/01/17 17:15 (Senokot) 17.2 mg Q12H PRN PO 05/01/17 17:15 (Dulcolax Supp) 10 mg DAILY PRN RECTAL 05/01/17 17:15 (Lactulose Liq) 30 ml DAILY PRN PO 05/01/17 17:15 (Ultram) 50 mg Q4H PRN PO 05/01/17 16:45 05/12/17 03:35 (Dilaudid) 2 mg Q4H PRN PO 05/01/17 16:45 05/12/17 15:27 Potassium Chloride 100 ml @ 50 mls/hr Q2H PRN IV 05/01/17 17:30 Potassium Chloride 100 ml @ 50 mls/hr Q2H PRN IV 05/01/17 17:30 (K-Lyte Cl Eff) 50 meq UNSCH PRN PO 05/01/17 17:30 05/07/17 05:58 Potassium Chloride 100 ml @ 25 mls/hr UNSCH PRN IV 05/01/17 17:30 Potassium Chloride 100 ml @ 50 mls/hr Q2H PRN IV 05/01/17 17:30 05/04/17 13:57 Magnesium Sulfate 4 gm/Sodium Chloride 100 ml @ 50 mls/hr UNSCH PRN IV 05/01/17 17:30 (Mag-Ox) 800 mg UNSCH PRN PO 05/01/17 17:30 Magnesium Sulfate 2 gm/Sodium Chloride 100 ml @ 50 mls/hr UNSCH PRN IV 05/01/17 17:30 (K-Phos) 2,000 mg Q4H PRN PO 05/01/17 17:30 Sodium Phosphate 30 mmol/Sodium Chloride 250 ml @ 42 mls/hr UNSCH PRN IV 05/01/17 17:30 05/05/17 08:55 (K-Phos) 2,000 mg UNSCH PRN PO/TUBE 05/01/17 17:30 Potassium Phosphate 30 mmol/ Sodium Chloride 260 ml @ 42 mls/hr UNSCH PRN IV 05/01/17 17:30 (NS Flush) 2 ml UNSCH PRN IV FLUSH 05/01/17 17:45 (NS Flush) 2 ml BID IV FLUSH 05/01/17 21:00 05/12/17 08:49 (Zofran Inj) 4 mg Q6H PRN IV PUSH 05/01/17 17:45 Miscellaneous Information 1 Q361D XX 05/01/17 17:45 (Chlorhexidine 2% Cloth) Taper DAILY@04 TOP 05/02/17 04:00 04/28/18 03:59 (Chlorhexidine 2% Cloth) 3 pack UNSCH PRN TOP 05/01/17 17:45 (Ativan) 1 mg Q4H PRN PO 05/03/17 07:30 05/03/17 23:26 (Ativan Inj) 1 mg Q4H PRN IV PUSH 05/03/17 07:30 (Ativan) 2 mg Q2H PRN PO 05/03/17 07:30 05/03/17 16:15 (Ativan Inj) 2 mg Q2H PRN IV PUSH 05/03/17 07:30 (Ativan Inj) 2 mg Q1H PRN IV PUSH 05/03/17 07:30 (Ativan Inj) 2 mg Q15M PRN IV PUSH 05/03/17 07:30 (Albuterol Neb) 2.5 mg Q2HR NEB PRN NEB 05/03/17 14:00 12/30/17 20:32 (Lanoxin) 0.125 mg DAILY PO 05/04/17 09:00 05/12/17 08:50 (Symbicort 160-4.5 Mcg Inh) 2 puff Q12HR INH 05/03/17 21:00 05/12/17 08:49 (Mucinex Er) 600 mg BID PO 05/03/17 21:00 05/12/17 08:51 (Vitamin B1) 100 mg DAILY PO 05/05/17 09:00 05/12/17 08:50 (Folate) 1 mg DAILY PO 05/04/17 09:00 05/11/17 09:21 (Theragran) 1 tab DAILY PO 05/04/17 09:00 05/12/17 08:50 (Miralax) 17 gm DAILY PO 05/05/17 09:00 05/10/17 09:59 (Lactulose Liq) 30 ml DAILY PO 05/05/17 09:00 05/10/17 09:57 (Cardizem) 90 mg Q6H PO 05/08/17 15:00 05/12/17 15:00 (Dilaudid) 2 mg Q4H PRN PO 05/11/17 13:45 (Librium) 10 mg DAILY PO 05/12/17 09:00 05/13/17 08:00 05/12/17 08:51 A/P Assessment and Plan C2 fracture Status post closed reduction with placement of halo. - Management per neurosurgery. - PT. Add OT. - IS. - pain control with a bowel regimen. Atrial fibrillation with RVR Rate controlled. Appreciate cardiology recommendations. CHADS VASc2 score 1. - Continue digoxin, oral diltiazem, aspirin 81mg daily. No other anticoagulation recommended at this time. - telemetry. Tobacco abuse Patient has been counseled. - Oxygen, bronchodilators as needed. Inferior sternal fracture Nonoperative. - Continue pain control. - Physical therapy. Alcohol abuse The pt says he will decrease his alcohol intake. - wean off Librium. - cessation instruction. DVT prophylaxis: Dean Wiseman DO May 12, 2017 16:42
[2017-05-13] VITALS (8 sets, daily range): BP systolic 116–148; BP diastolic 66–80; PULSE 68–97; RESP 16–18; TEMP 95.9–98; O2SAT 95–97
[2017-05-13] MEDS: DILTIAZEM HCL 90 MG TAB PO SCH ×4 (03:17→20:36)
[2017-05-13] MEDS: HYDROmorphone HCL 2 MG TAB PO PRN ×4 (03:18→20:38)
[2017-05-13] MEDS: CHLORHEXIDINE GLUCONATE 2 % 1 PACK (2 CLOTHS) TOP SCH (04:00)
[2017-05-13] MEDS: MIDODRINE 5 MG TAB PO SCH ×3 (08:13→17:23)
[2017-05-13] MEDS: PANTOPRAZOLE SOD 40 MG DELAYED RELEASE TAB PO SCH (08:13)
[2017-05-13] MEDS: FOLIC ACID 1 MG TAB PO SCH (08:14)
[2017-05-13] MEDS: MULTIVITAMIN TAB PO SCH (08:14)
[2017-05-13] MEDS: DIGOXIN 0.125 MG TAB PO SCH (08:14)
[2017-05-13] MEDS: THIAMINE HCL 100 MG TAB PO SCH (08:14)
[2017-05-13] MEDS: guaiFENesin E.R. 600 MG TAB PO SCH ×2 (08:14→20:37)
[2017-05-13] MEDS: ASPIRIN EC 81 MG TABEC PO SCH (08:14)
[2017-05-13] MEDS: BUDESONIDE-FORMOTEROL 160/4.5 MCG INHALER INH SCH ×2 (08:18→20:38)
[2017-05-13] MEDS: SODIUM CHLORIDE 0.9% FLUSH 10 ML FLUSH IV FLUSH SCH ×2 (08:18→20:37)
[2017-05-13] MEDS: DOCUSATE SODIUM 50 MG/SENNA 8.6 MG TAB PO SCH ×2 (08:19→20:36)
[2017-05-13] MEDS: LACTULOSE SYRUP 20 GM/30 ML CUP PO SCH (08:19)
[2017-05-13] MEDS: POLYETHYLENE GLYCOL 17 GM PKG PO SCH (08:19)
--- NOTE | 2017-05-13 13:42 | HHI.NSPN ---
(Piper Morillo) Note Status Status: Progress Note (Piper Morillo) Interval History Interval History A 64 year old gentleman who apparently had a syncopal episode while he was at a bar and fell back and struck his head. He relates that he only had 1 1/2 beers prior to this and was not really intoxicated. He does have a history of syncopal episodes. Last time he relates that he had a syncopal episode was about three months. He was diagnosed with atrial fibrillation a year ago. He was admitted also last month with atrial fibrillation with a rapid ventricular response and was seen by Dr. Hinojosa from cardiology. He relates that he is on blood thinners, although these are very expensive and he has no job or insurance and cannot afford them. He complains of neck pain. He initially had some numbness in his left hand, but this has resolved. He also complains of some anterior chest wall area pain. He was evaluated by the emergency room physician on arrival to [facility] and head CT scan is negative for any intracranial abnormality. He does have, on the CT scan of the cervical spine, a C2 fracture that partially extends to the base of the dens as well as the lateral mass in the right side with involvement of the foramen and transversarium. There is slight retropulsion of the C2 fracture moves posteriorly into the spinal canal. 05/02/17: Pt awake and alert. Complains of neck and sternal pain. No radiculopathy in UEs. Pt has intermittent paresthesias in left 1st and 2nd fingers primarily which he states is not new and has had prior to his fall. No numbness or paresthesias in UEs otherwise. No abdominal pain. No weakness that he has noticed but he is resting in bed. [place] cervical collar intact. 05/03/17: Pt awake, alert, with some confusion and agitation. Complains of neck and sternal pain. Neck pain extends up into the right posterior head. 05/05/17: Pt awake and alert. Less confusion and agitation this morning. Complains of neck pain extending into the right side of his head. 05/06/17: Pt awake and alert. Complains of neck pain and head pain that is worse when moving. Worked with PT to get oob to chair. 05/07/17: Pt awake and alert. Neck pain improving. Pt remains on Diltiazem IV weaning/converting to po. No radiculopathy in UEs. Stable chronic intermittent paresthesias in left 1-3 fingers and some forearm that improves with movement of extremity. 05/08/17: Pt awake and alert. Continues with IV Diltiazem which is being placed on hold. Pt complains of right sided neck discomfort. No radiculopathy in UEs. Pin sites are clean and dry. Generalized weakness in all 4 extremities. 05/09: The patient is awake and alert when seen this morning. He is watching TV. He states the neck is a little sore but alright. He does say he has some head pain but indicates it to the right side of the head and face. He does say he has some intermittent numbness to the distal left forearm into the hand and digits. He does say he has some chest pain that is worse when he coughs. Nursing reports that the patient has been off intravenous diltiazem for 24 hours. 05/10: When seen the patient is asleep but awakens to voice. After that he is awake and readily interacts. He does have some pain to the neck. Today he complains of pain along the jaw and itching to the right occipital scalp. He is in atrial fibrillation with a ventricular rate of 50 to the mid 60s and is only on oral diltiazem. He does again report intermittent numbness to the distal left forearm into the hand but doesn't have any at present. 05/11/17: c/o diffuse body pain. awake and alert. On digoxin and oral diltiazem, on ASA 81, no anticoagulation recommended per Cardiology. 05/13/17: states he is doing ok, pain controlled, denies new neurological complaints. off librium. (Piper Morillo) Labs, Micro, & Vital Signs Results Date Time Temp Pulse Resp B/P (MAP) Pulse Ox O2 Delivery O2 Flow Rate FiO2 05/13/17 09:13 18 05/13/17 08:00 98.0 84 16 137/74 (95) 96 05/13/17 04:03 97.0 79 17 146/80 (102) 96 05/13/17 02:47 96 05/13/17 00:06 97.3 76 17 128/74 (92) 96 05/12/17 20:10 96.2 78 17 149/77 (101) 96 05/12/17 17:00 98.0 83 16 139/79 (99) 94 05/12/17 16:50 Room Air Constitutional Vital Signs Date Time Temp Pulse Resp B/P (MAP) Pulse Ox O2 Delivery O2 Flow Rate FiO2 05/13/17 09:13 18 05/13/17 08:00 98.0 84 16 137/74 (95) 96 05/13/17 04:03 97.0 79 17 146/80 (102) 96 05/13/17 02:47 96 05/13/17 00:06 97.3 76 17 128/74 (92) 96 05/12/17 20:10 96.2 78 17 149/77 (101) 96 05/12/17 17:00 98.0 83 16 139/79 (99) 94 05/12/17 16:50 Room Air (Piper Morillo) Review of Systems Constitutional: DENIES: Fever, Chills Musculoskeletal: COMPLAINS OF: Stiffness, Neck pain Neurologic: DENIES: Headache, Seizures (Piper Morillo) Physical Exam Awake, alert. Speech is fluent. Follows commands w/o difficulties Halo brace intact. Pin sites x 4 clean CN: pupils equal bilaterally, facial motor symmetric Motor: moves all major muscle groups well 5/5 Sensation intact to light touch x 4 extremities Plantars flexors b/l (Piper Morillo) Medications Current Medications Current Medications Medications (Trade) Dose Ordered Sig/Michael Route PRN Reason Start Time Stop Time Status Last Admin Dose Admin Aspirin (Ecotrin Ec) 81 mg DAILY PO 05/02/17 09:00 05/13/17 08:14 Midodrine (Proamatine) 5 mg TID@07,12,17 PO 05/01/17 17:30 05/13/17 12:26 Lorazepam (Ativan Inj) 1 mg Q1H PRN IV PUSH SEIZURES 05/01/17 17:30 Al Hydrox/Mg Hydrox/Simethicone (Mag-Al Plus Susp Liq) 30 ml Q6H PRN PO DYSPEPSIA 05/01/17 17:15 Pantoprazole Sodium (Protonix) 40 mg DAILY PO 05/02/17 09:00 05/13/17 08:13 Promethazine HCl (Phenergan Inj) 25 mg Q4H PRN IM NAUSEA OR VOMITING 05/01/17 17:15 Calcium Gluconate 1 gm/Sodium Chloride 110 ml @ 110 mls/hr UNSCH PRN IV SEE LABEL COMMENTS 05/01/17 17:15 Potassium Chloride 100 ml @ 50 mls/hr UNSCH PRN IV POTASSIUM LESS THAN 4 05/01/17 17:15 Magnesium Sulfate 2 gm/Sodium Chloride 104 ml @ 100 mls/hr UNSCH PRN IV MAGNESIUM LESS THAN 2 05/01/17 18:00 05/04/17 11:16 Cyclobenzaprine HCl (Flexeril) 10 mg Q8H PRN PO MUSCLE SPASM 05/01/17 16:45 05/11/17 21:00 Labetalol HCl (Trandate Inj) 10 mg Q1H PRN IV PUSH SYS BP GREATER THAN 170 MMHG 05/01/17 17:30 Clonidine (Catapres) 0.1 mg Q6H PRN PO SYS BP GREATER THAN 170 MMHG 05/01/17 17:15 Zolpidem Tartrate (Ambien) 5 mg HS PRN PO INSOMNIA 05/01/17 21:00 05/11/17 20:59 Senna/Docusate Sodium (Nicole-Colace) 1 tab BID PO 05/01/17 21:00 05/12/17 08:52 Magnesium Hydroxide (Milk Of Magnesia Liq) 30 ml Q12H PRN PO Mild constipation 05/01/17 17:15 Sennosides (Senokot) 17.2 mg Q12H PRN PO Moderate constipation 05/01/17 17:15 Bisacodyl (Dulcolax Supp) 10 mg DAILY PRN RECTAL SEVERE CONSITIPATION 05/01/17 17:15 Lactulose (Lactulose Liq) 30 ml DAILY PRN PO SEVERE CONSITIPATION 05/01/17 17:15 Tramadol HCl (Ultram) 50 mg Q4H PRN PO pain 1-6 05/01/17 16:45 05/12/17 03:35 Hydromorphone HCl (Dilaudid) 2 mg Q4H PRN PO pain>6 05/01/17 16:45 05/13/17 12:27 Sodium Chloride (NS Flush) 2 ml UNSCH PRN IV FLUSH FLUSH AFTER USING IV ACCESS 05/01/17 17:45 Sodium Chloride (NS Flush) 2 ml BID IV FLUSH 05/01/17 21:00 05/13/17 08:18 Ondansetron HCl (Zofran Inj) 4 mg Q6H PRN IV PUSH NAUSEA OR VOMITING 05/01/17 17:45 Miscellaneous Information 1 Q361D XX 05/01/17 17:45 Chlorhexidine Gluconate (Chlorhexidine 2% Cloth) Taper DAILY@04 TOP 05/02/17 04:00 04/28/18 03:59 Chlorhexidine Gluconate (Chlorhexidine 2% Cloth) 3 pack UNSCH PRN TOP HYGIENIC CARE 05/01/17 17:45 Lorazepam (Ativan) 1 mg Q4H PRN PO CIWA 8 - 10 05/03/17 07:30 05/03/17 23:26 Lorazepam (Ativan Inj) 1 mg Q4H PRN IV PUSH CIWA 8 - 10 05/03/17 07:30 Lorazepam (Ativan) 2 mg Q2H PRN PO CIWA 11-14 05/03/17 07:30 05/03/17 16:15 Lorazepam (Ativan Inj) 2 mg Q2H PRN IV PUSH CIWA 11-14 05/03/17 07:30 Lorazepam (Ativan Inj) 2 mg Q1H PRN IV PUSH CIWA 15-20 05/03/17 07:30 Lorazepam (Ativan Inj) 2 mg Q15M PRN IV PUSH CIWA > 20 05/03/17 07:30 Albuterol Sulfate (Albuterol Neb) 2.5 mg Q2HR NEB PRN NEB WHEEZING 05/03/17 14:00 05/09/17 20:32 Digoxin (Lanoxin) 0.125 mg DAILY PO 05/04/17 09:00 05/13/17 08:14 Budesonide/ Formoterol Fumarate (Symbicort 160-4.5 Mcg Inh) 2 puff Q12HR INH 05/03/17 21:00 05/13/17 08:18 Guaifenesin (Mucinex Er) 600 mg BID PO 05/03/17 21:00 05/13/17 08:14 Thiamine HCl (Vitamin B1) 100 mg DAILY PO 05/05/17 09:00 05/13/17 08:14 Folic Acid (Folate) 1 mg DAILY PO 05/04/17 09:00 05/13/17 08:14 Multivitamins (Theragran) 1 tab DAILY PO 05/04/17 09:00 05/13/17 08:14 Polyethylene Glycol (Miralax) 17 gm DAILY PO 05/05/17 09:00 05/10/17 09:59 Lactulose (Lactulose Liq) 30 ml DAILY PO 05/05/17 09:00 05/10/17 09:57 Diltiazem HCl (Cardizem) 90 mg Q6H PO 05/08/17 15:00 05/13/17 08:14 Hydromorphone HCl (Dilaudid) 2 mg Q4H PRN PO Breakthrough pain 05/11/17 13:45 (Piper Morillo) Medical Decision Making MDM Remarks 62 y/o male with C2 fracture s/p placement of halo brace, stable neurological examination Atrial fibrillation with RVR, cardiology evaluation- No other anticoagulation recommended at this time, on aspirin, digoxin, oral diltiazem (Piper Morillo) Plan Plan Remarks appreciate medical assistance, cardiology evaluation cont daily pin care cont therapy, encourage to increase mobilization OOB neuro stable case mgt to start dc planning to nursing rehab, obtain medical clearance for dc dw nursing (Piper Morillo) Attending Statement The exam, history, and the medical decision-making described in the above note were completed with the assistance of the mid-level provider. I reviewed and agree with the findings presented. I attest that I had a [id number] encounter with the patient on the same day, and personally performed and documented my assessment and findings in the medical record. (Blayne Lott MD) Piper Morillo May 13, 2017 13:42 Blayne Lott MD May 15, 2017 10:18
--- NOTE | 2017-05-13 15:00 | HHI.PR ---
Subjective Remarks The patient was sitting in a chair. He said he was feeling well. He said his sister was trying to make arrangements for him to come home with support. Discussed with nursing. Objective Vitals Vital Signs Date Time Temp Pulse Resp B/P (MAP) Pulse Ox O2 Delivery O2 Flow Rate FiO2 05/13/17 09:13 18 05/13/17 08:00 98.0 84 16 137/74 (95) 96 05/13/17 04:03 97.0 79 17 146/80 (102) 96 05/13/17 02:47 96 05/13/17 00:06 97.3 76 17 128/74 (92) 96 05/12/17 20:10 96.2 78 17 149/77 (101) 96 05/12/17 17:00 98.0 83 16 139/79 (99) 94 05/12/17 16:50 Room Air I/O 05/12/17 05/12/17 05/12/17 05/13/17 05/13/17 05/13/17 07:00 15:00 23:00 07:00 15:00 23:00 Intake Total 240 ml 360 ml 240 ml Output Total 375 ml 500 ml 400 ml Balance -135 ml -140 ml -160 ml Intake Oral 240 ml 360 ml 240 ml Output Urine Total 375 ml 500 ml 400 ml # Bowel Movements 0 0 0 Result Diagram: 05/11/17 0454 05/12/17 0420 Imaging Last Impressions Chest X-Ray 05/06/17 0600 Signed Impressions: Service Date/Time: Saturday, May 06, 2017 02:32 - CONCLUSION: Slight CHF. K. Raul Catherine MD Cervical Spine X-Ray 05/03/17 0000 Signed Impressions: Service Date/Time: Wednesday, May 03, 2017 11:31 - CONCLUSION: Findings as above. Abdiaziz Cheng MD FACR Head CT 05/01/17 1515 Signed Impressions: Service Date/Time: Monday, May 01, 2017 15:27 - CONCLUSION: 1. No acute intracranial abnormality. 2. Small posterior scalp soft tissue hematoma. 3. Mild bilateral maxillary sinus disease. Aries Fowler MD Cervical Spine CT 05/01/17 151 Signed Impressions: Service Date/Time: Monday, May 01, 2017 15:30 - CONCLUSION: 1. Abnormal examination. Minimally displaced C2 fracture extending from the base of the dens and the lateral mass of C2 with approximate 4 mm posterior retropulsed fragment. Fracture also extends through right transverse foramen which can result in possible vertebral artery injury. CTA examination may be performed as clinically warranted. Aries Fowler MD Neck CTA 05/01/17 0000 Signed Impressions: Service Date/Time: Monday, May 01, 2017 17:26 - CONCLUSION: 1. Negative exam. The right vertebral artery is patent and intact. Papo Lee MD Chest CT 05/01/17 0000 Signed Impressions: Service Date/Time: Monday, May 01, 2017 20:24 - CONCLUSION: 1. Mild right basilar atelectasis. 2. No evidence of pneumothorax. 3. Horizontal fracture through the inferior sternum with some mild soft tissue thickening in the substernal soft tissues Papo Lee MD Objective Remarks General: No acute distress. HEENT: In HALO. Heart: Irregular rhythm. Lungs: Clear to auscultation bilaterally. No wheezes, rales, or rhonchi. Breathing is nonlabored. Abdomen: Soft, nontender, nondistended. Extremities: No lower extremity edema. Neuro: Alert and oriented. Psych: Mood and affect appropriate. Procedures 05/03/17 Closed reduction with manipulation and fixation of C2 fracture; HALO placement Medications and IVs Current Medications Medications (Trade) Dose Ordered Sig/Michael Route Start Time Stop Time Status Last Admin (Ecotrin Ec) 81 mg DAILY PO 05/02/17 09:00 05/13/17 08:14 (Proamatine) 5 mg TID@07,,17 PO 05/01/17 17:30 05/13/17 12:26 (Ativan Inj) 1 mg Q1H PRN IV PUSH 05/01/17 17:30 (Mag-Al Plus Susp Liq) 30 ml Q6H PRN PO 05/01/17 17:15 (Protonix) 40 mg DAILY PO 05/02/17 09:00 05/13/17 08:13 (Phenergan Inj) 25 mg Q4H PRN IM 05/01/17 17:15 Calcium Gluconate 1 gm/Sodium Chloride 110 ml @ 110 mls/hr UNSCH PRN IV 05/01/17 17:15 Potassium Chloride 100 ml @ 50 mls/hr UNSCH PRN IV 05/01/17 17:15 Magnesium Sulfate 2 gm/Sodium Chloride 104 ml @ 100 mls/hr UNSCH PRN IV 05/01/17 18:00 05/04/17 11:16 (Flexeril) 10 mg Q8H PRN PO 05/01/17 16:45 05/11/17 21:00 (Trandate Inj) 10 mg Q1H PRN IV PUSH 05/01/17 17:30 (Catapres) 0.1 mg Q6H PRN PO 05/01/17 17:15 (Ambien) 5 mg HS PRN PO 05/01/17 21:00 05/11/17 20:59 (Nicole-Colace) 1 tab BID PO 05/01/17 21:00 05/12/17 08:52 (Milk Of Magnesia Liq) 30 ml Q12H PRN PO 05/01/17 17:15 (Senokot) 17.2 mg Q12H PRN PO 05/01/17 17:15 (Dulcolax Supp) 10 mg DAILY PRN RECTAL 05/01/17 17:15 (Lactulose Liq) 30 ml DAILY PRN PO 05/01/17 17:15 (Ultram) 50 mg Q4H PRN PO 05/01/17 16:45 05/12/17 03:35 (Dilaudid) 2 mg Q4H PRN PO 05/01/17 16:45 05/13/17 12:27 (NS Flush) 2 ml UNSCH PRN IV FLUSH 05/01/17 17:45 (NS Flush) 2 ml BID IV FLUSH 05/01/17 21:00 05/13/17 08:18 (Zofran Inj) 4 mg Q6H PRN IV PUSH 05/01/17 17:45 Miscellaneous Information 1 Q361D XX 05/01/17 17:45 (Chlorhexidine 2% Cloth) Taper DAILY@04 TOP 05/02/17 04:00 04/28/18 03:59 (Chlorhexidine 2% Cloth) 3 pack UNSCH PRN TOP 05/01/17 17:45 (Ativan) 1 mg Q4H PRN PO 05/03/17 07:30 05/03/17 23:26 (Ativan Inj) 1 mg Q4H PRN IV PUSH 05/03/17 07:30 (Ativan) 2 mg Q2H PRN PO 05/03/17 07:30 05/03/17 16:15 (Ativan Inj) 2 mg Q2H PRN IV PUSH 05/03/17 07:30 (Ativan Inj) 2 mg Q1H PRN IV PUSH 05/03/17 07:30 (Ativan Inj) 2 mg Q15M PRN IV PUSH 05/03/17 07:30 (Albuterol Neb) 2.5 mg Q2HR NEB PRN NEB 05/03/17 14:00 05/09/17 20:32 (Lanoxin) 0.125 mg DAILY PO 05/04/17 09:00 05/13/17 08:14 (Symbicort 160-4.5 Mcg Inh) 2 puff Q12HR INH 05/03/17 21:00 05/13/17 08:18 (Mucinex Er) 600 mg BID PO 05/03/17 21:00 05/13/17 08:14 (Vitamin B1) 100 mg DAILY PO 05/05/17 09:00 05/13/17 08:14 (Folate) 1 mg DAILY PO 05/04/17 09:00 05/13/17 08:14 (Theragran) 1 tab DAILY PO 05/04/17 09:00 05/13/17 08:14 (Miralax) 17 gm DAILY PO 05/05/17 09:00 05/10/17 09:59 (Lactulose Liq) 30 ml DAILY PO 05/05/17 09:00 05/10/17 09:57 (Cardizem) 90 mg Q6H PO 05/08/17 15:00 05/13/17 08:14 (Dilaudid) 2 mg Q4H PRN PO 05/11/17 13:45 A/P Assessment and Plan C2 fracture Status post closed reduction with placement of halo. - Management per neurosurgery. - PT. Added OT. - IS. - pain control with a bowel regimen. Atrial fibrillation with RVR Rate controlled. Appreciate cardiology recommendations. CHADS VASc2 score 1. - Continue digoxin, oral diltiazem, aspirin 81mg daily. No other anticoagulation recommended at this time. - telemetry. Tobacco abuse Patient has been counseled. - Oxygen, bronchodilators as needed. Inferior sternal fracture Nonoperative. - Continue pain control. - Physical therapy. Alcohol abuse The pt says he will decrease his alcohol intake. - weaned off Librium 05/13. - cessation instruction. DVT prophylaxis: SCDs Discharge Planning The patient is medically cleared for discharge Dean Lobato DO May 13, 2017 15:00
[2017-05-14] MEDS: HYDROmorphone HCL 2 MG TAB PO PRN ×5 (00:54→18:23)
[2017-05-14] MEDS: DILTIAZEM HCL 90 MG TAB PO SCH ×4 (03:11→20:43)
[2017-05-14] MEDS: CHLORHEXIDINE GLUCONATE 2 % 1 PACK (2 CLOTHS) TOP SCH (04:00)
[2017-05-14] MEDS: MIDODRINE 5 MG TAB PO SCH ×3 (06:12→18:23)
[2017-05-14 08:00] VITALS: BP 133/79; PULSE 75; RESP 18; TEMP 95.8; O2SAT 97
[2017-05-14] MEDS: POLYETHYLENE GLYCOL 17 GM PKG PO SCH (09:00)
[2017-05-14] MEDS: LACTULOSE SYRUP 20 GM/30 ML CUP PO SCH (09:00)
[2017-05-14] MEDS: MULTIVITAMIN TAB PO SCH (09:08)
[2017-05-14] MEDS: THIAMINE HCL 100 MG TAB PO SCH (09:09)
[2017-05-14] MEDS: DOCUSATE SODIUM 50 MG/SENNA 8.6 MG TAB PO SCH ×4 (09:09→21:00)
[2017-05-14] MEDS: ASPIRIN EC 81 MG TABEC PO SCH (09:09)
[2017-05-14] MEDS: DIGOXIN 0.125 MG TAB PO SCH (09:09)
[2017-05-14] MEDS: FOLIC ACID 1 MG TAB PO SCH (09:09)
[2017-05-14] MEDS: PANTOPRAZOLE SOD 40 MG DELAYED RELEASE TAB PO SCH (09:09)
[2017-05-14] MEDS: guaiFENesin E.R. 600 MG TAB PO SCH ×2 (09:09→20:43)
[2017-05-14] MEDS: SODIUM CHLORIDE 0.9% FLUSH 10 ML FLUSH IV FLUSH SCH ×2 (09:09→20:43)
[2017-05-14] MEDS: BUDESONIDE-FORMOTEROL 160/4.5 MCG INHALER INH SCH ×2 (09:10→20:43)
[2017-05-14 12:00] VITALS: BP 122/80; PULSE 78; RESP 18; TEMP 96.3; O2SAT 93
[2017-05-14 16:00] VITALS: BP 125/61; PULSE 80; RESP 18; TEMP 96.6; O2SAT 97
[2017-05-14 19:03] VITALS: BP 132/74; PULSE 92; RESP 18; TEMP 97.4; O2SAT 94
--- NOTE | 2017-05-14 20:07 | HHI.NSPN ---
History Chief Complaint: Sore neck Interval History Complaints of neck pain. Exam Results Vital Signs Date Time Temp Pulse Resp B/P (MAP) Pulse Ox O2 Delivery O2 Flow Rate FiO2 05/14/17 19:52 18 05/14/17 16:00 96.6 80 125/61 (82) 97 05/14/17 07:53 Room Air 05/11/17 07:35 21 Intake and Output 05/14/17 05/14/17 05/15/17 08:00 16:00 00:00 Intake Total 480 ml 480 ml Output Total 500 ml Balance -20 ml 480 ml Physical Examination Patient little lethargic when I first entered the room today. Takes a little while for him to arouse but eventually he is relatively awake and alert. Complaining of increased neck pain when out of bed. He seems to have a little more upper airway congestion today. Cardiac with irregular rhythm without murmur The halo brace appears to be fitting well. I tightened up the shoulder straps today. Halo brace intact. Pin sites x 4 clean CN: pupils equal bilaterally, facial motor symmetric Motor: moves all major muscle groups well 5/5 Sensation intact to light touch x 4 extremities Plantars flexors b/l Medical Decision Making Impression and Plan Impression: 1. Stable neurologic exam following C2 fracture. Halo adjusted today. Plan: Discussed with patient Seems to have a little more upper airway congestion today. Medicine service following Afebrile Case management most reviewed. Disposition difficult due to no payor source and an adequate support at home. Khai Lal MD May 14, 2017 20:07
[2017-05-14 23:30] VITALS: BP 129/68; PULSE 77; RESP 18; TEMP 96.7; O2SAT 95
[2017-05-15] MEDS: CHLORHEXIDINE GLUCONATE 2 % 1 PACK (2 CLOTHS) TOP SCH (03:18)
[2017-05-15] MEDS: DILTIAZEM HCL 90 MG TAB PO SCH ×3 (03:19→16:11)
[2017-05-15] MEDS: HYDROmorphone HCL 2 MG TAB PO PRN ×3 (03:22→16:12)
[2017-05-15 04:10] VITALS: BP 112/58; PULSE 76; RESP 18; TEMP 97.1; O2SAT 95
[2017-05-15] MEDS: MIDODRINE 5 MG TAB PO SCH ×3 (06:24→16:11)
[2017-05-15 07:39] VITALS: BP 100/66; PULSE 70; RESP 18; TEMP 95.5; O2SAT 94
[2017-05-15] MEDS: LACTULOSE SYRUP 20 GM/30 ML CUP PO SCH (09:00)
[2017-05-15] MEDS: POLYETHYLENE GLYCOL 17 GM PKG PO SCH (09:00)
--- NOTE | 2017-05-15 10:06 | HHI.NSPN ---
(Piper Morillo) Note Status Status: Progress Note (Piper Morillo) Interval History Interval History A 64 year old gentleman who apparently had a syncopal episode while he was at a bar and fell back and struck his head. He relates that he only had 1 1/2 beers prior to this and was not really intoxicated. He does have a history of syncopal episodes. Last time he relates that he had a syncopal episode was about three months. He was diagnosed with atrial fibrillation a year ago. He was admitted also last month with atrial fibrillation with a rapid ventricular response and was seen by Dr. Hinojosa from cardiology. He relates that he is on blood thinners, although these are very expensive and he has no job or insurance and cannot afford them. He complains of neck pain. He initially had some numbness in his left hand, but this has resolved. He also complains of some anterior chest wall area pain. He was evaluated by the emergency room physician on arrival to [facility] and head CT scan is negative for any intracranial abnormality. He does have, on the CT scan of the cervical spine, a C2 fracture that partially extends to the base of the dens as well as the lateral mass in the right side with involvement of the foramen and transversarium. There is slight retropulsion of the C2 fracture moves posteriorly into the spinal canal. 05/02/17: Pt awake and alert. Complains of neck and sternal pain. No radiculopathy in UEs. Pt has intermittent paresthesias in left 1st and 2nd fingers primarily which he states is not new and has had prior to his fall. No numbness or paresthesias in UEs otherwise. No abdominal pain. No weakness that he has noticed but he is resting in bed. [place] cervical collar intact. 05/03/17: Pt awake, alert, with some confusion and agitation. Complains of neck and sternal pain. Neck pain extends up into the right posterior head. 05/05/17: Pt awake and alert. Less confusion and agitation this morning. Complains of neck pain extending into the right side of his head. 05/06/17: Pt awake and alert. Complains of neck pain and head pain that is worse when moving. Worked with PT to get oob to chair. 05/07/17: Pt awake and alert. Neck pain improving. Pt remains on Diltiazem IV weaning/converting to po. No radiculopathy in UEs. Stable chronic intermittent paresthesias in left 1-3 fingers and some forearm that improves with movement of extremity. 05/08/17: Pt awake and alert. Continues with IV Diltiazem which is being placed on hold. Pt complains of right sided neck discomfort. No radiculopathy in UEs. Pin sites are clean and dry. Generalized weakness in all 4 extremities. 05/09: The patient is awake and alert when seen this morning. He is watching TV. He states the neck is a little sore but alright. He does say he has some head pain but indicates it to the right side of the head and face. He does say he has some intermittent numbness to the distal left forearm into the hand and digits. He does say he has some chest pain that is worse when he coughs. Nursing reports that the patient has been off intravenous diltiazem for 24 hours. 05/10: When seen the patient is asleep but awakens to voice. After that he is awake and readily interacts. He does have some pain to the neck. Today he complains of pain along the jaw and itching to the right occipital scalp. He is in atrial fibrillation with a ventricular rate of 50 to the mid 60s and is only on oral diltiazem. He does again report intermittent numbness to the distal left forearm into the hand but doesn't have any at present. 05/11/17: c/o diffuse body pain. awake and alert. On digoxin and oral diltiazem, on ASA 81, no anticoagulation recommended per Cardiology. 05/13/17: states he is doing ok, pain controlled, denies new neurological complaints. off librium. 05/15/17: c/o of neck pain, controlled with pain medications. brother in room reports patient does not have safe support at home, he lives at a friend's house who is not always available. would like dc to nursing facility. (Piper Morillo) Labs, Micro, & Vital Signs Results Date Time Temp Pulse Resp B/P (MAP) Pulse Ox O2 Delivery O2 Flow Rate FiO2 05/15/17 07:39 95.5 70 18 100/66 (77) 94 05/15/17 04:17 18 05/15/17 04:10 97.1 76 18 112/58 (76) 95 05/14/17 23:30 96.7 77 18 129/68 (88) 95 05/14/17 22:35 Room Air 05/14/17 19:03 97.4 92 18 132/74 (93) 94 05/14/17 16:00 96.6 80 18 125/61 (82) 97 05/14/17 12:00 96.3 78 18 122/80 (94) 93 Constitutional Vital Signs Date Time Temp Pulse Resp B/P (MAP) Pulse Ox O2 Delivery O2 Flow Rate FiO2 05/15/17 07:39 95.5 70 18 100/66 (77) 94 05/15/17 04:17 18 05/15/17 04:10 97.1 76 18 112/58 (76) 95 05/14/17 23:30 96.7 77 18 129/68 (88) 95 05/14/17 22:35 Room Air 05/14/17 19:03 97.4 92 18 132/74 (93) 94 05/14/17 16:00 96.6 80 18 125/61 (82) 97 05/14/17 12:00 96.3 78 18 122/80 (94) 93 (Piper Morillo) Physical Exam Awake, alert, eating his breakfast and watching TV. Minimally converses, follows simple commands. Halo brace intact Pin sites clean x 4 Motor: moves all four extremities symmetrically against gravity Sensory: reports intact to light touch x 4 (Piper Morillo) Medications Current Medications Current Medications Medications (Trade) Dose Ordered Sig/Michael Route PRN Reason Start Time Stop Time Status Last Admin Dose Admin Aspirin (Ecotrin Ec) 81 mg DAILY PO 05/02/17 09:00 05/14/17 09:09 Midodrine (Proamatine) 5 mg TID@07,12,17 PO 05/01/17 17:30 05/15/17 06:24 Lorazepam (Ativan Inj) 1 mg Q1H PRN IV PUSH SEIZURES 05/01/17 17:30 Al Hydrox/Mg Hydrox/Simethicone (Mag-Al Plus Susp Liq) 30 ml Q6H PRN PO DYSPEPSIA 05/01/17 17:15 Pantoprazole Sodium (Protonix) 40 mg DAILY PO 05/02/17 09:00 05/14/17 09:09 Promethazine HCl (Phenergan Inj) 25 mg Q4H PRN IM NAUSEA OR VOMITING 05/01/17 17:15 Calcium Gluconate 1 gm/Sodium Chloride 110 ml @ 110 mls/hr UNSCH PRN IV SEE LABEL COMMENTS 05/01/17 17:15 Potassium Chloride 100 ml @ 50 mls/hr UNSCH PRN IV POTASSIUM LESS THAN 4 05/01/17 17:15 Magnesium Sulfate 2 gm/Sodium Chloride 104 ml @ 100 mls/hr UNSCH PRN IV MAGNESIUM LESS THAN 2 05/01/17 18:00 05/04/17 11:16 Cyclobenzaprine HCl (Flexeril) 10 mg Q8H PRN PO MUSCLE SPASM 05/01/17 16:45 05/11/17 21:00 Labetalol HCl (Trandate Inj) 10 mg Q1H PRN IV PUSH SYS BP GREATER THAN 170 MMHG 05/01/17 17:30 Clonidine (Catapres) 0.1 mg Q6H PRN PO SYS BP GREATER THAN 170 MMHG 05/01/17 17:15 Zolpidem Tartrate (Ambien) 5 mg HS PRN PO INSOMNIA 05/01/17 21:00 05/11/17 20:59 Senna/Docusate Sodium (Nicole-Colace) 1 tab BID PO 05/01/17 21:00 05/14/17 09:09 Magnesium Hydroxide (Milk Of Magnesia Liq) 30 ml Q12H PRN PO Mild constipation 05/01/17 17:15 Sennosides (Senokot) 17.2 mg Q12H PRN PO Moderate constipation 05/01/17 17:15 Bisacodyl (Dulcolax Supp) 10 mg DAILY PRN RECTAL SEVERE CONSITIPATION 05/01/17 17:15 Lactulose (Lactulose Liq) 30 ml DAILY PRN PO SEVERE CONSITIPATION 05/01/17 17:15 Tramadol HCl (Ultram) 50 mg Q4H PRN PO pain 1-6 05/01/17 16:45 05/12/17 03:35 Hydromorphone HCl (Dilaudid) 2 mg Q4H PRN PO pain>6 05/01/17 16:45 05/15/17 03:22 Sodium Chloride (NS Flush) 2 ml UNSCH PRN IV FLUSH FLUSH AFTER USING IV ACCESS 05/01/17 17:45 Sodium Chloride (NS Flush) 2 ml BID IV FLUSH 05/01/17 21:00 05/14/17 20:43 Ondansetron HCl (Zofran Inj) 4 mg Q6H PRN IV PUSH NAUSEA OR VOMITING 05/01/17 17:45 Miscellaneous Information 1 Q361D XX 05/01/17 17:45 Chlorhexidine Gluconate (Chlorhexidine 2% Cloth) Taper DAILY@04 TOP 05/02/17 04:00 04/28/18 03:59 Chlorhexidine Gluconate (Chlorhexidine 2% Cloth) 3 pack UNSCH PRN TOP HYGIENIC CARE 05/01/17 17:45 Lorazepam (Ativan) 1 mg Q4H PRN PO CIWA 8 - 10 05/03/17 07:30 05/03/17 23:26 Lorazepam (Ativan Inj) 1 mg Q4H PRN IV PUSH CIWA 8 - 10 05/03/17 07:30 Lorazepam (Ativan) 2 mg Q2H PRN PO CIWA 11-14 05/03/17 07:30 05/03/17 16:15 Lorazepam (Ativan Inj) 2 mg Q2H PRN IV PUSH CIWA 11-14 05/03/17 07:30 Lorazepam (Ativan Inj) 2 mg Q1H PRN IV PUSH CIWA 15-20 05/03/17 07:30 Lorazepam (Ativan Inj) 2 mg Q15M PRN IV PUSH CIWA > 20 05/03/17 07:30 Albuterol Sulfate (Albuterol Neb) 2.5 mg Q2HR NEB PRN NEB WHEEZING 05/03/17 14:00 05/09/17 20:32 Digoxin (Lanoxin) 0.125 mg DAILY PO 05/04/17 09:00 05/14/17 09:09 Budesonide/ Formoterol Fumarate (Symbicort 160-4.5 Mcg Inh) 2 puff Q12HR INH 05/03/17 21:00 05/14/17 20:43 Guaifenesin (Mucinex Er) 600 mg BID PO 05/03/17 21:00 05/14/17 20:43 Thiamine HCl (Vitamin B1) 100 mg DAILY PO 05/05/17 09:00 05/14/17 09:09 Folic Acid (Folate) 1 mg DAILY PO 05/04/17 09:00 05/14/17 09:09 Multivitamins (Theragran) 1 tab DAILY PO 05/04/17 09:00 05/14/17 09:08 Polyethylene Glycol (Miralax) 17 gm DAILY PO 05/05/17 09:00 05/10/17 09:59 Lactulose (Lactulose Liq) 30 ml DAILY PO 05/05/17 09:00 05/10/17 09:57 Diltiazem HCl (Cardizem) 90 mg Q6H PO 05/08/17 15:00 05/15/17 03:19 Hydromorphone HCl (Dilaudid) 2 mg Q4H PRN PO Breakthrough pain 05/11/17 13:45 (Piper Morillo) Medical Decision Making MDM Remarks 62 y/o male with C2 fracture s/p placement of halo brace, stable neurological examination Atrial fibrillation with RVR, cardiology evaluation- No other anticoagulation recommended at this time, on aspirin, digoxin, oral diltiazem (Piper Morillo) Plan Plan Remarks cleared medically for discharge cont daily pin care cont therapy, encourage to increase mobilization OOB clear to dc to SNF when bed available f/u Dr. Dodd in 3 weeks f/u PCP outpatient f/u Cardiology outpatient (Piper Morillo) Attending Statement The exam, history, and the medical decision-making described in the above note were completed with the assistance of the mid-level provider. I reviewed and agree with the findings presented. I attest that I had a [id number] encounter with the patient on the same day, and personally performed and documented my assessment and findings in the medical record. (Blayne Lott MD) Piper Morillo May 15, 2017 10:06 Blayne Lott MD May 16, 2017 14:16
--- NOTE | 2017-05-15 10:11 | HHI.DCPOC ---
Discharge Care Plan Diagnosis: (1) C2 cervical fracture (2) Atrial fibrillation with RVR Goals to Promote Your Health * To prevent worsening of your condition and complications * To maintain your health at the optimal level Directions to Meet Your Goals Take your medications as prescribed Follow your dietary instruction Follow activity as directed Keep your appointments as scheduled Take your immunizations and boosters as scheduled If your symptoms worsen call your PCP, if no PCP go to Urgent Care Center or Emergency Room Smoking is Dangerous to Your Health. Avoid second hand smoke Call the 24-hour hour crisis hotline for domestic abuse at Piper Morillo May 15, 2017 10:11
[2017-05-15] MEDS: guaiFENesin E.R. 600 MG TAB PO SCH (10:15)
[2017-05-15] MEDS: MULTIVITAMIN TAB PO SCH (10:16)
[2017-05-15] MEDS: THIAMINE HCL 100 MG TAB PO SCH (10:16)
[2017-05-15] MEDS ORDERED: DIGO0.12 PO (10:16)
[2017-05-15] MEDS: DIGOXIN 0.125 MG TAB PO SCH (10:16)
[2017-05-15] MEDS: FOLIC ACID 1 MG TAB PO SCH (10:16)
[2017-05-15] MEDS: PANTOPRAZOLE SOD 40 MG DELAYED RELEASE TAB PO SCH (10:16)
[2017-05-15] MEDS ORDERED: DILT90TA PO (10:16)
[2017-05-15] MEDS: ASPIRIN EC 81 MG TABEC PO SCH (10:16)
[2017-05-15] MEDS: BUDESONIDE-FORMOTEROL 160/4.5 MCG INHALER INH SCH (10:18)
[2017-05-15] MEDS: SODIUM CHLORIDE 0.9% FLUSH 10 ML FLUSH IV FLUSH SCH (10:28)
[2017-05-15 11:43] VITALS: BP 117/67; PULSE 75; RESP 18; TEMP 97; O2SAT 98
[2017-05-15 16:00] VITALS: BP 129/69; PULSE 61; RESP 18; TEMP 96; O2SAT 97
[2017-05-15] MEDS ORDERED: SYMB160A INH (17:34)
--- NOTE | 2017-05-15 17:37 | HHI.PR ---
Subjective Remarks The pt was ready to go to rehab. He had no acute concerns. Objective Vitals Vital Signs Date Time Temp Pulse Resp B/P (MAP) Pulse Ox O2 Delivery O2 Flow Rate FiO2 05/15/17 16:00 96.0 61 18 129/69 (89) 97 05/15/17 11:43 97.0 75 18 117/67 (84) 98 05/15/17 11:17 18 05/15/17 07:39 95.5 70 18 100/66 (77) 94 05/15/17 04:10 97.1 76 18 112/58 (76) 95 05/14/17 23:30 96.7 77 18 129/68 (88) 95 05/14/17 22:35 Room Air 05/14/17 19:03 97.4 92 18 132/74 (93) 94 I/O 05/14/17 05/14/17 05/14/17 05/15/17 05/15/17 05/15/17 07:00 15:00 23:00 07:00 15:00 23:00 Intake Total 480 ml 480 ml 480 ml 480 ml 720 ml Output Total 500 ml 350 ml 300 ml Balance -20 ml 480 ml 480 ml 130 ml 420 ml Intake Oral 480 ml 480 ml 480 ml 480 ml 720 ml Output Urine Total 500 ml 350 ml 300 ml # Voids 1 2 1 # Bowel Movements 0 0 0 0 Result Diagram: 05/11/17 0454 05/12/17 0420 Imaging Last Impressions Chest X-Ray 05/06/17 0600 Signed Impressions: Service Date/Time: Saturday, May 06, 2017 02:32 - CONCLUSION: Slight CHF. K. Raul Catherine MD Cervical Spine X-Ray 05/03/17 0000 Signed Impressions: Service Date/Time: Wednesday, May 03, 2017 11:31 - CONCLUSION: Findings as above. Abdiaziz Cheng MD FACR Head CT 05/01/17 1511 Signed Impressions: Service Date/Time: Monday, May 01, 2017 15:27 - CONCLUSION: 1. No acute intracranial abnormality. 2. Small posterior scalp soft tissue hematoma. 3. Mild bilateral maxillary sinus disease. Aries Fowler MD Cervical Spine CT 05/01/17 1512 Signed Impressions: Service Date/Time: Monday, May 01, 2017 15:30 - CONCLUSION: 1. Abnormal examination. Minimally displaced C2 fracture extending from the base of the dens and the lateral mass of C2 with approximate 4 mm posterior retropulsed fragment. Fracture also extends through right transverse foramen which can result in possible vertebral artery injury. CTA examination may be performed as clinically warranted. Aries Fowler MD Neck CTA 05/01/17 0000 Signed Impressions: Service Date/Time: Monday, May 01, 2017 17:26 - CONCLUSION: 1. Negative exam. The right vertebral artery is patent and intact. Papo Lee MD Chest CT 05/01/17 0000 Signed Impressions: Service Date/Time: Monday, May 01, 2017 20:24 - CONCLUSION: 1. Mild right basilar atelectasis. 2. No evidence of pneumothorax. 3. Horizontal fracture through the inferior sternum with some mild soft tissue thickening in the substernal soft tissues Papo Lee MD Objective Remarks General: No acute distress. HEENT: In HALO. Heart: Irregular rhythm. Lungs: Clear to auscultation bilaterally. No wheezes, rales, or rhonchi. Breathing is nonlabored. Abdomen: Soft, nontender, nondistended. Extremities: No lower extremity edema. Neuro: Alert and oriented. Psych: Mood and affect appropriate. Procedures 05/03/17 Closed reduction with manipulation and fixation of C2 fracture; HALO placement Medications and IVs Current Medications Medications (Trade) Dose Ordered Sig/Michael Route Start Time Stop Time Status Last Admin (Ecotrin Ec) 81 mg DAILY PO 05/02/17 09:00 05/15/17 10:16 (Proamatine) 5 mg TID@07,12,17 PO 05/01/17 17:30 05/15/17 16:11 (Ativan Inj) 1 mg Q1H PRN IV PUSH 05/01/17 17:30 (Mag-Al Plus Susp Liq) 30 ml Q6H PRN PO 05/01/17 17:15 (Protonix) 40 mg DAILY PO 05/02/17 09:00 05/15/17 10:16 (Phenergan Inj) 25 mg Q4H PRN IM 05/01/17 17:15 Calcium Gluconate 1 gm/Sodium Chloride 110 ml @ 110 mls/hr UNSCH PRN IV 05/01/17 17:15 Potassium Chloride 100 ml @ 50 mls/hr UNSCH PRN IV 05/01/17 17:15 Magnesium Sulfate 2 gm/Sodium Chloride 104 ml @ 100 mls/hr UNSCH PRN IV 05/01/17 18:00 05/04/17 11:16 (Flexeril) 10 mg Q8H PRN PO 05/01/17 16:45 05/11/17 21:00 (Trandate Inj) 10 mg Q1H PRN IV PUSH 05/01/17 17:30 (Catapres) 0.1 mg Q6H PRN PO 05/01/17 17:15 (Ambien) 5 mg HS PRN PO 05/01/17 21:00 05/11/17 20:59 (Nicole-Colace) 1 tab BID PO 05/01/17 21:00 05/14/17 09:09 (Milk Of Magnesia Liq) 30 ml Q12H PRN PO 05/01/17 17:15 (Senokot) 17.2 mg Q12H PRN PO 05/01/17 17:15 (Dulcolax Supp) 10 mg DAILY PRN RECTAL 05/01/17 17:15 (Lactulose Liq) 30 ml DAILY PRN PO 05/01/17 17:15 (Ultram) 50 mg Q4H PRN PO 05/01/17 16:45 05/12/17 03:35 (Dilaudid) 2 mg Q4H PRN PO 05/01/17 16:45 05/15/17 16:12 (NS Flush) 2 ml UNSCH PRN IV FLUSH 05/01/17 17:45 (NS Flush) 2 ml BID IV FLUSH 05/01/17 21:00 05/15/17 10:28 (Zofran Inj) 4 mg Q6H PRN IV PUSH 05/01/17 17:45 Miscellaneous Information 1 Q361D XX 05/01/17 17:45 (Chlorhexidine 2% Cloth) Taper DAILY@04 TOP 05/02/17 04:00 04/28/18 03:59 (Chlorhexidine 2% Cloth) 3 pack UNSCH PRN TOP 05/01/17 17:45 (Ativan) 1 mg Q4H PRN PO 05/03/17 07:30 05/03/17 23:26 (Ativan Inj) 1 mg Q4H PRN IV PUSH 05/03/17 07:30 (Ativan) 2 mg Q2H PRN PO 05/03/17 07:30 05/03/17 16:15 (Ativan Inj) 2 mg Q2H PRN IV PUSH 05/03/17 07:30 (Ativan Inj) 2 mg Q1H PRN IV PUSH 05/03/17 07:30 (Ativan Inj) 2 mg Q15M PRN IV PUSH 05/03/17 07:30 (Albuterol Neb) 2.5 mg Q2HR NEB PRN NEB 05/03/17 14:00 05/09/17 20:32 (Lanoxin) 0.125 mg DAILY PO 05/04/17 09:00 05/15/17 10:16 (Symbicort 160-4.5 Mcg Inh) 2 puff Q12HR INH 05/03/17 21:00 05/15/17 10:18 (Mucinex Er) 600 mg BID PO 05/03/17 21:00 05/15/17 10:15 (Vitamin B1) 100 mg DAILY PO 05/05/17 09:00 05/15/17 10:16 (Folate) 1 mg DAILY PO 05/04/17 09:00 05/15/17 10:16 (Theragran) 1 tab DAILY PO 05/04/17 09:00 05/15/17 10:16 (Miralax) 17 gm DAILY PO 05/05/17 09:00 05/10/17 09:59 (Lactulose Liq) 30 ml DAILY PO 05/05/17 09:00 05/10/17 09:57 (Cardizem) 90 mg Q6H PO 05/08/17 15:00 05/15/17 16:11 (Dilaudid) 2 mg Q4H PRN PO 05/11/17 13:45 A/P Assessment and Plan C2 fracture Status post closed reduction with placement of halo. - Management per neurosurgery. - PT. Added OT. D/c to [facility]. - IS. - pain control with a bowel regimen. Atrial fibrillation with RVR Rate controlled. Appreciate cardiology recommendations. CHADS VASc2 score 1. - Continue digoxin, oral diltiazem, aspirin 81mg daily. No other anticoagulation recommended at this time. - telemetry. Tobacco abuse Patient has been counseled. - Oxygen, bronchodilators as needed. - Symbicort. Inferior sternal fracture Nonoperative. - Continue pain control. - Physical therapy. Alcohol abuse The pt says he will decrease his alcohol intake. - weaned off Librium 05/13. - cessation instruction. DVT prophylaxis: SCDs Discharge Planning The patient is medically cleared for discharge Dean Lobato DO May 15, 2017 17:37
== END 2017-05-15 17:40 | DRG 552 ==
LOC: NEPC 15:09 → NEDA 16:39 → N03B 18:27 → N06A 05-12 17:03
PROVIDERS: ADMIT Neurological Surgery; ATTEND Neurological Surgery
PROC: 0PS3XZZ Reposition Cervical Vertebra, External Approach (ICD-10-PCS; principal; 2017-05-03)
PROC: 2W62X0Z Traction of Neck using Traction Apparatus (ICD-10-PCS; 2017-05-03)
DX: S12.111A Posterior displaced Type II dens fracture, initial encounter for closed fracture (principal); S22.20XA Unspecified fracture of sternum, initial encounter for closed fracture; F10.231 Alcohol dependence with withdrawal delirium; I48.91 Unspecified atrial fibrillation; D69.6 Thrombocytopenia, unspecified; E87.1 Hypo-osmolality and hyponatremia; E88.09 Other disorders of plasma-protein metabolism, not elsewhere classified; E83.39 Other disorders of phosphorus metabolism; K21.9 Gastro-esophageal reflux disease without esophagitis; I95.1 Orthostatic hypotension; S00.03XA Contusion of scalp, initial encounter; D72.819 Decreased white blood cell count, unspecified; R73.9 Hyperglycemia, unspecified; F17.210 Nicotine dependence, cigarettes, uncomplicated; Y90.6 Blood alcohol level of 120-199 mg/100 ml; W18.30XA Fall on same level, unspecified, initial encounter; Y92.89 Other specified places as the place of occurrence of the external cause; Z91.14 Patient's other noncompliance with medication regimen; Z91.19 Patient's noncompliance with other medical treatment and regimen; Z88.5 Allergy status to narcotic agent
CPT/HCPCS: 70450; 70498; 71010; 71250; 72040; 72125; 80048; 80053; 80162; 80307; 83735; 84100; 84443; 84484; 85007; 85025; 85027; 85610; 85730; 87070; 87205; 87641; 87804; 93005; 94150; 94640; 94664; 94667; 94668; 96361; 96374; 96375; 96376; J1160; J2270; J2405; J2543; J3411; J3475; J3480; J7030; J7040; J7050; J7613; L0150; L0172; L0810; Q9967

== ENCOUNTER → 2017-06-15 | Outpatient (CLI) | payer OTHER ==
[~2017-06-15] MED LIST changes: +Budeson-Formot 160-4.5 Mcg Inh INH; +DIGO0.12 PO; +DILA2TAB4 PO; -DILT60TA33 PO; +DILT90TA PO; +ECASA81 PO; -EDOX1TAB5 PO; +FOLI1TAB6 PO; +PANT40TA3 PO; +PERI PO; -SODI1TAB PO; +SYMB160A INH; +THERTAB15 PO; +THIA100 PO; +guaiFENesin ER PO
--- NOTE | 2017-06-15 15:10 | RADRPT ---
EXAM DATE/TIME: 06/15/2017 13:37 [facility] COMPARISON: SP[facility]ERV[facility] ([facility]), May 03, 2017, 11:31. INDICATIONS : C2 Fracture. MEDICAL HISTORY : Hypertension. SURGICAL HISTORY : Halo placement ENCOUNTER: Initial ACUITY: 1 month PAIN SCORE: 0/10 LOCATION: Bilateral cervical spine FINDINGS: There is minimal anterolisthesis of C1 on C2 by 3 mm. This has progressed slightly in interval. CONCLUSION: Alignment as above. Abdiaziz Cheng MD FACR on June 15, 2017 at 15:08 Board Certified Radiologist. This report was verified electronically.
== END ==
LOC: HRAD 13:22
PROVIDERS: ATTEND Neurological Surgery
DX: S12.100A Unspecified displaced fracture of second cervical vertebra, initial encounter for closed fracture (principal); X58.XXXA Exposure to other specified factors, initial encounter
CPT/HCPCS: 72040

== ENCOUNTER → 2017-08-03 | Outpatient (CLI) | payer SELFPAY ==
--- NOTE | 2017-08-03 16:57 | RADRPT ---
EXAM DATE/TIME: 08/03/2017 14:12 [facility] COMPARISON: CT CERVICAL SPINE W/O CONTRAST, May 01, 2017, 15:30. INDICATIONS : Follow up on C2 fracture. RADIATION DOSE: 22.49 CTDIvol (mGy) MEDICAL HISTORY : Hypertension. SURGICAL HISTORY : Halo placement. ENCOUNTER: Subsequent ACUITY: 2 months PAIN SCALE: 3/10 LOCATION: neck TECHNIQUE: Volumetric scanning of the cervical spine was performed. Multiplanar reconstructions in the sagittal, coronal and oblique axial planes were performed. Using automated exposure control and adjustment o f the mA and/or kV according to patient size, radiation dose was kept as low as reasonably achievable to obtain optimal diagnostic quality images. DICOM format image data is available electronically f or review and comparison. FINDINGS: The comminuted C2 burst fracture demonstrates significant sclerosis and some bridging along the fract ure line indicative of healing. There is slightly more anterior displacement of the right lateral mas s of the C2 vertebral body compared to the original fracture. Fracture fragment alignment is otherwis e stable. No significant change is identified in the alignment of the dens with the body of C2. Retro pulsion of a small bony fragment off the base of the posterior dens is again noted and is not signifi cantly changed in position. There is anterior epidural mass effect without significant cord compressi on. Fractured right pedicle of C2 is again noted and is stable in alignment. The foramen transversarium of C1 remain intact. Cervical vertebral body alignment is otherwise intact and stable. Advanced left-sided facet arthropathy is noted at C3-4 and C4-5. Advanced degenerative disc disease at C5-6, C6-7 and C7-T1 are again noted. The posterior elements remain intact. CONCLUSION: 1. Slight anterior fracture fragment displacement along the right lateral mass of C2 compared to the original scan. 2. Otherwise stable fracture fragment alignment. 3. Significant sclerosis with partial bridging along the C2 burst fracture indicative of healing. 4. Stable small retropulsed fragment at the base of the dens projecting posteriorly. 5. Stable exam severe disc disease and facet arthropathy described above. Tae Escoto MD on August 03, 2017 at 16:34 Board Certified Radiologist. This report was verified electronically.
== END ==
LOC: HRAD 13:31
PROVIDERS: ATTEND Neurological Surgery
DX: S12.100D Unspecified displaced fracture of second cervical vertebra, subsequent encounter for fracture with routine healing (principal)
CPT/HCPCS: 72125

== ENCOUNTER 2017-08-08 17:33 | Emergency (ER) | payer SELFPAY ==
[~2017-08-08] VITALS: Ht 177.8 cm; Wt 70.0 kg
[2017-08-08 17:38] VITALS: BP 144/75; PULSE 99; RESP 16; TEMP 98.1; O2SAT 96
--- NOTE | 2017-08-08 17:50 | PD ---
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 Patient has history of closed C2 fracture since May 01, 2017. Patient was seen by Dr. Dodd, neurosurgeon. Patient underwent halo stabilization. Patient has been seen by Dr. Dodd since then. Patient was seen by Dr. Dodd several days ago and supposed had a halo removed in 2 days. Patient states that halo spontaneously popped out of place today. Patient denies any injury today. PFSH Past Medical History Hx Anticoagulant Therapy: Yes (ASA 81MG) Arthritis: No Asthma: No Autoimmune Disease: No Anxiety: Yes Depression: No Heart Rhythm Problems: Yes (afib) Cancer: No Cardiovascular Problems: Yes High Cholesterol: No Chest Pain: Yes Congestive Heart Failure: No COPD: No Cerebrovascular Accident: No Diabetes: No Endocrine: No GERD: No Genitourinary: No Headaches: Yes (rare) Hiatal Hernia: No Immune Disorder: No Musculoskeletal: Yes Neurologic: Yes Psychiatric: Yes Reproductive: No Respiratory: Yes Immunizations Current: Yes Migraines: No Seizures: No Sickle Cell Disease: No Sleep Apnea: No Thyroid Disease: No Ulcer: No Past Surgical History Abdominal Surgery: No AICD: No Arteriovenous Shunt: No Cardiac Surgery: No Ear Surgery: No Endocrine Surgery: No Eye Surgery: No Genitourinary Surgery: No Gynecologic Surgery: No Insulin Pump: No Joint Replacement: No Oral Surgery: Yes (teeth extraction) Pacemaker: No Thoracic Surgery: No Other Surgery: Yes Social History Alcohol Use: Yes (daily) Tobacco Use: Yes (1/2 PPD) Substance Use: No Allergies-Medications (Allergen,Severity, Reaction): Coded Allergies: No Known Allergies (Unverified , 08/08/17) Reported Meds & Prescriptions Reported Meds & Active Scripts Active Dilaudid (Hydromorphone HCl) 2 Mg Tab 2 Mg PO Q4H PRN Thera Tablet (Multivitamin with Folic Acid) 400 Mcg Tablet 1 Tab PO DAILY 30 Days Gnp Vitamin B-1 (Thiamine HCl) 100 Mg Tab 100 Mg PO DAILY 30 Days Folic Acid 1 Mg Tablet 1 Mg PO DAILY 30 Days Pantoprazole (Pantoprazole Sodium) 40 Mg Tab 40 Mg PO DAILY 30 Days Gnp Senna Plus 8.6-50 mg (Sennosides-Docusate Sodium) 8.6 Mg-50 Mg Tab 1 Tab PO BID 30 Days [guaiFENesin ER] 600 MG Tabcr 600 Mg PO BID 30 Days [Budeson-Formot 160-4.5 Mcg Inh] 60 PUFF Aero 2 Puff INH Q12HR [address] (Aspirin) 81 Mg Tabdr 81 Mg PO DAILY 30 Days Diltiazem (Diltiazem HCl) 90 Mg Tab 90 Mg PO Q6HR 30 Days Digoxin 0.125 Mg Tab 0.125 Mg PO DAILY 30 Days Midodrine 5 Mg Tab 5 Mg PO TID@07,12,17 30 Days Symbicort Inh (Budesonide/Formoterol Fumarate) 160-4.5 Mcg/Act Aero 2 Puff INH Q12HR Diltiazem (Diltiazem HCl) 90 Mg Tab 90 Mg PO Q6H 30 Days Digoxin 0.125 Mg Tab 0.125 Mg PO DAILY 30 Days Midodrine 5 Mg Tab 5 Mg PO TID@,12,17 Aspirin EC (Aspirin) 81 Mg Tabdr 81 Mg PO DAILY Review of Systems General / Constitutional: No: Fever Eyes: No: Visual changes HENT: No: Headaches Cardiovascular: No: Chest Pain or Discomfort Respiratory: No: Shortness of Breath Gastrointestinal: No: Abdominal Pain Genitourinary: No: Dysuria Musculoskeletal: No: Pain Skin: No Rash Neurologic: No: Weakness Psychiatric: No: Depression Endocrine: No: Polydipsia Hematologic/Lymphatic: No: Easy Bruising Physical Exam Narrative GENERAL: Well-nourished, well-developed patient. SKIN: Focused skin assessment warm/dry. HEAD: Normocephalic. EYES: No scleral icterus. No injection or drainage. NECK: Supple, trachea midline. No JVD or lymphadenopathy. CARDIOVASCULAR: Regular rate and rhythm without murmurs, gallops, or rubs. RESPIRATORY: Breath sounds equal bilaterally. No accessory muscle use. GASTROINTESTINAL: Abdomen soft, non-tender, nondistended. MUSCULOSKELETAL: No cyanosis, or edema. BACK: Nontender without obvious deformity. No CVA tenderness. Neurologic exam: Patient awake alert oriented 3. Patient moves all extremity well. No obvious focal neurological deficit. Examination of the halo shows 2 anterior screws is completely out, freely outside of the skull. 2 rounded wound frontal head , no active bleeding. Data Data Last Documented VS Vital Signs Date Time Temp Pulse Resp B/P (MAP) Pulse Ox O2 Delivery O2 Flow Rate FiO2 08/08/17 17:38 98.1 99 16 144/75 (98) 96 Orders Orders Ketorolac Inj (Toradol Inj) (08/08/17 18:30) Ed Discharge Order (08/08/17 18:28) MDM Medical Decision Making Medical Screen Exam Complete: Yes Emergency Medical Condition: Yes Differential Diagnosis Differential diagnosis including halo displacement. Narrative Course 62-year-old male with displacement of the halo. History of closed C2 fracture since April 2017. Patient was instructed by his neurosurgeon, Dr. Alvarez, to have the halo removed in 2 days. The halo was displaced today at home. Nontraumatic. I spoke with neurosurgeon on-call, Dr. Lal. Advised to remove the halo and put patient on Nuckolls collar and follow with Dr. Dodd. Procedures Procedure Narrative diet technician registered was instructed to remove the halo and put patient on Nuckolls collar. Diagnosis Primary Impression: Closed C2 fracture Qualified Codes: S12.191D - Other nondisplaced fracture of second cervical vertebra, subsequent encounter for fracture with routine healing Patient Instructions: General Instructions Additional Instructions: Follow-up with neurosurgeon as directed. Med/Other Pt SpecificInfo: No Change to Meds Disposition: 01 DISCHARGE HOME Condition: Stable Flip Quiroz MD Aug 08, 2017 17:50
[2017-08-08] MEDS ORDERED: KETOROLAC TROMETHAMINE 60 MG/2 ML (IM) VIAL IM ONE (18:30)
== END 2017-08-08 19:46 | disposition home or self-care (01) ==
LOC: NEPD 17:33
DX: S12.101D Unspecified nondisplaced fracture of second cervical vertebra, subsequent encounter for fracture with routine healing (principal); X58.XXXD Exposure to other specified factors, subsequent encounter; F41.9 Anxiety disorder, unspecified; I48.91 Unspecified atrial fibrillation; F17.200 Nicotine dependence, unspecified, uncomplicated
CPT/HCPCS: 96372; 99283; J1885; L0150; L0172